=== PATIENT | female | born 1945 | race African-American/Black ===

== ENCOUNTER 2016-08-02 10:41 | Day surgery (SDC) | payer MEDICARE ==
--- NOTE | 2016-07-31 15:06 | PDOC1 ---
History and Physical Date of Admission Date of Admission DATE: 08/02/16 Identification/Chief Complaint Chief Complaint right leg wound status post right total knee arthroplasty Source Source: Chart review History of Present Illness History of Present Illness Kimi is a 71 year old female who had right total knee arthroplasty on . She developed a fracture blister laterally that has been managed with Silvadene, Santyl, and daily dressing changes. She has seen the wound care clinic who recommended surgical debridement of the wound. Past Medical History Cardiovascular: HTN, Hyperlipidemia Psych: Depression Musculoskeletal: Osteoarthritis Endocrine: Diabetes Past Surgical History Past Surgical History: Total knee replacement (right - 04/30/16) Social History Smoke: No ALCOHOL: none Drugs: None Current Medications Current Medications Active Scripts Active Aspirin Ec (Aspirin) 325 Mg Tablet.dr 325 Mg PO BID 30 Days Reported Clindamycin Hcl 150 Mg Capsule 150 Mg PO TID Percocet 5-325 Mg Tablet (Oxycodone/Acetaminophen) 1 Each Tablet 1-2 Tab PO Q4- 6HRS Calcium 600 + Vit D 200 Tablet (Calcium Carbonate/Vitamin D3) 1 Each Tablet 1 Each PO BID Hair, Skin & Nails (Multivitamin With Minerals) 1 Each Tablet 1 Each PO DAILY Carvedilol 12.5 Mg Tablet 12.5 Mg PO BIDWMEALS Lovastatin 40 Mg Tablet 40 Mg PO HS Metformin Hcl 1,000 Mg Tablet 1 Tab PO BID Hydrochlorothiazide Tablet (Hydrochlorothiazide) 12.5 Mg Tablet 25 Mg PO DAILY Novolin N (Nph, Human Insulin Isophane) 100 Unit/1 Ml Vial 25 Unit SQ DAILYBFRSUP Novolin N (Nph, Human Insulin Isophane) 100 Unit/1 Ml Vial 40 Unit SQ DAILYWBKFT Glipizide 5 Mg Tablet 5 Mg PO DAILY Lisinopril 40 Mg Tablet 40 Mg PO DAILY Citalopram Hbr (Citalopram Hydrobromide) 40 Mg Tablet 40 Mg PO DAILY Allergies Allergies: Uncoded Allergies: METAL (Adverse Reaction, Intermediate, Rash, 12/29/15) Physical Exam General: Alert, Oriented X3, Cooperative, No acute distress HEENT: Atraumatic Lungs: Normal air movement Heart: RRR Abdomen: Soft Extremities: Other (Continued areas of necrotic skin laterally 10 x 10 x 10 cm triangular. Full-thickness skin necrosis, with surrounding granulation tissue. No drainage. The knee itself seems benign with good range of motion and no effusion) VTE Prophylaxis Ordered VTE Prophylaxis Devices: Yes VTE Pharmacological Prophylaxi: Yes Assessment/Plan Assessment/Plan Eschar of lateral lower leg status post right total knee replacement on 04/30/16. The lateral eschar has been treated with Santyl, Silvadene, and daily dressing changes, without much improvement. She has been seen at the wound care clinic who recommended surgical debridement. Dr. Lance agrees with this plan. This will be scheduled at [facility] on 08/02/16 at 1pm. CHELSEA SHEPHERD Jul 31, 2016 15:06
[~2016-08-02] VITALS: Ht 172.7 cm; Wt 104.3 kg
[~2016-08-02 10:41] MED LIST: AMOX1TAB61 PO; ASPI325T11 PO; ASPI81TA2 PO; BUPIVACAINE-EPI 0.25%-1:200000 50 ML VIAL. ONE; CALC1TAB75 PO; CARV12.52 PO; CEFAZOLIN 2GM PREMIX 50 ML IV ONE; CELE200C PO; CITA40TA5 PO; CLIN-44 PO; DIPHENHYDRAMINE 50 MG/ML VIAL IV PRN; FENTANYL PF 100 MCG/2 ML VIAL. IV PRN; FERR-26 PO; GLIP5TAB10 PO; HYDR12.58 PO; HYDROMORPHONE 2 MG/ML VIAL. IV PRN; IBUP-1060 PO; IV RINGERS,LACTATED 1000ML 1,000 ML IV SCH; LIDOCAINE 1% 1 ML SYRINGE. ID PRN; LISI40TA PO; LOVA40TA2 PO; MELO-156 PO; MEPERIDINE PF 25 MG/ML VIAL. IV PRN; METF10002 PO; MIDAZOLAM HCL 2 MG/2 ML VIAL. IV PRN; MORPHINE SULFATE 4 MG/ML DISP.SYRIN. IV PRN; MULT-55 PO; NPH,100V4 SQ; OXYC-323 PO; PROCHLORPERAZINE 10 MG/2 ML VIAL. IV PRN
[2016-08-02] MEDS ORDERED: FENTANYL PF 100 MCG/2 ML VIAL. ONE (11:43)
[2016-08-02] MEDS ORDERED: DEXAMETHASONE SOD PHOS 20 MG/5 ML VIAL. ONE (11:43)
[2016-08-02] MEDS ORDERED: LIDOCAINE 2% 100 MG/5 ML DISP.SYRIN. ONE (11:43)
[2016-08-02] MEDS ORDERED: SEVOFLURANE 61 TO 120 MINUTES. IH ONE (11:43)
[2016-08-02] MEDS ORDERED: ONDANSETRON PF 4 MG/2 ML VIAL. ONE (11:43)
[2016-08-02] MEDS ORDERED: PROPOFOL 20 ML IV ONE (11:43)
[2016-08-02] MEDS ORDERED: MIDAZOLAM HCL 2 MG/2 ML VIAL. ONE (12:24)
[2016-08-02] MEDS ORDERED: SUCCINYLCHOLINE 200 MG/10 ML VIAL. ONE (12:40)
[2016-08-02] MEDS ORDERED: OXYC-323 PO (13:53)
[2016-08-02] MEDS ORDERED: OXYCODONE/APAP 5/325 TABLET. PO ONE (14:00)
--- NOTE | 2016-08-02 14:10 | OP ---
DATE OF SURGERY: 08/02/2016 PREOPERATIVE DIAGNOSIS: Right leg ulcer, open wound. POSTOPERATIVE DIAGNOSIS: Right leg ulcer, open wound. PROCEDURE: Debridement of skin and subcutaneous tissue, full thickness skin and subcutaneous tissue ulcer, right leg. SURGEON: Wiliam Lance MD TRAFFIC PERSONNEL SUPERVISOR: Dianelys Carlson PA-C ANESTHESIA: General. ESTIMATED BLOOD LOSS: 25 mL. COMPLICATIONS: None. SPECIMENS: Deep cultures. DRAINS: None. INDICATIONS: The patient is a 71-year-old woman who had a right total knee arthroplasty on 04/30/2016. She developed blisters and eschar laterally, which was felt initially to perhaps be related to a tight dressing such as an Aquacel dressing that did not stretch as the legs swelled. She developed a high grade area of ulceration lateral to the incision. Her knee has never looked infected, and this seems to be a superficial problem that has caused the superficial skin to in a localized area. This has been treated topically with topical medications such as Silvadene, treated with some oral antibiotics, and also with topical Santyl. Recently in the last 10 days or so, the area became malodorous, and there seems to be some purulent drainage beneath the area of eschar. Again, it does not seem to involve the knee joint proper and has really just in the lateral soft tissues. She has been to the Wound Care Clinic for care, and upon discussion with the them, we decided debridement would be the best course of action followed by further dressing changes and perhaps a wound VAC application. She and I discussed the risks and benefits of surgery. I recommended the surgery and discussed potential risks such as further wound healing problems and need for additional surgeries, or possible deep infection. All of her questions about surgery were answered and she desired to proceed. A written consent was obtained. PROCEDURE IN DETAIL: The patient was identified in the preoperative holding area. The correct right knee was marked by me. She was taken to the operating room where a general anesthetic was used. Preoperative antibiotics were given intravenously. A tourniquet was used on the thigh, and applied, but never inflated. The limb was prepped sterilely with Betadine circumferentially and sterile drapes were applied with an impervious stockinette over the lower leg. The darkened, blacked eschar and superficial necrotic skin was debrided sharply with Metzenbaum scissors. Beneath that there was a little bit of green purulent drainage, setting beneath the blackened eschar and on top of the underlying granulation tissue, fascia and adipose tissue. I took cultures of his underlying area, which seemed to be the area that was foul smelling. I then did and aggressive debridement using curettes, rongeurs, irrigation, and some sharp dissection and excised additional skin, subcutaneous tissue and adipose tissue. I cut down to the level of the fascia, around the knee, near the patellar tendon, but I did not see any exposed hardware and I did not penetrate through the fascia as this area seems viable. There was no entry to the knee joint that I am seeing. I did this several times with several rounds of irrigation, curettage, and debridement of nonviable tissue until I got back to a nice healthy stable pink bleeding base of tissue. This leaves primarily a triangular shaped defect, which is 2 cm deep at its deepest point proximally, and gets thinner as it goes laterally and distally. It is maximal measurements 11 cm x 10 cm x 2 cm using the standard length, width and height measurements. It is really a triangular defect, and the length of the triangle are 11 cm, 10 cm, and 9 cm. It is again 2 cm deep. After copious irrigation a final time and change of outer gloves, I used Bovie electrocautery for careful hemostasis. All of the remaining tissue appears viable and there is no entry to the knee joint. Xeroform and a light sterile dressing were applied with some gauze packing in the 2-cm defect, and then sterile outer dressing was applied with 4 x 4s, ABD, and an Ankur wrap. The plan will be for her to attend the Wound Clinic on Friday for VAC application. Needle and sponge counts were correct. There were no apparent complications. Wiliam Lance MD DR: RUBI/shira JOB#: [id number] / [id number]
[2016-08-19 10:39] VITALS: BP 127/69
--- NOTE | 2016-08-25 14:17 | PDOC ---
BRIEF OPERATIVE NOTE Date: Aug 02, 2016 Pre-Op Diagnosis right leg ulcer, open wound Post-Op Diagnosis right leg ulcer, open wound Procedure Performed debridement of skin and subcutaneous tissue, full thickness right leg Surgeon iqra yeager Anesthesia Type: General Blood Loss 25 mL Specimens Obtained deep cultures Findings right leg ulcer, open wound Complications none TADEO NAM MD Aug 25, 2016 14:17
== END 2016-08-02 15:15 | disposition home or self-care (01) ==
LOC: SURG 10:41 → UNDOADMIN 10:41 → OPSVCIP 10:41 → EDSTATUS 13:00 → UNDODISIN 15:15 → SURG 15:15 → EDSTATUS 08-23 13:00
PROVIDERS: ATTEND Orthopaedic Surgery
DX: T81.89XA Other complications of procedures, not elsewhere classified, initial encounter (principal); E11.622 Type 2 diabetes mellitus with other skin ulcer; L97.819 Non-pressure chronic ulcer of other part of right lower leg with unspecified severity; E78.5 Hyperlipidemia, unspecified; I10 Essential (primary) hypertension; M19.90 Unspecified osteoarthritis, unspecified site; F32.9 Major depressive disorder, single episode, unspecified; Z96.651 Presence of right artificial knee joint; Z79.899 Other long term (current) drug therapy; Z79.82 Long term (current) use of aspirin; Z98.890 Other specified postprocedural states; Y83.9 Surgical procedure, unspecified as the cause of abnormal reaction of the patient, or of later complication, without mention of misadventure at the time of the procedure
CPT/HCPCS: 11042; 11045; 82947; 87071; 87075; 87186; 87205; J0330; J0690; J1100; J2250; J2405; J2704; J3010; J7120

== ENCOUNTER 2016-09-02 12:08 | Inpatient (IN) | payer MEDICARE ==
[~2016-09-02] VITALS: Ht 172.7 cm; Wt 102.1 kg
[~2016-09-02 12:08] MED LIST changes: -BUPIVACAINE-EPI 0.25%-1:200000 50 ML VIAL. ONE; -CEFAZOLIN 2GM PREMIX 50 ML IV ONE; -DIPHENHYDRAMINE 50 MG/ML VIAL IV PRN; -FENTANYL PF 100 MCG/2 ML VIAL. IV PRN; -HYDROMORPHONE 2 MG/ML VIAL. IV PRN; -IV RINGERS,LACTATED 1000ML 1,000 ML IV SCH; -LIDOCAINE 1% 1 ML SYRINGE. ID PRN; -MEPERIDINE PF 25 MG/ML VIAL. IV PRN; -MIDAZOLAM HCL 2 MG/2 ML VIAL. IV PRN; -MORPHINE SULFATE 4 MG/ML DISP.SYRIN. IV PRN; -PROCHLORPERAZINE 10 MG/2 ML VIAL. IV PRN
[2016-09-02 14:02] LABS: BASO # 0.1 x10^3/uL (0.0-0.2); BASO % 1 % (0-3); EOS % 1 % (0-3); HEMOGLOBIN 11.5 g/dL (12.0-15.5); LYMPH # 1.9 x10^3/uL (1.0-4.8); LYMPH % 20 % (24-48); MEAN CORPUSCULAR HEMOGLOBIN 23 pg (25-35); MEAN CORPUSCULAR HGB CONC 32 g/dL (31-37); MEAN CORPUSCULAR VOLUME 72 fL (79-100); MONO % 9 % (0-9); NEUT % 70 % (31-73); PLATELET COUNT 341 x10^3/uL (140-400); RED CELL DISTRIBUTION WIDTH 18.4 % (11.5-14.5); WHITE BLOOD COUNT 9.5 x10^3/uL (4.0-11.0)
[2016-09-02 14:18] LABS: CALCIUM 9.8 mg/dL (8.5-10.1); CREATININE 0.9 mg/dL (0.6-1.0); GFR 75.1
[2016-09-02 14:23] LABS: ALBUMIN 2.6 g/dL (3.4-5.0); DIRECT BILIRUBIN 0.1 mg/dL (0.0-0.2); TOTAL BILIRUBIN 0.3 mg/dL (0.2-1.0); TOTAL PROTEIN 8.9 g/dL (6.4-8.2)
[2016-09-02] MEDS ORDERED: ONDANSETRON PF 4 MG/2 ML VIAL. IV PRN (15:15)
--- NOTE | 2016-09-02 15:20 | PHYS DOC ---
Past Medical History Past Medical History: Diabetes-Type II, High Cholesterol, Hypertension Additional Past Medical Histor: ostroporosis Past Surgical History: Other Additional Past Surgical Histo: right knee replacement, left rotor cuff repair , bilateral cataratct Alcohol Use: None Drug Use: None Adult General Chief Complaint Chief Complaint: OTHER COMPLAINTS HPI HPI 71-year-old female presenting to the emergency department from wound clinic for a nonhealed surgical wound of the right knee. She reports having a fever at home with pain and swelling of the right knee. Her pain is sharp nonradiating moderate and without alleviating factors. She denies weakness or numbness distally. She denies any cough or abdominal pain. Review of systems is negative for chest pain shortness of breath headache nausea or vomiting. All other review of systems is negative unless otherwise noted in history of present illness. Review of Systems Review of Systems SEE ABOVE. Allergies Allergies Allergies Uncoded Allergies Type Severity Reaction Last Updated Verified METAL Adverse Reaction Intermediate Rash 12/29/15 Physical Exam Physical Exam Constitutional: Well developed, well nourished, no acute distress, non-toxic appearance. HENT: Normocephalic, atraumatic, bilateral external ears normal, oropharynx moist, no oral exudates, nose normal. [] Eyes: PERRLA, EOMI, conjunctiva normal, no discharge. Neck: Normal range of motion, no tenderness, supple, no stridor. [] Cardiovascular:Heart rate regular rhythm, no murmur [] Lungs & Thorax: Bilateral breath sounds clear to auscultation Abdomen: Bowel sounds normal, soft, no tenderness, no masses, no pulsatile masses. [] Skin: Warm, dry, no erythema, no rash. [] Back: No tenderness, no CVA tenderness. Extremities: The patient's right lower extremity shows a swollen knee with wound cause currently and an open wound with dry dressing on top. It is warm to touch and without associated erythema. The patient is able to wiggle toes and has normal sensation of the foot distally. Palpable pulse distally with 2 second cap refill. Pain with passive range of motion of the knee. Other extremities are nontender with normal range of motion. Neurologic: Alert and oriented X 3, normal motor function, normal sensory function, no focal deficits noted. Psychologic: Affect normal, judgement normal, mood normal. [] Current Patient Data Vital Signs Vital Signs Date Time Temp Pulse Resp B/P Pulse Ox O2 Delivery O2 Flow Rate FiO2 09/02/16 14:06 99.8 96 20 180/81 95 Room Air 99.8 Lab Values Laboratory Tests Test 09/02/16 13:52 White Blood Count 9.5x10^3/uL (4.0-11.0) Red Blood Count 5.00x10^6/uL (3.50-5.40) Hemoglobin 11.5g/dL (12.0-15.5) L Hematocrit 36.0% (36.0-47.0) Mean Corpuscular Volume 72fL (79-100) L Mean Corpuscular Hemoglobin 23pg (25-35) L Mean Corpuscular Hemoglobin Concent 32g/dL (31-37) Red Cell Distribution Width 18.4% (11.5-14.5) H Platelet Count 341x10^3/uL (140-400) # Neutrophils (%) (Auto) 70% (31-73) Lymphocytes (%) (Auto) 20% (24-48) L Monocytes (%) (Auto) 9% (0-9) Eosinophils (%) (Auto) 1% (0-3) Basophils (%) (Auto) 1% (0-3) Neutrophils # (Auto) 6.6x10^3uL (1.8-7.7) Lymphocytes # (Auto) 1.9x10^3/uL (1.0-4.8) Monocytes # (Auto) 0.9x10^3/uL (0.0-1.1) Eosinophils # (Auto) 0.0x10^3/uL (0.0-0.7) Basophils # (Auto) 0.1x10^3/uL (0.0-0.2) Sodium Level 138mmol/L (136-145) Potassium Level 4.0mmol/L (3.5-5.1) Chloride Level 102mmol/L (98-107) Carbon Dioxide Level 29mmol/L (21-32) Anion Gap 7 (6-14) Blood Urea Nitrogen 11mg/dL (7-20) Creatinine 0.9mg/dL (0.6-1.0) Estimated GFR (Cockcroft-Gault) 75.1 Glucose Level 204mg/dL (70-99) H Lactic Acid Level 1.5mmol/L (0.4-2.0) Calcium Level 9.8mg/dL (8.5-10.1) Total Bilirubin 0.3mg/dL (0.2-1.0) Direct Bilirubin 0.1mg/dL (0.0-0.2) Aspartate Amino Transferase (AST) 10U/L (15-37) L Alanine Aminotransferase (ALT) 8U/L (14-59) L Alkaline Phosphatase 73U/L (46-116) Troponin I Quantitative 0.040ng/mL (0.000-0.055) HO-Vtl-U-Type Natriuretic Peptide 625pg/mL (0-124) H Total Protein 8.9g/dL (6.4-8.2) H Albumin 2.6g/dL (3.4-5.0) L Lipase 117U/L (73-393) Laboratory Tests 09/02/16 13:52 Laboratory Tests 09/02/16 13:52 EKG EKG [] Radiology/Procedures Radiology/Procedures [] Course & Med Decision Making Course & Med Decision Making Pertinent Labs and Imaging studies reviewed. (See chart for details) [] 71-year-old female presenting to the emergency department with possible acute on chronic worsening pain and swelling of the right knee. Sent here from wound clinic concern for possible infection. On evaluation the patient was afebrile here. Hypertensive. Physical exam of the knee showed swelling with warmth. Open wound currently had previously placed wound cause. Blood cultures along with wound cultures sent. Patient was admitted for further evaluation workup and care. Consultation with orthopedic surgery and infectious disease was placed for guidance of therapy. Dragon Disclaimer Dragon Disclaimer This electronic medical record was generated, in whole or in part, using a voice recognition dictation system. Departure Departure Impression: Primary Impression: Right knee pain Additional Impression: Swelling of knee joint, right Disposition: ADMITTED INPATIENT Admitting Physician: Kishan Pratt Condition: STABLE Referrals: UNKNOWN PCP NAME (PCP) Problem Qualifiers RADHA MALDONADO MD Sep 02, 2016 15:20
--- NOTE | 2016-09-02 16:02 | RAD ---
Indication pain and swelling. Knee replacement several months previously. AP oblique and lateral views of the right knee were obtained. Note is made of a postoperative examination 04/30/2016. A total knee replacement is noted. An acute bony finding is not seen. There is a moderately large knee joint effusion. IMPRESSION: No acute bony finding. Knee joint effusion.
[2016-09-02] MEDS ORDERED: PIP/TAZO PER PHARMACY MC PRN (17:30)
[2016-09-02] MEDS: VANCOMYCIN PER PHARMACY MC PRN (17:33)
[2016-09-02] MEDS: MORPHINE SULFATE 2 MG/ML DISP.SYRIN. IV PRN ×3 (18:09→23:39)
[2016-09-02] MEDS: PIPERACILLIN/TAZOBACTAM 3.375 GM in IV NORMAL SALINE 50ML 50 ML IV SCH ×2 (18:17→23:36)
[2016-09-02 19:00] VITALS: BP 158/84
[2016-09-02] MEDS ORDERED: VANCOMYCIN 2 GM in IV NORMAL SALINE 500ML BAG 500 ML IV ONE (20:00)
[2016-09-02 22:58] VITALS: BP 141/66
--- NOTE | 2016-09-03 00:41 | HP ---
ADMIT DATE: 09/02/2016 CHIEF COMPLAINT: Right knee pain, discharge and a nonhealing surgical wound. HISTORY OF PRESENT ILLNESS: The patient is a pleasant 71-year-old female who has had a complex right knee issue. Apparently it has been replaced. She also states it has been debrided once before. Basically, she presents again today with an infected right knee. I have discussed the case with the ER physician. We are going to start her on IV antibiotics and consult orthopedics. PAST MEDICAL HISTORY: Diabetes, hypertension, hyperlipidemia, osteoporosis, right knee replacement, left rotator cuff repair, bilateral cataracts. ALLERGIES: Metals. FAMILY HISTORY: Coronary artery disease. SOCIAL HISTORY: She does not drink, smoke or take drugs. MEDICATIONS: Reviewed, please refer to the MRAD. REVIEW OF SYSTEMS: GENERAL: No history of weight change, weakness or fevers. SKIN: No bruising, hair changes or rashes. EYES: No blurred, double or loss of vision. NOSE AND THROAT: No history of nosebleeds, hoarseness or sore throat. HEART: No history of palpitations, chest pain or shortness of breath on exertion. LUNGS: Denies cough, hemoptysis, wheezing or shortness of breath. GASTROINTESTINAL: Denies changes in appetite, nausea, vomiting, diarrhea or constipation. GENITOURINARY: No history of frequency, urgency, hesitancy or nocturia. NEUROLOGIC: Denies history of numbness, tingling, tremor or weakness. PSYCHIATRIC: No history of panic, anxiety or depression. ENDOCRINE: No history of heat or cold intolerance, polyuria or polydipsia. EXTREMITIES: She complains of right knee pain and drainage. PHYSICAL EXAMINATION: VITAL SIGNS: Temperature afebrile at 99.8, pulse 98, respirations 20, blood pressure 158/84. GENERAL: She is alert, cooperative, anxious. HEART: Normal S1, S2. LUNGS: Clear. ABDOMEN: Soft, positive bowel sounds. EXTREMITIES: The right knee has clean bandaging. There is some oozing under the bandage and we can see maybe 5 mL of blood. ENDOCRINE: No thyromegaly. LYMPHATICS: No cervical nodes. HEMATOPOIETIC: No bruising. LABORATORY DATA: White count 9, hemoglobin 11, platelets 341. Other labs are pending. ASSESSMENT AND PLAN: Probable infected right knee. Patient is being admitted. We will start IV antibiotics. Consult Orthopedics, Dr. Wiliam Lance. Continue home medicines. Frequent labs, PT, OT, wound care. RIK SIMPSON DO DR: ENRIQUE/shira JOB#: [id number] / [id number]
[2016-09-03] MEDS: MORPHINE SULFATE 2 MG/ML DISP.SYRIN. IV PRN ×4 (01:33→11:10)
[2016-09-03 03:00] VITALS: BP 144/66
[2016-09-03] MEDS: PIPERACILLIN/TAZOBACTAM 3.375 GM in IV NORMAL SALINE 50ML 50 ML IV SCH ×3 (06:00→18:14)
[2016-09-03 07:00] VITALS: BP 107/86
[2016-09-03 07:18] LABS: BASO % 0 % (0-3); EOS % 2 % (0-3); HEMATOCRIT 30.6 % (36.0-47.0); HEMOGLOBIN 9.7 g/dL (12.0-15.5); LYMPH # 1.5 x10^3/uL (1.0-4.8); LYMPH % 19 % (24-48); MEAN CORPUSCULAR HEMOGLOBIN 23 pg (25-35); MEAN CORPUSCULAR HGB CONC 32 g/dL (31-37); MEAN CORPUSCULAR VOLUME 73 fL (79-100); MONO % 12 % (0-9); NEUT % 67 % (31-73); PLATELET COUNT 266 x10^3/uL (140-400); RED BLOOD COUNT 4.21 x10^6/uL (3.50-5.40); RED CELL DISTRIBUTION WIDTH 18.2 % (11.5-14.5); WHITE BLOOD COUNT 7.9 x10^3/uL (4.0-11.0)
[2016-09-03 07:34] LABS: CALCIUM 8.9 mg/dL (8.5-10.1); CREATININE 0.8 mg/dL (0.6-1.0); GFR 86.1; POTASSIUM 3.8 mmol/L (3.5-5.1)
[2016-09-03 11:05] VITALS: BP 137/69
[2016-09-03] MEDS: VANCOMYCIN 1.5 GM in IV NORMAL SALINE 500ML BAG 500 ML IV SCH ×2 (11:07→20:20)
[2016-09-03] MEDS ORDERED: DEXTROSE 50% 25 GM / 50ML DISP.SYRIN. IV PRN (12:15)
--- NOTE | 2016-09-03 12:31 | PDOC ---
Infectious Disease Note ROS ROS GEN: Denies fevers, chills, sweats HEENT: Denies blurred vision, sore throat CV: Denies chest pain RESP: Denies shortness of air, cough GI: Denies n/v/d NEURO: Denies confusion, dizziness MSK: Denies weakness, joint pain/swelling Vital Sign Vital Signs Vital Signs Date Time Temp Pulse Resp B/P Pulse Ox O2 Delivery O2 Flow Rate FiO2 09/03/16 11:05 98.4 87 19 137/69 97 Room Air 98.4 Physical Exam PHYSICAL EXAM GENERAL: NAD, Alert HEENT: PERRL, OC/OP NECK: Supple, no JVD, no LN LUNGS: Clear HEART: S1S2, no gallop, no murmur ABD: Soft, NT, no organomegaly, no rebound EXT: No edema, no cyanosis RAW HIDE TRIMMER: Alert, oriented x 3, no focal neurologic deficit SKIN: No rash IV: ok Labs Lab Laboratory Tests Test 09/02/16 13:52 09/02/16 17:38 09/02/16 20:42 09/03/16 06:38 White Blood Count 9.5x10^3/uL (4.0-11.0) 7.9x10^3/uL (4.0-11.0) Red Blood Count 5.00x10^6/uL (3.50-5.40) 4.21x10^6/uL (3.50-5.40) Hemoglobin 11.5g/dL (12.0-15.5) 9.7g/dL (12.0-15.5) Hematocrit 36.0% (36.0-47.0) 30.6% (36.0-47.0) Mean Corpuscular Volume 72fL (79-100) 73fL (79-100) Mean Corpuscular Hemoglobin 23pg (25-35) 23pg (25-35) Mean Corpuscular Hemoglobin Concent 32g/dL (31-37) 32g/dL (31-37) Red Cell Distribution Width 18.4% (11.5-14.5) 18.2% (11.5-14.5) Platelet Count 341x10^3/uL (140-400) 266x10^3/uL (140-400) Neutrophils (%) (Auto) 70% (31-73) 67% (31-73) Lymphocytes (%) (Auto) 20% (24-48) 19% (24-48) Monocytes (%) (Auto) 9% (0-9) 12% (0-9) Eosinophils (%) (Auto) 1% (0-3) 2% (0-3) Basophils (%) (Auto) 1% (0-3) 0% (0-3) Neutrophils # (Auto) 6.6x10^3uL (1.8-7.7) 5.2x10^3uL (1.8-7.7) Lymphocytes # (Auto) 1.9x10^3/uL (1.0-4.8) 1.5x10^3/uL (1.0-4.8) Monocytes # (Auto) 0.9x10^3/uL (0.0-1.1) 1.0x10^3/uL (0.0-1.1) Eosinophils # (Auto) 0.0x10^3/uL (0.0-0.7) 0.1x10^3/uL (0.0-0.7) Basophils # (Auto) 0.1x10^3/uL (0.0-0.2) 0.0x10^3/uL (0.0-0.2) Sodium Level 138mmol/L (136-145) 137mmol/L (136-145) Potassium Level 4.0mmol/L (3.5-5.1) 3.8mmol/L (3.5-5.1) Chloride Level 102mmol/L (98-107) 103mmol/L (98-107) Carbon Dioxide Level 29mmol/L (21-32) 26mmol/L (21-32) Anion Gap 7 (6-14) 8 (6-14) Blood Urea Nitrogen 11mg/dL (7-20) 9mg/dL (7-20) Creatinine 0.9mg/dL (0.6-1.0) 0.8mg/dL (0.6-1.0) Estimated GFR (Cockcroft-Gault) 75.1 86.1 Glucose Level 204mg/dL (70-99) 289mg/dL (70-99) Lactic Acid Level 1.5mmol/L (0.4-2.0) Calcium Level 9.8mg/dL (8.5-10.1) 8.9mg/dL (8.5-10.1) Total Bilirubin 0.3mg/dL (0.2-1.0) Direct Bilirubin 0.1mg/dL (0.0-0.2) Aspartate Amino Transf (AST/SGOT) 10U/L (15-37) Alanine Aminotransferase (ALT/SGPT) 8U/L (14-59) Alkaline Phosphatase 73U/L (46-116) Troponin I Quantitative 0.040ng/mL (0.000-0.055) EJ-Izh-G-Type Natriuretic Peptide 625pg/mL (0-124) Total Protein 8.9g/dL (6.4-8.2) Albumin 2.6g/dL (3.4-5.0) Lipase 117U/L (73-393) Glucose (Fingerstick) 155mg/dL (70-99) 251mg/dL (70-99) Vancomycin Level Trough 12.6mcg/mL (10.0-20.0) Vancomycin Last Dose Date 09/02/16 Vancomycin Last Dose Time 2052 Test 09/03/16 08:04 09/03/16 11:43 Glucose (Fingerstick) 255mg/dL (70-99) 337mg/dL (70-99) Objective Assessment Right infected Knee with hardware in place H/o Group B strep and Bacteroides DM Anemia Plan Plan of Care Started abx last pm F/u cults/labs/sed rate Await Dr. Casi jovel May need more imaging Thank you # [id number] ALBINO ALEXANDER MD Sep 03, 2016 12:31
[2016-09-03] MEDS: VANCOMYCIN PER PHARMACY MC PRN ×2 (12:45→12:48)
[2016-09-03] MEDS ORDERED: POLYETHYLENE GLYCOL 3350 17 GM PACKET. PO ONE (13:00)
[2016-09-03] MEDS ORDERED: POLYETHYLENE GLYCOL 3350 17 GM PACKET. PO PRN (13:00)
[2016-09-03] MEDS ORDERED: DOCUSATE SODIUM 100 MG CAPSULE PO PRN (13:00)
[2016-09-03] MEDS: MULTIVITAMIN with MINERAL TABLET. PO SCH (13:09)
[2016-09-03] MEDS: HYDROCHLOROTHIAZIDE 25 MG TABLET PO SCH (13:09)
[2016-09-03] MEDS: LISINOPRIL 40 MG TABLET. PO SCH (13:10)
[2016-09-03] MEDS: GLIPIZIDE 5 MG TABLET PO SCH (13:10)
[2016-09-03] MEDS: INSULIN ASPART 300 UNITS/3 ML INSULN.PEN SQ SCH ×3 (13:33→17:14)
[2016-09-03 15:00] VITALS: BP 136/81
[2016-09-03] MEDS ORDERED: LIDOCAINE 1% / SOD BICARB 8.4% 20 ML VIAL. IJ ONE (15:15)
--- NOTE | 2016-09-03 16:08 | PDOC ---
PROGRESS NOTES Chief Complaint Chief Complaint Right knee pain and swelling and discharge ID consulted for infected Knee with hardware in place H/o Group B strep and Bacteroides DM2 Anemia obesity, BMI 34 History of Present Illness History of Present Illness Started abx F/u cults/labs/sed rate Dr. Casi jovel, aspirated, bloody appearance consider MRI in AM, cx pending Vitals Vitals Vital Signs Date Time Temp Pulse Resp B/P Pulse Ox O2 Delivery O2 Flow Rate FiO2 09/03/16 15:00 98.6 91 18 136/81 93 Room Air 98.6 Physical Exam General: Alert, Oriented X3, Cooperative, mild distress Heart: Regular rate, No murmurs Lungs: Clear, Wheezing Abdomen: Normal bowel sounds Extremities: No clubbing, No cyanosis Skin: No rashes Labs LABS Laboratory Tests Test 09/02/16 17:38 09/02/16 20:42 09/03/16 06:38 09/03/16 08:04 Glucose (Fingerstick) 155mg/dL (70-99) 251mg/dL (70-99) 255mg/dL (70-99) White Blood Count 7.9x10^3/uL (4.0-11.0) Red Blood Count 4.21x10^6/uL (3.50-5.40) Hemoglobin 9.7g/dL (12.0-15.5) Hematocrit 30.6% (36.0-47.0) Mean Corpuscular Volume 73fL (79-100) Mean Corpuscular Hemoglobin 23pg (25-35) Mean Corpuscular Hemoglobin Concent 32g/dL (31-37) Red Cell Distribution Width 18.2% (11.5-14.5) Platelet Count 266x10^3/uL (140-400) Neutrophils (%) (Auto) 67% (31-73) Lymphocytes (%) (Auto) 19% (24-48) Monocytes (%) (Auto) 12% (0-9) Eosinophils (%) (Auto) 2% (0-3) Basophils (%) (Auto) 0% (0-3) Neutrophils # (Auto) 5.2x10^3uL (1.8-7.7) Lymphocytes # (Auto) 1.5x10^3/uL (1.0-4.8) Monocytes # (Auto) 1.0x10^3/uL (0.0-1.1) Eosinophils # (Auto) 0.1x10^3/uL (0.0-0.7) Basophils # (Auto) 0.0x10^3/uL (0.0-0.2) Sodium Level 137mmol/L (136-145) Potassium Level 3.8mmol/L (3.5-5.1) Chloride Level 103mmol/L (98-107) Carbon Dioxide Level 26mmol/L (21-32) Anion Gap 8 (6-14) Blood Urea Nitrogen 9mg/dL (7-20) Creatinine 0.8mg/dL (0.6-1.0) Estimated GFR (Cockcroft-Gault) 86.1 Glucose Level 289mg/dL (70-99) Calcium Level 8.9mg/dL (8.5-10.1) Vancomycin Level Trough 12.6mcg/mL (10.0-20.0) Vancomycin Last Dose Date 09/02/16 Vancomycin Last Dose Time 2052 Test 09/03/16 11:43 Glucose (Fingerstick) 337mg/dL (70-99) Review of Systems Review of Systems knee pain, lethargy Assessment and Plan Assessmemt and Plan Problems Medical Problems: (1) Infection of knee Status: Acute (2) Right knee pain Status: Acute (3) Swelling of knee joint, right Status: Acute Problems: Comment Review of Relevant I have reviewed the following items deng (where applicable) has been applied. Labs Laboratory Tests Test 09/02/16 13:52 09/02/16 17:38 09/02/16 20:42 09/03/16 06:38 White Blood Count 9.5x10^3/uL (4.0-11.0) 7.9x10^3/uL (4.0-11.0) Red Blood Count 5.00x10^6/uL (3.50-5.40) 4.21x10^6/uL (3.50-5.40) Hemoglobin 11.5g/dL (12.0-15.5) 9.7g/dL (12.0-15.5) Hematocrit 36.0% (36.0-47.0) 30.6% (36.0-47.0) Mean Corpuscular Volume 72fL (79-100) 73fL (79-100) Mean Corpuscular Hemoglobin 23pg (25-35) 23pg (25-35) Mean Corpuscular Hemoglobin Concent 32g/dL (31-37) 32g/dL (31-37) Red Cell Distribution Width 18.4% (11.5-14.5) 18.2% (11.5-14.5) Platelet Count 341x10^3/uL (140-400) 266x10^3/uL (140-400) Neutrophils (%) (Auto) 70% (31-73) 67% (31-73) Lymphocytes (%) (Auto) 20% (24-48) 19% (24-48) Monocytes (%) (Auto) 9% (0-9) 12% (0-9) Eosinophils (%) (Auto) 1% (0-3) 2% (0-3) Basophils (%) (Auto) 1% (0-3) 0% (0-3) Neutrophils # (Auto) 6.6x10^3uL (1.8-7.7) 5.2x10^3uL (1.8-7.7) Lymphocytes # (Auto) 1.9x10^3/uL (1.0-4.8) 1.5x10^3/uL (1.0-4.8) Monocytes # (Auto) 0.9x10^3/uL (0.0-1.1) 1.0x10^3/uL (0.0-1.1) Eosinophils # (Auto) 0.0x10^3/uL (0.0-0.7) 0.1x10^3/uL (0.0-0.7) Basophils # (Auto) 0.1x10^3/uL (0.0-0.2) 0.0x10^3/uL (0.0-0.2) Sodium Level 138mmol/L (136-145) 137mmol/L (136-145) Potassium Level 4.0mmol/L (3.5-5.1) 3.8mmol/L (3.5-5.1) Chloride Level 102mmol/L (98-107) 103mmol/L (98-107) Carbon Dioxide Level 29mmol/L (21-32) 26mmol/L (21-32) Anion Gap 7 (6-14) 8 (6-14) Blood Urea Nitrogen 11mg/dL (7-20) 9mg/dL (7-20) Creatinine 0.9mg/dL (0.6-1.0) 0.8mg/dL (0.6-1.0) Estimated GFR (Cockcroft-Gault) 75.1 86.1 Glucose Level 204mg/dL (70-99) 289mg/dL (70-99) Lactic Acid Level 1.5mmol/L (0.4-2.0) Calcium Level 9.8mg/dL (8.5-10.1) 8.9mg/dL (8.5-10.1) Total Bilirubin 0.3mg/dL (0.2-1.0) Direct Bilirubin 0.1mg/dL (0.0-0.2) Aspartate Amino Transf (AST/SGOT) 10U/L (15-37) Alanine Aminotransferase (ALT/SGPT) 8U/L (14-59) Alkaline Phosphatase 73U/L (46-116) Troponin I Quantitative 0.040ng/mL (0.000-0.055) TQ-Ktc-T-Type Natriuretic Peptide 625pg/mL (0-124) Total Protein 8.9g/dL (6.4-8.2) Albumin 2.6g/dL (3.4-5.0) Lipase 117U/L (73-393) Glucose (Fingerstick) 155mg/dL (70-99) 251mg/dL (70-99) Vancomycin Level Trough 12.6mcg/mL (10.0-20.0) Vancomycin Last Dose Date 09/02/16 Vancomycin Last Dose Time 2052 Test 09/03/16 08:04 09/03/16 11:43 Glucose (Fingerstick) 255mg/dL (70-99) 337mg/dL (70-99) Laboratory Tests Test 09/02/16 17:38 09/02/16 20:42 09/03/16 06:38 09/03/16 08:04 Glucose (Fingerstick) 155mg/dL (70-99) 251mg/dL (70-99) 255mg/dL (70-99) White Blood Count 7.9x10^3/uL (4.0-11.0) Red Blood Count 4.21x10^6/uL (3.50-5.40) Hemoglobin 9.7g/dL (12.0-15.5) Hematocrit 30.6% (36.0-47.0) Mean Corpuscular Volume 73fL (79-100) Mean Corpuscular Hemoglobin 23pg (25-35) Mean Corpuscular Hemoglobin Concent 32g/dL (31-37) Red Cell Distribution Width 18.2% (11.5-14.5) Platelet Count 266x10^3/uL (140-400) Neutrophils (%) (Auto) 67% (31-73) Lymphocytes (%) (Auto) 19% (24-48) Monocytes (%) (Auto) 12% (0-9) Eosinophils (%) (Auto) 2% (0-3) Basophils (%) (Auto) 0% (0-3) Neutrophils # (Auto) 5.2x10^3uL (1.8-7.7) Lymphocytes # (Auto) 1.5x10^3/uL (1.0-4.8) Monocytes # (Auto) 1.0x10^3/uL (0.0-1.1) Eosinophils # (Auto) 0.1x10^3/uL (0.0-0.7) Basophils # (Auto) 0.0x10^3/uL (0.0-0.2) Sodium Level 137mmol/L (136-145) Potassium Level 3.8mmol/L (3.5-5.1) Chloride Level 103mmol/L (98-107) Carbon Dioxide Level 26mmol/L (21-32) Anion Gap 8 (6-14) Blood Urea Nitrogen 9mg/dL (7-20) Creatinine 0.8mg/dL (0.6-1.0) Estimated GFR (Cockcroft-Gault) 86.1 Glucose Level 289mg/dL (70-99) Calcium Level 8.9mg/dL (8.5-10.1) Vancomycin Level Trough 12.6mcg/mL (10.0-20.0) Vancomycin Last Dose Date 09/02/16 Vancomycin Last Dose Time 2052 Test 09/03/16 11:43 Glucose (Fingerstick) 337mg/dL (70-99) Microbiology 09/02/16 Blood Culture - Preliminary, Resulted NO GROWTH AFTER 1 DAY 09/02/16 Gram Stain - Final, Complete Medications Current Medications Ondansetron HCl (Zofran) 4 mg PRN Q8HRS PRN IV NAUSEA/VOMITING; Start 09/02/16 at 15:15; Stop 09/03/16 at 15:14; Status DC Morphine Sulfate 2 mg PRN Q2HR PRN IV PAIN Last administered on 09/03/16 11:10 ; Start 09/02/16 at 15:15; Stop 09/03/16 at 15:14; Status DC Vancomycin HCl (Vanco Per Pharmacy) 1 each PRN DAILY PRN MC SEE COMMENTS Last administered on 09/03/16 12:48; Start 09/02/16 at 17:30 Piperacillin Sod/ Tazobactam Sod 1 each 1 each PRN DAILY PRN MC SEE COMMENTS; Start 09/02/16 at 17:30 Piperacillin Sod/ Tazobactam Sod 3.375 gm/Sodium Chloride 50 ml @ 100 mls/hr Q6HRS IV Last administered on 09/03/16 13:18; Start 09/02/16 at 18:00 Vancomycin HCl 2 gm/Sodium Chloride 500 ml @ 250 mls/hr 1X ONCE IV Last administered on 09/02/16 20:53; Start 09/02/16 at 20:00; Stop 09/02/16 at 21:59; Status DC Vancomycin HCl/ Sodium Chloride (Iv Sodium Chloride 0.9% 500ml Bag) 500 ml @ 250 mls/hr Q12H IV Last administered on 09/03/16 11:07; Start 09/03/16 at 08:00 Vancomycin HCl 1 each 1X ONCE MC ; Start 09/03/16 at 07:30; Stop 09/03/16 at 07: 31; Status DC Aspirin (Ecotrin) 325 mg BID PO ; Start 09/03/16 at 21:00 Carvedilol (Coreg) 12.5 mg BIDWMEALS PO ; Start 09/03/16 at 17:00 Glipizide (Glucotrol) 5 mg DAILY PO Last administered on 09/03/16 13:10; Start 09/03/16 at 12:30 Lisinopril (Prinivil) 40 mg DAILY PO Last administered on 09/03/16 13:10; Start 09/03/16 at 12:30 Metformin HCl (Glucophage) 1,000 mg BIDWMEALS PO ; Start 09/03/16 at 17:00 Insulin Detemir (Levemir) 20 units DAILYWSUP SQ ; Start 09/03/16 at 17:00 Insulin Detemir (Levemir) 40 units DAILYWBKFT SQ ; Start 09/04/16 at 08:00 Oxycodone/ Acetaminophen (Percocet 5/325) 1 tab PRN Q6HRS PRN PO pain; Start at 12:00 Calcium/Vitamin D (Oscal D 500mg/ 200uts) 1 tab BIDWMEALS PO ; Start 09/03/16 at 17:00 Citalopram Hydrobromide (Celexa) 40 mg DAILY PO ; Start 09/04/16 at 09:00 Hydrochlorothiazide (Hydrodiuril) 25 mg DAILY PO Last administered on 09/03/16 13:09; Start 09/03/16 at 12:30 Atorvastatin Calcium (Lipitor) 10 mg QHS PO ; Start 09/03/16 at 21:00 Multivitamins/ Calcium (Thera M Plus) 1 tab DAILY PO Last administered on 13:09; Start 09/03/16 at 12:30 Insulin Aspart (Novolog) 0-7 UNITS TIDWMEALS SQ Last administered on 09/03/16 13:33; Start 09/03/16 at 13:00 Dextrose 12.5 gm PRN Q15MIN PRN IV SEE COMMENTS; Start 09/03/16 at 12:15 Insulin Aspart (Novolog) 10 units TIDAC SQ ; Start 09/03/16 at 16:30 Polyethylene Glycol (miraLAX PACKET) 17 gm PRN DAILY PRN PO CONSTIPATION; Start 09/03/16 at 13:00 Polyethylene Glycol (miraLAX PACKET) 17 gm 1X ONCE PO Last administered on 09/03 13:18; Start 09/03/16 at 13:00; Stop 09/03/16 at 13:12; Status DC Docusate Sodium (Colace) 100 mg PRN DAILY PRN PO CONSTIPATION; Start 09/03/16 at 13:00 Lidocaine/Sodium Bicarbonate (Buffered Lidocaine 1%) 20 ml 1X ONCE IJ ; Start 09/03/16 at 15:15; Stop 09/03/16 at 15:16; Status DC Active Scripts Active Aspirin Ec (Aspirin) 325 Mg Tablet.dr 325 Mg PO BID 30 Days Reported Percocet 5-325 Mg Tablet (Oxycodone/Acetaminophen) 1 Each Tablet 1-2 Tab PO Q4- 6HRS LAST DOSE GIVEN: DATE: 08/02/16 TIME: 2:00 NEXT DOSE DUE: DATE: 08/02/16 TIME: 6:00pm as needed for pain Percocet 5-325 Mg Tablet (Oxycodone/Acetaminophen) 1 Each Tablet 1-2 Tab PO Q4- 6HRS Calcium 600 + Vit D 200 Tablet (Calcium Carbonate/Vitamin D3) 1 Each Tablet 1 Each PO BID Hair, Skin & Nails (Multivitamin With Minerals) 1 Each Tablet 1 Each PO DAILY Carvedilol 12.5 Mg Tablet 12.5 Mg PO BIDWMEALS Lovastatin 40 Mg Tablet 40 Mg PO HS Metformin Hcl 1,000 Mg Tablet 1 Tab PO BID Hydrochlorothiazide Tablet (Hydrochlorothiazide) 12.5 Mg Tablet 25 Mg PO DAILY Novolin N (Nph, Human Insulin Isophane) 100 Unit/1 Ml Vial 20 Unit SQ DAILYBFRSUP Novolin N (Nph, Human Insulin Isophane) 100 Unit/1 Ml Vial 40 Unit SQ DAILYWBKFT Glipizide 5 Mg Tablet 5 Mg PO DAILY Lisinopril 40 Mg Tablet 40 Mg PO DAILY Citalopram Hbr (Citalopram Hydrobromide) 40 Mg Tablet 40 Mg PO DAILY Vitals/I & O Vital Sign - Last 24 Hours 09/02/16 09/02/16 09/02/16 09/02/16 16:30 17:00 18:09 19:00 Temp 99.0 99.0 Pulse 100 98 92 Resp 18 20 18 B/P 172/80 180/78 158/84 Pulse Ox 95 93 96 O2 Delivery Room Air Room Air Room Air Room Air 09/02/16 09/02/16 09/02/16 09/03/16 20:55 21:25 23:39 01:33 Pulse Ox 96 O2 Delivery Room Air Room Air Room Air Room Air 09/03/16 09/03/16 09/03/16 09/03/16 03:00 04:05 07:00 08:52 Temp 98.1 98.2 98.1 98.2 Pulse 53 87 Resp 18 18 B/P 144/66 107/86 Pulse Ox 91 96 O2 Delivery Room Air Room Air Room Air Room Air 09/03/16 09/03/16 09/03/16 09/03/16 09:22 11:05 13:10 15:00 Temp 98.4 98.6 98.4 98.6 Pulse 87 87 91 Resp 19 18 B/P 137/69 137/69 136/81 Pulse Ox 97 97 93 O2 Delivery Room Air Room Air Intake and Output 09/02/16 09/02/16 09/03/16 15:00 23:00 07:00 Output Total 750 ml Balance -750 ml ESCOBAR ROQUE MD Sep 03, 2016 16:08
[2016-09-03] MEDS: OXYCODONE/APAP 5/325 TABLET. PO PRN ×2 (17:03→23:01)
[2016-09-03] MEDS: CALCIUM CARB/VIT D3 500/200 TABLET PO SCH (17:03)
[2016-09-03] MEDS: METFORMIN 1,000 MG TABLET PO SCH (17:03)
[2016-09-03] MEDS: CARVEDILOL 12.5 MG TABLET PO SCH (17:04)
[2016-09-03] MEDS: INSULIN DETEMIR 300 UNITS/3 ML INSULN.PEN. SQ SCH (17:13)
[2016-09-03 19:00] VITALS: BP 118/60
[2016-09-03] MEDS: ASPIRIN ENTERIC COATED 325 MG TABLET.DR. PO SCH (20:19)
[2016-09-03] MEDS: ATORVASTATIN CALCIUM 10 MG TABLET. PO SCH (20:19)
[2016-09-03 23:00] VITALS: BP 166/85
[2016-09-04] VITALS (12 sets, daily range): BP systolic 101–165; BP diastolic 50–79
[2016-09-04] MEDS: OXYCODONE/APAP 5/325 TABLET. PO PRN ×2 (05:26→11:56)
[2016-09-04] MEDS ORDERED: CEFAZOLIN 2GM PREMIX 50 ML IV ONE ×2 (06:00→13:12)
[2016-09-04] MEDS: PIPERACILLIN/TAZOBACTAM 3.375 GM in IV NORMAL SALINE 50ML 50 ML IV SCH ×5 (06:00→18:56)
[2016-09-04 08:10] LABS: CALCIUM 8.9 mg/dL (8.5-10.1); CREATININE 0.9 mg/dL (0.6-1.0); GFR 75.1; POTASSIUM 3.8 mmol/L (3.5-5.1)
[2016-09-04] MEDS: ASPIRIN ENTERIC COATED 325 MG TABLET.DR. PO SCH ×2 (08:12→20:29)
[2016-09-04] MEDS: INSULIN ASPART 300 UNITS/3 ML INSULN.PEN SQ SCH ×6 (08:13→17:00)
[2016-09-04] MEDS: GLIPIZIDE 5 MG TABLET PO SCH (08:14)
[2016-09-04] MEDS: LISINOPRIL 40 MG TABLET. PO SCH (08:14)
[2016-09-04] MEDS: INSULIN DETEMIR 300 UNITS/3 ML INSULN.PEN. SQ SCH ×2 (08:15→19:06)
[2016-09-04] MEDS: CARVEDILOL 12.5 MG TABLET PO SCH ×2 (08:16→18:55)
[2016-09-04] MEDS: CALCIUM CARB/VIT D3 500/200 TABLET PO SCH ×2 (08:17→18:54)
[2016-09-04] MEDS: METFORMIN 1,000 MG TABLET PO SCH ×2 (08:17→18:54)
[2016-09-04] MEDS: HYDROCHLOROTHIAZIDE 25 MG TABLET PO SCH (08:17)
[2016-09-04] MEDS: MULTIVITAMIN with MINERAL TABLET. PO SCH (08:18)
[2016-09-04 08:27] LABS: HEMATOCRIT 30.3 % (36.0-47.0); HEMOGLOBIN 9.9 g/dL (12.0-15.5); RED BLOOD COUNT 4.25 x10^6/uL (3.50-5.40); RED CELL DISTRIBUTION WIDTH 18.5 % (11.5-14.5); WHITE BLOOD COUNT 7.3 x10^3/uL (4.0-11.0)
[2016-09-04] MEDS: CITALOPRAM 20 MG TABLET. PO SCH (09:17)
[2016-09-04] MEDS ORDERED: IV RINGERS,LACTATED 1000ML 1,000 ML IV SCH (09:18)
[2016-09-04] MEDS: VANCOMYCIN 1.5 GM in IV NORMAL SALINE 500ML BAG 500 ML IV SCH (09:18)
[2016-09-04] MEDS ORDERED: LIDOCAINE 1% 1 ML SYRINGE. ID PRN (09:30)
[2016-09-04] MEDS ORDERED: MORPHINE SULFATE 2 MG/ML DISP.SYRIN. IV PRN (09:30)
[2016-09-04] MEDS ORDERED: PROCHLORPERAZINE 10 MG/2 ML VIAL. IV PRN ×2 (09:30→16:30)
[2016-09-04] MEDS ORDERED: FENTANYL PF 100 MCG/2 ML VIAL. IV PRN (09:30)
--- NOTE | 2016-09-04 10:43 | PDOC ---
Infectious Disease Note Subjective Subjective Doing ok. Hungry. Pain ok ROS ROS GEN: Denies fevers, chills, sweats HEENT: Denies blurred vision, sore throat CV: Denies chest pain RESP: Denies shortness of air, cough GI: Denies n/v/d NEURO: Denies confusion, dizziness MSK: Denies weakness, joint pain/swelling Vital Sign Vital Signs Vital Signs Date Time Temp Pulse Resp B/P Pulse Ox O2 Delivery O2 Flow Rate FiO2 09/04/16 08:16 78 110/68 09/04/16 08:00 Room Air 09/04/16 07:00 97.9 16 97 97.9 Physical Exam PHYSICAL EXAM GENERAL: NAD, Alert HEENT: PERRL, OC/OP - clear NECK: Supple, no JVD, no LN LUNGS: Clear HEART: S1S2, no gallop, no murmur ABD: Soft, NT, no organomegaly, no rebound EXT: No edema, no cyanosis. 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, oriented x 3, no focal neurologic deficit SKIN: No rash IV: ok Labs Lab Laboratory Tests Test 09/03/16 11:43 09/03/16 16:53 09/03/16 20:49 09/04/16 07:41 Glucose (Fingerstick) 337mg/dL (70-99) 251mg/dL (70-99) 56mg/dL (70-99) 97mg/dL (70-99) Test 09/04/16 07:42 White Blood Count 7.3x10^3/uL (4.0-11.0) Red Blood Count 4.25x10^6/uL (3.50-5.40) Hemoglobin 9.9g/dL (12.0-15.5) Hematocrit 30.3% (36.0-47.0) Mean Corpuscular Volume 71fL (79-100) Mean Corpuscular Hemoglobin 23pg (25-35) Mean Corpuscular Hemoglobin Concent 33g/dL (31-37) Red Cell Distribution Width 18.5% (11.5-14.5) Platelet Count 288x10^3/uL (140-400) Erythrocyte Sedimentation Rate 96 (0-25) Sodium Level 140mmol/L (136-145) Potassium Level 3.8mmol/L (3.5-5.1) Chloride Level 105mmol/L (98-107) Carbon Dioxide Level 29mmol/L (21-32) Anion Gap 6 (6-14) Blood Urea Nitrogen 8mg/dL (7-20) Creatinine 0.9mg/dL (0.6-1.0) Estimated GFR (Cockcroft-Gault) 75.1 Glucose Level 103mg/dL (70-99) Calcium Level 8.9mg/dL (8.5-10.1) C-Reactive Protein, Quantitative 122.2mg/L (0-3.3) Vancomycin Level Trough 19.5mcg/mL (10.0-20.0) Vancomycin Last Dose Date 09/03/2016 Vancomycin Last Dose Time 2000 Objective Assessment Right infected Knee with hardware in place H/o Group B strep and Bacteroides DM Anemia Plan Plan of Care Cont Vanc and Zosyn F/u cults/labs/sed rate Await Surgery ALBINO ALEXANDER MD Sep 04, 2016 10:43
[2016-09-04 13:15] LABS: BF COLOR RED
[2016-09-04 13:16] LABS: BF CLARITY TURBID
[2016-09-04] MEDS ORDERED: DESFLURANE 61 TO 120 MINUTES IH ONE (13:42)
[2016-09-04] MEDS ORDERED: LIDOCAINE 2% 100 MG/5 ML DISP.SYRIN. ONE (13:43)
[2016-09-04] MEDS ORDERED: PROPOFOL 20 ML IV ONE ×2 (13:43→14:38)
[2016-09-04] MEDS ORDERED: ONDANSETRON PF 4 MG/2 ML VIAL. ONE (13:43)
[2016-09-04] MEDS ORDERED: DEXAMETHASONE SOD PHOS 20 MG/5 ML VIAL. ONE (13:43)
[2016-09-04] MEDS ORDERED: FENTANYL PF 100 MCG/2 ML VIAL. ONE ×2 (13:43→15:27)
[2016-09-04] MEDS: FENTANYL PF 100 MCG/2 ML VIAL. IV PRN ×3 (13:49→16:54)
[2016-09-04] MEDS: VANCOMYCIN PER PHARMACY MC PRN (14:10)
--- NOTE | 2016-09-04 14:50 | PDOC ---
PROGRESS NOTES Chief Complaint Chief Complaint Right knee pain and swelling and discharge ID consulted for infected Knee with hardware in place H/o Group B strep and Bacteroides DM2 Anemia obesity, BMI 34 History of Present Illness History of Present Illness abx cont to surg DR. Casi aggarwal ASpirate very bloody F/u cults gm neg rods Vitals Vitals Vital Signs Date Time Temp Pulse Resp B/P Pulse Ox O2 Delivery O2 Flow Rate FiO2 09/04/16 13:49 15 97 Room Air 09/04/16 13:26 97.6 76 175/84 97.6 Physical Exam General: Alert, Oriented X3, Cooperative, mild distress Heart: Regular rate, No murmurs Lungs: Clear, Wheezing Abdomen: Normal bowel sounds Extremities: No clubbing, No cyanosis Skin: No rashes Labs LABS Laboratory Tests Test 09/03/16 15:11 09/03/16 16:53 09/03/16 20:49 09/04/16 07:41 Body Fluid Source Synovial Body Fluid Color Red Body Fluid Clarity Turbid Body Fluid Nucleated Cells 1000/cmm Body Fluid Mononuclear WBCs (%) 0% Body Fluid Polymorphonuclear Cells 100% Body Fluid Total RBCs Counted 454869/cmm Glucose (Fingerstick) 251mg/dL (70-99) 56mg/dL (70-99) 97mg/dL (70-99) Test 09/04/16 07:42 09/04/16 11:06 White Blood Count 7.3x10^3/uL (4.0-11.0) Red Blood Count 4.25x10^6/uL (3.50-5.40) Hemoglobin 9.9g/dL (12.0-15.5) Hematocrit 30.3% (36.0-47.0) Mean Corpuscular Volume 71fL (79-100) Mean Corpuscular Hemoglobin 23pg (25-35) Mean Corpuscular Hemoglobin Concent 33g/dL (31-37) Red Cell Distribution Width 18.5% (11.5-14.5) Platelet Count 288x10^3/uL (140-400) Erythrocyte Sedimentation Rate 96 (0-25) Sodium Level 140mmol/L (136-145) Potassium Level 3.8mmol/L (3.5-5.1) Chloride Level 105mmol/L (98-107) Carbon Dioxide Level 29mmol/L (21-32) Anion Gap 6 (6-14) Blood Urea Nitrogen 8mg/dL (7-20) Creatinine 0.9mg/dL (0.6-1.0) Estimated GFR (Cockcroft-Gault) 75.1 Glucose Level 103mg/dL (70-99) Calcium Level 8.9mg/dL (8.5-10.1) C-Reactive Protein, Quantitative 122.2mg/L (0-3.3) Vancomycin Level Trough 19.5mcg/mL (10.0-20.0) Vancomycin Last Dose Date 09/03/2016 Vancomycin Last Dose Time 2000 Glucose (Fingerstick) 120mg/dL (70-99) Assessment and Plan Assessmemt and Plan Problems Medical Problems: (1) Infection of knee Status: Acute (2) Right knee pain Status: Acute (3) Swelling of knee joint, right Status: Acute Problems: Comment Review of Relevant I have reviewed the following items deng (where applicable) has been applied. Labs Laboratory Tests Test 09/02/16 17:38 09/02/16 20:42 09/03/16 06:38 09/03/16 08:04 Glucose (Fingerstick) 155mg/dL (70-99) 251mg/dL (70-99) 255mg/dL (70-99) White Blood Count 7.9x10^3/uL (4.0-11.0) Red Blood Count 4.21x10^6/uL (3.50-5.40) Hemoglobin 9.7g/dL (12.0-15.5) Hematocrit 30.6% (36.0-47.0) Mean Corpuscular Volume 73fL (79-100) Mean Corpuscular Hemoglobin 23pg (25-35) Mean Corpuscular Hemoglobin Concent 32g/dL (31-37) Red Cell Distribution Width 18.2% (11.5-14.5) Platelet Count 266x10^3/uL (140-400) Neutrophils (%) (Auto) 67% (31-73) Lymphocytes (%) (Auto) 19% (24-48) Monocytes (%) (Auto) 12% (0-9) Eosinophils (%) (Auto) 2% (0-3) Basophils (%) (Auto) 0% (0-3) Neutrophils # (Auto) 5.2x10^3uL (1.8-7.7) Lymphocytes # (Auto) 1.5x10^3/uL (1.0-4.8) Monocytes # (Auto) 1.0x10^3/uL (0.0-1.1) Eosinophils # (Auto) 0.1x10^3/uL (0.0-0.7) Basophils # (Auto) 0.0x10^3/uL (0.0-0.2) Sodium Level 137mmol/L (136-145) Potassium Level 3.8mmol/L (3.5-5.1) Chloride Level 103mmol/L (98-107) Carbon Dioxide Level 26mmol/L (21-32) Anion Gap 8 (6-14) Blood Urea Nitrogen 9mg/dL (7-20) Creatinine 0.8mg/dL (0.6-1.0) Estimated GFR (Cockcroft-Gault) 86.1 Glucose Level 289mg/dL (70-99) Calcium Level 8.9mg/dL (8.5-10.1) Vancomycin Level Trough 12.6mcg/mL (10.0-20.0) Vancomycin Last Dose Date 09/02/16 Vancomycin Last Dose Time 2052 Test 09/03/16 11:43 09/03/16 15:11 09/03/16 16:53 09/03/16 20:49 Glucose (Fingerstick) 337mg/dL (70-99) 251mg/dL (70-99) 56mg/dL (70-99) Body Fluid Source Synovial Body Fluid Color Red Body Fluid Clarity Turbid Body Fluid Nucleated Cells 1000/cmm Body Fluid Mononuclear WBCs (%) 0% Body Fluid Polymorphonuclear Cells 100% Body Fluid Total RBCs Counted 707274/cmm Test 09/04/16 07:41 09/04/16 07:42 09/04/16 11:06 Glucose (Fingerstick) 97mg/dL (70-99) 120mg/dL (70-99) White Blood Count 7.3x10^3/uL (4.0-11.0) Red Blood Count 4.25x10^6/uL (3.50-5.40) Hemoglobin 9.9g/dL (12.0-15.5) Hematocrit 30.3% (36.0-47.0) Mean Corpuscular Volume 71fL (79-100) Mean Corpuscular Hemoglobin 23pg (25-35) Mean Corpuscular Hemoglobin Concent 33g/dL (31-37) Red Cell Distribution Width 18.5% (11.5-14.5) Platelet Count 288x10^3/uL (140-400) Erythrocyte Sedimentation Rate 96 (0-25) Sodium Level 140mmol/L (136-145) Potassium Level 3.8mmol/L (3.5-5.1) Chloride Level 105mmol/L (98-107) Carbon Dioxide Level 29mmol/L (21-32) Anion Gap 6 (6-14) Blood Urea Nitrogen 8mg/dL (7-20) Creatinine 0.9mg/dL (0.6-1.0) Estimated GFR (Cockcroft-Gault) 75.1 Glucose Level 103mg/dL (70-99) Calcium Level 8.9mg/dL (8.5-10.1) C-Reactive Protein, Quantitative 122.2mg/L (0-3.3) Vancomycin Level Trough 19.5mcg/mL (10.0-20.0) Vancomycin Last Dose Date 09/03/2016 Vancomycin Last Dose Time 1999 Laboratory Tests Test 09/03/16 15:11 09/03/16 16:53 09/03/16 20:49 09/04/16 07:41 Body Fluid Source Synovial Body Fluid Color Red Body Fluid Clarity Turbid Body Fluid Nucleated Cells 1000/cmm Body Fluid Mononuclear WBCs (%) 0% Body Fluid Polymorphonuclear Cells 100% Body Fluid Total RBCs Counted 157479/cmm Glucose (Fingerstick) 251mg/dL (70-99) 56mg/dL (70-99) 97mg/dL (70-99) Test 09/04/16 07:42 09/04/16 11:06 White Blood Count 7.3x10^3/uL (4.0-11.0) Red Blood Count 4.25x10^6/uL (3.50-5.40) Hemoglobin 9.9g/dL (12.0-15.5) Hematocrit 30.3% (36.0-47.0) Mean Corpuscular Volume 71fL (79-100) Mean Corpuscular Hemoglobin 23pg (25-35) Mean Corpuscular Hemoglobin Concent 33g/dL (31-37) Red Cell Distribution Width 18.5% (11.5-14.5) Platelet Count 288x10^3/uL (140-400) Erythrocyte Sedimentation Rate 96 (0-25) Sodium Level 140mmol/L (136-145) Potassium Level 3.8mmol/L (3.5-5.1) Chloride Level 105mmol/L (98-107) Carbon Dioxide Level 29mmol/L (21-32) Anion Gap 6 (6-14) Blood Urea Nitrogen 8mg/dL (7-20) Creatinine 0.9mg/dL (0.6-1.0) Estimated GFR (Cockcroft-Gault) 75.1 Glucose Level 103mg/dL (70-99) Calcium Level 8.9mg/dL (8.5-10.1) C-Reactive Protein, Quantitative 122.2mg/L (0-3.3) Vancomycin Level Trough 19.5mcg/mL (10.0-20.0) Vancomycin Last Dose Date 09/03/2016 Vancomycin Last Dose Time 2000 Glucose (Fingerstick) 120mg/dL (70-99) Microbiology 09/02/16 Blood Culture - Preliminary, Resulted NO GROWTH AFTER 2 DAYS 09/03/16 Gram Stain - Final, Complete 09/02/16 Gram Stain - Final, Complete Medications Current Medications Ondansetron HCl (Zofran) 4 mg PRN Q8HRS PRN IV NAUSEA/VOMITING; Start 09/02/16 at 15:15; Stop 09/03/16 at 15:14; Status DC Morphine Sulfate 2 mg PRN Q2HR PRN IV PAIN Last administered on 09/03/16 11:10 ; Start 09/02/16 at 15:15; Stop 09/03/16 at 15:14; Status DC Vancomycin HCl (Vanco Per Pharmacy) 1 each PRN DAILY PRN MC SEE COMMENTS Last administered on 09/04/16 14:10; Start 09/02/16 at 17:30 Piperacillin Sod/ Tazobactam Sod 1 each 1 each PRN DAILY PRN MC SEE COMMENTS; Start 09/02/16 at 17:30; Stop 09/04/16 at 13:59; Status DC Piperacillin Sod/ Tazobactam Sod 3.375 gm/Sodium Chloride 50 ml @ 100 mls/hr Q6HRS IV Last administered on 09/04/16 11:55; Start 09/02/16 at 18:00 Vancomycin HCl 2 gm/Sodium Chloride 500 ml @ 250 mls/hr 1X ONCE IV Last administered on 09/02/16 20:53; Start 09/02/16 at 20:00; Stop 09/02/16 at 21:59; Status DC Vancomycin HCl/ Sodium Chloride (Iv Sodium Chloride 0.9% 500ml Bag) 500 ml @ 250 mls/hr Q12H IV Last administered on 09/04/16 09:18; Start 09/03/16 at 08:00 ; Stop 09/04/16 at 14:06; Status DC Vancomycin HCl 1 each 1X ONCE MC Last administered on 09/03/16 07:30; Start at 07:30; Stop 09/03/16 at 07:31; Status DC Aspirin (Ecotrin) 325 mg BID PO Last administered on 09/04/16 08:12; Start 09/03 at 21:00 Carvedilol (Coreg) 12.5 mg BIDWMEALS PO Last administered on 09/04/16 08:16; Start 09/03/16 at 17:00 Glipizide (Glucotrol) 5 mg DAILY PO Last administered on 09/03/16 13:10; Start 09/03/16 at 12:30; Stop 09/04/16 at 14:00; Status DC Lisinopril (Prinivil) 40 mg DAILY PO Last administered on 09/04/16 08:14; Start 09/03/16 at 12:30 Metformin HCl (Glucophage) 1,000 mg BIDWMEALS PO Last administered on 09/03/16 17:03; Start 09/03/16 at 17:00 Insulin Detemir (Levemir) 20 units DAILYWSUP SQ Last administered on 09/03/16 17:13; Start 09/03/16 at 17:00 Insulin Detemir (Levemir) 40 units DAILYWBKFT SQ ; Start 09/04/16 at 08:00 Oxycodone/ Acetaminophen (Percocet 5/325) 1 tab PRN Q6HRS PRN PO pain Last administered on 09/04/16 11:56; Start 09/03/16 at 12:00 Calcium/Vitamin D (Oscal D 500mg/ 200uts) 1 tab BIDWMEALS PO Last administered on 09/03/16 17:03; Start 09/03/16 at 17:00 Citalopram Hydrobromide (Celexa) 40 mg DAILY PO Last administered on 09/04/16 09:17; Start 09/04/16 at 09:00 Hydrochlorothiazide (Hydrodiuril) 25 mg DAILY PO Last administered on 09/04/16 08:17; Start 09/03/16 at 12:30 Atorvastatin Calcium (Lipitor) 10 mg QHS PO Last administered on 09/03/16 20:19 ; Start 09/03/16 at 21:00 Multivitamins/ Calcium (Thera M Plus) 1 tab DAILY PO Last administered on 13:09; Start 09/03/16 at 12:30 Insulin Aspart (Novolog) 0-7 UNITS TIDWMEALS SQ Last administered on 09/03/16 17:14; Start 09/03/16 at 13:00 Dextrose 12.5 gm PRN Q15MIN PRN IV SEE COMMENTS; Start 09/03/16 at 12:15 Insulin Aspart (Novolog) 10 units TIDAC SQ Last administered on 09/03/16 17:14 ; Start 09/03/16 at 16:30 Polyethylene Glycol (miraLAX PACKET) 17 gm PRN DAILY PRN PO CONSTIPATION; Start 09/03/16 at 13:00 Polyethylene Glycol (miraLAX PACKET) 17 gm 1X ONCE PO Last administered on 09/03 13:18; Start 09/03/16 at 13:00; Stop 09/03/16 at 13:12; Status DC Docusate Sodium (Colace) 100 mg PRN DAILY PRN PO CONSTIPATION; Start 09/03/16 at 13:00 Lidocaine/Sodium Bicarbonate 20 ml 20 ml 1X ONCE IJ ; Start 09/03/16 at 15:15; Stop 09/03/16 at 15:16; Status DC Cefazolin Sodium/ Dextrose 50 ml @ 100 mls/hr 1X PREOP IV ; Start 09/06/16 at 06:00; Stop 09/06/16 at 06:00; Status DC Cefazolin Sodium/ Dextrose (Ancef 2gm Premix) 50 ml @ 100 mls/hr 1X PREOP ONCE IV ; Start 09/04/16 at 06:00; Stop 09/04/16 at 06:29; Status DC Fentanyl Citrate (Fentanyl 2ml Vial) 25 mcg PRN Q5MIN PRN IV MILD PAIN; Start 09/04/16 at 09:30; Stop 09/05/16 at 09:29 Fentanyl Citrate (Fentanyl 2ml Vial) 50 mcg PRN Q5MIN PRN IV MODERATE PAIN Last administered on 09/04/16 13:49; Start 09/04/16 at 09:30; Stop 09/05/16 at 09: 29 Morphine Sulfate 1 mg 1 mg PRN Q10MIN PRN IV SEVERE PAIN; Start 09/04/16 at 09: 30; Stop 09/05/16 at 09:29 Lactated Ringer's (Iv Lactated Ringers) 1,000 ml @ 0 mls/hr Q0M IV Last administered on 09/04/16 13:49; Start 09/04/16 at 09:18; Stop 09/04/16 at 21:17 Lidocaine HCl 2 ml 1X PRN PRN ID IV START; Start 09/04/16 at 09:30; Stop at 09:29 Hydromorphone HCl (Dilaudid) 0.5 mg PRN Q10MIN PRN IV SEV PAIN,Second choice; Start 09/04/16 at 09:30; Stop 09/05/16 at 09:29 Prochlorperazine Edisylate 5 mg 5 mg PACU PRN PRN IV NAUSEA; Start 09/04/16 at 09:30; Stop 09/05/16 at 09:29 Cefazolin Sodium/ Dextrose (Ancef 2gm Premix) 50 ml @ As Directed STK-MED ONCE IV ; Start 09/04/16 at 13:12; Stop 09/04/16 at 13:13; Status DC Desflurane (Suprane) 60 ml STK-MED ONCE IH ; Start 09/04/16 at 13:42; Stop at 13:43; Status DC Fentanyl Citrate 100 mcg 100 mcg STK-MED ONCE .ROUTE ; Start 09/04/16 at 13:43; Stop 09/04/16 at 13:44; Status DC Propofol (Diprivan) 20 ml @ As Directed STK-MED ONCE IV ; Start 09/04/16 at 13:43 ; Stop 09/04/16 at 13:44; Status DC Lidocaine HCl 100 mg STK-MED ONCE .ROUTE ; Start 09/04/16 at 13:43; Stop 09/04/16 at 13:44; Status DC Dexamethasone Sodium Phosphate (Decadron) 20 mg STK-MED ONCE .ROUTE ; Start 09/04 at 13:43; Stop 09/04/16 at 13:44; Status DC Ondansetron HCl (Zofran) 4 mg STK-MED ONCE .ROUTE ; Start 09/04/16 at 13:43; Stop 09/04/16 at 13:44; Status DC Glipizide 5 mg 5 mg DAILYWBKFT PO ; Start 09/05/16 at 08:00 Vancomycin HCl/ Sodium Chloride (Iv Sodium Chloride 0.9% 250ml) 250 ml @ 167 mls/hr Q12H IV ; Start 09/04/16 at 20:00 Active Scripts Active Aspirin Ec (Aspirin) 325 Mg Tablet.dr 325 Mg PO BID 30 Days Reported Percocet 5-325 Mg Tablet (Oxycodone/Acetaminophen) 1 Each Tablet 1-2 Tab PO Q4- 6HRS LAST DOSE GIVEN: DATE: 08/02/16 TIME: 2:00 NEXT DOSE DUE: DATE: 08/02/16 TIME: 6:00pm as needed for pain Percocet 5-325 Mg Tablet (Oxycodone/Acetaminophen) 1 Each Tablet 1-2 Tab PO Q4- 6HRS Calcium 600 + Vit D 200 Tablet (Calcium Carbonate/Vitamin D3) 1 Each Tablet 1 Each PO BID Hair, Skin & Nails (Multivitamin With Minerals) 1 Each Tablet 1 Each PO DAILY Carvedilol 12.5 Mg Tablet 12.5 Mg PO BIDWMEALS Lovastatin 40 Mg Tablet 40 Mg PO HS Metformin Hcl 1,000 Mg Tablet 1 Tab PO BID Hydrochlorothiazide Tablet (Hydrochlorothiazide) 12.5 Mg Tablet 25 Mg PO DAILY Novolin N (Nph, Human Insulin Isophane) 100 Unit/1 Ml Vial 20 Unit SQ DAILYBFRSUP Novolin N (Nph, Human Insulin Isophane) 100 Unit/1 Ml Vial 40 Unit SQ DAILYWBKFT Glipizide 5 Mg Tablet 5 Mg PO DAILY Lisinopril 40 Mg Tablet 40 Mg PO DAILY Citalopram Hbr (Citalopram Hydrobromide) 40 Mg Tablet 40 Mg PO DAILY Vitals/I & O Vital Sign - Last 24 Hours 09/03/16 09/03/16 09/03/16 09/03/16 15:00 17:03 17:04 19:00 Temp 98.6 97.6 98.6 97.6 Pulse 91 91 84 Resp 18 20 B/P 136/81 136/81 118/60 Pulse Ox 93 97 O2 Delivery Room Air Room Air Room Air 09/03/16 09/03/16 09/03/16 09/04/16 20:00 23:00 23:01 03:00 Temp 98.1 98.1 Pulse 83 Resp 20 B/P 166/85 Pulse Ox 93 97 O2 Delivery Room Air Room Air Room Air Room Air 09/04/16 09/04/16 09/04/16 09/04/16 05:26 06:26 07:00 08:00 Temp 97.9 97.9 Pulse 78 Resp 16 B/P 110/68 Pulse Ox 97 97 97 O2 Delivery Room Air Room Air Room Air 09/04/16 09/04/16 09/04/16 09/04/16 08:14 08:16 11:35 13:26 Temp 97.7 97.6 97.7 97.6 Pulse 78 78 74 76 Resp 14 15 B/P 110/78 110/68 158/67 175/84 Pulse Ox 97 97 O2 Delivery Room Air Room Air 09/04/16 13:49 Resp 15 Pulse Ox 97 O2 Delivery Room Air Intake and Output 09/03/16 09/03/16 09/04/16 15:00 23:00 07:00 Intake Total 250 ml 300 ml Output Total 1351 ml 400 ml Balance -1101 ml -100 ml ESCOBAR ROQUE MD Sep 04, 2016 14:50
[2016-09-04 14:57] LABS: % SAT IRON 15 % (15-34); IRON,SERUM 20 ug/dL (50-170)
[2016-09-04] MEDS ORDERED: ALBUTEROL SULFATE 2.5 MG/3 ML NEBU. ONE (14:59)
[2016-09-04] MEDS ORDERED: TRANEXAMIC ACID 1,000 MG in IV NORMAL SALINE 50ML 50 ML INJ ONE (15:12)
--- NOTE | 2016-09-04 16:28 | PDOC4 ---
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 Postoperatively, she developed thick blackened eschar on the lateral aspect of her leg, lateral to the incision and slightly below the joint line. It is unclear exactly the etiology of this, but it was initially a noninfected area of black necrotic skin. I have treated her over the last several months for this area of dry eschar and dry gangrene with topical medication such as Silvadene and other medical care. The incision was never involved until a few days ago. She never had any effusion prior to the last few days. About 2 weeks ago, the lateral dry black skin softened and moistened and appeared contaminated and secondarily infected, and a debridement was performed surgically of the necrotic tissue. This left a healthy pink wound bed laterally. She has been undergoing wound care treatments. This week she presented to the hospital with increased pain, anterior knee drainage, knee effusion and warmth. The anterior drainage appears purulent. It appears to connect from the lateral open wound to the anterior knee bursa. Knee joint aspiration was performed yesterday which showed no organisms on the Gram stain, and only 1000 white blood cells. The knee joint is likely contaminated, although it appears the infection did not start in the knee joint, and may have only recently involved the joint. I recommended surgical debridement, exploration, polyethylene exchange, and possibly further surgeries. I explained to her that if there is deep contamination of the knee, she may later need a two-stage revision (with removal of all the implants and placement of an antibiotic spacer as the first stage, and a second surgery for reimplantation several months later.) Other possibilities include ongoing infection and need for amputation. With the presumed acute onset prosthetic joint infection, the literature supports early irrigation and debridement with polyethylene exchange. I recommend that we proceed with exploration and irrigation and debridement, and polyethylene exchange, which is potentially the only surgery, but may be the first of several surgeries. Her knee joint has only appeared infected for less than one week. I spoke to her about the risks and benefits of proceeding with irrigation and debridement and polyethylene exchange, including the potential risks of ongoing infection, need for further surgeries, need for future amputation, bleeding, blood clots, or other potential surgical or anesthetic complications. She stated understanding of the risks benefits and alternatives and desires to proceed. Written consent was obtained. Procedure in Detail: The patient was identified in the preoperative holding area. The correct right lower extremity was marked by me. The patient was taken to the operating room where general anesthesia was used. The patient was positioned supine on the operating table. Preoperative antibiotics were given intravenously. A timeout procedure was performed. A tourniquet was used on the upper thigh. The limb was prepped in sterile fashion with Betadine and sterile drapes were applied. Sterile drapes were applied. The operating team with a personal exhaust ventilated hoods. The limb was elevated to exsanguinate it and the tourniquet was inflated to 350 mmHg. The previous midline scar was used and a scalpel was used for the incision. Bovie electrocautery was used for hemostasis. There was purulent drainage at the anterior open wound over the incision, and cultures were taken which involves the prepatellar bursa and patellar tendon. Patellar tendon fibers were debrided, but the extensor mechanism remains in continuity. Extensive tissue debridement was performed with rongeurs and with a scalpel with excision of skin , subcutaneous tissue, fascia, and patellar tendon fibers. There was no obvious entry to the knee joint, and the knee joint had not yet been entered surgically. [place] [employer] project production engineer was used in copious irrigation was performed of the lateral open wound, as well as the anterior prepatellar bursa abscess region and the patellar tendon. Next a medial parapatellar arthrotomy was created with a 10 blade scalpel. Fluid in the knee joint was bloody to slightly cloudy with no obvious purulent fluid in the knee joint. Intra-articular cultures were now taken including aerobic anaerobic, fungal, and AFB. The patella was subluxed laterally. Extensive synovectomy and debridement was performed with rongeurs, and with 10 blade scalpel. The polyethylene component was removed. The [place] [employer] project production engineer was again used, and copious irrigation was used throughout the knee joint, and in the intercondylar notch. The components were not loose nor obviously infected. After thorough irrigation, outer gloves were changed, and the new polyethylene component was opened and inserted. She had a slight knee flexion contracture preoperatively and so I reduced the implant thickness by 2 mm so that she could achieve full knee extension. Trial polyethylene component was used prior to the final implant being opened. Once the final polyethylene was secured to the cemented tibial component, the tourniquet was released. Bovie electrocautery was used for hemostasis but the bleeding was diffuse, and did not respond well to a electrocautery and the tourniquet was reinflated. Tranexamic acid was given intravenously, 1 g. The tourniquet was released a second time. Bovie electrocautery was used for hemostasis. A Hemovac drain was placed. The incision was closed in layers. #1 PDS [id number] sutures was used in the medial parapatellar arthrotomy. A running suture was then used in the medial parapatellar arthrotomy with #1 PDS. A Vicryl and 2-0 Vicryl used used in the subcutaneous tissues. The subcutaneous closure was performed by Dianelys. The skin was closed by Dianelys with 2-0 nylon. She then placed Xeroform and sterile dressings. Needle and sponge counts were correct. There were no apparent complications. A knee immobilizer with the knee extended was placed. She may weight-bear with the knee fully extended, but hold for now on range of motion exercises. She returned to the recovery room in stable condition. TADEO LANCE MD Sep 04, 2016 16:27
[2016-09-04] MEDS ORDERED: TRAMADOL 50 MG TABLET. PO PRN ×2 (16:30)
[2016-09-04] MEDS ORDERED: OXYCODONE/APAP 5/325 TABLET. PO PRN (16:30)
[2016-09-04] MEDS ORDERED: DIPHENHYDRAMINE 50 MG/ML VIAL IV PRN (16:30)
[2016-09-04] MEDS ORDERED: 0.9 % SODIUM CHLORIDE 10 ML DISP.SYRIN. IV PRN (16:30)
[2016-09-04] MEDS ORDERED: PROCHLORPERAZINE 5 MG TABLET. PO PRN (16:30)
[2016-09-04] MEDS ORDERED: METOCLOPRAMIDE HCL 10 MG/2 ML VIAL. IV PRN (16:30)
[2016-09-04] MEDS ORDERED: CALCIUM CARBONATE 500 MG TAB.CHEW PO PRN (16:30)
[2016-09-04] MEDS ORDERED: ACETAMINOPHEN 325 MG TABLET. PO PRN (16:30)
[2016-09-04] MEDS: HYDROMORPHONE 2 MG/ML VIAL. IV PRN ×4 (17:00→18:07)
--- NOTE | 2016-09-04 17:31 | CONS ---
DATE OF CONSULTATION: 09/03/2016 ROOM: 530. REQUESTING PHYSICIAN: Dr. Pratt. REASON FOR CONSULTATION: Knee wound. HISTORY OF PRESENT ILLNESS: A 71-year-old female who, on 04/30/2016 of this year, underwent a right total knee arthroplasty. She states postoperatively she had an anterior blister that improved, but she has had lateral wound. She states a couple of months ago, she believes, in the outpatient setting under Dr. Lance, ____ and did an I and D of that area. On the 08/02/2016, there was a note she underwent debridement of skin and subcutaneous tissue with full thickness skin and subcutaneous tissue ulcer on her right leg again on 08/02/2016. She had been following up in the wound care center and has been evaluated by Dr. James on the . At that time, she had been using a wound VAC. She has not been on any antibiotics. She presented to the wound care center yesterday and had increased swelling in the peripatellar location. She states she had increased drainage and the leg has felt warm and hot. She was subsequently admitted to [facility], cultures were obtained from the wound. I discussed the case with the nursing last evening, and instituted vancomycin and Zosyn as the cultures have been obtained. Currently, the patient lying in bed. She is fairly comfortable. Denies any active fever, chills or sweats. No headaches, sinus issues, sore throat, cough or chest pain. No nausea, vomiting, diarrhea, dysuria, frequency or urgency. No rashes, no trauma and again states she has not been on antimicrobials recently. PAST MEDICAL HISTORY: Positive for osteoarthritis, history of vaginal bleeding, hypertension, hyperlipidemia and diabetes. PAST SURGICAL HISTORY: Positive for the right knee infection. REVIEW OF SYSTEMS: Otherwise negative except for what is mentioned above. ALLERGIES: Listed to gold, nickel and silver. SOCIAL HISTORY: She is . No tobacco or alcohol. FAMILY HISTORY: Noncontributory. CURRENT MEDICATIONS: Include vancomycin, Zosyn that instituted last evening. She is also on Coreg, Celexa, NovoLog, insulin. Other meds are available and reviewed in the chart. PHYSICAL EXAMINATION: VITAL SIGNS: She has been afebrile since her admission. However, she had a temperature of 99.8, currently 98.4, pulse 87, respirations 19, blood pressure 137/69, satting 97% on room air. CONSTITUTIONAL: She is very pleasant, cooperative. She is in no acute distress. HEENT: Pupils are equal and reactive. Normal conjunctivae. Oral cavity, pharynx was clear. NECK: Supple. Good range of motion, no JVD. LUNGS: Clear to auscultation bilaterally. HEART: S1, S2. ABDOMEN: Obese, soft, nontender, nondistended, positive bowel sounds. EXTREMITIES: Without clubbing or cyanosis. Trace lower extremity edema. Her right knee incision. She has an area opened approximately a centimeter or centimeter and half, it is packed with new Gauze. There is a lateral wound that is very clean, appears to be granulating. There is no knee effusion. There is no warmth, there is no rash. NEUROLOGIC: She is nonfocal, appropriate. PSYCHIATRIC: Affect is appropriate. LABORATORY DATA: White count today of 7.9, was 9.5 on presentation. Hemoglobin 9.7, platelets of 266, neutrophils 67, lymphs of 17, glucose of 337. Creatinine was 0.8. X-ray of her knee shows joint effusion. IMPRESSION: 1. Right infected knee with hardware in place. 2. History of group B strep in bacteroides on previous cultures obtained on 08/02/2016. Current Gram stain shows moderate gram-positive cocci and occasional tiny gram-negative rods suggests anaerobes. 3. Diabetes. 4. Anemia. RECOMMENDATIONS: Continue vancomycin, Zosyn that started last evening. We will follow up laboratory values and cultures including sedimentation rate. We will await Dr. Lance evaluation may need additional imaging. Thank you for allowing us to participate in the patient's care. If you have any questions, please do not hesitate to contact me. ALBINO ALEXANDER MD DR: DELISA/shira JOB#: [id number] / [id number]
[2016-09-04] MEDS: OXYCODONE/APAP 7.5/325 TABLET. PO PRN (18:54)
[2016-09-04] MEDS: ZOLPIDEM 5 MG TABLET. PO PRN (20:29)
[2016-09-04] MEDS: ATORVASTATIN CALCIUM 10 MG TABLET. PO SCH (20:29)
[2016-09-04] MEDS: MORPHINE SULFATE 4 MG/ML DISP.SYRIN. IV PRN (20:30)
[2016-09-04] MEDS ORDERED: INSULIN ASPART 300 UNITS/3 ML INSULN.PEN SQ ONE (21:30)
[2016-09-04] MEDS: VANCOMYCIN 1.25 GM in IV NORMAL SALINE 250ML 250 ML IV SCH (21:38)
[2016-09-05] MEDS: PIPERACILLIN/TAZOBACTAM 3.375 GM in IV NORMAL SALINE 50ML 50 ML IV SCH ×4 (00:23→17:15)
[2016-09-05] MEDS: HYDROCODONE/APAP 10/325 TABLET. PO PRN ×4 (00:23→17:13)
[2016-09-05] MEDS: MORPHINE SULFATE 4 MG/ML DISP.SYRIN. IV PRN ×3 (01:43→13:03)
[2016-09-05 03:05] VITALS: BP 133/60
[2016-09-05 04:48] LABS: BASO % 0 % (0-3); EOS % 0 % (0-3); HEMATOCRIT 29.7 % (36.0-47.0); HEMOGLOBIN 9.3 g/dL (12.0-15.5); LYMPH # 1.3 x10^3/uL (1.0-4.8); LYMPH % 13 % (24-48); MEAN CORPUSCULAR HEMOGLOBIN 23 pg (25-35); MEAN CORPUSCULAR HGB CONC 31 g/dL (31-37); MEAN CORPUSCULAR VOLUME 73 fL (79-100); MONO % 7 % (0-9); NEUT % 79 % (31-73); PLATELET COUNT 309 x10^3/uL (140-400); RED BLOOD COUNT 4.04 x10^6/uL (3.50-5.40); RED CELL DISTRIBUTION WIDTH 18.3 % (11.5-14.5)
[2016-09-05 05:02] LABS: CALCIUM 8.3 mg/dL (8.5-10.1); CREATININE 1.1 mg/dL (0.6-1.0); GFR 59.6
[2016-09-05] MEDS ORDERED: MAGNESIUM HYDROXIDE 2,400 MG/30 ML ORAL.SUSP. PO PRN (06:00)
[2016-09-05 07:00] VITALS: BP 144/68
[2016-09-05] MEDS: MULTIVITAMIN with MINERAL TABLET. PO SCH (08:27)
[2016-09-05] MEDS: GLIPIZIDE 5 MG TABLET PO SCH (08:27)
[2016-09-05] MEDS: METFORMIN 1,000 MG TABLET PO SCH ×2 (08:27→17:13)
[2016-09-05] MEDS: ASPIRIN ENTERIC COATED 325 MG TABLET.DR. PO SCH ×2 (08:27→20:16)
[2016-09-05] MEDS: IRON POLYSACCHARIDE COMPLEX 150 MG CAPSULE PO SCH (08:27)
[2016-09-05] MEDS: SENNOSIDES/DOCUSATE 8.6/50MG TABLET. PO SCH (08:27)
[2016-09-05] MEDS: CITALOPRAM 20 MG TABLET. PO SCH (08:28)
[2016-09-05] MEDS: LISINOPRIL 40 MG TABLET. PO SCH (08:28)
[2016-09-05] MEDS: HYDROCHLOROTHIAZIDE 25 MG TABLET PO SCH (08:28)
[2016-09-05] MEDS: CARVEDILOL 12.5 MG TABLET PO SCH ×2 (08:29→17:14)
[2016-09-05] MEDS: VANCOMYCIN 1.25 GM in IV NORMAL SALINE 250ML 250 ML IV SCH ×2 (08:30→20:16)
[2016-09-05] MEDS: INSULIN ASPART 300 UNITS/3 ML INSULN.PEN SQ SCH ×7 (08:43→20:40)
[2016-09-05] MEDS: INSULIN DETEMIR 300 UNITS/3 ML INSULN.PEN. SQ SCH ×2 (08:45→17:25)
[2016-09-05] MEDS: CALCIUM CARB/VIT D3 500/200 TABLET PO SCH ×2 (08:49→17:13)
--- NOTE | 2016-09-05 10:36 | PDOC ---
Infectious Disease Note Subjective Subjective Pain in leg and having sweats o/w ok ROS ROS GEN: Denies fevers, chills, sweats HEENT: Denies blurred vision, sore throat CV: Denies chest pain RESP: Denies shortness of air, cough GI: Denies n/v/d NEURO: Denies confusion, dizziness MSK: Denies weakness, joint pain/swelling Vital Sign Vital Signs Vital Signs Date Time Temp Pulse Resp B/P Pulse Ox O2 Delivery O2 Flow Rate FiO2 09/05/16 09:42 Room Air 09/05/16 08:29 82 144/68 09/05/16 07:00 97.9 19 99 97.9 09/05/16 03:05 2.0 Physical Exam PHYSICAL EXAM GENERAL: NAD, Alert- in chair HEENT: PERRL, OC/OP- clear NECK: Supple, no JVD, no LN LUNGS: Clear HEART: S1S2, no gallop, no murmur ABD: Soft, NT, no organomegaly, no rebound, obese EXT: No edema, no cyanosis. RLE dressed and in brace. Drain FUNDS DEVELOPMENT DIRECTOR: Alert, oriented x 3, no focal neurologic deficit SKIN: No rash IV: ok Labs Lab Laboratory Tests Test 09/04/16 11:06 09/04/16 16:47 09/04/16 20:59 09/05/16 04:00 Glucose (Fingerstick) 120mg/dL (70-99) 170mg/dL (70-99) 360mg/dL (70-99) White Blood Count 10.0x10^3/uL (4.0-11.0) Red Blood Count 4.04x10^6/uL (3.50-5.40) Hemoglobin 9.3g/dL (12.0-15.5) Hematocrit 29.7% (36.0-47.0) Mean Corpuscular Volume 73fL (79-100) Mean Corpuscular Hemoglobin 23pg (25-35) Mean Corpuscular Hemoglobin Concent 31g/dL (31-37) Red Cell Distribution Width 18.3% (11.5-14.5) Platelet Count 309x10^3/uL (140-400) Neutrophils (%) (Auto) 79% (31-73) Lymphocytes (%) (Auto) 13% (24-48) Monocytes (%) (Auto) 7% (0-9) Eosinophils (%) (Auto) 0% (0-3) Basophils (%) (Auto) 0% (0-3) Neutrophils # (Auto) 7.8x10^3uL (1.8-7.7) Lymphocytes # (Auto) 1.3x10^3/uL (1.0-4.8) Monocytes # (Auto) 0.7x10^3/uL (0.0-1.1) Eosinophils # (Auto) 0.0x10^3/uL (0.0-0.7) Basophils # (Auto) 0.0x10^3/uL (0.0-0.2) Sodium Level 137mmol/L (136-145) Potassium Level 4.0mmol/L (3.5-5.1) Chloride Level 102mmol/L (98-107) Carbon Dioxide Level 28mmol/L (21-32) Anion Gap 7 (6-14) Blood Urea Nitrogen 16mg/dL (7-20) Creatinine 1.1mg/dL (0.6-1.0) Estimated GFR (Cockcroft-Gault) 59.6 Glucose Level 337mg/dL (70-99) Calcium Level 8.3mg/dL (8.5-10.1) Test 09/05/16 07:31 Glucose (Fingerstick) 268mg/dL (70-99) Objective Assessment Right infected Knee with hardware in place S/p poly exchange 09/04 Group B strep and GNR so far H/o Group B strep and Bacteroides DM Anemia Plan Plan of Care Cont Vanc and Zosyn F/u cults/labs/sed rate PICC line Social service consult ALBINO ALEXANDER MD Sep 05, 2016 10:36
[2016-09-05 11:00] VITALS: BP 122/74
[2016-09-05] MEDS: VANCOMYCIN PER PHARMACY MC PRN (11:39)
--- NOTE | 2016-09-05 13:18 | PDOC ---
PROGRESS NOTES Subjective Subjective Doing well. Objective Vital Signs Vital Signs Date Time Temp Pulse Resp B/P Pulse Ox O2 Delivery O2 Flow Rate FiO2 09/05/16 13:03 Room Air 09/05/16 11:00 97.7 74 19 122/74 98 97.7 09/05/16 03:05 2.0 Physical Exam Sitting up in bed eating lunch. Right hinged knee brace, locked in extension, is intact. Calf soft and nontender. Neurovascularly intact Labs Laboratory Tests Test 09/03/16 15:11 09/03/16 16:53 09/03/16 20:49 09/04/16 07:41 Body Fluid Source Synovial Body Fluid Color Red Body Fluid Clarity Turbid Body Fluid Nucleated Cells 1000/cmm Body Fluid Mononuclear WBCs (%) 0% Body Fluid Polymorphonuclear Cells 100% Body Fluid Total RBCs Counted 625262/cmm Glucose (Fingerstick) 251mg/dL (70-99) 56mg/dL (70-99) 97mg/dL (70-99) Test 09/04/16 07:42 09/04/16 11:06 09/04/16 16:47 09/04/16 20:59 White Blood Count 7.3x10^3/uL (4.0-11.0) Red Blood Count 4.25x10^6/uL (3.50-5.40) Hemoglobin 9.9g/dL (12.0-15.5) Hematocrit 30.3% (36.0-47.0) Mean Corpuscular Volume 71fL (79-100) Mean Corpuscular Hemoglobin 23pg (25-35) Mean Corpuscular Hemoglobin Concent 33g/dL (31-37) Red Cell Distribution Width 18.5% (11.5-14.5) Platelet Count 288x10^3/uL (140-400) Erythrocyte Sedimentation Rate 96 (0-25) Sodium Level 140mmol/L (136-145) Potassium Level 3.8mmol/L (3.5-5.1) Chloride Level 105mmol/L (98-107) Carbon Dioxide Level 29mmol/L (21-32) Anion Gap 6 (6-14) Blood Urea Nitrogen 8mg/dL (7-20) Creatinine 0.9mg/dL (0.6-1.0) Estimated GFR (Cockcroft-Gault) 75.1 Glucose Level 103mg/dL (70-99) Calcium Level 8.9mg/dL (8.5-10.1) Iron Level 20ug/dL (50-170) Total Iron Binding Capacity 133ug/dL (250-450) Iron Saturation 15% (15-34) C-Reactive Protein, Quantitative 122.2mg/L (0-3.3) Vancomycin Level Trough 19.5mcg/mL (10.0-20.0) Vancomycin Last Dose Date 09/03/2016 Vancomycin Last Dose Time 2000 Glucose (Fingerstick) 120mg/dL (70-99) 170mg/dL (70-99) 360mg/dL (70-99) Test 09/05/16 04:00 09/05/16 07:31 09/05/16 11:24 White Blood Count 10.0x10^3/uL (4.0-11.0) Red Blood Count 4.04x10^6/uL (3.50-5.40) Hemoglobin 9.3g/dL (12.0-15.5) Hematocrit 29.7% (36.0-47.0) Mean Corpuscular Volume 73fL (79-100) Mean Corpuscular Hemoglobin 23pg (25-35) Mean Corpuscular Hemoglobin Concent 31g/dL (31-37) Red Cell Distribution Width 18.3% (11.5-14.5) Platelet Count 309x10^3/uL (140-400) Neutrophils (%) (Auto) 79% (31-73) Lymphocytes (%) (Auto) 13% (24-48) Monocytes (%) (Auto) 7% (0-9) Eosinophils (%) (Auto) 0% (0-3) Basophils (%) (Auto) 0% (0-3) Neutrophils # (Auto) 7.8x10^3uL (1.8-7.7) Lymphocytes # (Auto) 1.3x10^3/uL (1.0-4.8) Monocytes # (Auto) 0.7x10^3/uL (0.0-1.1) Eosinophils # (Auto) 0.0x10^3/uL (0.0-0.7) Basophils # (Auto) 0.0x10^3/uL (0.0-0.2) Sodium Level 137mmol/L (136-145) Potassium Level 4.0mmol/L (3.5-5.1) Chloride Level 102mmol/L (98-107) Carbon Dioxide Level 28mmol/L (21-32) Anion Gap 7 (6-14) Blood Urea Nitrogen 16mg/dL (7-20) Creatinine 1.1mg/dL (0.6-1.0) Estimated GFR (Cockcroft-Gault) 59.6 Glucose Level 337mg/dL (70-99) Calcium Level 8.3mg/dL (8.5-10.1) Glucose (Fingerstick) 268mg/dL (70-99) 175mg/dL (70-99) Laboratory Tests Test 09/04/16 16:47 09/04/16 20:59 09/05/16 04:00 09/05/16 07:31 Glucose (Fingerstick) 170mg/dL (70-99) 360mg/dL (70-99) 268mg/dL (70-99) White Blood Count 10.0x10^3/uL (4.0-11.0) Red Blood Count 4.04x10^6/uL (3.50-5.40) Hemoglobin 9.3g/dL (12.0-15.5) Hematocrit 29.7% (36.0-47.0) Mean Corpuscular Volume 73fL (79-100) Mean Corpuscular Hemoglobin 23pg (25-35) Mean Corpuscular Hemoglobin Concent 31g/dL (31-37) Red Cell Distribution Width 18.3% (11.5-14.5) Platelet Count 309x10^3/uL (140-400) Neutrophils (%) (Auto) 79% (31-73) Lymphocytes (%) (Auto) 13% (24-48) Monocytes (%) (Auto) 7% (0-9) Eosinophils (%) (Auto) 0% (0-3) Basophils (%) (Auto) 0% (0-3) Neutrophils # (Auto) 7.8x10^3uL (1.8-7.7) Lymphocytes # (Auto) 1.3x10^3/uL (1.0-4.8) Monocytes # (Auto) 0.7x10^3/uL (0.0-1.1) Eosinophils # (Auto) 0.0x10^3/uL (0.0-0.7) Basophils # (Auto) 0.0x10^3/uL (0.0-0.2) Sodium Level 137mmol/L (136-145) Potassium Level 4.0mmol/L (3.5-5.1) Chloride Level 102mmol/L (98-107) Carbon Dioxide Level 28mmol/L (21-32) Anion Gap 7 (6-14) Blood Urea Nitrogen 16mg/dL (7-20) Creatinine 1.1mg/dL (0.6-1.0) Estimated GFR (Cockcroft-Gault) 59.6 Glucose Level 337mg/dL (70-99) Calcium Level 8.3mg/dL (8.5-10.1) Test 09/05/16 11:24 Glucose (Fingerstick) 175mg/dL (70-99) Assessment Assessment POD #1 right knee irrigation and debridement and polyethylene exchange. Problems: Plan Plan of Care PICC line will be placed after lunch. WBAT with a walker with leg in full extension and brace intact. Awaiting intraoperative cultures. We will change surgical dressing tomorrow. CHELSEA SHEPHERD Sep 05, 2016 13:18
--- NOTE | 2016-09-05 13:29 | PDOC ---
PROGRESS NOTES Chief Complaint Chief Complaint Right knee pain and swelling and discharge infected Knee with hardware in place H/o Group B strep and Bacteroides DM2 Anemia obesity, BMI 34 History of Present Illness History of Present Illness abx cont s/p surgical debridement, drin in place F/u cults gm neg rods PICC line to be placed, may need outpatient Abx course Vitals Vitals Vital Signs Date Time Temp Pulse Resp B/P Pulse Ox O2 Delivery O2 Flow Rate FiO2 09/05/16 13:03 Room Air 09/05/16 11:00 97.7 74 19 122/74 98 97.7 09/05/16 03:05 2.0 Physical Exam General: Alert, Oriented X3, Cooperative, mild distress Heart: Regular rate, No murmurs Lungs: Clear, Wheezing Abdomen: Normal bowel sounds Extremities: No clubbing, No cyanosis Skin: No rashes Labs LABS Laboratory Tests Test 09/04/16 16:47 09/04/16 20:59 09/05/16 04:00 09/05/16 07:31 Glucose (Fingerstick) 170mg/dL (70-99) 360mg/dL (70-99) 268mg/dL (70-99) White Blood Count 10.0x10^3/uL (4.0-11.0) Red Blood Count 4.04x10^6/uL (3.50-5.40) Hemoglobin 9.3g/dL (12.0-15.5) Hematocrit 29.7% (36.0-47.0) Mean Corpuscular Volume 73fL (79-100) Mean Corpuscular Hemoglobin 23pg (25-35) Mean Corpuscular Hemoglobin Concent 31g/dL (31-37) Red Cell Distribution Width 18.3% (11.5-14.5) Platelet Count 309x10^3/uL (140-400) Neutrophils (%) (Auto) 79% (31-73) Lymphocytes (%) (Auto) 13% (24-48) Monocytes (%) (Auto) 7% (0-9) Eosinophils (%) (Auto) 0% (0-3) Basophils (%) (Auto) 0% (0-3) Neutrophils # (Auto) 7.8x10^3uL (1.8-7.7) Lymphocytes # (Auto) 1.3x10^3/uL (1.0-4.8) Monocytes # (Auto) 0.7x10^3/uL (0.0-1.1) Eosinophils # (Auto) 0.0x10^3/uL (0.0-0.7) Basophils # (Auto) 0.0x10^3/uL (0.0-0.2) Sodium Level 137mmol/L (136-145) Potassium Level 4.0mmol/L (3.5-5.1) Chloride Level 102mmol/L (98-107) Carbon Dioxide Level 28mmol/L (21-32) Anion Gap 7 (6-14) Blood Urea Nitrogen 16mg/dL (7-20) Creatinine 1.1mg/dL (0.6-1.0) Estimated GFR (Cockcroft-Gault) 59.6 Glucose Level 337mg/dL (70-99) Calcium Level 8.3mg/dL (8.5-10.1) Test 09/05/16 11:24 Glucose (Fingerstick) 175mg/dL (70-99) Review of Systems Review of Systems pain 02/03, insomnia due to pain unable to transfer ongoing weakness and pain complaint Assessment and Plan Assessmemt and Plan add MS contin try PO pain meds, given IV pain med this afternoon, p Problems Medical Problems: (1) Infection of right knee Status: Acute (2) Right knee pain Status: Acute (3) Swelling of knee joint, right Status: Acute Problems: Comment Review of Relevant I have reviewed the following items deng (where applicable) has been applied. Labs Laboratory Tests Test 09/03/16 15:11 09/03/16 16:53 09/03/16 20:49 09/04/16 07:41 Body Fluid Source Synovial Body Fluid Color Red Body Fluid Clarity Turbid Body Fluid Nucleated Cells 1000/cmm Body Fluid Mononuclear WBCs (%) 0% Body Fluid Polymorphonuclear Cells 100% Body Fluid Total RBCs Counted 847218/cmm Glucose (Fingerstick) 251mg/dL (70-99) 56mg/dL (70-99) 97mg/dL (70-99) Test 09/04/16 07:42 09/04/16 11:06 09/04/16 16:47 09/04/16 20:59 White Blood Count 7.3x10^3/uL (4.0-11.0) Red Blood Count 4.25x10^6/uL (3.50-5.40) Hemoglobin 9.9g/dL (12.0-15.5) Hematocrit 30.3% (36.0-47.0) Mean Corpuscular Volume 71fL (79-100) Mean Corpuscular Hemoglobin 23pg (25-35) Mean Corpuscular Hemoglobin Concent 33g/dL (31-37) Red Cell Distribution Width 18.5% (11.5-14.5) Platelet Count 288x10^3/uL (140-400) Erythrocyte Sedimentation Rate 96 (0-25) Sodium Level 140mmol/L (136-145) Potassium Level 3.8mmol/L (3.5-5.1) Chloride Level 105mmol/L (98-107) Carbon Dioxide Level 29mmol/L (21-32) Anion Gap 6 (6-14) Blood Urea Nitrogen 8mg/dL (7-20) Creatinine 0.9mg/dL (0.6-1.0) Estimated GFR (Cockcroft-Gault) 75.1 Glucose Level 103mg/dL (70-99) Calcium Level 8.9mg/dL (8.5-10.1) Iron Level 20ug/dL (50-170) Total Iron Binding Capacity 133ug/dL (250-450) Iron Saturation 15% (15-34) C-Reactive Protein, Quantitative 122.2mg/L (0-3.3) Vancomycin Level Trough 19.5mcg/mL (10.0-20.0) Vancomycin Last Dose Date 09/03/2016 Vancomycin Last Dose Time 2000 Glucose (Fingerstick) 120mg/dL (70-99) 170mg/dL (70-99) 360mg/dL (70-99) Test 09/05/16 04:00 09/05/16 07:31 09/05/16 11:24 White Blood Count 10.0x10^3/uL (4.0-11.0) Red Blood Count 4.04x10^6/uL (3.50-5.40) Hemoglobin 9.3g/dL (12.0-15.5) Hematocrit 29.7% (36.0-47.0) Mean Corpuscular Volume 73fL (79-100) Mean Corpuscular Hemoglobin 23pg (25-35) Mean Corpuscular Hemoglobin Concent 31g/dL (31-37) Red Cell Distribution Width 18.3% (11.5-14.5) Platelet Count 309x10^3/uL (140-400) Neutrophils (%) (Auto) 79% (31-73) Lymphocytes (%) (Auto) 13% (24-48) Monocytes (%) (Auto) 7% (0-9) Eosinophils (%) (Auto) 0% (0-3) Basophils (%) (Auto) 0% (0-3) Neutrophils # (Auto) 7.8x10^3uL (1.8-7.7) Lymphocytes # (Auto) 1.3x10^3/uL (1.0-4.8) Monocytes # (Auto) 0.7x10^3/uL (0.0-1.1) Eosinophils # (Auto) 0.0x10^3/uL (0.0-0.7) Basophils # (Auto) 0.0x10^3/uL (0.0-0.2) Sodium Level 137mmol/L (136-145) Potassium Level 4.0mmol/L (3.5-5.1) Chloride Level 102mmol/L (98-107) Carbon Dioxide Level 28mmol/L (21-32) Anion Gap 7 (6-14) Blood Urea Nitrogen 16mg/dL (7-20) Creatinine 1.1mg/dL (0.6-1.0) Estimated GFR (Cockcroft-Gault) 59.6 Glucose Level 337mg/dL (70-99) Calcium Level 8.3mg/dL (8.5-10.1) Glucose (Fingerstick) 268mg/dL (70-99) 175mg/dL (70-99) Laboratory Tests Test 09/04/16 16:47 09/04/16 20:59 09/05/16 04:00 09/05/16 07:31 Glucose (Fingerstick) 170mg/dL (70-99) 360mg/dL (70-99) 268mg/dL (70-99) White Blood Count 10.0x10^3/uL (4.0-11.0) Red Blood Count 4.04x10^6/uL (3.50-5.40) Hemoglobin 9.3g/dL (12.0-15.5) Hematocrit 29.7% (36.0-47.0) Mean Corpuscular Volume 73fL (79-100) Mean Corpuscular Hemoglobin 23pg (25-35) Mean Corpuscular Hemoglobin Concent 31g/dL (31-37) Red Cell Distribution Width 18.3% (11.5-14.5) Platelet Count 309x10^3/uL (140-400) Neutrophils (%) (Auto) 79% (31-73) Lymphocytes (%) (Auto) 13% (24-48) Monocytes (%) (Auto) 7% (0-9) Eosinophils (%) (Auto) 0% (0-3) Basophils (%) (Auto) 0% (0-3) Neutrophils # (Auto) 7.8x10^3uL (1.8-7.7) Lymphocytes # (Auto) 1.3x10^3/uL (1.0-4.8) Monocytes # (Auto) 0.7x10^3/uL (0.0-1.1) Eosinophils # (Auto) 0.0x10^3/uL (0.0-0.7) Basophils # (Auto) 0.0x10^3/uL (0.0-0.2) Sodium Level 137mmol/L (136-145) Potassium Level 4.0mmol/L (3.5-5.1) Chloride Level 102mmol/L (98-107) Carbon Dioxide Level 28mmol/L (21-32) Anion Gap 7 (6-14) Blood Urea Nitrogen 16mg/dL (7-20) Creatinine 1.1mg/dL (0.6-1.0) Estimated GFR (Cockcroft-Gault) 59.6 Glucose Level 337mg/dL (70-99) Calcium Level 8.3mg/dL (8.5-10.1) Test 09/05/16 11:24 Glucose (Fingerstick) 175mg/dL (70-99) Microbiology 09/02/16 Blood Culture - Preliminary, Resulted NO GROWTH AFTER 2 DAYS 09/03/16 Gram Stain - Final, Complete 09/04/16 Gram Stain - Final, Complete Medications Current Medications Ondansetron HCl (Zofran) 4 mg PRN Q8HRS PRN IV NAUSEA/VOMITING; Start 09/02/16 at 15:15; Stop 09/03/16 at 15:14; Status DC Morphine Sulfate 2 mg PRN Q2HR PRN IV PAIN Last administered on 09/03/16 11:10 ; Start 09/02/16 at 15:15; Stop 09/03/16 at 15:14; Status DC Vancomycin HCl (Vanco Per Pharmacy) 1 each PRN DAILY PRN MC SEE COMMENTS Last administered on 09/05/16 11:39; Start 09/02/16 at 17:30 Piperacillin Sod/ Tazobactam Sod 1 each 1 each PRN DAILY PRN MC SEE COMMENTS; Start 09/02/16 at 17:30; Stop 09/04/16 at 13:59; Status DC Piperacillin Sod/ Tazobactam Sod 3.375 gm/Sodium Chloride 50 ml @ 100 mls/hr Q6HRS IV Last administered on 09/05/16 06:11; Start 09/02/16 at 18:00 Vancomycin HCl 2 gm/Sodium Chloride 500 ml @ 250 mls/hr 1X ONCE IV Last administered on 09/02/16 20:53; Start 09/02/16 at 20:00; Stop 09/02/16 at 21:59; Status DC Vancomycin HCl/ Sodium Chloride (Iv Sodium Chloride 0.9% 500ml Bag) 500 ml @ 250 mls/hr Q12H IV Last administered on 09/04/16 09:18; Start 09/03/16 at 08:00 ; Stop 09/04/16 at 14:06; Status DC Vancomycin HCl 1 each 1X ONCE MC Last administered on 09/03/16 07:30; Start at 07:30; Stop 09/03/16 at 07:31; Status DC Aspirin (Ecotrin) 325 mg BID PO Last administered on 09/05/16 08:27; Start 09/03 at 21:00 Carvedilol (Coreg) 12.5 mg BIDWMEALS PO Last administered on 09/05/16 08:29; Start 09/03/16 at 17:00 Glipizide (Glucotrol) 5 mg DAILY PO Last administered on 09/03/16 13:10; Start 09/03/16 at 12:30; Stop 09/04/16 at 14:00; Status DC Lisinopril (Prinivil) 40 mg DAILY PO Last administered on 09/05/16 08:28; Start 09/03/16 at 12:30 Metformin HCl (Glucophage) 1,000 mg BIDWMEALS PO Last administered on 09/05/16 08:27; Start 09/03/16 at 17:00 Insulin Detemir (Levemir) 20 units DAILYWSUP SQ Last administered on 09/04/16 19:06; Start 09/03/16 at 17:00 Insulin Detemir (Levemir) 40 units DAILYWBKFT SQ Last administered on 09/05/16 08:45; Start 09/04/16 at 08:00 Oxycodone/ Acetaminophen (Percocet 5/325) 1 tab PRN Q6HRS PRN PO pain Last administered on 09/04/16 11:56; Start 09/03/16 at 12:00; Stop 09/05/16 at 11:41; Status DC Calcium/Vitamin D (Oscal D 500mg/ 200uts) 1 tab BIDWMEALS PO Last administered on 09/05/16 08:49; Start 09/03/16 at 17:00 Citalopram Hydrobromide (Celexa) 40 mg DAILY PO Last administered on 09/05/16 08:28; Start 09/04/16 at 09:00 Hydrochlorothiazide (Hydrodiuril) 25 mg DAILY PO Last administered on 09/05/16 08:28; Start 09/03/16 at 12:30 Atorvastatin Calcium (Lipitor) 10 mg QHS PO Last administered on 09/04/16 20:29 ; Start 09/03/16 at 21:00 Multivitamins/ Calcium (Thera M Plus) 1 tab DAILY PO Last administered on 08:27; Start 09/03/16 at 12:30 Insulin Aspart (Novolog) 0-7 UNITS TIDWMEALS SQ Last administered on 09/03/16 17:14; Start 09/03/16 at 13:00; Stop 09/04/16 at 21:21; Status DC Dextrose 12.5 gm PRN Q15MIN PRN IV SEE COMMENTS; Start 09/03/16 at 12:15 Insulin Aspart (Novolog) 10 units TIDAC SQ Last administered on 09/05/16 13:09 ; Start 09/03/16 at 16:30 Polyethylene Glycol (miraLAX PACKET) 17 gm PRN DAILY PRN PO CONSTIPATION; Start 09/03/16 at 13:00 Polyethylene Glycol (miraLAX PACKET) 17 gm 1X ONCE PO Last administered on 09/03 13:18; Start 09/03/16 at 13:00; Stop 09/03/16 at 13:12; Status DC Docusate Sodium (Colace) 100 mg PRN DAILY PRN PO CONSTIPATION; Start 09/03/16 at 13:00 Lidocaine/Sodium Bicarbonate 20 ml 20 ml 1X ONCE IJ ; Start 09/03/16 at 15:15; Stop 09/03/16 at 15:16; Status DC Cefazolin Sodium/ Dextrose 50 ml @ 100 mls/hr 1X PREOP IV ; Start 09/06/16 at 06:00; Stop 09/06/16 at 06:00; Status DC Cefazolin Sodium/ Dextrose (Ancef 2gm Premix) 50 ml @ 100 mls/hr 1X PREOP ONCE IV Last administered on 09/04/16 14:24; Start 09/04/16 at 06:00; Stop at 06:29; Status DC Fentanyl Citrate (Fentanyl 2ml Vial) 25 mcg PRN Q5MIN PRN IV MILD PAIN; Start 09/04/16 at 09:30; Stop 09/05/16 at 09:29; Status DC Fentanyl Citrate (Fentanyl 2ml Vial) 50 mcg PRN Q5MIN PRN IV MODERATE PAIN Last administered on 09/04/16 16:54; Start 09/04/16 at 09:30; Stop 09/05/16 at 09: 29; Status DC Morphine Sulfate 1 mg 1 mg PRN Q10MIN PRN IV SEVERE PAIN; Start 09/04/16 at 09: 30; Stop 09/05/16 at 09:29; Status DC Lactated Ringer's (Iv Lactated Ringers) 1,000 ml @ 0 mls/hr Q0M IV Last administered on 09/04/16 13:49; Start 09/04/16 at 09:18; Stop 09/04/16 at 21:17; Status DC Lidocaine HCl 2 ml 1X PRN PRN ID IV START; Start 09/04/16 at 09:30; Stop at 09:29; Status DC Hydromorphone HCl (Dilaudid) 0.5 mg PRN Q10MIN PRN IV SEV PAIN,Second choice Last administered on 09/04/16t 18:07; Start 09/04/16 at 09:30; Stop 09/05/16 at 09: 29; Status DC Prochlorperazine Edisylate 5 mg 5 mg PACU PRN PRN IV NAUSEA; Start 09/04/16 at 09:30; Stop 09/05/16 at 09:29; Status DC Cefazolin Sodium/ Dextrose (Ancef 2gm Premix) 50 ml @ As Directed STK-MED ONCE IV ; Start 09/04/16 at 13:12; Stop 09/04/16 at 13:13; Status DC Desflurane (Suprane) 60 ml STK-MED ONCE IH ; Start 09/04/16 at 13:42; Stop at 13:43; Status DC Fentanyl Citrate 100 mcg 100 mcg STK-MED ONCE .ROUTE ; Start 09/04/16 at 13:43; Stop 09/04/16 at 13:44; Status DC Propofol (Diprivan) 20 ml @ As Directed STK-MED ONCE IV ; Start 09/04/16 at 13:43 ; Stop 09/04/16 at 13:44; Status DC Lidocaine HCl 100 mg STK-MED ONCE .ROUTE ; Start 09/04/16 at 13:43; Stop 09/04/16 at 13:44; Status DC Dexamethasone Sodium Phosphate (Decadron) 20 mg STK-MED ONCE .ROUTE ; Start 09/04 at 13:43; Stop 09/04/16 at 13:44; Status DC Ondansetron HCl (Zofran) 4 mg STK-MED ONCE .ROUTE ; Start 09/04/16 at 13:43; Stop 09/04/16 at 13:44; Status DC Glipizide 5 mg 5 mg DAILYWBKFT PO Last administered on 09/05/16t 08:27; Start at 08:00 Vancomycin HCl 1.25 gm/Sodium Chloride 250 ml @ 167 mls/hr Q12H IV Last administered on 09/05/16 08:30; Start 09/04/16 at 20:00 Propofol (Diprivan) 20 ml @ As Directed STK-MED ONCE IV ; Start 09/04/16 at 14:38 ; Stop 09/04/16 at 14:39; Status DC Albuterol Sulfate 2.5 mg 2.5 mg STK-MED ONCE .ROUTE ; Start 09/04/16 at 14:59; Stop 09/04/16 at 15:00; Status DC Tranexamic Acid/ Sodium Chloride (Cyklokapron/Iv Sodium Chloride 0.9% 50ml) 60 ml @ 60 mls/hr 1X PERIOP ONCE INJ Last administered on 09/04/16 15:12; Start 09/04/16 at 15:12; Stop 09/04/16 at 16:11; Status DC Fentanyl Citrate (Fentanyl 2ml Vial) 100 mcg STK-MED ONCE .ROUTE ; Start at 15:27; Stop 09/04/16 at 15:28; Status DC Acetaminophen/ Hydrocodone Bitart (Lortab 7.5/325) 1 tab PRN Q3HRS PRN PO PAIN ; Start 09/04/16 at 16:30 Acetaminophen/ Hydrocodone Bitart (Lortab 10/325) 1 tab PRN Q3HRS PRN PO PAIN Last administered on 09/05/16 08:29; Start 09/04/16 at 16:30 Tramadol HCl (Ultram) 50 mg PRN QID PRN PO PAIN; Start 09/04/16 at 16:30 Oxycodone/ Acetaminophen (Percocet 5/325) 1 tab PRN Q3HRS PRN PO PAIN; Start at 16:30 Oxycodone/ Acetaminophen (Percocet 7.5/ 325) 1 tab PRN Q3HRS PRN PO PAIN Last administered on 09/04/16 18:54; Start 09/04/16 at 16:30 Tramadol HCl (Ultram) 100 mg PRN Q3HRS PRN PO PAIN; Start 09/04/16 at 16:30 Diphenhydramine HCl (Benadryl) 25 mg PRN Q6HRS PRN IV ITCHING; Start 09/04/16 at 16:30 Senna/Docusate Sodium (Senna Plus) 1 tab DAILY PO Last administered on 08:27; Start 09/05/16 at 09:00 Prochlorperazine Maleate (Compazine) 10 mg PRN Q4HRS PRN PO NAUSEA/VOMITING; Start 09/04/16 at 16:30 Metoclopramide HCl (Reglan) 10 mg PRN Q4HRS PRN IV NAUSEA/VOMITING; Start at 16:30 Magnesium Hydroxide (Milk Of Magnesia) 2,400 mg 1X PRN PRN PO CONSTIPATION; Start 09/05/16 at 06:00; Stop 09/06/16 at 05:59 Bisacodyl (Dulcolax Supp) 10 mg 1X PRN PRN [place] CONSTIPATION; Start 09/05/16 at 16 :00; Stop 09/06/16 at 15:59 Acetaminophen (Tylenol) 650 mg PRN Q4HRS PRN PO MILD PAIN / TEMP; Start at 16:30 Zolpidem Tartrate (Ambien) 5 mg PRN QHS PRN PO INSOMNIA, MAY REPEAT IN 1HR Last administered on 09/04/16 20:29; Start 09/04/16 at 16:30 Calcium Carbonate/ Glycine (Tums) 500 mg PRN QID PRN PO INDIGESTION; Start 09/04 at 16:30 Morphine Sulfate 4 mg PRN Q1HR PRN IV PAIN Last administered on 09/05/16 13:03 ; Start 09/04/16 at 16:30 Sodium Chloride (Normal Saline Flush) 10 ml QSHIFT PRN IV AFTER MEDS AND BLOOD DRAWS; Start 09/04/16 at 16:30 Prochlorperazine Edisylate (Compazine) 10 mg PRN Q4HRS PRN IV NAUSEA/VOMITING; Start 09/04/16 at 16:30 Dextrose 12.5 gm PRN Q15MIN PRN IV SEE COMMENTS; Start 09/04/16 at 16:30 Insulin Aspart (Novolog) 0-7 UNITS QIDACHS SQ Last administered on 09/05/16 13: 08; Start 09/05/16 at 07:30 Insulin Aspart (Novolog) 12 units 1X ONCE SQ Last administered on 09/04/16 21: 43; Start 09/04/16 at 21:30; Stop 09/04/16 at 21:31; Status DC Polysaccharide Iron Complex (Niferex 150) 150 mg DAILY PO Last administered on 09/05/16t 08:27; Start 09/05/16 at 09:00 Active Scripts Active Aspirin Ec (Aspirin) 325 Mg Tablet.dr 325 Mg PO BID 30 Days Reported Percocet 5-325 Mg Tablet (Oxycodone/Acetaminophen) 1 Each Tablet 1-2 Tab PO Q4- 6HRS LAST DOSE GIVEN: DATE: 08/02/16 TIME: 2:00 NEXT DOSE DUE: DATE: 08/02/16 TIME: 6:00pm as needed for pain Percocet 5-325 Mg Tablet (Oxycodone/Acetaminophen) 1 Each Tablet 1-2 Tab PO Q4- 6HRS Calcium 600 + Vit D 200 Tablet (Calcium Carbonate/Vitamin D3) 1 Each Tablet 1 Each PO BID Hair, Skin & Nails (Multivitamin With Minerals) 1 Each Tablet 1 Each PO DAILY Carvedilol 12.5 Mg Tablet 12.5 Mg PO BIDWMEALS Lovastatin 40 Mg Tablet 40 Mg PO HS Metformin Hcl 1,000 Mg Tablet 1 Tab PO BID Hydrochlorothiazide Tablet (Hydrochlorothiazide) 12.5 Mg Tablet 25 Mg PO DAILY Novolin N (Nph, Human Insulin Isophane) 100 Unit/1 Ml Vial 20 Unit SQ DAILYBFRSUP Novolin N (Nph, Human Insulin Isophane) 100 Unit/1 Ml Vial 40 Unit SQ DAILYWBKFT Glipizide 5 Mg Tablet 5 Mg PO DAILY Lisinopril 40 Mg Tablet 40 Mg PO DAILY Citalopram Hbr (Citalopram Hydrobromide) 40 Mg Tablet 40 Mg PO DAILY Vitals/I & O Vital Sign - Last 24 Hours 09/04/16 09/04/16 09/04/16 09/04/16 13:49 16:15 16:15 16:30 Temp 97.0 97.0 Pulse 86 84 Resp 15 20 20 B/P 176/96 170/89 Pulse Ox 97 98 98 O2 Delivery Room Air Simple Mask Mask Simple Mask O2 Flow Rate 10 10 10 09/04/16 09/04/16 09/04/16 09/04/16 16:36 16:45 16:54 17:00 Pulse 87 Resp 20 20 20 20 B/P 181/88 Pulse Ox 99 100 100 100 O2 Delivery Simple Mask Simple Mask Room Air Room Air O2 Flow Rate 10.0 10 09/04/16 09/04/16 09/04/16 09/04/16 17:00 17:11 17:15 17:15 Pulse 90 78 Resp 20 20 20 B/P 178/78 158/78 Pulse Ox 98 100 98 O2 Delivery Nasal Cannula Nasal Cannula Nasal Cannula Nasal Cannula O2 Flow Rate 2 2 2.0 2 09/04/16 09/04/16 09/04/16 09/04/16 17:30 17:45 17:45 18:00 Temp 100.0 100.0 Pulse 88 94 88 Resp 20 20 20 20 B/P 152/74 168/68 160/80 Pulse Ox 99 99 99 100 O2 Delivery Nasal Cannula Nasal Cannula Nasal Cannula Nasal Cannula O2 Flow Rate 2 2.0 2 2 09/04/16 09/04/16 09/04/16 09/04/16 18:07 18:25 18:40 18:55 Temp 98.0 98.0 Pulse 89 89 89 Resp 20 16 18 B/P 158/75 134/51 135/51 Pulse Ox 99 100 100 O2 Delivery Nasal Cannula Nasal Cannula O2 Flow Rate 2.0 2.0 2.0 09/04/16 09/04/16 09/04/16 09/04/16 18:55 19:10 19:25 19:50 Temp 98.2 98.2 Pulse 84 90 Resp 16 16 16 B/P 142/67 155/79 155/77 Pulse Ox 99 99 O2 Delivery Nasal Cannula Nasal Cannula Room Air O2 Flow Rate 2.0 2.0 09/04/16 09/04/16 09/04/16 09/04/16 20:00 20:00 20:30 20:55 Pulse 93 91 B/P 165/78 135/63 O2 Delivery Nasal Cannula Room Air 09/04/16 09/04/16 09/05/16 09/05/16 21:55 23:00 00:23 01:43 Temp 97.7 97.7 Pulse 92 82 Resp 18 B/P 137/67 101/58 Pulse Ox 93 93 O2 Delivery Room Air Room Air Room Air O2 Flow Rate 2.0 09/05/16 09/05/16 09/05/16 09/05/16 03:05 03:53 06:15 07:00 Temp 98.2 97.9 98.2 97.9 Pulse 85 82 Resp 18 19 B/P 133/60 144/68 Pulse Ox 100 99 O2 Delivery Nasal Cannula Room Air Room Air Room Air O2 Flow Rate 2.0 09/05/16 09/05/16 09/05/16 09/05/16 08:00 08:25 08:28 08:29 Pulse 82 82 B/P 144/68 144/68 O2 Delivery Room Air Room Air 09/05/16 09/05/16 09/05/16 09/05/16 08:29 09:42 11:00 13:03 Temp 97.7 97.7 Pulse 74 Resp 19 B/P 122/74 Pulse Ox 98 O2 Delivery Room Air Room Air Room Air Room Air Intake and Output 09/04/16 09/04/16 09/05/16 15:00 23:00 07:00 Intake Total 1850 ml Output Total 1300 ml Balance 550 ml ESCOBAR ROQUE MD Sep 05, 2016 13:29
[2016-09-05] MEDS ORDERED: MAGNESIUM HYDROXIDE 2,400 MG/30 ML ORAL.SUSP. PO ONE (13:45)
[2016-09-05] MEDS ORDERED: POLYETHYLENE GLYCOL 3350 17 GM PACKET. PO ONE (14:00)
--- NOTE | 2016-09-05 14:41 | RAD ---
Indication assess PICC line placement. A single view of the chest was obtained and is compared to a study 3 days earlier. The lungs remain clear. Heart size and pulmonary vessels are unchanged. A left PICC line is noted. The tip is at the brachiocephalic SVC junction. IMPRESSION: No acute finding in the chest. Left PICC line with its tip at the brachiocephalic SVC junction
[2016-09-05 15:00] VITALS: BP 146/68
[2016-09-05] MEDS: MORPHINE ER 15 MG TABLET.ER PO SCH ×2 (15:40→20:17)
[2016-09-05] MEDS: DOCUSATE SODIUM 100 MG CAPSULE PO SCH (15:42)
[2016-09-05] MEDS ORDERED: BISACODYL 10 MG SUPP.RECT PR PRN (16:00)
[2016-09-05 19:00] VITALS: BP 134/56
[2016-09-05] MEDS: ATORVASTATIN CALCIUM 10 MG TABLET. PO SCH (20:16)
[2016-09-05] MEDS: ZOLPIDEM 5 MG TABLET. PO PRN (20:17)
[2016-09-05 23:00] VITALS: BP 129/58
[2016-09-05] MEDS: HYDROCODONE/APAP 7.5/325MG TABLET. PO PRN (23:00)
[2016-09-06] MEDS: PIPERACILLIN/TAZOBACTAM 3.375 GM in IV NORMAL SALINE 50ML 50 ML IV SCH ×5 (00:24→23:41)
[2016-09-06 03:00] VITALS: BP 122/62
[2016-09-06] MEDS: HYDROCODONE/APAP 7.5/325MG TABLET. PO PRN ×2 (05:49→23:47)
[2016-09-06] MEDS ORDERED: CEFAZOLIN 2GM PREMIX 50 ML IV SCH (06:00)
[2016-09-06 07:00] VITALS: BP 101/53
[2016-09-06] MEDS: INSULIN ASPART 300 UNITS/3 ML INSULN.PEN SQ SCH ×7 (07:30→20:39)
--- NOTE | 2016-09-06 08:35 | PDOC ---
Infectious Disease Note Subjective Subjective Discomfort in leg and PICC ROS ROS GEN: Denies fevers, chills, sweats HEENT: Denies blurred vision, sore throat CV: Denies chest pain RESP: Denies shortness of air, cough GI: Denies n/v/d NEURO: Denies confusion, dizziness MSK: Denies weakness, joint pain/swelling Vital Sign Vital Signs Vital Signs Date Time Temp Pulse Resp B/P Pulse Ox O2 Delivery O2 Flow Rate FiO2 09/06/16 07:00 97.9 88 18 101/53 92 Room Air 97.9 Physical Exam PHYSICAL EXAM GENERAL: NAD, Alert - eating HEENT: PERRL, OC/OP -clear NECK: Supple, no JVD, no LN LUNGS: Clear HEART: S1S2, no gallop, no murmur ABD: Soft, NT, no organomegaly, no rebound, obese EXT: No edema, no cyanosis. RLE dry an clean ALEXANDRO wrap. 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 Awaiting final cults ALBINO ALEXANDER MD Sep 06, 2016 08:35
[2016-09-06] MEDS: CALCIUM CARB/VIT D3 500/200 TABLET PO SCH ×2 (08:40→17:46)
[2016-09-06] MEDS: ASPIRIN ENTERIC COATED 325 MG TABLET.DR. PO SCH ×2 (08:40→21:06)
[2016-09-06] MEDS: METFORMIN 1,000 MG TABLET PO SCH ×2 (08:40→17:00)
[2016-09-06] MEDS: SENNOSIDES/DOCUSATE 8.6/50MG TABLET. PO SCH (08:40)
[2016-09-06] MEDS: DOCUSATE SODIUM 100 MG CAPSULE PO SCH (08:40)
[2016-09-06] MEDS: GLIPIZIDE 5 MG TABLET PO SCH (08:40)
[2016-09-06] MEDS: MULTIVITAMIN with MINERAL TABLET. PO SCH (08:40)
[2016-09-06] MEDS: IRON POLYSACCHARIDE COMPLEX 150 MG CAPSULE PO SCH (08:40)
[2016-09-06] MEDS: HYDROCHLOROTHIAZIDE 25 MG TABLET PO SCH (08:40)
[2016-09-06] MEDS: CITALOPRAM 20 MG TABLET. PO SCH (08:40)
[2016-09-06] MEDS: CARVEDILOL 12.5 MG TABLET PO SCH ×2 (08:41→17:47)
[2016-09-06] MEDS: MORPHINE ER 15 MG TABLET.ER PO SCH ×2 (08:41→21:07)
[2016-09-06] MEDS: LISINOPRIL 40 MG TABLET. PO SCH (08:41)
[2016-09-06] MEDS: VANCOMYCIN 1.25 GM in IV NORMAL SALINE 250ML 250 ML IV SCH ×2 (08:42→19:54)
[2016-09-06] MEDS: INSULIN DETEMIR 300 UNITS/3 ML INSULN.PEN. SQ SCH ×2 (08:54→17:00)
[2016-09-06] MEDS ORDERED: POLYETHYLENE GLYCOL 3350 17 GM PACKET. PO SCH (09:00)
[2016-09-06 11:00] VITALS: BP 143/59
[2016-09-06 11:26] LABS: HEMATOCRIT 26.6 % (36.0-47.0); HEMOGLOBIN 8.7 g/dL (12.0-15.5)
[2016-09-06] MEDS: HYDROCODONE/APAP 10/325 TABLET. PO PRN ×2 (11:49→17:51)
[2016-09-06 15:00] VITALS: BP 125/61
--- NOTE | 2016-09-06 15:51 | PDOC ---
PROGRESS NOTES Chief Complaint Chief Complaint Right knee pain and swelling and discharge infected Knee with hardware in place H/o Group B strep and Bacteroides DM2 Anemia obesity, BMI 34 History of Present Illness History of Present Illness abx cont s/p surgical debridement, drin in place F/u cults gm neg rods PICC line to be placed, may need outpatient Abx course Vitals Vitals Vital Signs Date Time Temp Pulse Resp B/P Pulse Ox O2 Delivery O2 Flow Rate FiO2 09/06/16 12:43 Room Air 09/06/16 11:00 97.7 91 18 143/59 94 97.7 Physical Exam General: Alert, Oriented X3, Cooperative, No acute distress, mild distress Heart: Regular rate, No murmurs Lungs: Clear, Wheezing Abdomen: Normal bowel sounds Extremities: No clubbing, No cyanosis Skin: No rashes Labs LABS Laboratory Tests Test 09/05/16 16:17 09/05/16 20:35 09/06/16 07:45 09/06/16 10:18 Glucose (Fingerstick) 81mg/dL (70-99) 178mg/dL (70-99) 85mg/dL (70-99) 148mg/dL (70-99) Test 09/06/16 10:49 Hemoglobin 8.7g/dL (12.0-15.5) Hematocrit 26.6% (36.0-47.0) Mean Corpuscular Hemoglobin Concent 33g/dL (31-37) Review of Systems Review of Systems pain, weakness, lethargy she has not stooled, requests enema using the bedpan Assessment and Plan Assessmemt and Plan cannot even use bedside commode at this point, pain severe and mobility limited con tcurrent, will need placement, SNU or consider ACUTE rehab, if able Problems Medical Problems: (1) Infection of right knee Status: Acute (2) Right knee pain Status: Acute (3) Swelling of knee joint, right Status: Acute Problems: Comment Review of Relevant I have reviewed the following items deng (where applicable) has been applied. Labs Laboratory Tests Test 09/04/16 16:47 09/04/16 20:59 09/05/16 04:00 09/05/16 07:31 Glucose (Fingerstick) 170mg/dL (70-99) 360mg/dL (70-99) 268mg/dL (70-99) White Blood Count 10.0x10^3/uL (4.0-11.0) Red Blood Count 4.04x10^6/uL (3.50-5.40) Hemoglobin 9.3g/dL (12.0-15.5) Hematocrit 29.7% (36.0-47.0) Mean Corpuscular Volume 73fL (79-100) Mean Corpuscular Hemoglobin 23pg (25-35) Mean Corpuscular Hemoglobin Concent 31g/dL (31-37) Red Cell Distribution Width 18.3% (11.5-14.5) Platelet Count 309x10^3/uL (140-400) Neutrophils (%) (Auto) 79% (31-73) Lymphocytes (%) (Auto) 13% (24-48) Monocytes (%) (Auto) 7% (0-9) Eosinophils (%) (Auto) 0% (0-3) Basophils (%) (Auto) 0% (0-3) Neutrophils # (Auto) 7.8x10^3uL (1.8-7.7) Lymphocytes # (Auto) 1.3x10^3/uL (1.0-4.8) Monocytes # (Auto) 0.7x10^3/uL (0.0-1.1) Eosinophils # (Auto) 0.0x10^3/uL (0.0-0.7) Basophils # (Auto) 0.0x10^3/uL (0.0-0.2) Sodium Level 137mmol/L (136-145) Potassium Level 4.0mmol/L (3.5-5.1) Chloride Level 102mmol/L (98-107) Carbon Dioxide Level 28mmol/L (21-32) Anion Gap 7 (6-14) Blood Urea Nitrogen 16mg/dL (7-20) Creatinine 1.1mg/dL (0.6-1.0) Estimated GFR (Cockcroft-Gault) 59.6 Glucose Level 337mg/dL (70-99) Hemoglobin A1c 7.3% (4.8-5.6) Calcium Level 8.3mg/dL (8.5-10.1) Test 09/05/16 11:24 09/05/16 16:17 09/05/16 20:35 09/06/16 07:45 Glucose (Fingerstick) 175mg/dL (70-99) 81mg/dL (70-99) 178mg/dL (70-99) 85mg/dL (70-99) Test 09/06/16 10:18 09/06/16 10:49 Glucose (Fingerstick) 148mg/dL (70-99) Hemoglobin 8.7g/dL (12.0-15.5) Hematocrit 26.6% (36.0-47.0) Mean Corpuscular Hemoglobin Concent 33g/dL (31-37) Laboratory Tests Test 09/05/16 16:17 09/05/16 20:35 09/06/16 07:45 09/06/16 10:18 Glucose (Fingerstick) 81mg/dL (70-99) 178mg/dL (70-99) 85mg/dL (70-99) 148mg/dL (70-99) Test 09/06/16 10:49 Hemoglobin 8.7g/dL (12.0-15.5) Hematocrit 26.6% (36.0-47.0) Mean Corpuscular Hemoglobin Concent 33g/dL (31-37) Microbiology 09/02/16 Blood Culture - Preliminary, Resulted NO GROWTH AFTER 4 DAYS 09/03/16 Gram Stain - Final, Complete 09/04/16 Anaerobic/Aerobic Culture, Resulted Pending 09/04/16 Anaerobic Culture Result 1 (JULIUS), Resulted Pending 09/04/16 Aerobic Culture - Preliminary, Resulted 09/04/16 Aerobic Culture Result 1 (JULIUS) - Preliminary, Resulted 09/04/16 Aerobic Culture Result 2 (JULIUS) - Preliminary, Resulted Medications Current Medications Ondansetron HCl (Zofran) 4 mg PRN Q8HRS PRN IV NAUSEA/VOMITING; Start 09/02/16 at 15:15; Stop 09/03/16 at 15:14; Status DC Morphine Sulfate 2 mg PRN Q2HR PRN IV PAIN Last administered on 09/03/16 11:10 ; Start 09/02/16 at 15:15; Stop 09/03/16 at 15:14; Status DC Vancomycin HCl (Vanco Per Pharmacy) 1 each PRN DAILY PRN MC SEE COMMENTS Last administered on 09/05/16 11:39; Start 09/02/16 at 17:30 Piperacillin Sod/ Tazobactam Sod 1 each 1 each PRN DAILY PRN MC SEE COMMENTS; Start 09/02/16 at 17:30; Stop 09/04/16 at 13:59; Status DC Piperacillin Sod/ Tazobactam Sod 3.375 gm/Sodium Chloride 50 ml @ 100 mls/hr Q6HRS IV Last administered on 09/06/16 11:49; Start 09/02/16 at 18:00 Vancomycin HCl 2 gm/Sodium Chloride 500 ml @ 250 mls/hr 1X ONCE IV Last administered on 09/02/16 20:53; Start 09/02/16 at 20:00; Stop 09/02/16 at 21:59; Status DC Vancomycin HCl/ Sodium Chloride (Iv Sodium Chloride 0.9% 500ml Bag) 500 ml @ 250 mls/hr Q12H IV Last administered on 09/04/16 09:18; Start 09/03/16 at 08:00 ; Stop 09/04/16 at 14:06; Status DC Vancomycin HCl 1 each 1X ONCE MC Last administered on 09/03/16 07:30; Start at 07:30; Stop 09/03/16 at 07:31; Status DC Aspirin (Ecotrin) 325 mg BID PO Last administered on 09/06/16 08:40; Start 09/03/16 at 21:00 Carvedilol (Coreg) 12.5 mg BIDWMEALS PO Last administered on 09/06/16 08:41; Start 09/03/16 at 17:00 Glipizide (Glucotrol) 5 mg DAILY PO Last administered on 09/03/16 13:10; Start 09/03/16 at 12:30; Stop 09/04/16 at 14:00; Status DC Lisinopril (Prinivil) 40 mg DAILY PO Last administered on 09/06/16 08:41; Start 09/03/16 at 12:30 Metformin HCl (Glucophage) 1,000 mg BIDWMEALS PO Last administered on 08:40; Start 09/03/16 at 17:00 Insulin Detemir (Levemir) 20 units DAILYWSUP SQ Last administered on 09/05/16 17:25; Start 09/03/16 at 17:00 Insulin Detemir (Levemir) 40 units DAILYWBKFT SQ Last administered on 08:54; Start 09/04/16 at 08:00 Oxycodone/ Acetaminophen (Percocet 5/325) 1 tab PRN Q6HRS PRN PO pain Last administered on 09/04/16 11:56; Start 09/03/16 at 12:00; Stop 09/05/16 at 11:41; Status DC Calcium/Vitamin D (Oscal D 500mg/ 200uts) 1 tab BIDWMEALS PO Last administered on 09/06/16 08:40; Start 09/03/16 at 17:00 Citalopram Hydrobromide (Celexa) 40 mg DAILY PO Last administered on 09/05/16 08:28; Start 09/04/16 at 09:00; Stop 09/05/16 at 13:44; Status DC Hydrochlorothiazide (Hydrodiuril) 25 mg DAILY PO Last administered on 08:40; Start 09/03/16 at 12:30 Atorvastatin Calcium (Lipitor) 10 mg QHS PO Last administered on 09/05/16 20:16 ; Start 09/03/16 at 21:00 Multivitamins/ Calcium (Thera M Plus) 1 tab DAILY PO Last administered on 08:40; Start 09/03/16 at 12:30 Insulin Aspart (Novolog) 0-7 UNITS TIDWMEALS SQ Last administered on 09/03/16 17:14; Start 09/03/16 at 13:00; Stop 09/04/16 at 21:21; Status DC Dextrose 12.5 gm PRN Q15MIN PRN IV SEE COMMENTS; Start 09/03/16 at 12:15; Stop 09/05/16 at 13:32; Status DC Insulin Aspart (Novolog) 10 units TIDAC SQ Last administered on 09/06/16 11:56 ; Start 09/03/16 at 16:30 Polyethylene Glycol (miraLAX PACKET) 17 gm PRN DAILY PRN PO CONSTIPATION; Start 09/03/16 at 13:00 Polyethylene Glycol (miraLAX PACKET) 17 gm 1X ONCE PO Last administered on 09/03 13:18; Start 09/03/16 at 13:00; Stop 09/03/16 at 13:12; Status DC Docusate Sodium (Colace) 100 mg PRN DAILY PRN PO CONSTIPATION; Start 09/03/16 at 13:00; Stop 09/05/16 at 13:31; Status DC Lidocaine/Sodium Bicarbonate 20 ml 20 ml 1X ONCE IJ ; Start 09/03/16 at 15:15; Stop 09/03/16 at 15:16; Status DC Cefazolin Sodium/ Dextrose 50 ml @ 100 mls/hr 1X PREOP IV ; Start 09/06/16 at 06:00; Stop 09/06/16 at 06:00; Status DC Cefazolin Sodium/ Dextrose (Ancef 2gm Premix) 50 ml @ 100 mls/hr 1X PREOP ONCE IV Last administered on 09/04/16 14:24; Start 09/04/16 at 06:00; Stop at 06:29; Status DC Fentanyl Citrate (Fentanyl 2ml Vial) 25 mcg PRN Q5MIN PRN IV MILD PAIN; Start 09/04/16 at 09:30; Stop 09/05/16 at 09:29; Status DC Fentanyl Citrate (Fentanyl 2ml Vial) 50 mcg PRN Q5MIN PRN IV MODERATE PAIN Last administered on 09/04/16 16:54; Start 09/04/16 at 09:30; Stop 09/05/16 at 09: 29; Status DC Morphine Sulfate 1 mg 1 mg PRN Q10MIN PRN IV SEVERE PAIN; Start 09/04/16 at 09: 30; Stop 09/05/16 at 09:29; Status DC Lactated Ringer's (Iv Lactated Ringers) 1,000 ml @ 0 mls/hr Q0M IV Last administered on 09/04/16 13:49; Start 09/04/16 at 09:18; Stop 09/04/16 at 21:17; Status DC Lidocaine HCl 2 ml 1X PRN PRN ID IV START; Start 09/04/16 at 09:30; Stop at 09:29; Status DC Hydromorphone HCl (Dilaudid) 0.5 mg PRN Q10MIN PRN IV SEV PAIN,Second choice Last administered on 09/04/16 18:07; Start 09/04/16 at 09:30; Stop 09/05/16 at 09: 29; Status DC Prochlorperazine Edisylate 5 mg 5 mg PACU PRN PRN IV NAUSEA; Start 09/04/16 at 09:30; Stop 09/05/16 at 09:29; Status DC Cefazolin Sodium/ Dextrose (Ancef 2gm Premix) 50 ml @ As Directed STK-MED ONCE IV ; Start 09/04/16 at 13:12; Stop 09/04/16 at 13:13; Status DC Desflurane (Suprane) 60 ml STK-MED ONCE IH ; Start 09/04/16 at 13:42; Stop at 13:43; Status DC Fentanyl Citrate 100 mcg 100 mcg STK-MED ONCE .ROUTE ; Start 09/04/16 at 13:43; Stop 09/04/16 at 13:44; Status DC Propofol (Diprivan) 20 ml @ As Directed STK-MED ONCE IV ; Start 09/04/16 at 13:43 ; Stop 09/04/16 at 13:44; Status DC Lidocaine HCl 100 mg STK-MED ONCE .ROUTE ; Start 09/04/16 at 13:43; Stop 09/04/16 at 13:44; Status DC Dexamethasone Sodium Phosphate (Decadron) 20 mg STK-MED ONCE .ROUTE ; Start 09/04 at 13:43; Stop 09/04/16 at 13:44; Status DC Ondansetron HCl (Zofran) 4 mg STK-MED ONCE .ROUTE ; Start 09/04/16 at 13:43; Stop 09/04/16 at 13:44; Status DC Glipizide 5 mg 5 mg DAILYWBKFT PO Last administered on 09/06/16 08:40; Start 09/05/16 at 08:00 Vancomycin HCl 1.25 gm/Sodium Chloride 250 ml @ 167 mls/hr Q12H IV Last administered on 09/06/16 08:42; Start 09/04/16 at 20:00 Propofol (Diprivan) 20 ml @ As Directed STK-MED ONCE IV ; Start 09/04/16 at 14:38 ; Stop 09/04/16 at 14:39; Status DC Albuterol Sulfate 2.5 mg 2.5 mg STK-MED ONCE .ROUTE ; Start 09/04/16 at 14:59; Stop 09/04/16 at 15:00; Status DC Tranexamic Acid/ Sodium Chloride (Cyklokapron/Iv Sodium Chloride 0.9% 50ml) 60 ml @ 60 mls/hr 1X PERIOP ONCE INJ Last administered on 09/04/16 15:12; Start 09/04/16 at 15:12; Stop 09/04/16 at 16:11; Status DC Fentanyl Citrate (Fentanyl 2ml Vial) 100 mcg STK-MED ONCE .ROUTE ; Start at 15:27; Stop 09/04/16 at 15:28; Status DC Acetaminophen/ Hydrocodone Bitart (Lortab 7.5/325) 1 tab PRN Q3HRS PRN PO PAIN Last administered on 09/06/16 05:49; Start 09/04/16 at 16:30 Acetaminophen/ Hydrocodone Bitart (Lortab 10/325) 1 tab PRN Q3HRS PRN PO PAIN Last administered on 09/06/16 11:49; Start 09/04/16 at 16:30 Tramadol HCl (Ultram) 50 mg PRN QID PRN PO PAIN; Start 09/04/16 at 16:30; Stop 09/05/16 at 13:32; Status DC Oxycodone/ Acetaminophen (Percocet 5/325) 1 tab PRN Q3HRS PRN PO PAIN; Start at 16:30 Oxycodone/ Acetaminophen (Percocet 7.5/ 325) 1 tab PRN Q3HRS PRN PO PAIN Last administered on 09/04/16 18:54; Start 09/04/16 at 16:30 Tramadol HCl (Ultram) 100 mg PRN Q3HRS PRN PO PAIN; Start 09/04/16 at 16:30; Stop 09/05/16 at 13:32; Status DC Diphenhydramine HCl (Benadryl) 25 mg PRN Q6HRS PRN IV ITCHING; Start 09/04/16 at 16:30 Senna/Docusate Sodium (Senna Plus) 1 tab DAILY PO Last administered on 08:40; Start 09/05/16 at 09:00 Prochlorperazine Maleate (Compazine) 10 mg PRN Q4HRS PRN PO NAUSEA/VOMITING; Start 09/04/16 at 16:30 Metoclopramide HCl (Reglan) 10 mg PRN Q4HRS PRN IV NAUSEA/VOMITING; Start at 16:30 Magnesium Hydroxide (Milk Of Magnesia) 2,400 mg 1X PRN PRN PO CONSTIPATION; Start 09/05/16 at 06:00; Stop 09/06/16 at 05:59; Status DC Bisacodyl (Dulcolax Supp) 10 mg 1X PRN PRN AL CONSTIPATION; Start 09/05/16 at 16 :00; Stop 09/06/16 at 15:59 Acetaminophen (Tylenol) 650 mg PRN Q4HRS PRN PO MILD PAIN / TEMP; Start at 16:30 Zolpidem Tartrate (Ambien) 5 mg PRN QHS PRN PO INSOMNIA, MAY REPEAT IN 1HR Last administered on 09/05/16 20:17; Start 09/04/16 at 16:30 Calcium Carbonate/ Glycine (Tums) 500 mg PRN QID PRN PO INDIGESTION; Start 09/04 at 16:30 Morphine Sulfate 4 mg PRN Q1HR PRN IV PAIN Last administered on 09/05/16 13:03 ; Start 09/04/16 at 16:30 Sodium Chloride (Normal Saline Flush) 10 ml QSHIFT PRN IV AFTER MEDS AND BLOOD DRAWS; Start 09/04/16 at 16:30 Prochlorperazine Edisylate (Compazine) 10 mg PRN Q4HRS PRN IV NAUSEA/VOMITING; Start 09/04/16 at 16:30 Dextrose 12.5 gm PRN Q15MIN PRN IV SEE COMMENTS; Start 09/04/16 at 16:30 Insulin Aspart (Novolog) 0-7 UNITS QIDACHS SQ Last administered on 09/05/16 13: 08; Start 09/05/16 at 07:30 Insulin Aspart (Novolog) 12 units 1X ONCE SQ Last administered on 09/04/16 21: 43; Start 09/04/16 at 21:30; Stop 09/04/16 at 21:31; Status DC Polysaccharide Iron Complex (Niferex 150) 150 mg DAILY PO Last administered on 09/06/16 08:40; Start 09/05/16 at 09:00 Polyethylene Glycol (miraLAX PACKET) 17 gm 1X ONCE PO Last administered on 09/05 15:42; Start 09/05/16 at 14:00; Stop 09/05/16 at 14:01; Status DC Polyethylene Glycol (miraLAX PACKET) 17 gm DAILY PO Last administered on 08:39; Start 09/06/16 at 09:00 Docusate Sodium (Colace) 100 mg DAILY PO Last administered on 09/06/16 08:40; Start 09/05/16 at 14:00 Magnesium Hydroxide (Milk Of Magnesia) 2,400 mg 1X ONCE PO Last administered on 09/05/16 15:41; Start 09/05/16 at 13:45; Stop 09/05/16 at 13:46; Status DC Morphine Sulfate (Ms Contin) 15 mg BID PO Last administered on 09/06/16 08:41 ; Start 09/05/16 at 13:45 Citalopram Hydrobromide (Celexa) 20 mg DAILY PO Last administered on 09/06/16 08:40; Start 09/06/16 at 09:00 Active Scripts Active Aspirin Ec (Aspirin) 325 Mg Tablet.dr 325 Mg PO BID 30 Days Reported Percocet 5-325 Mg Tablet (Oxycodone/Acetaminophen) 1 Each Tablet 1-2 Tab PO Q4- 6HRS LAST DOSE GIVEN: DATE: 08/02/16 TIME: 2:00 NEXT DOSE DUE: DATE: 08/02/16 TIME: 6:00pm as needed for pain Percocet 5-325 Mg Tablet (Oxycodone/Acetaminophen) 1 Each Tablet 1-2 Tab PO Q4- 6HRS Calcium 600 + Vit D 200 Tablet (Calcium Carbonate/Vitamin D3) 1 Each Tablet 1 Each PO BID Hair, Skin & Nails (Multivitamin With Minerals) 1 Each Tablet 1 Each PO DAILY Carvedilol 12.5 Mg Tablet 12.5 Mg PO BIDWMEALS Lovastatin 40 Mg Tablet 40 Mg PO HS Metformin Hcl 1,000 Mg Tablet 1 Tab PO BID Hydrochlorothiazide Tablet (Hydrochlorothiazide) 12.5 Mg Tablet 25 Mg PO DAILY Novolin N (Nph, Human Insulin Isophane) 100 Unit/1 Ml Vial 20 Unit SQ DAILYBFRSUP Novolin N (Nph, Human Insulin Isophane) 100 Unit/1 Ml Vial 40 Unit SQ DAILYWBKFT Glipizide 5 Mg Tablet 5 Mg PO DAILY Lisinopril 40 Mg Tablet 40 Mg PO DAILY Citalopram Hbr (Citalopram Hydrobromide) 40 Mg Tablet 40 Mg PO DAILY Vitals/I & O Vital Sign - Last 24 Hours 09/05/16 09/05/16 09/05/16 09/05/16 17:13 17:14 19:00 19:05 Temp 99.0 99.0 Pulse 86 90 Resp 18 B/P 146/68 134/56 Pulse Ox 96 O2 Delivery Room Air Room Air Room Air 09/05/16 09/05/16 09/05/16 09/06/16 20:17 23:00 23:00 00:23 Temp 98.5 98.5 Pulse 87 Resp 20 18 20 B/P 129/58 Pulse Ox 96 96 95 96 O2 Delivery Room Air Room Air Room Air 09/06/16 09/06/16 09/06/16 09/06/16 03:00 05:49 06:50 07:00 Temp 98.6 97.9 98.6 97.9 Pulse 82 88 Resp 18 18 B/P 122/62 101/53 Pulse Ox 96 96 96 92 O2 Delivery Room Air Room Air Room Air Room Air 09/06/16 09/06/16 09/06/16 09/06/16 08:00 08:41 08:41 08:41 Pulse 88 88 B/P 101/53 101/53 O2 Delivery Room Air Room Air 09/06/16 09/06/16 09/06/16 09/06/16 11:00 11:49 12:43 12:43 Temp 97.7 97.7 Pulse 91 Resp 18 B/P 143/59 Pulse Ox 94 O2 Delivery Room Air Room Air Room Air Room Air Intake and Output 09/05/16 09/05/16 09/06/16 15:00 23:00 07:00 Intake Total 370 ml 1200 ml Output Total 200 ml 575 ml Balance 370 ml -200 ml 625 ml ESCOBAR ROQUE MD Sep 06, 2016 15:51
[2016-09-06] MEDS ORDERED: SODIUM PHOSPHATES 19/7GM 133 ML ENEMA. PR ONE (16:00)
[2016-09-06] MEDS ORDERED: POLYETHYLENE GLYCOL 3350 17 GM PACKET. PO ONE (16:00)
--- NOTE | 2016-09-06 16:32 | PDOC ---
PROGRESS NOTES Subjective Subjective Complaining of right knee pain, but pain is controlled. Objective Vital Signs Vital Signs Date Time Temp Pulse Resp B/P Pulse Ox O2 Delivery O2 Flow Rate FiO2 09/06/16 15:00 96.6 83 18 125/61 96 Room Air 96.6 09/05/16 03:05 2.0 Physical Exam Right knee brace intact. Dressing was bloody so it was removed and the incision and wound were examined. Incision looks benign, actually looks improved from yesterday. Lateral wound has bloody drainage. Calf soft and nontender with a negative Martín's sign. Good dorsiflexion and plantarflexion with no sign of neurovascular injury Labs Laboratory Tests Test 09/04/16 16:47 09/04/16 20:59 09/05/16 04:00 09/05/16 07:31 Glucose (Fingerstick) 170mg/dL (70-99) 360mg/dL (70-99) 268mg/dL (70-99) White Blood Count 10.0x10^3/uL (4.0-11.0) Red Blood Count 4.04x10^6/uL (3.50-5.40) Hemoglobin 9.3g/dL (12.0-15.5) Hematocrit 29.7% (36.0-47.0) Mean Corpuscular Volume 73fL (79-100) Mean Corpuscular Hemoglobin 23pg (25-35) Mean Corpuscular Hemoglobin Concent 31g/dL (31-37) Red Cell Distribution Width 18.3% (11.5-14.5) Platelet Count 309x10^3/uL (140-400) Neutrophils (%) (Auto) 79% (31-73) Lymphocytes (%) (Auto) 13% (24-48) Monocytes (%) (Auto) 7% (0-9) Eosinophils (%) (Auto) 0% (0-3) Basophils (%) (Auto) 0% (0-3) Neutrophils # (Auto) 7.8x10^3uL (1.8-7.7) Lymphocytes # (Auto) 1.3x10^3/uL (1.0-4.8) Monocytes # (Auto) 0.7x10^3/uL (0.0-1.1) Eosinophils # (Auto) 0.0x10^3/uL (0.0-0.7) Basophils # (Auto) 0.0x10^3/uL (0.0-0.2) Sodium Level 137mmol/L (136-145) Potassium Level 4.0mmol/L (3.5-5.1) Chloride Level 102mmol/L (98-107) Carbon Dioxide Level 28mmol/L (21-32) Anion Gap 7 (6-14) Blood Urea Nitrogen 16mg/dL (7-20) Creatinine 1.1mg/dL (0.6-1.0) Estimated GFR (Cockcroft-Gault) 59.6 Glucose Level 337mg/dL (70-99) Hemoglobin A1c 7.3% (4.8-5.6) Calcium Level 8.3mg/dL (8.5-10.1) Test 09/05/16 11:24 09/05/16 16:17 09/05/16 20:35 09/06/16 07:45 Glucose (Fingerstick) 175mg/dL (70-99) 81mg/dL (70-99) 178mg/dL (70-99) 85mg/dL (70-99) Test 09/06/16 10:18 09/06/16 10:49 Glucose (Fingerstick) 148mg/dL (70-99) Hemoglobin 8.7g/dL (12.0-15.5) Hematocrit 26.6% (36.0-47.0) Mean Corpuscular Hemoglobin Concent 33g/dL (31-37) Laboratory Tests Test 09/05/16 20:35 09/06/16 07:45 09/06/16 10:18 09/06/16 10:49 Glucose (Fingerstick) 178mg/dL (70-99) 85mg/dL (70-99) 148mg/dL (70-99) Hemoglobin 8.7g/dL (12.0-15.5) Hematocrit 26.6% (36.0-47.0) Mean Corpuscular Hemoglobin Concent 33g/dL (31-37) Assessment Assessment POD #2 right knee irrigation and debridement and polyethylene exchange Problems: Plan Plan of Care Continue daily dressing changes. May WBAT with a walker with leg in full extension. Awaiting intraoperative culture results. Will likely need SNU or acute rehab placement. CHELSEA SHEPHERD Sep 06, 2016 16:32
[2016-09-06] MEDS: VANCOMYCIN PER PHARMACY MC PRN (17:01)
[2016-09-06 19:59] VITALS: BP 123/56
[2016-09-06] MEDS: POLYETHYLENE GLYCOL 3350 17 GM PACKET. PO SCH (20:05)
[2016-09-06] MEDS: ATORVASTATIN CALCIUM 10 MG TABLET. PO SCH (21:06)
[2016-09-06] MEDS: ZOLPIDEM 5 MG TABLET. PO PRN (21:06)
[2016-09-06 22:59] VITALS: BP 132/56
[2016-09-06] MEDS ORDERED: SODIUM PHOSPHATES 19/7GM 133 ML ENEMA. PR PRN (23:30)
[2016-09-07 03:59] VITALS: BP 123/59
[2016-09-07 05:35] LABS: CREATININE 1.5 mg/dL (0.6-1.0); GFR 41.7
[2016-09-07] MEDS: PIPERACILLIN/TAZOBACTAM 3.375 GM in IV NORMAL SALINE 50ML 50 ML IV SCH ×4 (06:07→23:58)
[2016-09-07 07:00] VITALS: BP 140/61
[2016-09-07] MEDS: INSULIN ASPART 300 UNITS/3 ML INSULN.PEN SQ SCH ×7 (07:30→21:00)
[2016-09-07] MEDS: CALCIUM CARB/VIT D3 500/200 TABLET PO SCH ×2 (08:00→17:34)
[2016-09-07] MEDS ORDERED: SODIUM PHOSPHATES 19/7GM 133 ML ENEMA. PR PRN (09:00)
[2016-09-07] MEDS: HYDROCHLOROTHIAZIDE 25 MG TABLET PO SCH (09:04)
[2016-09-07] MEDS: SENNOSIDES/DOCUSATE 8.6/50MG TABLET. PO SCH (09:04)
[2016-09-07] MEDS: OXYCODONE/APAP 7.5/325 TABLET. PO PRN (09:05)
[2016-09-07] MEDS: CARVEDILOL 12.5 MG TABLET PO SCH ×2 (09:06→17:34)
[2016-09-07] MEDS: GLIPIZIDE 5 MG TABLET PO SCH (09:06)
[2016-09-07] MEDS: DOCUSATE SODIUM 100 MG CAPSULE PO SCH (09:06)
[2016-09-07] MEDS: MULTIVITAMIN with MINERAL TABLET. PO SCH (09:06)
[2016-09-07] MEDS: CITALOPRAM 20 MG TABLET. PO SCH (09:07)
[2016-09-07] MEDS: METFORMIN 1,000 MG TABLET PO SCH ×2 (09:07→17:00)
[2016-09-07] MEDS: LISINOPRIL 40 MG TABLET. PO SCH (09:08)
[2016-09-07] MEDS: MORPHINE ER 15 MG TABLET.ER PO SCH ×2 (09:08→21:31)
[2016-09-07] MEDS: IRON POLYSACCHARIDE COMPLEX 150 MG CAPSULE PO SCH (09:08)
[2016-09-07] MEDS: ASPIRIN ENTERIC COATED 325 MG TABLET.DR. PO SCH ×2 (09:08→21:30)
[2016-09-07] MEDS: POLYETHYLENE GLYCOL 3350 17 GM PACKET. PO SCH ×2 (09:09→21:00)
[2016-09-07] MEDS: VANCOMYCIN 1.25 GM in IV NORMAL SALINE 250ML 250 ML IV SCH ×3 (09:09→22:12)
[2016-09-07] MEDS: INSULIN DETEMIR 300 UNITS/3 ML INSULN.PEN. SQ SCH ×2 (09:27→17:00)
[2016-09-07 11:00] VITALS: BP 139/70
[2016-09-07] MEDS: VANCOMYCIN PER PHARMACY MC PRN (11:48)
--- NOTE | 2016-09-07 12:37 | PDOC ---
Infectious Disease Note Subjective Subjective Pain controlled Constipated, + flatus. No N/V or cramps ROS ROS GEN: Denies fevers, chills, sweats CV: Denies chest pain RESP: Denies shortness of air, cough Vital Sign Vital Signs Vital Signs Date Time Temp Pulse Resp B/P Pulse Ox O2 Delivery O2 Flow Rate FiO2 09/07/16 11:00 98.6 83 20 139/70 96 Room Air 98.6 Physical Exam PHYSICAL EXAM GENERAL: Propped up in bed, relaxed appearance HEENT: OC/OP clear LUNGS: Clear HEART: S1S2 ABD: Soft, NT, BS present EXT: Right knee bandaged with immobilizer in place. [employer]SEM[employer]IES [employer] INSTALLATIONS INSPECTOR: Alert, oriented x 3, no focal neurologic deficit SKIN: No rash IV: ok Labs Lab Laboratory Tests Test 09/06/16 16:12 09/06/16 16:59 09/06/16 20:24 09/07/16 05:10 Glucose (Fingerstick) 46mg/dL (70-99) 63mg/dL (70-99) 102mg/dL (70-99) Creatinine 1.5mg/dL (0.6-1.0) Estimated GFR (Cockcroft-Gault) 41.7 Test 09/07/16 07:58 09/07/16 11:44 Glucose (Fingerstick) 81mg/dL (70-99) 129mg/dL (70-99) Micro Right knee Morganella GBS Staph aureus Antibiotic RSLT#1 RSLT#2 RSLT#3 Amoxicillin/Clavulanic Acid R Ampicillin R Cefazolin R Cefepime S Ceftriaxone S Cefuroxime R Ciprofloxacin S R Clindamycin S Ertapenem S Erythromycin S Gentamicin S S Levofloxacin S R Linezolid S Oxacillin R Penicillin R Piperacillin S Rifampin S Tetracycline R S Tobramycin S Trimethoprim/Sulfa S S Vancomycin S Objective Assessment 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 check BMP sed rate 96 Social service consult Bowel regimen Do Not transfer today. Awaiting final cults Attending Co-Sign The patient was seen and interviewed as well as examined at the bedside. The chart was reviewed. The case was discussed. Agree with the plan of care. HEDY BARRIGA APRN Sep 07, 2016 12:37 CAROLYN VALDES MD Sep 07, 2016 14:37
[2016-09-07 13:39] LABS: HEMATOCRIT 25.4 % (36.0-47.0)
[2016-09-07 13:52] LABS: CALCIUM 8.5 mg/dL (8.5-10.1); CREATININE 1.5 mg/dL (0.6-1.0); GFR 41.7; POTASSIUM 3.9 mmol/L (3.5-5.1)
--- NOTE | 2016-09-07 13:53 | PDOC ---
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 Vitals Vitals Vital Signs Date Time Temp Pulse Resp B/P Pulse Ox O2 Delivery O2 Flow Rate FiO2 09/07/16 11:00 98.6 83 20 139/70 96 Room Air 98.6 Physical Exam General: Alert, Oriented X3, Cooperative, No acute distress, mild distress Heart: Regular rate, No murmurs Lungs: Clear, Wheezing Abdomen: Normal bowel sounds Extremities: No clubbing, No cyanosis Skin: No rashes Labs LABS Laboratory Tests Test 09/06/16 16:12 09/06/16 16:59 09/06/16 20:24 09/07/16 05:10 Glucose (Fingerstick) 46mg/dL (70-99) 63mg/dL (70-99) 102mg/dL (70-99) Creatinine 1.5mg/dL (0.6-1.0) Estimated GFR (Cockcroft-Gault) 41.7 Test 09/07/16 07:58 09/07/16 11:44 Glucose (Fingerstick) 81mg/dL (70-99) 129mg/dL (70-99) Assessment and Plan Assessmemt and Plan Problems Medical Problems: (1) Infection of right knee Status: Acute (2) Right knee pain Status: Acute (3) Swelling of knee joint, right Status: Acute Problems: Comment Review of Relevant I have reviewed the following items deng (where applicable) has been applied. Labs Laboratory Tests Test 09/05/16 16:17 09/05/16 20:35 09/06/16 07:45 09/06/16 10:18 Glucose (Fingerstick) 81mg/dL (70-99) 178mg/dL (70-99) 85mg/dL (70-99) 148mg/dL (70-99) Test 09/06/16 10:49 09/06/16 16:12 09/06/16 16:59 09/06/16 20:24 Hemoglobin 8.7g/dL (12.0-15.5) Hematocrit 26.6% (36.0-47.0) Mean Corpuscular Hemoglobin Concent 33g/dL (31-37) Glucose (Fingerstick) 46mg/dL (70-99) 63mg/dL (70-99) 102mg/dL (70-99) Test 09/07/16 05:10 09/07/16 07:58 09/07/16 11:44 Creatinine 1.5mg/dL (0.6-1.0) Estimated GFR (Cockcroft-Gault) 41.7 Glucose (Fingerstick) 81mg/dL (70-99) 129mg/dL (70-99) Laboratory Tests Test 09/06/16 16:12 09/06/16 16:59 09/06/16 20:24 09/07/16 05:10 Glucose (Fingerstick) 46mg/dL (70-99) 63mg/dL (70-99) 102mg/dL (70-99) Creatinine 1.5mg/dL (0.6-1.0) Estimated GFR (Cockcroft-Gault) 41.7 Test 09/07/16 07:58 09/07/16 11:44 Glucose (Fingerstick) 81mg/dL (70-99) 129mg/dL (70-99) Microbiology 09/02/16 Blood Culture - Preliminary, Resulted NO GROWTH AFTER 4 DAYS 09/03/16 Gram Stain - Final, Complete 09/04/16 Anaerobic/Aerobic Culture, Resulted Pending 09/04/16 Anaerobic Culture Result 1 (JULIUS), Resulted Pending 09/04/16 Aerobic Culture - Preliminary, Resulted 09/04/16 Aerobic Culture Result 1 (JULIUS) - Preliminary, Resulted 09/04/16 Aerobic Culture Result 2 (JULIUS) - Preliminary, Resulted Medications Current Medications Ondansetron HCl (Zofran) 4 mg PRN Q8HRS PRN IV NAUSEA/VOMITING; Start 09/02/16 at 15:15; Stop 09/03/16 at 15:14; Status DC Morphine Sulfate 2 mg PRN Q2HR PRN IV PAIN Last administered on 09/03/16t 11:10 ; Start 09/02/16 at 15:15; Stop 09/03/16 at 15:14; Status DC Vancomycin HCl (Vanco Per Pharmacy) 1 each PRN DAILY PRN MC SEE COMMENTS Last administered on 09/07/16 11:48; Start 09/02/16 at 17:30 Piperacillin Sod/ Tazobactam Sod 1 each 1 each PRN DAILY PRN MC SEE COMMENTS; Start 09/02/16 at 17:30; Stop 09/04/16 at 13:59; Status DC Piperacillin Sod/ Tazobactam Sod 3.375 gm/Sodium Chloride 50 ml @ 100 mls/hr Q6HRS IV Last administered on 09/07/16 12:30; Start 09/02/16 at 18:00 Vancomycin HCl 2 gm/Sodium Chloride 500 ml @ 250 mls/hr 1X ONCE IV Last administered on 09/02/16 20:53; Start 09/02/16 at 20:00; Stop 09/02/16 at 21:59; Status DC Vancomycin HCl/ Sodium Chloride (Iv Sodium Chloride 0.9% 500ml Bag) 500 ml @ 250 mls/hr Q12H IV Last administered on 09/04/16 09:18; Start 09/03/16 at 08:00 ; Stop 09/04/16 at 14:06; Status DC Vancomycin HCl 1 each 1X ONCE MC Last administered on 09/03/16 07:30; Start at 07:30; Stop 09/03/16 at 07:31; Status DC Aspirin (Ecotrin) 325 mg BID PO Last administered on 09/07/16 09:08; Start 09/03/16 at 21:00 Carvedilol (Coreg) 12.5 mg BIDWMEALS PO Last administered on 09/07/16 09:06; Start 09/03/16 at 17:00 Glipizide (Glucotrol) 5 mg DAILY PO Last administered on 09/03/16 13:10; Start 09/03/16 at 12:30; Stop 09/04/16 at 14:00; Status DC Lisinopril (Prinivil) 40 mg DAILY PO Last administered on 09/07/16 09:08; Start 09/03/16 at 12:30 Metformin HCl (Glucophage) 1,000 mg BIDWMEALS PO Last administered on 09:07; Start 09/03/16 at 17:00 Insulin Detemir (Levemir) 20 units DAILYWSUP SQ Last administered on 09/05/16 17:25; Start 09/03/16 at 17:00 Insulin Detemir (Levemir) 40 units DAILYWBKFT SQ Last administered on 09:27; Start 09/04/16 at 08:00 Oxycodone/ Acetaminophen (Percocet 5/325) 1 tab PRN Q6HRS PRN PO pain Last administered on 09/04/16 11:56; Start 09/03/16 at 12:00; Stop 09/05/16 at 11:41; Status DC Calcium/Vitamin D (Oscal D 500mg/ 200uts) 1 tab BIDWMEALS PO Last administered on 09/07/16 08:00; Start 09/03/16 at 17:00 Citalopram Hydrobromide (Celexa) 40 mg DAILY PO Last administered on 09/05/16 08:28; Start 09/04/16 at 09:00; Stop 09/05/16 at 13:44; Status DC Hydrochlorothiazide (Hydrodiuril) 25 mg DAILY PO Last administered on 09:04; Start 09/03/16 at 12:30 Atorvastatin Calcium (Lipitor) 10 mg QHS PO Last administered on 09/06/16 21: 06; Start 09/03/16 at 21:00 Multivitamins/ Calcium (Thera M Plus) 1 tab DAILY PO Last administered on 09:06; Start 09/03/16 at 12:30 Insulin Aspart (Novolog) 0-7 UNITS TIDWMEALS SQ Last administered on 09/03/16 17:14; Start 09/03/16 at 13:00; Stop 09/04/16 at 21:21; Status DC Dextrose 12.5 gm PRN Q15MIN PRN IV SEE COMMENTS; Start 09/03/16 at 12:15; Stop 09/05/16 at 13:32; Status DC Insulin Aspart (Novolog) 10 units TIDAC SQ Last administered on 09/07/16 12:39 ; Start 09/03/16 at 16:30 Polyethylene Glycol (miraLAX PACKET) 17 gm PRN DAILY PRN PO CONSTIPATION; Start 09/03/16 at 13:00 Polyethylene Glycol (miraLAX PACKET) 17 gm 1X ONCE PO Last administered on 09/03 13:18; Start 09/03/16 at 13:00; Stop 09/03/16 at 13:12; Status DC Docusate Sodium (Colace) 100 mg PRN DAILY PRN PO CONSTIPATION; Start 09/03/16 at 13:00; Stop 09/05/16 at 13:31; Status DC Lidocaine/Sodium Bicarbonate 20 ml 20 ml 1X ONCE IJ ; Start 09/03/16 at 15:15; Stop 09/03/16 at 15:16; Status DC Cefazolin Sodium/ Dextrose 50 ml @ 100 mls/hr 1X PREOP IV ; Start 09/06/16 at 06:00; Stop 09/06/16 at 06:00; Status DC Cefazolin Sodium/ Dextrose (Ancef 2gm Premix) 50 ml @ 100 mls/hr 1X PREOP ONCE IV Last administered on 09/04/16 14:24; Start 09/04/16 at 06:00; Stop at 06:29; Status DC Fentanyl Citrate (Fentanyl 2ml Vial) 25 mcg PRN Q5MIN PRN IV MILD PAIN; Start 09/04/16 at 09:30; Stop 09/05/16 at 09:29; Status DC Fentanyl Citrate (Fentanyl 2ml Vial) 50 mcg PRN Q5MIN PRN IV MODERATE PAIN Last administered on 09/04/16 16:54; Start 09/04/16 at 09:30; Stop 09/05/16 at 09: 29; Status DC Morphine Sulfate 1 mg 1 mg PRN Q10MIN PRN IV SEVERE PAIN; Start 09/04/16 at 09: 30; Stop 09/05/16 at 09:29; Status DC Lactated Ringer's (Iv Lactated Ringers) 1,000 ml @ 0 mls/hr Q0M IV Last administered on 09/04/16 13:49; Start 09/04/16 at 09:18; Stop 09/04/16 at 21:17; Status DC Lidocaine HCl 2 ml 1X PRN PRN ID IV START; Start 09/04/16 at 09:30; Stop at 09:29; Status DC Hydromorphone HCl (Dilaudid) 0.5 mg PRN Q10MIN PRN IV SEV PAIN,Second choice Last administered on 09/04/16 18:07; Start 09/04/16 at 09:30; Stop 09/05/16 at 09: 29; Status DC Prochlorperazine Edisylate 5 mg 5 mg PACU PRN PRN IV NAUSEA; Start 09/04/16 at 09:30; Stop 09/05/16 at 09:29; Status DC Cefazolin Sodium/ Dextrose (Ancef 2gm Premix) 50 ml @ As Directed STK-MED ONCE IV ; Start 09/04/16 at 13:12; Stop 09/04/16 at 13:13; Status DC Desflurane (Suprane) 60 ml STK-MED ONCE IH ; Start 09/04/16 at 13:42; Stop at 13:43; Status DC Fentanyl Citrate 100 mcg 100 mcg STK-MED ONCE .ROUTE ; Start 09/04/16 at 13:43; Stop 09/04/16 at 13:44; Status DC Propofol (Diprivan) 20 ml @ As Directed STK-MED ONCE IV ; Start 09/04/16 at 13:43 ; Stop 09/04/16 at 13:44; Status DC Lidocaine HCl 100 mg STK-MED ONCE .ROUTE ; Start 09/04/16 at 13:43; Stop 09/04/16 at 13:44; Status DC Dexamethasone Sodium Phosphate (Decadron) 20 mg STK-MED ONCE .ROUTE ; Start 09/04 at 13:43; Stop 09/04/16 at 13:44; Status DC Ondansetron HCl (Zofran) 4 mg STK-MED ONCE .ROUTE ; Start 09/04/16 at 13:43; Stop 09/04/16 at 13:44; Status DC Glipizide 5 mg 5 mg DAILYWBKFT PO Last administered on 09/07/16 09:06; Start 09/05/16 at 08:00 Vancomycin HCl 1.25 gm/Sodium Chloride 250 ml @ 167 mls/hr Q12H IV Last administered on 09/07/16 09:09; Start 09/04/16 at 20:00 Propofol (Diprivan) 20 ml @ As Directed STK-MED ONCE IV ; Start 09/04/16 at 14:38 ; Stop 09/04/16 at 14:39; Status DC Albuterol Sulfate 2.5 mg 2.5 mg STK-MED ONCE .ROUTE ; Start 09/04/16 at 14:59; Stop 09/04/16 at 15:00; Status DC Tranexamic Acid/ Sodium Chloride (Cyklokapron/Iv Sodium Chloride 0.9% 50ml) 60 ml @ 60 mls/hr 1X PERIOP ONCE INJ Last administered on 09/04/16 15:12; Start 09/04/16 at 15:12; Stop 09/04/16 at 16:11; Status DC Fentanyl Citrate (Fentanyl 2ml Vial) 100 mcg STK-MED ONCE .ROUTE ; Start at 15:27; Stop 09/04/16 at 15:28; Status DC Acetaminophen/ Hydrocodone Bitart (Lortab 7.5/325) 1 tab PRN Q3HRS PRN PO PAIN Last administered on 09/06/16 23:47; Start 09/04/16 at 16:30 Acetaminophen/ Hydrocodone Bitart (Lortab 10/325) 1 tab PRN Q3HRS PRN PO PAIN Last administered on 09/06/16 17:51; Start 09/04/16 at 16:30 Tramadol HCl (Ultram) 50 mg PRN QID PRN PO PAIN; Start 09/04/16 at 16:30; Stop 09/05/16 at 13:32; Status DC Oxycodone/ Acetaminophen (Percocet 5/325) 1 tab PRN Q3HRS PRN PO PAIN; Start at 16:30 Oxycodone/ Acetaminophen (Percocet 7.5/ 325) 1 tab PRN Q3HRS PRN PO PAIN Last administered on 09/07/16 09:05; Start 09/04/16 at 16:30 Tramadol HCl (Ultram) 100 mg PRN Q3HRS PRN PO PAIN; Start 09/04/16 at 16:30; Stop 09/05/16 at 13:32; Status DC Diphenhydramine HCl (Benadryl) 25 mg PRN Q6HRS PRN IV ITCHING; Start 09/04/16 at 16:30 Senna/Docusate Sodium (Senna Plus) 1 tab DAILY PO Last administered on 09:04; Start 09/05/16 at 09:00 Prochlorperazine Maleate (Compazine) 10 mg PRN Q4HRS PRN PO NAUSEA/VOMITING; Start 09/04/16 at 16:30 Metoclopramide HCl (Reglan) 10 mg PRN Q4HRS PRN IV NAUSEA/VOMITING; Start at 16:30 Magnesium Hydroxide (Milk Of Magnesia) 2,400 mg 1X PRN PRN PO CONSTIPATION; Start 09/05/16 at 06:00; Stop 09/06/16 at 05:59; Status DC Bisacodyl (Dulcolax Supp) 10 mg 1X PRN PRN [place] CONSTIPATION; Start 09/05/16 at 16 :00; Stop 09/06/16 at 15:59; Status DC Acetaminophen (Tylenol) 650 mg PRN Q4HRS PRN PO MILD PAIN / TEMP; Start at 16:30 Zolpidem Tartrate (Ambien) 5 mg PRN QHS PRN PO INSOMNIA, MAY REPEAT IN 1HR Last administered on 09/06/16 21:06; Start 09/04/16 at 16:30 Calcium Carbonate/ Glycine (Tums) 500 mg PRN QID PRN PO INDIGESTION Last administered on 09/07/16 09:10; Start 09/04/16 at 16:30 Morphine Sulfate 4 mg PRN Q1HR PRN IV PAIN Last administered on 09/05/16 13:03 ; Start 09/04/16 at 16:30 Sodium Chloride (Normal Saline Flush) 10 ml QSHIFT PRN IV AFTER MEDS AND BLOOD DRAWS; Start 09/04/16 at 16:30 Prochlorperazine Edisylate (Compazine) 10 mg PRN Q4HRS PRN IV NAUSEA/VOMITING; Start 09/04/16 at 16:30 Dextrose 12.5 gm PRN Q15MIN PRN IV SEE COMMENTS; Start 09/04/16 at 16:30 Insulin Aspart (Novolog) 0-7 UNITS QIDACHS SQ Last administered on 09/05/16 13: 08; Start 09/05/16 at 07:30 Insulin Aspart (Novolog) 12 units 1X ONCE SQ Last administered on 09/04/16 21: 43; Start 09/04/16 at 21:30; Stop 09/04/16 at 21:31; Status DC Polysaccharide Iron Complex (Niferex 150) 150 mg DAILY PO Last administered on 09/07/16 09:08; Start 09/05/16 at 09:00 Polyethylene Glycol (miraLAX PACKET) 17 gm 1X ONCE PO Last administered on 09/05 15:42; Start 09/05/16 at 14:00; Stop 09/05/16 at 14:01; Status DC Polyethylene Glycol (miraLAX PACKET) 17 gm DAILY PO Last administered on 08:39; Start 09/06/16 at 09:00; Stop 09/06/16 at 15:51; Status DC Docusate Sodium (Colace) 100 mg DAILY PO Last administered on 09/07/16 09:06; Start 09/05/16 at 14:00 Magnesium Hydroxide (Milk Of Magnesia) 2,400 mg 1X ONCE PO Last administered on 09/05/16 15:41; Start 09/05/16 at 13:45; Stop 09/05/16 at 13:46; Status DC Morphine Sulfate (Ms Contin) 15 mg BID PO Last administered on 09/07/16 09:08 ; Start 09/05/16 at 13:45 Citalopram Hydrobromide (Celexa) 20 mg DAILY PO Last administered on 09/07/16 09:07; Start 09/06/16 at 09:00 Polyethylene Glycol (miraLAX PACKET) 17 gm BID PO Last administered on 09:09; Start 09/06/16 at 21:00 Sodium Biphosphate/ Sodium Phosphate (Fleet Adult) 133 ml 1X ONCE OH ; Start at 16:00; Stop 09/06/16 at 16:04; Status DC Sodium Biphosphate/ Sodium Phosphate (Fleet Adult) 133 ml PRN DAILY PRN [place] CONSTIPATION; Start 09/07/16 at 09:00 Polyethylene Glycol (miraLAX PACKET) 17 gm 1X ONCE PO Last administered on 17:45; Start 09/06/16 at 16:00; Stop 09/06/16 at 16:04; Status DC Sodium Biphosphate/ Sodium Phosphate (Fleet Adult) 133 ml PRN 1X PRN [place] CONSTIPATION; Start 09/06/16 at 23:30 Vancomycin HCl 1 each 1X ONCE MC ; Start 09/07/16 at 19:30; Stop 09/07/16 at 19 :31 Active Scripts Active Aspirin Ec (Aspirin) 325 Mg Tablet.dr 325 Mg PO BID 30 Days Reported Percocet 5-325 Mg Tablet (Oxycodone/Acetaminophen) 1 Each Tablet 1-2 Tab PO Q4- 6HRS LAST DOSE GIVEN: DATE: 08/02/16 TIME: 2:00 NEXT DOSE DUE: DATE: 08/02/16 TIME: 6:00pm as needed for pain Percocet 5-325 Mg Tablet (Oxycodone/Acetaminophen) 1 Each Tablet 1-2 Tab PO Q4- 6HRS Calcium 600 + Vit D 200 Tablet (Calcium Carbonate/Vitamin D3) 1 Each Tablet 1 Each PO BID Hair, Skin & Nails (Multivitamin With Minerals) 1 Each Tablet 1 Each PO DAILY Carvedilol 12.5 Mg Tablet 12.5 Mg PO BIDWMEALS Lovastatin 40 Mg Tablet 40 Mg PO HS Metformin Hcl 1,000 Mg Tablet 1 Tab PO BID Hydrochlorothiazide Tablet (Hydrochlorothiazide) 12.5 Mg Tablet 25 Mg PO DAILY Novolin N (Nph, Human Insulin Isophane) 100 Unit/1 Ml Vial 20 Unit SQ DAILYBFRSUP Novolin N (Nph, Human Insulin Isophane) 100 Unit/1 Ml Vial 40 Unit SQ DAILYWBKFT Glipizide 5 Mg Tablet 5 Mg PO DAILY Lisinopril 40 Mg Tablet 40 Mg PO DAILY Citalopram Hbr (Citalopram Hydrobromide) 40 Mg Tablet 40 Mg PO DAILY Vitals/I & O Vital Sign - Last 24 Hours 09/06/16 09/06/16 09/06/16 09/06/16 15:00 17:47 17:51 19:45 Temp 96.6 96.6 Pulse 83 83 Resp 18 20 B/P 125/61 125/61 Pulse Ox 96 96 O2 Delivery Room Air Room Air Room Air 09/06/16 09/06/16 09/06/16 09/06/16 19:45 19:59 21:07 22:59 Temp 99.5 98.8 99.5 98.8 Pulse 92 85 Resp 18 20 18 B/P 123/56 132/56 Pulse Ox 93 93 92 O2 Delivery Room Air Room Air Room Air Room Air 09/06/16 09/07/16 09/07/16 09/07/16 23:47 00:50 00:50 03:59 Temp 98.8 98.8 Pulse 78 Resp 20 20 20 18 B/P 123/59 Pulse Ox 92 92 92 96 O2 Delivery Room Air Room Air Room Air Room Air 09/07/16 09/07/16 09/07/16 09/07/16 07:00 08:00 09:05 09:06 Temp 97.9 97.9 Pulse 88 81 Resp 20 16 B/P 140/61 140/61 Pulse Ox 95 O2 Delivery Room Air Room Air Room Air 09/07/16 09/07/16 09/07/16 09/07/16 09:08 09:08 10:05 11:00 Temp 98.6 98.6 Pulse 88 83 Resp 16 16 20 B/P 140/61 139/70 Pulse Ox 96 O2 Delivery Room Air Room Air Room Air Intake and Output 09/06/16 09/06/16 09/07/16 15:00 23:00 07:00 Intake Total 120 ml 300 ml Output Total 150 ml 100 ml Balance -150 ml 120 ml 200 ml JALEESA SALVADOR MD Sep 07, 2016 13:53
[2016-09-07] MEDS ORDERED: ALTEPLASE 2 MG VIAL INT CAT ONE (14:30)
[2016-09-07 15:00] VITALS: BP 137/58
[2016-09-07] MEDS: DEXTROSE 50% 25 GM / 50ML DISP.SYRIN. IV PRN (17:25)
[2016-09-07] MEDS: HYDROCODONE/APAP 10/325 TABLET. PO PRN (17:33)
[2016-09-07 19:00] VITALS: BP 152/68
[2016-09-07] MEDS: MORPHINE SULFATE 4 MG/ML DISP.SYRIN. IV PRN (20:04)
[2016-09-07] MEDS: ATORVASTATIN CALCIUM 10 MG TABLET. PO SCH (21:30)
[2016-09-07] MEDS: ZOLPIDEM 5 MG TABLET. PO PRN (21:31)
--- NOTE | 2016-09-07 21:42 | RAD ---
PROCEDURE Single-view chest. HISTORY PICC placement COMPARISON None available FINDINGS AP upright portable view of the chest is submitted. There is right upper extremity PICC with the tip near the cavoatrial junction. Pericardial cardiac silhouette is somewhat enlarged. There is no dependent pleural fluid, pneumothorax, lobar infiltrate. There is degenerative change of the acromioclavicular joints bilaterally. IMPRESSION 1. Right upper extremity PICC tip terminates near the cavoatrial junction. Electronically signed by: Eric Bales MD (Sep 07, 2016 21:41:51)
[2016-09-07 23:00] VITALS: BP 127/63
[2016-09-08 03:00] VITALS: BP 116/65
[2016-09-08] MEDS: PIPERACILLIN/TAZOBACTAM 3.375 GM in IV NORMAL SALINE 50ML 50 ML IV SCH ×4 (06:06→23:39)
[2016-09-08] MEDS: HYDROCODONE/APAP 7.5/325MG TABLET. PO PRN (06:13)
[2016-09-08 07:00] VITALS: BP 138/65
[2016-09-08] MEDS: INSULIN ASPART 300 UNITS/3 ML INSULN.PEN SQ SCH ×7 (07:30→21:00)
[2016-09-08] MEDS: INSULIN DETEMIR 300 UNITS/3 ML INSULN.PEN. SQ SCH ×2 (08:00→17:00)
[2016-09-08] MEDS: POLYETHYLENE GLYCOL 3350 17 GM PACKET. PO SCH ×3 (08:35→21:00)
[2016-09-08] MEDS: IRON POLYSACCHARIDE COMPLEX 150 MG CAPSULE PO SCH (08:36)
[2016-09-08] MEDS: CARVEDILOL 12.5 MG TABLET PO SCH ×2 (08:36→18:12)
[2016-09-08] MEDS: LISINOPRIL 40 MG TABLET. PO SCH (08:36)
[2016-09-08] MEDS: METFORMIN 1,000 MG TABLET PO SCH ×2 (08:36→18:11)
[2016-09-08] MEDS: HYDROCHLOROTHIAZIDE 25 MG TABLET PO SCH (08:36)
[2016-09-08] MEDS: CALCIUM CARB/VIT D3 500/200 TABLET PO SCH ×2 (08:36→18:11)
[2016-09-08] MEDS: GLIPIZIDE 5 MG TABLET PO SCH (08:37)
[2016-09-08] MEDS: SENNOSIDES/DOCUSATE 8.6/50MG TABLET. PO SCH (08:37)
[2016-09-08] MEDS: CITALOPRAM 20 MG TABLET. PO SCH (08:37)
[2016-09-08] MEDS: DOCUSATE SODIUM 100 MG CAPSULE PO SCH (08:37)
[2016-09-08] MEDS: MORPHINE ER 15 MG TABLET.ER PO SCH ×2 (08:37→20:38)
[2016-09-08] MEDS: MULTIVITAMIN with MINERAL TABLET. PO SCH (08:37)
[2016-09-08] MEDS: ASPIRIN ENTERIC COATED 325 MG TABLET.DR. PO SCH ×2 (08:37→20:38)
[2016-09-08 10:54] LABS: HEMATOCRIT 22.8 % (36.0-47.0); HEMOGLOBIN 7.3 g/dL (12.0-15.5)
[2016-09-08 11:00] VITALS: BP 120/53
--- NOTE | 2016-09-08 11:15 | PDOC ---
Infectious Disease Note Subjective Subjective Pain rating a 5 ROS ROS GEN: Denies fevers, chills, sweats CV: Denies chest pain RESP: Denies shortness of air, cough GI: Denies n/v/d Vital Sign Vital Signs Vital Signs Date Time Temp Pulse Resp B/P Pulse Ox O2 Delivery O2 Flow Rate FiO2 09/08/16 08:37 16 Room Air 09/08/16 08:36 77 138/65 09/08/16 07:00 98.2 93 98.2 Physical Exam PHYSICAL EXAM GENERAL: Propped up in bed, relaxed appearance HEENT: OC/OP clear LUNGS: Clear HEART: S1S2 ABD: Soft, NT, BS present EXT: Right knee bandaged with immobilizer in place. + wiggles toes [employer]: Alert, oriented x 3, no focal neurologic deficit SKIN: No rash RUE-PICC. clean Labs Lab Laboratory Tests Test 09/07/16 11:44 09/07/16 13:25 09/07/16 17:14 09/07/16 21:55 Glucose (Fingerstick) 129mg/dL (70-99) 47mg/dL (70-99) 43mg/dL (70-99) Hemoglobin 8.0g/dL (12.0-15.5) Hematocrit 25.4% (36.0-47.0) Mean Corpuscular Hemoglobin Concent 32g/dL (31-37) Sodium Level 142mmol/L (136-145) Potassium Level 3.9mmol/L (3.5-5.1) Chloride Level 106mmol/L (98-107) Carbon Dioxide Level 29mmol/L (21-32) Anion Gap 7 (6-14) Blood Urea Nitrogen 16mg/dL (7-20) Creatinine 1.5mg/dL (0.6-1.0) Estimated GFR (Cockcroft-Gault) 41.7 Glucose Level 114mg/dL (70-99) Calcium Level 8.5mg/dL (8.5-10.1) Test 09/07/16 22:00 09/08/16 03:36 09/08/16 07:13 09/08/16 10:00 Vancomycin Level Trough 34.8mcg/mL (10.0-20.0) Vancomycin Last Dose Date Vancomycin Last Dose Time Glucose (Fingerstick) 91mg/dL (70-99) 73mg/dL (70-99) Hemoglobin 7.3g/dL (12.0-15.5) Hematocrit 22.8% (36.0-47.0) Mean Corpuscular Hemoglobin Concent 32g/dL (31-37) Micro Right knee Morganella GBS Staph aureus Antibiotic RSLT#1 RSLT#2 RSLT#3 Amoxicillin/Clavulanic Acid R Ampicillin R Cefazolin R Cefepime S Ceftriaxone S Cefuroxime R Ciprofloxacin S R Clindamycin S Ertapenem S Erythromycin S Gentamicin S S Levofloxacin S R Linezolid S Oxacillin R Penicillin R Piperacillin S Rifampin S Tetracycline R S Tobramycin S Trimethoprim/Sulfa S S Vancomycin S Objective Assessment 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 continue Zosyn vanc trough 34.8 F/u cults f/u today's labs sed rate 96 Social service consult Bowel regimen Do Not transfer today. Attending Co-Sign The patient was seen and interviewed as well as examined at the bedside. The chart was reviewed. The case was discussed. Agree with the plan of care. HEDY BARRIGA APRN Sep 08, 2016 11:15 CAROLYN VALDES MD Sep 08, 2016 13:30
[2016-09-08 11:17] LABS: CALCIUM 8.5 mg/dL (8.5-10.1); CREATININE 1.5 mg/dL (0.6-1.0); GFR 41.7; POTASSIUM 3.6 mmol/L (3.5-5.1)
[2016-09-08] MEDS: HYDROCODONE/APAP 10/325 TABLET. PO PRN (11:29)
--- NOTE | 2016-09-08 12:08 | PDOC ---
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 monitor labs History of Present Illness History of Present Illness no fever no chills. Vitals Vitals Vital Signs Date Time Temp Pulse Resp B/P Pulse Ox O2 Delivery O2 Flow Rate FiO2 09/08/16 11:29 16 Room Air 09/08/16 11:00 98.2 78 120/53 96 98.2 Physical Exam General: Alert, Oriented X3, Cooperative, No acute distress, mild distress Heart: Regular rate, No murmurs Lungs: Clear, Wheezing Abdomen: Normal bowel sounds Extremities: No clubbing, No cyanosis Skin: No rashes Labs LABS Laboratory Tests Test 09/07/16 13:25 09/07/16 17:14 09/07/16 21:55 09/07/16 22:00 Hemoglobin 8.0g/dL (12.0-15.5) Hematocrit 25.4% (36.0-47.0) Mean Corpuscular Hemoglobin Concent 32g/dL (31-37) Sodium Level 142mmol/L (136-145) Potassium Level 3.9mmol/L (3.5-5.1) Chloride Level 106mmol/L (98-107) Carbon Dioxide Level 29mmol/L (21-32) Anion Gap 7 (6-14) Blood Urea Nitrogen 16mg/dL (7-20) Creatinine 1.5mg/dL (0.6-1.0) Estimated GFR (Cockcroft-Gault) 41.7 Glucose Level 114mg/dL (70-99) Calcium Level 8.5mg/dL (8.5-10.1) Glucose (Fingerstick) 47mg/dL (70-99) 43mg/dL (70-99) Vancomycin Level Trough 34.8mcg/mL (10.0-20.0) Vancomycin Last Dose Date Vancomycin Last Dose Time Test 09/08/16 03:30 09/08/16 03:36 09/08/16 07:13 09/08/16 10:00 Sodium Level 138mmol/L (136-145) Potassium Level 3.6mmol/L (3.5-5.1) Chloride Level 105mmol/L (98-107) Carbon Dioxide Level 29mmol/L (21-32) Anion Gap 4 (6-14) Blood Urea Nitrogen 16mg/dL (7-20) Creatinine 1.5mg/dL (0.6-1.0) Estimated GFR (Cockcroft-Gault) 41.7 Glucose Level 187mg/dL (70-99) Calcium Level 8.5mg/dL (8.5-10.1) Glucose (Fingerstick) 91mg/dL (70-99) 73mg/dL (70-99) Hemoglobin 7.3g/dL (12.0-15.5) Hematocrit 22.8% (36.0-47.0) Mean Corpuscular Hemoglobin Concent 32g/dL (31-37) Test 09/08/16 11:49 Glucose (Fingerstick) 166mg/dL (70-99) Assessment and Plan Assessmemt and Plan Problems Medical Problems: (1) Infection of right knee Status: Acute (2) Right knee pain Status: Acute (3) Swelling of knee joint, right Status: Acute Problems: Comment Review of Relevant I have reviewed the following items deng (where applicable) has been applied. Labs Laboratory Tests Test 09/06/16 16:12 09/06/16 16:59 09/06/16 20:24 09/07/16 05:10 Glucose (Fingerstick) 46mg/dL (70-99) 63mg/dL (70-99) 102mg/dL (70-99) Creatinine 1.5mg/dL (0.6-1.0) Estimated GFR (Cockcroft-Gault) 41.7 Test 09/07/16 07:58 09/07/16 11:44 09/07/16 13:25 09/07/16 17:14 Glucose (Fingerstick) 81mg/dL (70-99) 129mg/dL (70-99) 47mg/dL (70-99) Hemoglobin 8.0g/dL (12.0-15.5) Hematocrit 25.4% (36.0-47.0) Mean Corpuscular Hemoglobin Concent 32g/dL (31-37) Sodium Level 142mmol/L (136-145) Potassium Level 3.9mmol/L (3.5-5.1) Chloride Level 106mmol/L (98-107) Carbon Dioxide Level 29mmol/L (21-32) Anion Gap 7 (6-14) Blood Urea Nitrogen 16mg/dL (7-20) Creatinine 1.5mg/dL (0.6-1.0) Estimated GFR (Cockcroft-Gault) 41.7 Glucose Level 114mg/dL (70-99) Calcium Level 8.5mg/dL (8.5-10.1) Test 09/07/16 21:55 09/07/16 22:00 09/08/16 03:30 09/08/16 03:36 Glucose (Fingerstick) 43mg/dL (70-99) 91mg/dL (70-99) Vancomycin Level Trough 34.8mcg/mL (10.0-20.0) Vancomycin Last Dose Date Vancomycin Last Dose Time Sodium Level 138mmol/L (136-145) Potassium Level 3.6mmol/L (3.5-5.1) Chloride Level 105mmol/L (98-107) Carbon Dioxide Level 29mmol/L (21-32) Anion Gap 4 (6-14) Blood Urea Nitrogen 16mg/dL (7-20) Creatinine 1.5mg/dL (0.6-1.0) Estimated GFR (Cockcroft-Gault) 41.7 Glucose Level 187mg/dL (70-99) Calcium Level 8.5mg/dL (8.5-10.1) Test 09/08/16 07:13 09/08/16 10:00 09/08/16 11:49 Glucose (Fingerstick) 73mg/dL (70-99) 166mg/dL (70-99) Hemoglobin 7.3g/dL (12.0-15.5) Hematocrit 22.8% (36.0-47.0) Mean Corpuscular Hemoglobin Concent 32g/dL (31-37) Laboratory Tests Test 09/07/16 13:25 09/07/16 17:14 09/07/16 21:55 09/07/16 22:00 Hemoglobin 8.0g/dL (12.0-15.5) Hematocrit 25.4% (36.0-47.0) Mean Corpuscular Hemoglobin Concent 32g/dL (31-37) Sodium Level 142mmol/L (136-145) Potassium Level 3.9mmol/L (3.5-5.1) Chloride Level 106mmol/L (98-107) Carbon Dioxide Level 29mmol/L (21-32) Anion Gap 7 (6-14) Blood Urea Nitrogen 16mg/dL (7-20) Creatinine 1.5mg/dL (0.6-1.0) Estimated GFR (Cockcroft-Gault) 41.7 Glucose Level 114mg/dL (70-99) Calcium Level 8.5mg/dL (8.5-10.1) Glucose (Fingerstick) 47mg/dL (70-99) 43mg/dL (70-99) Vancomycin Level Trough 34.8mcg/mL (10.0-20.0) Vancomycin Last Dose Date Vancomycin Last Dose Time Test 09/08/16 03:30 09/08/16 03:36 09/08/16 07:13 09/08/16 10:00 Sodium Level 138mmol/L (136-145) Potassium Level 3.6mmol/L (3.5-5.1) Chloride Level 105mmol/L (98-107) Carbon Dioxide Level 29mmol/L (21-32) Anion Gap 4 (6-14) Blood Urea Nitrogen 16mg/dL (7-20) Creatinine 1.5mg/dL (0.6-1.0) Estimated GFR (Cockcroft-Gault) 41.7 Glucose Level 187mg/dL (70-99) Calcium Level 8.5mg/dL (8.5-10.1) Glucose (Fingerstick) 91mg/dL (70-99) 73mg/dL (70-99) Hemoglobin 7.3g/dL (12.0-15.5) Hematocrit 22.8% (36.0-47.0) Mean Corpuscular Hemoglobin Concent 32g/dL (31-37) Test 09/08/16 11:49 Glucose (Fingerstick) 166mg/dL (70-99) Microbiology 09/02/16 Blood Culture - Final, Complete NO GROWTH AFTER 5 DAYS 09/03/16 Gram Stain - Final, Complete 09/04/16 Anaerobic/Aerobic Culture, Resulted Pending 09/04/16 Anaerobic Culture Result 1 (JULIUS), Resulted Pending 09/04/16 Aerobic Culture - Preliminary, Resulted 09/04/16 Aerobic Culture Result 1 (JULIUS) - Preliminary, Resulted 09/04/16 Aerobic Culture Result 2 (JULIUS) - Preliminary, Resulted 09/04/16 Aerobic Culture Result 3 (JULIUS) - Preliminary, Resulted 09/04/16 Antimicrobic Susceptibility - Preliminary, Resulted Medications Current Medications Ondansetron HCl (Zofran) 4 mg PRN Q8HRS PRN IV NAUSEA/VOMITING; Start 09/02/16 at 15:15; Stop 09/03/16 at 15:14; Status DC Morphine Sulfate 2 mg PRN Q2HR PRN IV PAIN Last administered on 09/03/16 11:10 ; Start 09/02/16 at 15:15; Stop 09/03/16 at 15:14; Status DC Vancomycin HCl (Vanco Per Pharmacy) 1 each PRN DAILY PRN MC SEE COMMENTS Last administered on 09/07/16 11:48; Start 09/02/16 at 17:30; Stop 09/07/16 at 23:39 ; Status DC Piperacillin Sod/ Tazobactam Sod 1 each 1 each PRN DAILY PRN MC SEE COMMENTS; Start 09/02/16 at 17:30; Stop 09/04/16 at 13:59; Status DC Piperacillin Sod/ Tazobactam Sod 3.375 gm/Sodium Chloride 50 ml @ 100 mls/hr Q6HRS IV Last administered on 09/08/16 06:06; Start 09/02/16 at 18:00 Vancomycin HCl 2 gm/Sodium Chloride 500 ml @ 250 mls/hr 1X ONCE IV Last administered on 09/02/16 20:53; Start 09/02/16 at 20:00; Stop 09/02/16 at 21:59; Status DC Vancomycin HCl/ Sodium Chloride (Iv Sodium Chloride 0.9% 500ml Bag) 500 ml @ 250 mls/hr Q12H IV Last administered on 09/04/16 09:18; Start 09/03/16 at 08:00 ; Stop 09/04/16 at 14:06; Status DC Vancomycin HCl 1 each 1X ONCE MC Last administered on 09/03/16 07:30; Start at 07:30; Stop 09/03/16 at 07:31; Status DC Aspirin (Ecotrin) 325 mg BID PO Last administered on 09/08/16 08:37; Start 09/03/16 at 21:00 Carvedilol (Coreg) 12.5 mg BIDWMEALS PO Last administered on 09/08/16 08:36; Start 09/03/16 at 17:00 Glipizide (Glucotrol) 5 mg DAILY PO Last administered on 09/03/16 13:10; Start 09/03/16 at 12:30; Stop 09/04/16 at 14:00; Status DC Lisinopril (Prinivil) 40 mg DAILY PO Last administered on 09/08/16 08:36; Start 09/03/16 at 12:30 Metformin HCl (Glucophage) 1,000 mg BIDWMEALS PO Last administered on 08:36; Start 09/03/16 at 17:00 Insulin Detemir (Levemir) 20 units DAILYWSUP SQ Last administered on 09/05/16 17:25; Start 09/03/16 at 17:00 Insulin Detemir (Levemir) 40 units DAILYWBKFT SQ Last administered on 09:27; Start 09/04/16 at 08:00 Oxycodone/ Acetaminophen (Percocet 5/325) 1 tab PRN Q6HRS PRN PO pain Last administered on 09/04/16 11:56; Start 09/03/16 at 12:00; Stop 09/05/16 at 11:41; Status DC Calcium/Vitamin D (Oscal D 500mg/ 200uts) 1 tab BIDWMEALS PO Last administered on 09/08/16 08:36; Start 09/03/16 at 17:00 Citalopram Hydrobromide (Celexa) 40 mg DAILY PO Last administered on 09/05/16 08:28; Start 09/04/16 at 09:00; Stop 09/05/16 at 13:44; Status DC Hydrochlorothiazide (Hydrodiuril) 25 mg DAILY PO Last administered on 08:36; Start 09/03/16 at 12:30 Atorvastatin Calcium (Lipitor) 10 mg QHS PO Last administered on 09/07/16 21: 30; Start 09/03/16 at 21:00 Multivitamins/ Calcium (Thera M Plus) 1 tab DAILY PO Last administered on 08:37; Start 09/03/16 at 12:30 Insulin Aspart (Novolog) 0-7 UNITS TIDWMEALS SQ Last administered on 09/03/16 17:14; Start 09/03/16 at 13:00; Stop 09/04/16 at 21:21; Status DC Dextrose 12.5 gm PRN Q15MIN PRN IV SEE COMMENTS; Start 09/03/16 at 12:15; Stop 09/05/16 at 13:32; Status DC Insulin Aspart (Novolog) 10 units TIDAC SQ Last administered on 09/07/16 12:39 ; Start 09/03/16 at 16:30 Polyethylene Glycol (miraLAX PACKET) 17 gm PRN DAILY PRN PO CONSTIPATION; Start 09/03/16 at 13:00 Polyethylene Glycol (miraLAX PACKET) 17 gm 1X ONCE PO Last administered on 09/03 13:18; Start 09/03/16 at 13:00; Stop 09/03/16 at 13:12; Status DC Docusate Sodium (Colace) 100 mg PRN DAILY PRN PO CONSTIPATION; Start 09/03/16 at 13:00; Stop 09/05/16 at 13:31; Status DC Lidocaine/Sodium Bicarbonate 20 ml 20 ml 1X ONCE IJ ; Start 09/03/16 at 15:15; Stop 09/03/16 at 15:16; Status DC Cefazolin Sodium/ Dextrose 50 ml @ 100 mls/hr 1X PREOP IV ; Start 09/06/16 at 06:00; Stop 09/06/16 at 06:00; Status DC Cefazolin Sodium/ Dextrose (Ancef 2gm Premix) 50 ml @ 100 mls/hr 1X PREOP ONCE IV Last administered on 09/04/16 14:24; Start 09/04/16 at 06:00; Stop at 06:29; Status DC Fentanyl Citrate (Fentanyl 2ml Vial) 25 mcg PRN Q5MIN PRN IV MILD PAIN; Start 09/04/16 at 09:30; Stop 09/05/16 at 09:29; Status DC Fentanyl Citrate (Fentanyl 2ml Vial) 50 mcg PRN Q5MIN PRN IV MODERATE PAIN Last administered on 09/04/16 16:54; Start 09/04/16 at 09:30; Stop 09/05/16 at 09: 29; Status DC Morphine Sulfate 1 mg 1 mg PRN Q10MIN PRN IV SEVERE PAIN; Start 09/04/16 at 09: 30; Stop 09/05/16 at 09:29; Status DC Lactated Ringer's (Iv Lactated Ringers) 1,000 ml @ 0 mls/hr Q0M IV Last administered on 09/04/16 13:49; Start 09/04/16 at 09:18; Stop 09/04/16 at 21:17; Status DC Lidocaine HCl 2 ml 1X PRN PRN ID IV START; Start 09/04/16 at 09:30; Stop at 09:29; Status DC Hydromorphone HCl (Dilaudid) 0.5 mg PRN Q10MIN PRN IV SEV PAIN,Second choice Last administered on 09/04/16 18:07; Start 09/04/16 at 09:30; Stop 09/05/16 at 09: 29; Status DC Prochlorperazine Edisylate 5 mg 5 mg PACU PRN PRN IV NAUSEA; Start 09/04/16 at 09:30; Stop 09/05/16 at 09:29; Status DC Cefazolin Sodium/ Dextrose (Ancef 2gm Premix) 50 ml @ As Directed STK-MED ONCE IV ; Start 09/04/16 at 13:12; Stop 09/04/16 at 13:13; Status DC Desflurane (Suprane) 60 ml STK-MED ONCE IH ; Start 09/04/16 at 13:42; Stop at 13:43; Status DC Fentanyl Citrate 100 mcg 100 mcg STK-MED ONCE .ROUTE ; Start 09/04/16 at 13:43; Stop 09/04/16 at 13:44; Status DC Propofol (Diprivan) 20 ml @ As Directed STK-MED ONCE IV ; Start 09/04/16 at 13:43 ; Stop 09/04/16 at 13:44; Status DC Lidocaine HCl 100 mg STK-MED ONCE .ROUTE ; Start 09/04/16 at 13:43; Stop 09/04/16 at 13:44; Status DC Dexamethasone Sodium Phosphate (Decadron) 20 mg STK-MED ONCE .ROUTE ; Start 09/04 at 13:43; Stop 09/04/16 at 13:44; Status DC Ondansetron HCl (Zofran) 4 mg STK-MED ONCE .ROUTE ; Start 09/04/16 at 13:43; Stop 09/04/16 at 13:44; Status DC Glipizide 5 mg 5 mg DAILYWBKFT PO Last administered on 09/08/16 08:37; Start 09/05/16 at 08:00 Vancomycin HCl 1.25 gm/Sodium Chloride 250 ml @ 167 mls/hr Q12H IV Last administered on 09/07/16 22:12; Start 09/04/16 at 20:00; Stop 09/07/16 at 23:36 ; Status DC Propofol (Diprivan) 20 ml @ As Directed STK-MED ONCE IV ; Start 09/04/16 at 14:38 ; Stop 09/04/16 at 14:39; Status DC Albuterol Sulfate 2.5 mg 2.5 mg STK-MED ONCE .ROUTE ; Start 09/04/16 at 14:59; Stop 09/04/16 at 15:00; Status DC Tranexamic Acid/ Sodium Chloride (Cyklokapron/Iv Sodium Chloride 0.9% 50ml) 60 ml @ 60 mls/hr 1X PERIOP ONCE INJ Last administered on 09/04/16 15:12; Start 09/04/16 at 15:12; Stop 09/04/16 at 16:11; Status DC Fentanyl Citrate (Fentanyl 2ml Vial) 100 mcg STK-MED ONCE .ROUTE ; Start at 15:27; Stop 09/04/16 at 15:28; Status DC Acetaminophen/ Hydrocodone Bitart (Lortab 7.5/325) 1 tab PRN Q3HRS PRN PO PAIN Last administered on 09/08/16 06:13; Start 09/04/16 at 16:30 Acetaminophen/ Hydrocodone Bitart (Lortab 10/325) 1 tab PRN Q3HRS PRN PO PAIN Last administered on 09/08/16 11:29; Start 09/04/16 at 16:30 Tramadol HCl (Ultram) 50 mg PRN QID PRN PO PAIN; Start 09/04/16 at 16:30; Stop 09/05/16 at 13:32; Status DC Oxycodone/ Acetaminophen (Percocet 5/325) 1 tab PRN Q3HRS PRN PO PAIN; Start at 16:30 Oxycodone/ Acetaminophen (Percocet 7.5/ 325) 1 tab PRN Q3HRS PRN PO PAIN Last administered on 09/07/16 09:05; Start 09/04/16 at 16:30 Tramadol HCl (Ultram) 100 mg PRN Q3HRS PRN PO PAIN; Start 09/04/16 at 16:30; Stop 09/05/16 at 13:32; Status DC Diphenhydramine HCl (Benadryl) 25 mg PRN Q6HRS PRN IV ITCHING; Start 09/04/16 at 16:30 Senna/Docusate Sodium (Senna Plus) 1 tab DAILY PO Last administered on 08:37; Start 09/05/16 at 09:00 Prochlorperazine Maleate (Compazine) 10 mg PRN Q4HRS PRN PO NAUSEA/VOMITING; Start 09/04/16 at 16:30 Metoclopramide HCl (Reglan) 10 mg PRN Q4HRS PRN IV NAUSEA/VOMITING; Start at 16:30 Magnesium Hydroxide (Milk Of Magnesia) 2,400 mg 1X PRN PRN PO CONSTIPATION; Start 09/05/16 at 06:00; Stop 09/06/16 at 05:59; Status DC Bisacodyl (Dulcolax Supp) 10 mg 1X PRN PRN ME CONSTIPATION; Start 09/05/16 at 16 :00; Stop 09/06/16 at 15:59; Status DC Acetaminophen (Tylenol) 650 mg PRN Q4HRS PRN PO MILD PAIN / TEMP; Start at 16:30 Zolpidem Tartrate (Ambien) 5 mg PRN QHS PRN PO INSOMNIA, MAY REPEAT IN 1HR Last administered on 09/07/16 21:31; Start 09/04/16 at 16:30 Calcium Carbonate/ Glycine (Tums) 500 mg PRN QID PRN PO INDIGESTION Last administered on 09/07/16 09:10; Start 09/04/16 at 16:30 Morphine Sulfate 4 mg PRN Q1HR PRN IV PAIN Last administered on 09/07/16 20:04 ; Start 09/04/16 at 16:30 Sodium Chloride (Normal Saline Flush) 10 ml QSHIFT PRN IV AFTER MEDS AND BLOOD DRAWS; Start 09/04/16 at 16:30 Prochlorperazine Edisylate (Compazine) 10 mg PRN Q4HRS PRN IV NAUSEA/VOMITING; Start 09/04/16 at 16:30 Dextrose 12.5 gm PRN Q15MIN PRN IV SEE COMMENTS Last administered on 09/07/16 17:25; Start 09/04/16 at 16:30 Insulin Aspart (Novolog) 0-7 UNITS QIDACHS SQ Last administered on 09/05/16 13: 08; Start 09/05/16 at 07:30 Insulin Aspart (Novolog) 12 units 1X ONCE SQ Last administered on 09/04/16 21: 43; Start 09/04/16 at 21:30; Stop 09/04/16 at 21:31; Status DC Polysaccharide Iron Complex (Niferex 150) 150 mg DAILY PO Last administered on 09/08/16 08:36; Start 09/05/16 at 09:00 Polyethylene Glycol (miraLAX PACKET) 17 gm 1X ONCE PO Last administered on 09/05 15:42; Start 09/05/16 at 14:00; Stop 09/05/16 at 14:01; Status DC Polyethylene Glycol (miraLAX PACKET) 17 gm DAILY PO Last administered on 08:39; Start 09/06/16 at 09:00; Stop 09/06/16 at 15:51; Status DC Docusate Sodium (Colace) 100 mg DAILY PO Last administered on 09/08/16 08:37; Start 09/05/16 at 14:00 Magnesium Hydroxide (Milk Of Magnesia) 2,400 mg 1X ONCE PO Last administered on 09/05/16 15:41; Start 09/05/16 at 13:45; Stop 09/05/16 at 13:46; Status DC Morphine Sulfate (Ms Contin) 15 mg BID PO Last administered on 09/08/16 08:37 ; Start 09/05/16 at 13:45 Citalopram Hydrobromide (Celexa) 20 mg DAILY PO Last administered on 09/08/16 08:37; Start 09/06/16 at 09:00 Polyethylene Glycol (miraLAX PACKET) 17 gm BID PO Last administered on 08:35; Start 09/06/16 at 21:00 Sodium Biphosphate/ Sodium Phosphate (Fleet Adult) 133 ml 1X ONCE ME ; Start at 16:00; Stop 09/06/16 at 16:04; Status DC Sodium Biphosphate/ Sodium Phosphate (Fleet Adult) 133 ml PRN DAILY PRN ME CONSTIPATION; Start 09/07/16 at 09:00 Polyethylene Glycol (miraLAX PACKET) 17 gm 1X ONCE PO Last administered on 17:45; Start 09/06/16 at 16:00; Stop 09/06/16 at 16:04; Status DC Sodium Biphosphate/ Sodium Phosphate (Fleet Adult) 133 ml PRN 1X PRN ME CONSTIPATION; Start 09/06/16 at 23:30 Vancomycin HCl 1 each 1X ONCE MC ; Start 09/07/16 at 19:30; Stop 09/07/16 at 19 :31; Status DC Alteplase, Recombinant (Cathflo) 2 mg 1X ONCE INT CAT Last administered on 15:09; Start 09/07/16 at 14:30; Stop 09/07/16 at 14:31; Status DC Active Scripts Active Aspirin Ec (Aspirin) 325 Mg Tablet.dr 325 Mg PO BID 30 Days Reported Percocet 5-325 Mg Tablet (Oxycodone/Acetaminophen) 1 Each Tablet 1-2 Tab PO Q4- 6HRS LAST DOSE GIVEN: DATE: 08/02/16 TIME: 2:00 NEXT DOSE DUE: DATE: 08/02/16 TIME: 6:00pm as needed for pain Percocet 5-325 Mg Tablet (Oxycodone/Acetaminophen) 1 Each Tablet 1-2 Tab PO Q4- 6HRS Calcium 600 + Vit D 200 Tablet (Calcium Carbonate/Vitamin D3) 1 Each Tablet 1 Each PO BID Hair, Skin & Nails (Multivitamin With Minerals) 1 Each Tablet 1 Each PO DAILY Carvedilol 12.5 Mg Tablet 12.5 Mg PO BIDWMEALS Lovastatin 40 Mg Tablet 40 Mg PO HS Metformin Hcl 1,000 Mg Tablet 1 Tab PO BID Hydrochlorothiazide Tablet (Hydrochlorothiazide) 12.5 Mg Tablet 25 Mg PO DAILY Novolin N (Nph, Human Insulin Isophane) 100 Unit/1 Ml Vial 20 Unit SQ [id number] Novolin N (Nph, Human Insulin Isophane) 100 Unit/1 Ml Vial 40 Unit SQ DAILYWBKFT Glipizide 5 Mg Tablet 5 Mg PO DAILY Lisinopril 40 Mg Tablet 40 Mg PO DAILY Citalopram Hbr (Citalopram Hydrobromide) 40 Mg Tablet 40 Mg PO DAILY Vitals/I & O Vital Sign - Last 24 Hours 09/07/16 09/07/16 09/07/16 09/07/16 13:08 15:00 17:33 17:34 Temp 98.1 98.1 Pulse 80 80 Resp 16 20 16 B/P 137/58 137/58 Pulse Ox 92 O2 Delivery Room Air Room Air Room Air 09/07/16 09/07/16 09/07/16 09/07/16 18:33 19:00 19:00 20:04 Temp 98.7 98.7 Pulse 84 Resp 16 18 B/P 152/68 Pulse Ox 94 O2 Delivery Room Air Room Air Room Air 09/07/16 09/07/16 09/08/16 09/08/16 23:00 23:00 03:00 03:00 Temp 98.3 98.2 98.3 98.2 Pulse 78 101 Resp 18 18 B/P 127/63 116/65 Pulse Ox 94 95 O2 Delivery Room Air Room Air 09/08/16 09/08/16 09/08/16 09/08/16 07:00 07:13 08:36 08:36 Temp 98.2 98.2 Pulse 77 77 77 Resp 20 16 B/P 138/65 138/65 138/65 Pulse Ox 93 O2 Delivery Room Air Room Air 09/08/16 09/08/16 09/08/16 08:37 11:00 11:29 Temp 98.2 98.2 Pulse 78 Resp 16 20 16 B/P 120/53 Pulse Ox 96 O2 Delivery Room Air Room Air Room Air Intake and Output 09/07/16 09/07/16 09/08/16 15:00 23:00 07:00 Intake Total 150 ml Balance 150 ml JALEESA SALVADOR MD Sep 08, 2016 12:08
[2016-09-08 15:00] VITALS: BP 125/58
[2016-09-08] MEDS: NORMAL SALINE IV SCH (16:33)
[2016-09-08] MEDS: DAPTOMYCIN IV SCH (16:33)
[2016-09-08 19:00] VITALS: BP 135/56
[2016-09-08] MEDS: ZOLPIDEM 5 MG TABLET. PO PRN (20:38)
[2016-09-08] MEDS: ATORVASTATIN CALCIUM 10 MG TABLET. PO SCH (20:38)
[2016-09-08] MEDS: MORPHINE SULFATE 4 MG/ML DISP.SYRIN. IV PRN (20:38)
[2016-09-08 23:14] VITALS: BP 135/57
[2016-09-09 03:31] VITALS: BP 143/73
[2016-09-09] MEDS: PIPERACILLIN/TAZOBACTAM 3.375 GM in IV NORMAL SALINE 50ML 50 ML IV SCH ×3 (06:16→16:47)
[2016-09-09 07:00] VITALS: BP 150/65
--- NOTE | 2016-09-09 08:51 | PDOC ---
PROGRESS NOTES Chief Complaint Chief Complaint nonhealing TKR ASSESSMENT AND PLAN: 1. Knee infection: s/p arthroplasty on 09/[address] Lance. Group B/MRSA/ Morganella isolated. ID following, on Zosyn/dapto. PICC placed in anticipation of prolonged Abx regimen. d/w Dr Delacruz: will need hardware removal , prob in AM 2. pain control: current regimen adequate 3. Anemia: iron/TIBC c/w inflammation. ferritin pending. replete low dose iron. may need transfusion for (post)surg bleed. monitor closely 4. DM: oral and insulin home regimen plus ISS with good results 5. CKD3: stable creat and lytes. monitor periodically 6. HTN: borderline control 7. Prophylaxis: lovenox on hold for anticipated surgery. start post op 8. Dispo: [facility] Vitals Vitals Vital Signs Date Time Temp Pulse Resp B/P Pulse Ox O2 Delivery O2 Flow Rate FiO2 09/09/16 03:31 97.7 85 18 143/73 98 Room Air 97.7 Physical Exam General: Alert, Oriented X3, Cooperative, No acute distress, mild distress Heart: Regular rate, No murmurs Lungs: Clear, Wheezing Abdomen: Normal bowel sounds Extremities: No clubbing, No cyanosis, Other Skin: No rashes Labs LABS Laboratory Tests Test 09/08/16 10:00 09/08/16 11:49 09/08/16 16:56 09/08/16 21:19 Hemoglobin 7.3g/dL (12.0-15.5) Hematocrit 22.8% (36.0-47.0) Mean Corpuscular Hemoglobin Concent 32g/dL (31-37) Glucose (Fingerstick) 166mg/dL (70-99) 111mg/dL (70-99) 175mg/dL (70-99) Test 09/09/16 05:15 09/09/16 07:29 Creatine Kinase 26U/L (26-192) Glucose (Fingerstick) 179mg/dL (70-99) Review of Systems Review of Systems pain fairly well controlled save fir dressing changes. no other c/o HANNAH PURCELL MD Sep 09, 2016 08:51
[2016-09-09] MEDS: POLYETHYLENE GLYCOL 3350 17 GM PACKET. PO SCH ×2 (09:00→22:06)
[2016-09-09] MEDS: SENNOSIDES/DOCUSATE 8.6/50MG TABLET. PO SCH (09:00)
[2016-09-09] MEDS: DOCUSATE SODIUM 100 MG CAPSULE PO SCH (09:00)
[2016-09-09] MEDS: IRON POLYSACCHARIDE COMPLEX 150 MG CAPSULE PO SCH (09:05)
[2016-09-09] MEDS: METFORMIN 1,000 MG TABLET PO SCH ×2 (09:05→16:43)
[2016-09-09] MEDS: MULTIVITAMIN with MINERAL TABLET. PO SCH (09:05)
[2016-09-09] MEDS: CALCIUM CARB/VIT D3 500/200 TABLET PO SCH ×2 (09:05→16:43)
[2016-09-09] MEDS: ASPIRIN ENTERIC COATED 325 MG TABLET.DR. PO SCH ×2 (09:05→22:04)
[2016-09-09] MEDS: HYDROCHLOROTHIAZIDE 25 MG TABLET PO SCH (09:05)
[2016-09-09] MEDS: MORPHINE ER 15 MG TABLET.ER PO SCH ×2 (09:06→22:04)
[2016-09-09] MEDS: LISINOPRIL 40 MG TABLET. PO SCH (09:06)
[2016-09-09] MEDS: GLIPIZIDE 5 MG TABLET PO SCH (09:07)
[2016-09-09] MEDS: CITALOPRAM 20 MG TABLET. PO SCH (09:07)
[2016-09-09] MEDS: CARVEDILOL 12.5 MG TABLET PO SCH ×2 (09:07→16:43)
[2016-09-09] MEDS: INSULIN DETEMIR 300 UNITS/3 ML INSULN.PEN. SQ SCH ×2 (09:13→16:56)
[2016-09-09] MEDS: INSULIN ASPART 300 UNITS/3 ML INSULN.PEN SQ SCH ×6 (09:14→22:06)
--- NOTE | 2016-09-09 09:49 | PDOC ---
Infectious Disease Note Subjective Subjective c/o pain in knee ROS ROS GEN: Denies fevers, chills, sweats HEENT: Denies blurred vision, sore throat CV: Denies chest pain RESP: Denies shortness of air, cough GI: Denies n/v/d NEURO: Denies confusion, dizziness Vital Sign Vital Signs Vital Signs Date Time Temp Pulse Resp B/P Pulse Ox O2 Delivery O2 Flow Rate FiO2 09/09/16 09:07 87 150/65 09/09/16 09:06 18 Room Air 09/09/16 07:00 97.5 95 97.5 Physical Exam PHYSICAL EXAM GENERAL: NAD, Alert HEENT: PERRL, OC/OP NECK: Supple, no JVD, no LN LUNGS: Clear HEART: S1S2, no gallop, no murmur ABD: Soft, NT, no organomegaly, no rebound EXT: No edema, no cyanosis,, rt knee with large lateral defect, incision intact [employer]: Alert, oriented x 3, no focal neurologic deficit SKIN: No rash IV: ok Labs Lab Laboratory Tests Test 09/08/16 10:00 09/08/16 11:49 09/08/16 16:56 09/08/16 21:19 Hemoglobin 7.3g/dL (12.0-15.5) Hematocrit 22.8% (36.0-47.0) Mean Corpuscular Hemoglobin Concent 32g/dL (31-37) Glucose (Fingerstick) 166mg/dL (70-99) 111mg/dL (70-99) 175mg/dL (70-99) Test 09/09/16 05:15 09/09/16 07:29 Creatine Kinase 26U/L (26-192) Glucose (Fingerstick) 179mg/dL (70-99) Objective Assessment 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 CAROLYN VALDES MD Sep 09, 2016 09:49
[2016-09-09] MEDS: HYDROCODONE/APAP 10/325 TABLET. PO PRN ×2 (10:34→16:46)
[2016-09-09 11:00] VITALS: BP 142/63
[2016-09-09 15:00] VITALS: BP 143/60
[2016-09-09] MEDS: DEXTROSE 50% 25 GM / 50ML DISP.SYRIN. IV PRN (16:00)
[2016-09-09] MEDS: DAPTOMYCIN IV SCH (16:44)
[2016-09-09] MEDS: NORMAL SALINE IV SCH (16:44)
[2016-09-09 19:00] VITALS: BP 137/60
[2016-09-09] MEDS: ATORVASTATIN CALCIUM 10 MG TABLET. PO SCH (22:04)
[2016-09-09] MEDS: ZOLPIDEM 5 MG TABLET. PO PRN (22:05)
[2016-09-09 23:00] VITALS: BP 162/66
[2016-09-10] VITALS (10 sets, daily range): BP systolic 160–184; BP diastolic 69–94
[2016-09-10] MEDS: PIPERACILLIN/TAZOBACTAM 3.375 GM in IV NORMAL SALINE 50ML 50 ML IV SCH ×5 (00:13→23:59)
[2016-09-10 06:30] LABS: BASO # 0.1 x10^3/uL (0.0-0.2); BASO % 1 % (0-3); EOS % 5 % (0-3); HEMATOCRIT 25.9 % (36.0-47.0); HEMOGLOBIN 8.2 g/dL (12.0-15.5); LYMPH # 1.4 x10^3/uL (1.0-4.8); LYMPH % 18 % (24-48); MEAN CORPUSCULAR HEMOGLOBIN 23 pg (25-35); MEAN CORPUSCULAR HGB CONC 32 g/dL (31-37); MEAN CORPUSCULAR VOLUME 73 fL (79-100); MONO % 8 % (0-9); NEUT % 68 % (31-73); PLATELET COUNT 312 x10^3/uL (140-400); RED BLOOD COUNT 3.55 x10^6/uL (3.50-5.40); RED CELL DISTRIBUTION WIDTH 18.2 % (11.5-14.5); WHITE BLOOD COUNT 8.1 x10^3/uL (4.0-11.0)
[2016-09-10 06:41] LABS: ALBUMIN 1.8 g/dL (3.4-5.0); ALBUMIN/GLOBULIN RATIO 0.4 (1.0-1.7); CREATININE 1.4 mg/dL (0.6-1.0); GFR 45.1; MAGNESIUM 1.6 mg/dL (1.8-2.4); POTASSIUM 3.2 mmol/L (3.5-5.1); TOTAL BILIRUBIN 0.2 mg/dL (0.2-1.0); TOTAL PROTEIN 6.7 g/dL (6.4-8.2)
[2016-09-10] MEDS ORDERED: LIDOCAINE 1% 1 ML SYRINGE. ID PRN (07:00)
[2016-09-10] MEDS ORDERED: MORPHINE SULFATE 2 MG/ML DISP.SYRIN. IV PRN (07:00)
[2016-09-10] MEDS ORDERED: FENTANYL PF 100 MCG/2 ML VIAL. IV PRN ×3 (07:00→11:15)
[2016-09-10] MEDS ORDERED: IV RINGERS,LACTATED 1000ML 1,000 ML IV SCH (07:00)
[2016-09-10] MEDS ORDERED: ONDANSETRON PF 4 MG/2 ML VIAL. IV PRN (07:00)
[2016-09-10] MEDS ORDERED: PROCHLORPERAZINE 10 MG/2 ML VIAL. IV PRN ×2 (07:00→11:15)
[2016-09-10] MEDS ORDERED: DEXAMETHASONE SOD PHOS 20 MG/5 ML VIAL. ONE (07:06)
[2016-09-10] MEDS ORDERED: LIDOCAINE 2% 100 MG/5 ML DISP.SYRIN. ONE ×2 (07:06)
[2016-09-10] MEDS ORDERED: FENTANYL PF 100 MCG/2 ML VIAL. ONE ×3 (07:06→08:55)
[2016-09-10] MEDS ORDERED: FAMOTIDINE 20 MG/2 ML VIAL ONE (07:06)
[2016-09-10] MEDS ORDERED: ROCURONIUM 50 MG/5 ML VIAL. ONE (07:06)
[2016-09-10] MEDS ORDERED: PROPOFOL 20 ML IV ONE (07:06)
[2016-09-10] MEDS ORDERED: CEFAZOLIN 2GM PREMIX 0 ML IV ONE (07:24)
[2016-09-10] MEDS: INSULIN ASPART 300 UNITS/3 ML INSULN.PEN SQ SCH ×4 (07:30→21:15)
[2016-09-10] MEDS ORDERED: TOBRAMYCIN POWDER 1.2 GM VIAL. TP ONE (07:45)
--- NOTE | 2016-09-10 07:58 | PDOC ---
Provider Note Provider Note Case discussed with Dr. Delacruz yesterday. I had a long discussion with patient today. Unfortunately with so many organisms, the chances of cure or even suppression with the prosthesis in place is very low. I recommend explantation and discussed the plan of that with her: Remove the plastic and metal parts today, and place a temporary antibiotic spacer. The knee won't be able to bend during this time. Plan 6 weeks with spacer in place and on IV antibiotics. Stop the antibiotics for 2 weeks. If all looks good, then reimplantation in approximately late October. Hopefully her lateral open wound will have healed by this time, and that wound should benefit from the knee not bending. She agrees to proceed. TADEO NAM MD Sep 10, 2016 07:58
[2016-09-10] MEDS: METFORMIN 1,000 MG TABLET PO SCH ×2 (08:00→14:59)
[2016-09-10] MEDS ORDERED: TRANEXAMIC ACID 1,000 MG in IV NORMAL SALINE 50ML 50 ML INJ ONE ×4 (08:00)
[2016-09-10] MEDS: CALCIUM CARB/VIT D3 500/200 TABLET PO SCH ×2 (08:00→15:01)
[2016-09-10] MEDS: INSULIN DETEMIR 300 UNITS/3 ML INSULN.PEN. SQ SCH ×2 (08:00→17:19)
[2016-09-10] MEDS: CARVEDILOL 12.5 MG TABLET PO SCH ×2 (08:00→14:58)
[2016-09-10] MEDS ORDERED: CEFAZOLIN 2GM PREMIX 50 ML IV ONE (08:00)
[2016-09-10] MEDS ORDERED: VANCOMYCIN 10GM VIAL for OR. CEMENT ONE (08:00)
[2016-09-10] MEDS ORDERED: TOBRAMYCIN POWDER 1.2 GM VIAL. ONE ×6 (08:01→08:02)
[2016-09-10] MEDS ORDERED: VANCOMYCIN 10GM VIAL for OR. ONE (08:01)
[2016-09-10] MEDS ORDERED: EPHEDRINE PF IN SALINE 50 MG/5 ML DISP.SYRIN. IV ONE (08:53)
[2016-09-10] MEDS: SENNOSIDES/DOCUSATE 8.6/50MG TABLET. PO SCH (09:00)
[2016-09-10] MEDS: POLYETHYLENE GLYCOL 3350 17 GM PACKET. PO SCH ×2 (09:00→21:17)
[2016-09-10] MEDS ORDERED: LABETALOL 20 MG/4 ML DISP.SYRIN. ONE (09:07)
[2016-09-10] MEDS ORDERED: GLYCOPYRROLATE 1 MG/5 ML VIAL. ONE (09:34)
[2016-09-10] MEDS ORDERED: NEOSTIGMINE METHYLSULFATE 5 MG/5 ML SYRINGE. ONE (09:34)
[2016-09-10] MEDS ORDERED: SEVOFLURANE > 120 MINUTES. IH ONE (10:05)
[2016-09-10] MEDS: FENTANYL PF 100 MCG/2 ML VIAL. IV PRN ×4 (11:14→11:53)
--- NOTE | 2016-09-10 11:14 | PDOC4 ---
Operative Note Operative Note Date of Procedure: September 10, 2016 Pre-Op Diagnosis: Infected right total knee arthroplasty Post-Op Diagnosis: Infected right total knee arthroplasty Procedure: Removal of total knee prosthesis, and insertion of an antibiotic methylmethacrylate spacer. Surgeon: Tadeo Lance MD Sparmaker: Dianelys Carlson PA-C Anesthesia: General EBL: 300 mL Specimens Obtained: Cultures including aerobic, anaerobic, fungal, and AFB Complications: none Drains: Hemovac Tourniquet time: 67 minutes Indications for Procedure: The patient is a 71-year-old with infected total knee arthroplasty. She had irrigation and polyethylene exchange recently, however multiple organisms were obtained, and she has an open wound laterally. It does not appear that the index prosthesis can be salvaged, and I have discussed her case with Dr. Delacruz from infectious disease, and we agree that she will need explantation of her total knee arthroplasty, placement of an antibiotic spacer, and delayed reinsertion or other reconstructive procedure if there is any chance of clearing the infection and saving the limb. I recommended explantation of the total knee, and placement of antibiotic spacer and discussed all of this with her. She will need at best 6 weeks of IV antibiotics, then 2 weeks off antibiotics, repeat aspiration, and hopeful reimplantation without further debridement. Further complications are certainly possible which could lead to above-knee amputation but the hope is to save the limb and reimplant a total knee. The patient and I discussed the risks, benefits and alternatives of surgery. Procedure in Detail: The patient was identified in the preoperative holding area. The correct extremity was marked by me. The patient was taken to the operating room where general anesthesia was used. The patient was positioned supine on the operating table. Preoperative antibiotics were given intravenously. Tranexamic acid was given intravenously. A timeout procedure was performed. A tourniquet was used on the thigh. Betadine was used to prep circumferentially. Sterile drapes were applied. The operating team or the personal exhaust ventilated hoods. An Garcia leg mayer was used. The leg was elevated to exsanguinate it and the tourniquet was inflated to 350 mmHg. Her previous incision was reopened, and prior nylon sutures were removed. Sharp dissection was used and Bovie electrocautery was used as needed for hemostasis. Her medial parapatellar arthrotomy was reopened. The patella was reflected laterally. Deep cultures were taken. The fluid was primarily bloody, perhaps slightly cloudy. Extensive synovectomy was performed. The patella was reflected, and the prior polyethylene patella was resected with a saw. The prior polyethylene patella pegs were removed with the drill. The cement was removed with a combination of saw, drill bits, rongeurs, and curettes. [employer] interpulse irrigation was used. Next the polyethylene bearing was removed without difficulty. The distal femur was exposed carefully at the [id number] junction. A reciprocating saw was used to perforate the junction, and to remove minimal bone but to separate the prosthesis from the bone. Osteotomes were also used. Circumferential release of the bone-cement junction was performed, and then the femoral component was able to removed with gentle mallet blows and a tamp. Minimal bone was removed. The intramedullary canal was thoroughly cleansed with reverse curettes, intramedullary canal brush, intramedullary crosstie inspector and thorough irrigation. The tibia was likewise exposed at the [id number] junction. The reciprocal saw was again used. Next osteotomes were used. A tamp and mallet were used to gently to prevent fracturing the upper tibia. The tibial prosthesis was able to be removed with again with minimal bone loss and no breakthrough of the tibial cortex. Excess cement was now removed with rongeurs. The canal was cleansed thoroughly with reverse curettes, the long crosstie inspector tip , an intramedullary brush. Final irrigation was performed using multiple liters of saline. Additional tranexamic acid was given intravenously. The tourniquet was released. Bovie electrocautery was used for hemostasis. The tourniquet was reinflated. 3 packages of [place] cement were hand mixed with 10 g of vancomycin, and 7.2 g of tobramycin. The deli cement was now packed into the femoral tibial space as a spacer, and the knee kept in full extension while the cement hardened. A Hemovac drain was placed. Careful repair of the arthrotomy was performed with # 1 PDS [id number] and running suture. The patellar tendon where it had previously been debrided was repaired with #1 PDS suture. The subcutaneous continues tissues were closed with 2-0 Vicryl and then 2-0 nylon and 3-0 nylon were used in the skin. Dianelys Carlson PA-C, assisted throughout with holding the limb in traction while the cement was manipulated by me, and the the trained refinery operator assistant needed for careful retraction of the neurovascular elements posteriorly, and manipulation of the knee at my direction. She also performed most of the incision closure with a 2-0 Vicryl and nylon suture. She then placed Xeroform and a sterile dressing. Needle and sponge counts were correct. There were no apparent complications. TADEO LANCE MD Sep 10, 2016 11:14
[2016-09-10] MEDS ORDERED: DIPHENHYDRAMINE 50 MG/ML VIAL IV PRN (11:15)
[2016-09-10] MEDS ORDERED: CALCIUM CARBONATE 500 MG TAB.CHEW PO PRN (11:15)
[2016-09-10] MEDS ORDERED: TRAMADOL 50 MG TABLET. PO PRN (11:15)
[2016-09-10] MEDS ORDERED: MORPHINE SULFATE 4 MG/ML DISP.SYRIN. IV PRN (11:15)
[2016-09-10] MEDS ORDERED: METOCLOPRAMIDE HCL 10 MG/2 ML VIAL. IV PRN (11:15)
[2016-09-10] MEDS ORDERED: OXYCODONE/APAP 5/325 TABLET. PO PRN (11:15)
[2016-09-10] MEDS ORDERED: DEXTROSE 50% 25 GM / 50ML DISP.SYRIN. IV PRN (11:15)
[2016-09-10] MEDS ORDERED: MORPHINE SULFATE 10 MG/ML VIAL. IV PRN (11:15)
[2016-09-10] MEDS ORDERED: HYDROCODONE/APAP 10/325 TABLET. PO PRN (11:15)
[2016-09-10] MEDS ORDERED: HYDROCODONE/APAP 7.5/325MG TABLET. PO PRN (11:15)
[2016-09-10] MEDS ORDERED: CEFAZOLIN 2GM PREMIX 50 ML IV SCH (11:15)
[2016-09-10] MEDS ORDERED: ACETAMINOPHEN 325 MG TABLET. PO PRN (11:15)
[2016-09-10] MEDS ORDERED: OXYCODONE/APAP 7.5/325 TABLET. PO PRN (11:15)
[2016-09-10] MEDS ORDERED: 0.9 % SODIUM CHLORIDE 10 ML DISP.SYRIN. IV PRN (11:15)
[2016-09-10] MEDS ORDERED: PROCHLORPERAZINE 5 MG TABLET. PO PRN (11:15)
[2016-09-10] MEDS ORDERED: ZOLPIDEM 5 MG TABLET. PO PRN (11:15)
[2016-09-10] MEDS: HYDROMORPHONE 2 MG/ML VIAL. IV PRN ×4 (11:33→12:20)
--- NOTE | 2016-09-10 11:35 | RAD ---
INDICATION: POST OP COMPARISON: 09/02/2016 IMPRESSION: Right knee: 2 views obtained. There is a drain seen within the soft tissues. Interval removal of previously identified right hip arthroplasty. There is now high density material seen at the proximal tibia and distal femur and extending throughout the joint space which could be secondary to cement.
[2016-09-10] MEDS: IV DEXTROSE 5 %-0.45 % NACL 1,000 ML IV SCH ×2 (12:00→22:46)
[2016-09-10] MEDS ORDERED: POTASSIUM CHLORIDE 20 MEQ TABLET.ER. PO ONE (12:15)
--- NOTE | 2016-09-10 14:20 | PDOC ---
PROGRESS NOTES Chief Complaint Chief Complaint nonhealing TKR ASSESSMENT AND PLAN: 1. Knee infection: s/p arthroplasty on 09/[address] Lance. Group B/MRSA/ Morganella isolated. ID following, on Zosyn/dapto. PICC placed in anticipation of prolonged Abx regimen. d/w Dr Delacruz: will need hardware removal , prob in AM 2. pain control: current regimen adequate 3. Anemia: iron/TIBC c/w inflammation. ferritin pending. replete low dose iron. may need transfusion for (post)surg bleed. monitor closely 4. DM: oral and insulin home regimen plus ISS with good results 5. CKD3: stable creat and lytes. monitor periodically 6. HTN: borderline control 7. Prophylaxis: lovenox on hold for anticipated surgery. start post op 8. Dispo: SNF pt got temp antibiotic knee spacer on 09/10. fu with ortho. replete K History of Present Illness History of Present Illness sx today Vitals Vitals Vital Signs Date Time Temp Pulse Resp B/P Pulse Ox O2 Delivery O2 Flow Rate FiO2 09/10/16 13:45 89 18 162/83 95 Nasal Cannula 2.0 09/10/16 13:30 98.0 98.0 Physical Exam General: Alert, Oriented X3, Cooperative, No acute distress, mild distress Heart: Regular rate, No murmurs Lungs: Clear, Wheezing Abdomen: Normal bowel sounds Extremities: No clubbing, No cyanosis, Other Skin: No rashes Labs LABS Laboratory Tests Test 09/09/16 15:56 09/09/16 16:17 09/09/16 16:46 09/09/16 20:57 Glucose (Fingerstick) 38mg/dL (70-99) 161mg/dL (70-99) 152mg/dL (70-99) 128mg/dL (70-99) Test 09/10/16 05:00 09/10/16 06:52 09/10/16 11:25 White Blood Count 8.1x10^3/uL (4.0-11.0) Red Blood Count 3.55x10^6/uL (3.50-5.40) Hemoglobin 8.2g/dL (12.0-15.5) Hematocrit 25.9% (36.0-47.0) Mean Corpuscular Volume 73fL (79-100) Mean Corpuscular Hemoglobin 23pg (25-35) Mean Corpuscular Hemoglobin Concent 32g/dL (31-37) Red Cell Distribution Width 18.2% (11.5-14.5) Platelet Count 312x10^3/uL (140-400) Neutrophils (%) (Auto) 68% (31-73) Lymphocytes (%) (Auto) 18% (24-48) Monocytes (%) (Auto) 8% (0-9) Eosinophils (%) (Auto) 5% (0-3) Basophils (%) (Auto) 1% (0-3) Neutrophils # (Auto) 5.6x10^3uL (1.8-7.7) Lymphocytes # (Auto) 1.4x10^3/uL (1.0-4.8) Monocytes # (Auto) 0.7x10^3/uL (0.0-1.1) Eosinophils # (Auto) 0.4x10^3/uL (0.0-0.7) Basophils # (Auto) 0.1x10^3/uL (0.0-0.2) Sodium Level 143mmol/L (136-145) Potassium Level 3.2mmol/L (3.5-5.1) Chloride Level 106mmol/L (98-107) Carbon Dioxide Level 28mmol/L (21-32) Anion Gap 9 (6-14) Blood Urea Nitrogen 15mg/dL (7-20) Creatinine 1.4mg/dL (0.6-1.0) Estimated GFR (Cockcroft-Gault) 45.1 BUN/Creatinine Ratio 11 (6-20) Glucose Level 80mg/dL (70-99) Calcium Level 9.0mg/dL (8.5-10.1) Magnesium Level 1.6mg/dL (1.8-2.4) Ferritin 60ng/mL (8-252) Total Bilirubin 0.2mg/dL (0.2-1.0) Aspartate Amino Transf (AST/SGOT) 12U/L (15-37) Alanine Aminotransferase (ALT/SGPT) 6U/L (14-59) Alkaline Phosphatase 45U/L (46-116) Creatine Kinase 30U/L (26-192) Total Protein 6.7g/dL (6.4-8.2) Albumin 1.8g/dL (3.4-5.0) Albumin/Globulin Ratio 0.4 (1.0-1.7) Glucose (Fingerstick) 81mg/dL (70-99) 186mg/dL (70-99) Review of Systems Review of Systems no fever, chills, sob or chest pain Assessment and Plan Assessmemt and Plan Problems Medical Problems: (1) Infection of right knee Status: Acute (2) Infection of total right knee replacement Status: Acute (3) Right knee pain Status: Acute (4) Swelling of knee joint, right Status: Acute Problems: Comment Review of Relevant I have reviewed the following items deng (where applicable) has been applied. Labs Laboratory Tests Test 09/08/16 16:56 09/08/16 21:19 09/09/16 05:15 09/09/16 07:29 Glucose (Fingerstick) 111mg/dL (70-99) 175mg/dL (70-99) 179mg/dL (70-99) Creatine Kinase 26U/L (26-192) Test 09/09/16 11:03 09/09/16 15:56 09/09/16 16:17 09/09/16 16:46 Glucose (Fingerstick) 216mg/dL (70-99) 38mg/dL (70-99) 161mg/dL (70-99) 152mg/dL (70-99) Test 09/09/16 20:57 09/10/16 05:00 09/10/16 06:52 09/10/16 11:25 Glucose (Fingerstick) 128mg/dL (70-99) 81mg/dL (70-99) 186mg/dL (70-99) White Blood Count 8.1x10^3/uL (4.0-11.0) Red Blood Count 3.55x10^6/uL (3.50-5.40) Hemoglobin 8.2g/dL (12.0-15.5) Hematocrit 25.9% (36.0-47.0) Mean Corpuscular Volume 73fL (79-100) Mean Corpuscular Hemoglobin 23pg (25-35) Mean Corpuscular Hemoglobin Concent 32g/dL (31-37) Red Cell Distribution Width 18.2% (11.5-14.5) Platelet Count 312x10^3/uL (140-400) Neutrophils (%) (Auto) 68% (31-73) Lymphocytes (%) (Auto) 18% (24-48) Monocytes (%) (Auto) 8% (0-9) Eosinophils (%) (Auto) 5% (0-3) Basophils (%) (Auto) 1% (0-3) Neutrophils # (Auto) 5.6x10^3uL (1.8-7.7) Lymphocytes # (Auto) 1.4x10^3/uL (1.0-4.8) Monocytes # (Auto) 0.7x10^3/uL (0.0-1.1) Eosinophils # (Auto) 0.4x10^3/uL (0.0-0.7) Basophils # (Auto) 0.1x10^3/uL (0.0-0.2) Sodium Level 143mmol/L (136-145) Potassium Level 3.2mmol/L (3.5-5.1) Chloride Level 106mmol/L (98-107) Carbon Dioxide Level 28mmol/L (21-32) Anion Gap 9 (6-14) Blood Urea Nitrogen 15mg/dL (7-20) Creatinine 1.4mg/dL (0.6-1.0) Estimated GFR (Cockcroft-Gault) 45.1 BUN/Creatinine Ratio 11 (6-20) Glucose Level 80mg/dL (70-99) Calcium Level 9.0mg/dL (8.5-10.1) Magnesium Level 1.6mg/dL (1.8-2.4) Ferritin 60ng/mL (8-252) Total Bilirubin 0.2mg/dL (0.2-1.0) Aspartate Amino Transf (AST/SGOT) 12U/L (15-37) Alanine Aminotransferase (ALT/SGPT) 6U/L (14-59) Alkaline Phosphatase 45U/L (46-116) Creatine Kinase 30U/L (26-192) Total Protein 6.7g/dL (6.4-8.2) Albumin 1.8g/dL (3.4-5.0) Albumin/Globulin Ratio 0.4 (1.0-1.7) Laboratory Tests Test 09/09/16 15:56 09/09/16 16:17 09/09/16 16:46 09/09/16 20:57 Glucose (Fingerstick) 38mg/dL (70-99) 161mg/dL (70-99) 152mg/dL (70-99) 128mg/dL (70-99) Test 09/10/16 05:00 09/10/16 06:52 09/10/16 11:25 White Blood Count 8.1x10^3/uL (4.0-11.0) Red Blood Count 3.55x10^6/uL (3.50-5.40) Hemoglobin 8.2g/dL (12.0-15.5) Hematocrit 25.9% (36.0-47.0) Mean Corpuscular Volume 73fL (79-100) Mean Corpuscular Hemoglobin 23pg (25-35) Mean Corpuscular Hemoglobin Concent 32g/dL (31-37) Red Cell Distribution Width 18.2% (11.5-14.5) Platelet Count 312x10^3/uL (140-400) Neutrophils (%) (Auto) 68% (31-73) Lymphocytes (%) (Auto) 18% (24-48) Monocytes (%) (Auto) 8% (0-9) Eosinophils (%) (Auto) 5% (0-3) Basophils (%) (Auto) 1% (0-3) Neutrophils # (Auto) 5.6x10^3uL (1.8-7.7) Lymphocytes # (Auto) 1.4x10^3/uL (1.0-4.8) Monocytes # (Auto) 0.7x10^3/uL (0.0-1.1) Eosinophils # (Auto) 0.4x10^3/uL (0.0-0.7) Basophils # (Auto) 0.1x10^3/uL (0.0-0.2) Sodium Level 143mmol/L (136-145) Potassium Level 3.2mmol/L (3.5-5.1) Chloride Level 106mmol/L (98-107) Carbon Dioxide Level 28mmol/L (21-32) Anion Gap 9 (6-14) Blood Urea Nitrogen 15mg/dL (7-20) Creatinine 1.4mg/dL (0.6-1.0) Estimated GFR (Cockcroft-Gault) 45.1 BUN/Creatinine Ratio 11 (6-20) Glucose Level 80mg/dL (70-99) Calcium Level 9.0mg/dL (8.5-10.1) Magnesium Level 1.6mg/dL (1.8-2.4) Ferritin 60ng/mL (8-252) Total Bilirubin 0.2mg/dL (0.2-1.0) Aspartate Amino Transf (AST/SGOT) 12U/L (15-37) Alanine Aminotransferase (ALT/SGPT) 6U/L (14-59) Alkaline Phosphatase 45U/L (46-116) Creatine Kinase 30U/L (26-192) Total Protein 6.7g/dL (6.4-8.2) Albumin 1.8g/dL (3.4-5.0) Albumin/Globulin Ratio 0.4 (1.0-1.7) Glucose (Fingerstick) 81mg/dL (70-99) 186mg/dL (70-99) Microbiology 09/02/16 Blood Culture - Final, Complete NO GROWTH AFTER 5 DAYS 09/03/16 Gram Stain - Final, Complete 09/10/16 Gram Stain - Final, Complete Medications Current Medications Ondansetron HCl (Zofran) 4 mg PRN Q8HRS PRN IV NAUSEA/VOMITING; Start 09/02/16 at 15:15; Stop 09/03/16 at 15:14; Status DC Morphine Sulfate 2 mg PRN Q2HR PRN IV PAIN Last administered on 09/03/16 11:10 ; Start 09/02/16 at 15:15; Stop 09/03/16 at 15:14; Status DC Vancomycin HCl (Vanco Per Pharmacy) 1 each PRN DAILY PRN MC SEE COMMENTS Last administered on 09/07/16 11:48; Start 09/02/16 at 17:30; Stop 09/07/16 at 23:39 ; Status DC Piperacillin Sod/ Tazobactam Sod 1 each 1 each PRN DAILY PRN MC SEE COMMENTS; Start 09/02/16 at 17:30; Stop 09/04/16 at 13:59; Status DC Piperacillin Sod/ Tazobactam Sod 3.375 gm/Sodium Chloride 50 ml @ 100 mls/hr Q6HRS IV Last administered on 09/10/16 06:07; Start 09/02/16 at 18:00 Vancomycin HCl 2 gm/Sodium Chloride 500 ml @ 250 mls/hr 1X ONCE IV Last administered on 09/02/16 20:53; Start 09/02/16 at 20:00; Stop 09/02/16 at 21:59; Status DC Vancomycin HCl/ Sodium Chloride (Iv Sodium Chloride 0.9% 500ml Bag) 500 ml @ 250 mls/hr Q12H IV Last administered on 09/04/16 09:18; Start 09/03/16 at 08:00 ; Stop 09/04/16 at 14:06; Status DC Vancomycin HCl 1 each 1X ONCE MC Last administered on 09/03/16 07:30; Start at 07:30; Stop 09/03/16 at 07:31; Status DC Aspirin (Ecotrin) 325 mg BID PO Last administered on 09/09/16 22:04; Start 09/03/16 at 21:00 Carvedilol (Coreg) 12.5 mg BIDWMEALS PO Last administered on 09/09/16 16:43; Start 09/03/16 at 17:00 Glipizide (Glucotrol) 5 mg DAILY PO Last administered on 09/03/16 13:10; Start 09/03/16 at 12:30; Stop 09/04/16 at 14:00; Status DC Lisinopril (Prinivil) 40 mg DAILY PO Last administered on 09/09/16 09:06; Start 09/03/16 at 12:30 Metformin HCl (Glucophage) 1,000 mg BIDWMEALS PO Last administered on 16:43; Start 09/03/16 at 17:00 Insulin Detemir (Levemir) 20 units DAILYWSUP SQ Last administered on 09/09/16 16:56; Start 09/03/16 at 17:00 Insulin Detemir (Levemir) 40 units DAILYWBKFT SQ Last administered on 09:13; Start 09/04/16 at 08:00 Oxycodone/ Acetaminophen (Percocet 5/325) 1 tab PRN Q6HRS PRN PO pain Last administered on 09/04/16 11:56; Start 09/03/16 at 12:00; Stop 09/05/16 at 11:41; Status DC Calcium/Vitamin D (Oscal D 500mg/ 200uts) 1 tab BIDWMEALS PO Last administered on 09/09/16 16:43; Start 09/03/16 at 17:00 Citalopram Hydrobromide (Celexa) 40 mg DAILY PO Last administered on 09/05/16 08:28; Start 09/04/16 at 09:00; Stop 09/05/16 at 13:44; Status DC Hydrochlorothiazide (Hydrodiuril) 25 mg DAILY PO Last administered on 09:05; Start 09/03/16 at 12:30 Atorvastatin Calcium (Lipitor) 10 mg QHS PO Last administered on 09/09/16 22: 04; Start 09/03/16 at 21:00 Multivitamins/ Calcium (Thera M Plus) 1 tab DAILY PO Last administered on 09:05; Start 09/03/16 at 12:30 Insulin Aspart (Novolog) 0-7 UNITS TIDWMEALS SQ Last administered on 09/03/16 17:14; Start 09/03/16 at 13:00; Stop 09/04/16 at 21:21; Status DC Dextrose 12.5 gm PRN Q15MIN PRN IV SEE COMMENTS; Start 09/03/16 at 12:15; Stop 09/05/16 at 13:32; Status DC Insulin Aspart (Novolog) 10 units TIDAC SQ Last administered on 09/09/16 12:15 ; Start 09/03/16 at 16:30; Stop 09/09/16 at 16:11; Status DC Polyethylene Glycol (miraLAX PACKET) 17 gm PRN DAILY PRN PO CONSTIPATION; Start 09/03/16 at 13:00 Polyethylene Glycol (miraLAX PACKET) 17 gm 1X ONCE PO Last administered on 09/03 13:18; Start 09/03/16 at 13:00; Stop 09/03/16 at 13:12; Status DC Docusate Sodium (Colace) 100 mg PRN DAILY PRN PO CONSTIPATION; Start 09/03/16 at 13:00; Stop 09/05/16 at 13:31; Status DC Lidocaine/Sodium Bicarbonate 20 ml 20 ml 1X ONCE IJ ; Start 09/03/16 at 15:15; Stop 09/03/16 at 15:16; Status DC Cefazolin Sodium/ Dextrose 50 ml @ 100 mls/hr 1X PREOP IV ; Start 09/06/16 at 06:00; Stop 09/06/16 at 06:00; Status DC Cefazolin Sodium/ Dextrose (Ancef 2gm Premix) 50 ml @ 100 mls/hr 1X PREOP ONCE IV Last administered on 09/04/16 14:24; Start 09/04/16 at 06:00; Stop at 06:29; Status DC Fentanyl Citrate (Fentanyl 2ml Vial) 25 mcg PRN Q5MIN PRN IV MILD PAIN; Start 09/04/16 at 09:30; Stop 09/05/16 at 09:29; Status DC Fentanyl Citrate (Fentanyl 2ml Vial) 50 mcg PRN Q5MIN PRN IV MODERATE PAIN Last administered on 09/04/16 16:54; Start 09/04/16 at 09:30; Stop 09/05/16 at 09: 29; Status DC Morphine Sulfate 1 mg 1 mg PRN Q10MIN PRN IV SEVERE PAIN; Start 09/04/16 at 09: 30; Stop 09/05/16 at 09:29; Status DC Lactated Ringer's (Iv Lactated Ringers) 1,000 ml @ 0 mls/hr Q0M IV Last administered on 09/04/16 13:49; Start 09/04/16 at 09:18; Stop 09/04/16 at 21:17; Status DC Lidocaine HCl 2 ml 1X PRN PRN ID IV START; Start 09/04/16 at 09:30; Stop at 09:29; Status DC Hydromorphone HCl (Dilaudid) 0.5 mg PRN Q10MIN PRN IV SEV PAIN,Second choice Last administered on 09/04/16 18:07; Start 09/04/16 at 09:30; Stop 09/05/16 at 09: 29; Status DC Prochlorperazine Edisylate 5 mg 5 mg PACU PRN PRN IV NAUSEA; Start 09/04/16 at 09:30; Stop 09/05/16 at 09:29; Status DC Cefazolin Sodium/ Dextrose (Ancef 2gm Premix) 50 ml @ As Directed STK-MED ONCE IV ; Start 09/04/16 at 13:12; Stop 09/04/16 at 13:13; Status DC Desflurane (Suprane) 60 ml STK-MED ONCE IH ; Start 09/04/16 at 13:42; Stop at 13:43; Status DC Fentanyl Citrate 100 mcg 100 mcg STK-MED ONCE .ROUTE ; Start 09/04/16 at 13:43; Stop 09/04/16 at 13:44; Status DC Propofol (Diprivan) 20 ml @ As Directed STK-MED ONCE IV ; Start 09/04/16 at 13:43 ; Stop 09/04/16 at 13:44; Status DC Lidocaine HCl 100 mg STK-MED ONCE .ROUTE ; Start 09/04/16 at 13:43; Stop 09/04/16 at 13:44; Status DC Dexamethasone Sodium Phosphate (Decadron) 20 mg STK-MED ONCE .ROUTE ; Start 09/04 at 13:43; Stop 09/04/16 at 13:44; Status DC Ondansetron HCl (Zofran) 4 mg STK-MED ONCE .ROUTE ; Start 09/04/16 at 13:43; Stop 09/04/16 at 13:44; Status DC Glipizide 5 mg 5 mg DAILYWBKFT PO Last administered on 09/09/16t 09:07; Start 09/05/16 at 08:00 Vancomycin HCl 1.25 gm/Sodium Chloride 250 ml @ 167 mls/hr Q12H IV Last administered on 09/07/16t 22:12; Start 09/04/16 at 20:00; Stop 09/07/16 at 23:36 ; Status DC Propofol (Diprivan) 20 ml @ As Directed STK-MED ONCE IV ; Start 09/04/16 at 14:38 ; Stop 09/04/16 at 14:39; Status DC Albuterol Sulfate 2.5 mg 2.5 mg STK-MED ONCE .ROUTE ; Start 09/04/16 at 14:59; Stop 09/04/16 at 15:00; Status DC Tranexamic Acid/ Sodium Chloride (Cyklokapron/Iv Sodium Chloride 0.9% 50ml) 60 ml @ 60 mls/hr 1X PERIOP ONCE INJ Last administered on 09/04/16 15:12; Start 09/04/16 at 15:12; Stop 09/04/16 at 16:11; Status DC Fentanyl Citrate (Fentanyl 2ml Vial) 100 mcg STK-MED ONCE .ROUTE ; Start at 15:27; Stop 09/04/16 at 15:28; Status DC Acetaminophen/ Hydrocodone Bitart (Lortab 7.5/325) 1 tab PRN Q3HRS PRN PO PAIN Last administered on 09/08/16 06:13; Start 09/04/16 at 16:30 Acetaminophen/ Hydrocodone Bitart (Lortab 10/325) 1 tab PRN Q3HRS PRN PO PAIN Last administered on 09/09/16 16:46; Start 09/04/16 at 16:30 Tramadol HCl (Ultram) 50 mg PRN QID PRN PO PAIN; Start 09/04/16 at 16:30; Stop 09/05/16 at 13:32; Status DC Oxycodone/ Acetaminophen (Percocet 5/325) 1 tab PRN Q3HRS PRN PO PAIN; Start at 16:30 Oxycodone/ Acetaminophen (Percocet 7.5/ 325) 1 tab PRN Q3HRS PRN PO PAIN Last administered on 09/07/16 09:05; Start 09/04/16 at 16:30 Tramadol HCl (Ultram) 100 mg PRN Q3HRS PRN PO PAIN; Start 09/04/16 at 16:30; Stop 09/05/16 at 13:32; Status DC Diphenhydramine HCl (Benadryl) 25 mg PRN Q6HRS PRN IV ITCHING; Start 09/04/16 at 16:30 Senna/Docusate Sodium (Senna Plus) 1 tab DAILY PO Last administered on 08:37; Start 09/05/16 at 09:00 Prochlorperazine Maleate (Compazine) 10 mg PRN Q4HRS PRN PO NAUSEA/VOMITING; Start 09/04/16 at 16:30 Metoclopramide HCl (Reglan) 10 mg PRN Q4HRS PRN IV NAUSEA/VOMITING; Start at 16:30 Magnesium Hydroxide (Milk Of Magnesia) 2,400 mg 1X PRN PRN PO CONSTIPATION; Start 09/05/16 at 06:00; Stop 09/06/16 at 05:59; Status DC Bisacodyl (Dulcolax Supp) 10 mg 1X PRN PRN [place] CONSTIPATION; Start 09/05/16 at 16 :00; Stop 09/06/16 at 15:59; Status DC Acetaminophen (Tylenol) 650 mg PRN Q4HRS PRN PO MILD PAIN / TEMP; Start at 16:30 Zolpidem Tartrate (Ambien) 5 mg PRN QHS PRN PO INSOMNIA, MAY REPEAT IN 1HR Last administered on 09/09/16 22:05; Start 09/04/16 at 16:30 Calcium Carbonate/ Glycine (Tums) 500 mg PRN QID PRN PO INDIGESTION Last administered on 09/07/16 09:10; Start 09/04/16 at 16:30 Morphine Sulfate 4 mg PRN Q1HR PRN IV PAIN Last administered on 09/08/16 20:38 ; Start 09/04/16 at 16:30; Stop 09/10/16 at 11:20; Status DC Sodium Chloride (Normal Saline Flush) 10 ml QSHIFT PRN IV AFTER MEDS AND BLOOD DRAWS; Start 09/04/16 at 16:30; Status Cancel Prochlorperazine Edisylate (Compazine) 10 mg PRN Q4HRS PRN IV NAUSEA/VOMITING; Start 09/04/16 at 16:30 Dextrose 12.5 gm PRN Q15MIN PRN IV SEE COMMENTS Last administered on 09/09/16 16:00; Start 09/04/16 at 16:30 Insulin Aspart (Novolog) 0-7 UNITS QIDACHS SQ Last administered on 09/09/16 12 :15; Start 09/05/16 at 07:30 Insulin Aspart (Novolog) 12 units 1X ONCE SQ Last administered on 09/04/16 21: 43; Start 09/04/16 at 21:30; Stop 09/04/16 at 21:31; Status DC Polysaccharide Iron Complex (Niferex 150) 150 mg DAILY PO Last administered on 09/09/16 09:05; Start 09/05/16 at 09:00 Polyethylene Glycol (miraLAX PACKET) 17 gm 1X ONCE PO Last administered on 09/05 15:42; Start 09/05/16 at 14:00; Stop 09/05/16 at 14:01; Status DC Polyethylene Glycol (miraLAX PACKET) 17 gm DAILY PO Last administered on 08:39; Start 09/06/16 at 09:00; Stop 09/06/16 at 15:51; Status DC Docusate Sodium (Colace) 100 mg DAILY PO Last administered on 09/08/16 08:37; Start 09/05/16 at 14:00 Magnesium Hydroxide (Milk Of Magnesia) 2,400 mg 1X ONCE PO Last administered on 09/05/16 15:41; Start 09/05/16 at 13:45; Stop 09/05/16 at 13:46; Status DC Morphine Sulfate (Ms Contin) 15 mg BID PO Last administered on 09/09/16 22:04 ; Start 09/05/16 at 13:45 Citalopram Hydrobromide (Celexa) 20 mg DAILY PO Last administered on 09/09/16 09:07; Start 09/06/16 at 09:00 Polyethylene Glycol (miraLAX PACKET) 17 gm BID PO Last administered on 08:35; Start 09/06/16 at 21:00 Sodium Biphosphate/ Sodium Phosphate (Fleet Adult) 133 ml 1X ONCE [place] ; Start at 16:00; Stop 09/06/16 at 16:04; Status DC Sodium Biphosphate/ Sodium Phosphate (Fleet Adult) 133 ml PRN DAILY PRN [place] CONSTIPATION; Start 09/07/16 at 09:00 Polyethylene Glycol (miraLAX PACKET) 17 gm 1X ONCE PO Last administered on 17:45; Start 09/06/16 at 16:00; Stop 09/06/16 at 16:04; Status DC Sodium Biphosphate/ Sodium Phosphate (Fleet Adult) 133 ml PRN 1X PRN [place] CONSTIPATION; Start 09/06/16 at 23:30 Vancomycin HCl 1 each 1X ONCE MC ; Start 09/07/16 at 19:30; Stop 09/07/16 at 19 :31; Status DC Alteplase, Recombinant 2 mg 2 mg 1X ONCE INT CAT Last administered on 15:09; Start 09/07/16 at 14:30; Stop 09/07/16 at 14:31; Status DC Daptomycin/Sodium Chloride (Cubicin/Iv Sodium Chloride 0.9% 50ml) 50 ml @ 100 mls/hr Q24H IV Last administered on 09/09/16 16:44; Start 09/08/16 at 16:00 Ondansetron HCl (Zofran) 4 mg PRN Q6HRS PRN IV Nausea; Start 09/10/16 at 07:00 ; Stop 09/10/16 at 23:00 Fentanyl Citrate (Fentanyl 2ml Vial) 25 mcg PRN Q5MIN PRN IV MILD PAIN; Start 09/10/16 at 07:00; Stop 09/10/16 at 23:00 Fentanyl Citrate (Fentanyl 2ml Vial) 50 mcg PRN Q5MIN PRN IV MODERATE PAIN Last administered on 09/10/16 11:53; Start 09/10/16 at 07:00; Stop 09/10/16 at 23:00 Morphine Sulfate 1 mg 1 mg PRN Q10MIN PRN IV SEVERE PAIN; Start 09/10/16 at 07: 00; Stop 09/10/16 at 23:00 Lactated Ringer's (Iv Lactated Ringers) 1,000 ml @ 30 mls/hr Q24H IV Last administered on 09/10/16 07:38; Start 09/10/16 at 07:00; Stop 09/10/16 at 18:59 Lidocaine HCl 2 ml 1X PRN PRN ID IV START; Start 09/10/16 at 07:00; Stop at 23:00 Hydromorphone HCl (Dilaudid) 0.5 mg PRN Q10MIN PRN IV SEVERE PAIN, Second choice Last administered on 09/10/16 12:20; Start 09/10/16 at 07:00; Stop 09/10 at 23:00 Prochlorperazine Edisylate (Compazine) 5 mg PACU PRN PRN IV NAUSEA; Start 09/10 at 07:00; Stop 09/10/16 at 23:00 Lidocaine HCl 100 mg STK-MED ONCE .ROUTE ; Start 09/10/16 at 07:06; Stop at 07:07; Status DC Dexamethasone Sodium Phosphate 20 mg 20 mg STK-MED ONCE .ROUTE ; Start 09/10/16 at 07:06; Stop 09/10/16 at 07:07; Status DC Propofol (Diprivan) 20 ml @ As Directed STK-MED ONCE IV ; Start 09/10/16 at 07: 06; Stop 09/10/16 at 07:07; Status DC Lidocaine HCl 100 mg STK-MED ONCE .ROUTE ; Start 09/10/16 at 07:06; Stop at 07:07; Status DC Famotidine (Pepcid) 20 mg STK-MED ONCE .ROUTE ; Start 09/10/16 at 07:06; Stop at 07:07; Status DC Fentanyl Citrate (Fentanyl 2ml Vial) 100 mcg STK-MED ONCE .ROUTE ; Start at 07:06; Stop 09/10/16 at 07:07; Status DC Rocuronium [place] 50 mg 50 mg STK-MED ONCE .ROUTE ; Start 09/10/16 at 07:06; Stop 09/10/16 at 07:07; Status DC Cefazolin Sodium/ Dextrose 50 ml @ As Directed STK-MED ONCE IV ; Start 09/10/16 at 07:24; Stop 09/10/16 at 07:25; Status DC Tranexamic Acid 1000 mg/Sodium Chloride 60 ml @ 60 mls/hr 1X PERIOP ONCE INJ Last administered on 09/10/16 08:17; Start 09/10/16 at 08:00; Stop 09/10/16 at 08:59; Status DC Tranexamic Acid/ Sodium Chloride (Cyklokapron/Iv Sodium Chloride 0.9% 50ml) 60 ml @ 60 mls/hr 1X PERIOP ONCE INJ Last administered on 09/10/16 09:31; Start 09/10/16 at 08:00; Stop 09/10/16 at 08:59; Status DC Vancomycin HCl (Vanco) 10 gm 1X ONCE CEMENT Last administered on 09/10/16 08: 33; Start 09/10/16 at 08:00; Stop 09/10/16 at 08:01; Status Cancel Tobramycin Sulfate 7.2 gm 7.2 gm 1X ONCE TP ; Start 09/10/16 at 07:45; Stop at 07:46; Status Cancel Cefazolin Sodium/ Dextrose (Ancef 2gm Premix) 50 ml @ 100 mls/hr 1X ONCE IV Last administered on 09/10/16 08:09; Start 09/10/16 at 08:00; Stop 09/10/16 at 08:29; Status DC Tobramycin Sulfate 1.2 gm STK-MED ONCE .ROUTE Last administered on 09/10/16 08 :33; Start 09/10/16 at 08:01; Stop 09/10/16 at 08:02; Status DC Vancomycin HCl (Vanco) 10 gm STK-MED ONCE .ROUTE ; Start 09/10/16 at 08:01; Stop 09/10/16 at 08:02; Status DC Tobramycin Sulfate 1.2 gm STK-MED ONCE .ROUTE Last administered on 09/10/16 08 :33; Start 09/10/16 at 08:01; Stop 09/10/16 at 08:02; Status DC Tobramycin Sulfate 1.2 gm STK-MED ONCE .ROUTE Last administered on 09/10/16 08 :33; Start 09/10/16 at 08:02; Stop 09/10/16 at 08:03; Status DC Tobramycin Sulfate 1.2 gm STK-MED ONCE .ROUTE Last administered on 09/10/16 08 :33; Start 09/10/16 at 08:02; Stop 09/10/16 at 08:03; Status DC Tobramycin Sulfate 1.2 gm STK-MED ONCE .ROUTE Last administered on 09/10/16 08 :33; Start 09/10/16 at 08:02; Stop 09/10/16 at 08:03; Status DC Tobramycin Sulfate 1.2 gm STK-MED ONCE .ROUTE Last administered on 09/10/16 08 :33; Start 09/10/16 at 08:02; Stop 09/10/16 at 08:03; Status DC Fentanyl Citrate (Fentanyl 2ml Vial) 100 mcg STK-MED ONCE .ROUTE ; Start at 08:35; Stop 09/10/16 at 08:36; Status DC Ephedrine Sulfate 50 mg STK-MED ONCE IV ; Start 09/10/16 at 08:53; Stop at 08:54; Status DC Fentanyl Citrate (Fentanyl 2ml Vial) 100 mcg STK-MED ONCE .ROUTE ; Start at 08:55; Stop 09/10/16 at 08:56; Status DC Labetalol HCl (Normodyne) 20 mg STK-MED ONCE .ROUTE ; Start 09/10/16 at 09:07; Stop 09/10/16 at 09:08; Status DC Glycopyrrolate (Robinul) 1 mg STK-MED ONCE .ROUTE ; Start 09/10/16 at 09:34; Stop 09/10/16 at 09:35; Status DC Neostigmine Methylsulfate 5 mg STK-MED ONCE .ROUTE ; Start 09/10/16 at 09:34; Stop 09/10/16 at 09:35; Status DC Sevoflurane (Ultane) 90 ml STK-MED ONCE IH ; Start 09/10/16 at 10:05; Stop 09/10 at 10:06; Status DC Acetaminophen/ Hydrocodone Bitart (Lortab 7.5/325) 1 tab PRN Q3HRS PRN PO PAIN ; Start 09/10/16 at 11:15 Acetaminophen/ Hydrocodone Bitart (Lortab 10/325) 1 tab PRN Q3HRS PRN PO PAIN; Start 09/10/16 at 11:15 Tramadol HCl (Ultram) 50 mg PRN QID PRN PO PAIN; Start 09/10/16 at 11:15 Oxycodone/ Acetaminophen (Percocet 5/325) 1 tab PRN Q3HRS PRN PO PAIN; Start at 11:15 Oxycodone/ Acetaminophen (Percocet 7.5/ 325) 1 tab PRN Q3HRS PRN PO PAIN; Start 09/10/16 at 11:15 Tramadol HCl (Ultram) 100 mg PRN Q3HRS PRN PO PAIN; Start 09/10/16 at 11:15 Morphine Sulfate 2 mg PRN Q1HR PRN IV PAIN; Start 09/10/16 at 11:15 Fentanyl Citrate (Fentanyl 2ml Vial) 25 mcg PRN Q1HR PRN IV PAIN; Start at 11:15 Diphenhydramine HCl (Benadryl) 25 mg PRN Q6HRS PRN IV ITCHING; Start 09/10/16 at 11:15; Status Cancel Multivitamins/ Calcium (Thera M Plus) 1 tab DAILY PO ; Start 09/11/16 at 09:00; Stop 09/11/16 at 09:00; Status DC Senna/Docusate Sodium 1 tab 1 tab DAILY PO ; Start 09/11/16 at 09:00; Stop 09/11 at 09:00; Status DC Dextrose/Sodium Chloride (Iv D5% - 1/2 NS) 1,000 ml @ 100 mls/hr Q10H IV ; Start 09/10/16 at 12:00 Prochlorperazine Maleate (Compazine) 10 mg PRN Q4HRS PRN PO NAUSEA/VOMITING; Start 09/10/16 at 11:15; Stop 09/10/16 at 11:20; Status DC Metoclopramide HCl (Reglan) 10 mg PRN Q4HRS PRN IV NAUSEA/VOMITING; Start 09/10 at 11:15; Stop 09/10/16 at 11:21; Status DC Magnesium Hydroxide (Milk Of Magnesia) 2,400 mg 1X PRN PRN PO CONSTIPATION; Start 09/11/16 at 06:00; Stop 09/12/16 at 05:59 Bisacodyl (Dulcolax Supp) 10 mg 1X PRN PRN [place] CONSTIPATION; Start 09/11/16 at 16:00; Stop 09/12/16 at 15:59 Acetaminophen (Tylenol) 650 mg PRN Q4HRS PRN PO MILD PAIN / TEMP; Start at 11:15; Stop 09/10/16 at 11:21; Status DC Zolpidem Tartrate (Ambien) 5 mg PRN QHS PRN PO INSOMNIA, MAY REPEAT IN 1HR; Start 09/10/16 at 11:15; Stop 09/10/16 at 11:21; Status DC Calcium Carbonate/ Glycine (Tums) 500 mg PRN QID PRN PO INDIGESTION; Start at 11:15; Stop 09/10/16 at 11:21; Status DC Morphine Sulfate 4 mg PRN Q1HR PRN IV PAIN; Start 09/10/16 at 11:15 Morphine Sulfate 6 mg PRN Q1HR PRN IV PAIN; Start 09/10/16 at 11:15 Morphine Sulfate 8 mg PRN Q1HR PRN IV PAIN; Start 09/10/16 at 11:15 Sodium Chloride (Normal Saline Flush) 10 ml QSHIFT PRN IV AFTER MEDS AND BLOOD DRAWS; Start 09/10/16 at 11:15 Fentanyl Citrate (Fentanyl 2ml Vial) 50 mcg PRN Q1HR PRN IV PAIN; Start at 11:15 Prochlorperazine Edisylate (Compazine) 10 mg PRN Q4HRS PRN IV NAUSEA/VOMITING; Start 09/10/16 at 11:15; Stop 09/10/16 at 11:21; Status DC Dextrose 12.5 gm 12.5 gm PRN Q15MIN PRN IV SEE COMMENTS; Start 09/10/16 at 11: 15; Stop 09/10/16 at 11:21; Status DC Cefazolin Sodium/ Dextrose (Ancef 2gm Premix) 50 ml @ 100 mls/hr Q6H IV ; Start 09/10/16 at 11:15; Stop 09/10/16 at 11:15; Status DC Potassium Chloride (Klor-Con) 40 meq 1X ONCE PO ; Start 09/10/16 at 12:15; Stop 09/10/16 at 12:16; Status DC Active Scripts Active Aspirin Ec (Aspirin) 325 Mg Tablet.dr 325 Mg PO BID 30 Days Reported Percocet 5-325 Mg Tablet (Oxycodone/Acetaminophen) 1 Each Tablet 1-2 Tab PO Q4- 6HRS LAST DOSE GIVEN: DATE: 08/02/16 TIME: 2:00 NEXT DOSE DUE: DATE: 08/02/16 TIME: 6:00pm as needed for pain Percocet 5-325 Mg Tablet (Oxycodone/Acetaminophen) 1 Each Tablet 1-2 Tab PO Q4- 6HRS Calcium 600 + Vit D 200 Tablet (Calcium Carbonate/Vitamin D3) 1 Each Tablet 1 Each PO BID Hair, Skin & Nails (Multivitamin With Minerals) 1 Each Tablet 1 Each PO DAILY Carvedilol 12.5 Mg Tablet 12.5 Mg PO BIDWMEALS Lovastatin 40 Mg Tablet 40 Mg PO HS Metformin Hcl 1,000 Mg Tablet 1 Tab PO BID Hydrochlorothiazide Tablet (Hydrochlorothiazide) 12.5 Mg Tablet 25 Mg PO DAILY Novolin N (Nph, Human Insulin Isophane) 100 Unit/1 Ml Vial 20 Unit SQ [id number] Novolin N (Nph, Human Insulin Isophane) 100 Unit/1 Ml Vial 40 Unit SQ [id number] Glipizide 5 Mg Tablet 5 Mg PO DAILY Lisinopril 40 Mg Tablet 40 Mg PO DAILY Citalopram Hbr (Citalopram Hydrobromide) 40 Mg Tablet 40 Mg PO DAILY Vitals/I & O Vital Sign - Last 24 Hours 09/09/16 09/09/16 09/09/16 09/09/16 15:00 16:43 16:46 17:55 Temp 98.8 98.8 Pulse 78 78 Resp 18 18 B/P 143/60 143/60 Pulse Ox 95 O2 Delivery Room Air Room Air Room Air 09/09/16 09/09/16 09/09/16 09/09/16 19:00 19:52 22:04 23:00 Temp 97.9 98.6 97.9 98.6 Pulse 81 90 Resp 18 B/P 137/60 162/66 Pulse Ox 96 96 96 O2 Delivery Room Air Room Air Room Air Room Air 09/10/16 09/10/16 09/10/16 09/10/16 02:07 03:45 07:04 11:01 Temp 99.0 98.6 97.6 99.0 98.6 97.6 Pulse 88 90 85 Resp 15 B/P 160/79 181/83 188/86 Pulse Ox 96 97 96 100 O2 Delivery Room Air Room Air Room Air Simple Mask O2 Flow Rate 10 09/10/16 09/10/16 09/10/16 09/10/16 11:01 11:16 11:31 11:46 Pulse 85 86 85 Resp 12 B/P 187/77 184/80 167/86 Pulse Ox 99 95 95 O2 Delivery Mask Simple Mask Nasal Cannula Nasal Cannula O2 Flow Rate 10 10 2 2 09/10/16 09/10/16 09/10/16 09/10/16 12:01 12:16 12:45 13:00 Temp 99.0 97.8 99.0 97.8 Pulse 85 89 91 92 Resp 18 B/P 160/85 155/75 165/77 164/69 Pulse Ox 95 94 92 92 O2 Delivery Nasal Cannula Nasal Cannula Nasal Cannula Nasal Cannula O2 Flow Rate 2 2 2.0 2.0 09/10/16 09/10/16 09/10/16 13:15 13:30 13:45 Temp 98.0 98.0 Pulse 88 90 89 Resp 18 18 18 B/P 160/72 164/69 162/83 Pulse Ox 91 93 95 O2 Delivery Nasal Cannula Nasal Cannula Nasal Cannula O2 Flow Rate 2.0 2.0 2.0 Intake and Output 09/09/16 09/09/16 09/10/16 15:00 23:00 07:00 Intake Total 1200 ml 220 ml 390 ml Balance 1200 ml 220 ml 390 ml MADIHA HAQUE MD Sep 10, 2016 14:20
[2016-09-10] MEDS: DOCUSATE SODIUM 100 MG CAPSULE PO SCH (14:57)
[2016-09-10] MEDS: MORPHINE SULFATE 4 MG/ML DISP.SYRIN. IV PRN (14:57)
[2016-09-10] MEDS: MORPHINE ER 15 MG TABLET.ER PO SCH ×2 (14:57→21:09)
[2016-09-10] MEDS: IRON POLYSACCHARIDE COMPLEX 150 MG CAPSULE PO SCH (14:58)
[2016-09-10] MEDS: GLIPIZIDE 5 MG TABLET PO SCH (14:58)
[2016-09-10] MEDS: MULTIVITAMIN with MINERAL TABLET. PO SCH (15:00)
[2016-09-10] MEDS: CITALOPRAM 20 MG TABLET. PO SCH (15:00)
[2016-09-10] MEDS: HYDROCHLOROTHIAZIDE 25 MG TABLET PO SCH (15:01)
[2016-09-10] MEDS: LISINOPRIL 40 MG TABLET. PO SCH (15:01)
[2016-09-10] MEDS: ASPIRIN ENTERIC COATED 325 MG TABLET.DR. PO SCH ×2 (15:01→21:09)
[2016-09-10] MEDS: DAPTOMYCIN IV SCH (16:48)
[2016-09-10] MEDS: NORMAL SALINE IV SCH (16:48)
[2016-09-10] MEDS: ZOLPIDEM 5 MG TABLET. PO PRN (21:09)
[2016-09-10] MEDS: ATORVASTATIN CALCIUM 10 MG TABLET. PO SCH (21:09)
[2016-09-10] MEDS: MORPHINE SULFATE 2 MG/ML DISP.SYRIN. IV PRN (22:46)
[2016-09-11] VITALS (11 sets, daily range): BP systolic 146–180; BP diastolic 64–90
[2016-09-11] MEDS ORDERED: MAGNESIUM HYDROXIDE 2,400 MG/30 ML ORAL.SUSP. PO PRN (06:00)
[2016-09-11] MEDS: PIPERACILLIN/TAZOBACTAM 3.375 GM in IV NORMAL SALINE 50ML 50 ML IV SCH (06:03)
[2016-09-11] MEDS: MORPHINE SULFATE 2 MG/ML DISP.SYRIN. IV PRN ×4 (06:03→21:17)
[2016-09-11 06:09] LABS: BASO % 1 % (0-3); EOS % 1 % (0-3); LYMPH # 0.7 x10^3/uL (1.0-4.8); LYMPH % 8 % (24-48); MEAN CORPUSCULAR HEMOGLOBIN 24 pg (25-35); MEAN CORPUSCULAR HGB CONC 32 g/dL (31-37); MEAN CORPUSCULAR VOLUME 73 fL (79-100); MONO % 6 % (0-9); NEUT % 85 % (31-73); PLATELET COUNT 271 x10^3/uL (140-400); RED BLOOD COUNT 2.75 x10^6/uL (3.50-5.40); RED CELL DISTRIBUTION WIDTH 18.2 % (11.5-14.5); WHITE BLOOD COUNT 8.7 x10^3/uL (4.0-11.0)
[2016-09-11 06:13] LABS: HEMOGLOBIN 6.4 g/dL (12.0-15.5)
[2016-09-11] MEDS: SENNOSIDES/DOCUSATE 8.6/50MG TABLET. PO SCH (09:00)
[2016-09-11] MEDS ORDERED: MULTIVITAMIN with MINERAL TABLET. PO SCH (09:00)
[2016-09-11] MEDS: DOCUSATE SODIUM 100 MG CAPSULE PO SCH (09:00)
[2016-09-11] MEDS: POLYETHYLENE GLYCOL 3350 17 GM PACKET. PO SCH ×2 (09:00→21:00)
[2016-09-11] MEDS ORDERED: SENNOSIDES/DOCUSATE 8.6/50MG TABLET. PO SCH (09:00)
--- NOTE | 2016-09-11 09:07 | PDOC ---
Infectious Disease Note Subjective Subjective c/o pain in knee ROS ROS GEN: Denies fevers, chills, sweats HEENT: Denies blurred vision, sore throat CV: Denies chest pain RESP: Denies shortness of air, cough GI: Denies n/v/d NEURO: Denies confusion, dizziness Vital Sign Vital Signs Vital Signs Date Time Temp Pulse Resp B/P Pulse Ox O2 Delivery O2 Flow Rate FiO2 09/11/16 07:00 98.8 98 20 156/66 94 Room Air 98.8 09/11/16 06:33 2.0 Physical Exam PHYSICAL EXAM GENERAL: NAD, Alert HEENT: PERRL, OC/OP NECK: Supple, no JVD, no LN LUNGS: Clear HEART: S1S2, no gallop, no murmur ABD: Soft, NT, no organomegaly, no rebound EXT: No edema, no cyanosis,, rt knee dressing not opened TRAFFIC INVESTIGATOR: Alert, oriented x 3, no focal neurologic deficit SKIN: No rash IV: ok Labs Lab Laboratory Tests Test 09/10/16 11:25 09/10/16 16:56 09/10/16 20:39 09/11/16 05:50 Glucose (Fingerstick) 186mg/dL (70-99) 236mg/dL (70-99) 216mg/dL (70-99) White Blood Count 8.7x10^3/uL (4.0-11.0) Red Blood Count 2.75x10^6/uL (3.50-5.40) Hemoglobin 6.4g/dL (12.0-15.5) Hematocrit 20.0% (36.0-47.0) Mean Corpuscular Volume 73fL (79-100) Mean Corpuscular Hemoglobin 24pg (25-35) Mean Corpuscular Hemoglobin Concent 32g/dL (31-37) Red Cell Distribution Width 18.2% (11.5-14.5) Platelet Count 271x10^3/uL (140-400) Neutrophils (%) (Auto) 85% (31-73) Lymphocytes (%) (Auto) 8% (24-48) Monocytes (%) (Auto) 6% (0-9) Eosinophils (%) (Auto) 1% (0-3) Basophils (%) (Auto) 1% (0-3) Neutrophils # (Auto) 7.4x10^3uL (1.8-7.7) Lymphocytes # (Auto) 0.7x10^3/uL (1.0-4.8) Monocytes # (Auto) 0.5x10^3/uL (0.0-1.1) Eosinophils # (Auto) 0.1x10^3/uL (0.0-0.7) Basophils # (Auto) 0.0x10^3/uL (0.0-0.2) Creatine Kinase 53U/L (26-192) Test 09/11/16 07:28 Glucose (Fingerstick) 232mg/dL (70-99) Objective Assessment 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 CAROLYN VALDES MD Sep 11, 2016 09:06
[2016-09-11] MEDS: GLIPIZIDE 5 MG TABLET PO SCH (09:20)
[2016-09-11] MEDS: HYDROCHLOROTHIAZIDE 25 MG TABLET PO SCH (09:22)
[2016-09-11] MEDS: CALCIUM CARB/VIT D3 500/200 TABLET PO SCH ×2 (09:22→17:27)
[2016-09-11] MEDS: IRON POLYSACCHARIDE COMPLEX 150 MG CAPSULE PO SCH (09:23)
[2016-09-11] MEDS: CARVEDILOL 12.5 MG TABLET PO SCH ×2 (09:23→17:27)
[2016-09-11] MEDS: METFORMIN 1,000 MG TABLET PO SCH ×2 (09:23→17:27)
[2016-09-11] MEDS: MORPHINE ER 15 MG TABLET.ER PO SCH ×2 (09:23→21:00)
[2016-09-11] MEDS: ASPIRIN ENTERIC COATED 325 MG TABLET.DR. PO SCH ×2 (09:23→21:18)
[2016-09-11] MEDS: CITALOPRAM 20 MG TABLET. PO SCH (09:24)
[2016-09-11] MEDS: MULTIVITAMIN with MINERAL TABLET. PO SCH (09:24)
[2016-09-11] MEDS: LISINOPRIL 40 MG TABLET. PO SCH (09:24)
[2016-09-11] MEDS: INSULIN DETEMIR 300 UNITS/3 ML INSULN.PEN. SQ SCH ×2 (09:54→17:31)
[2016-09-11] MEDS: INSULIN ASPART 300 UNITS/3 ML INSULN.PEN SQ SCH ×4 (09:55→21:00)
--- NOTE | 2016-09-11 10:07 | PDOC ---
PROGRESS NOTES Chief Complaint Chief Complaint Infected knee prosthesis ASSESSMENT AND PLAN: 1. 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 Group B/MRSA/Morganella isolated. on Ertapenem/daptomycin. D/w Dr Delacruz: intermediate manager IV Abx 2. Pain control: on IV/PO meds. try to transition to PO completely, but still needs IV for dressing changes/PT 3. Anemia: iron/TIBC c/w inflammation. ferritin pending. replete low dose iron. may need transfusion for (post)surg bleed. monitor closely 4. DM: oral and insulin home regimen plus ISS with good results 5. CKD3: stable creat and lytes. monitor periodically 6. HTN: borderline control 7. Prophylaxis: lovenox on hold for anticipated surgery. start post op 8. Dispo: LTAC? Vitals Vitals Vital Signs Date Time Temp Pulse Resp B/P Pulse Ox O2 Delivery O2 Flow Rate FiO2 09/11/16 09:58 18 Room Air 09/11/16 09:24 98 156/66 09/11/16 07:00 98.8 94 98.8 09/11/16 06:33 2.0 Physical Exam General: Alert, Oriented X3, Cooperative, No acute distress Heart: Regular rate, No murmurs Lungs: Clear, Wheezing Abdomen: Normal bowel sounds, No tenderness Extremities: No clubbing, No cyanosis, Other (R knee in ALEXANDRO wrap and splint) Skin: No rashes Labs LABS Laboratory Tests Test 09/10/16 11:25 09/10/16 16:56 09/10/16 20:39 09/11/16 05:50 Glucose (Fingerstick) 186mg/dL (70-99) 236mg/dL (70-99) 216mg/dL (70-99) White Blood Count 8.7x10^3/uL (4.0-11.0) Red Blood Count 2.75x10^6/uL (3.50-5.40) Hemoglobin 6.4g/dL (12.0-15.5) Hematocrit 20.0% (36.0-47.0) Mean Corpuscular Volume 73fL (79-100) Mean Corpuscular Hemoglobin 24pg (25-35) Mean Corpuscular Hemoglobin Concent 32g/dL (31-37) Red Cell Distribution Width 18.2% (11.5-14.5) Platelet Count 271x10^3/uL (140-400) Neutrophils (%) (Auto) 85% (31-73) Lymphocytes (%) (Auto) 8% (24-48) Monocytes (%) (Auto) 6% (0-9) Eosinophils (%) (Auto) 1% (0-3) Basophils (%) (Auto) 1% (0-3) Neutrophils # (Auto) 7.4x10^3uL (1.8-7.7) Lymphocytes # (Auto) 0.7x10^3/uL (1.0-4.8) Monocytes # (Auto) 0.5x10^3/uL (0.0-1.1) Eosinophils # (Auto) 0.1x10^3/uL (0.0-0.7) Basophils # (Auto) 0.0x10^3/uL (0.0-0.2) Creatine Kinase 53U/L (26-192) Test 09/11/16 07:28 Glucose (Fingerstick) 232mg/dL (70-99) Review of Systems Review of Systems pain severe with leg manipulations HANNAH PURCELL MD Sep 11, 2016 10:07
[2016-09-11] MEDS: IV DEXTROSE 5 %-0.45 % NACL 1,000 ML IV SCH ×2 (10:55→21:19)
[2016-09-11] MEDS: ERTAPENEM 1 GM in IV NORMAL SALINE 50ML 50 ML IV SCH (10:56)
[2016-09-11] MEDS: HEPARIN PF for SUB-Q USE 5,000 UNIT/0.5 ML VIAL. SQ SCH ×2 (14:23→21:25)
[2016-09-11] MEDS: OXYCODONE/APAP 7.5/325 TABLET. PO PRN (15:50)
[2016-09-11] MEDS ORDERED: BISACODYL 10 MG SUPP.RECT PR PRN (16:00)
[2016-09-11] MEDS: NORMAL SALINE IV SCH (17:24)
[2016-09-11] MEDS: DAPTOMYCIN IV SCH (17:24)
[2016-09-11 20:54] LABS: BASO % 1 % (0-3); EOS % 5 % (0-3); HEMATOCRIT 23.5 % (36.0-47.0); HEMOGLOBIN 7.6 g/dL (12.0-15.5); LYMPH % 11 % (24-48); MEAN CORPUSCULAR HEMOGLOBIN 24 pg (25-35); MEAN CORPUSCULAR HGB CONC 32 g/dL (31-37); MEAN CORPUSCULAR VOLUME 74 fL (79-100); MONO % 9 % (0-9); NEUT % 74 % (31-73); PLATELET COUNT 288 x10^3/uL (140-400); RED CELL DISTRIBUTION WIDTH 18.1 % (11.5-14.5); WHITE BLOOD COUNT 8.7 x10^3/uL (4.0-11.0)
[2016-09-11] MEDS: ATORVASTATIN CALCIUM 10 MG TABLET. PO SCH (21:17)
[2016-09-11] MEDS: ZOLPIDEM 5 MG TABLET. PO PRN (21:17)
[2016-09-12 03:15] VITALS: BP 154/72
[2016-09-12] MEDS: IV DEXTROSE 5 %-0.45 % NACL 1,000 ML IV SCH (04:00)
[2016-09-12] MEDS: HEPARIN PF for SUB-Q USE 5,000 UNIT/0.5 ML VIAL. SQ SCH ×3 (06:42→22:14)
[2016-09-12 07:03] LABS: CALCIUM 8.8 mg/dL (8.5-10.1); CREATININE 1.2 mg/dL (0.6-1.0); GFR 53.9; POTASSIUM 3.2 mmol/L (3.5-5.1)
[2016-09-12 07:13] LABS: BASO % 0 % (0-3); EOS % 6 % (0-3); HEMATOCRIT 22.1 % (36.0-47.0); HEMOGLOBIN 7.2 g/dL (12.0-15.5); LYMPH % 11 % (24-48); MEAN CORPUSCULAR HEMOGLOBIN 24 pg (25-35); MEAN CORPUSCULAR HGB CONC 33 g/dL (31-37); MEAN CORPUSCULAR VOLUME 74 fL (79-100); MONO % 9 % (0-9); NEUT % 74 % (31-73); PLATELET COUNT 260 x10^3/uL (140-400); RED CELL DISTRIBUTION WIDTH 18.6 % (11.5-14.5); WHITE BLOOD COUNT 8.5 x10^3/uL (4.0-11.0)
[2016-09-12] MEDS: INSULIN ASPART 300 UNITS/3 ML INSULN.PEN SQ SCH ×4 (07:30→21:00)
[2016-09-12 07:45] VITALS: BP 164/72
--- NOTE | 2016-09-12 08:10 | PDOC ---
Infectious Disease Note Subjective Subjective c/o pain in knee ROS ROS GEN: Denies fevers, chills, sweats HEENT: Denies blurred vision, sore throat CV: Denies chest pain RESP: Denies shortness of air, cough GI: Denies n/v/d NEURO: Denies confusion, dizziness Vital Sign Vital Signs Vital Signs Date Time Temp Pulse Resp B/P Pulse Ox O2 Delivery O2 Flow Rate FiO2 09/12/16 03:15 98.1 88 18 154/72 94 Room Air 98.1 09/12/16 01:00 2.0 Physical Exam PHYSICAL EXAM GENERAL: NAD, Alert HEENT: PERRL, OC/OP NECK: Supple, no JVD, no LN LUNGS: Clear HEART: S1S2, no gallop, no murmur ABD: Soft, NT, no organomegaly, no rebound EXT: No edema, no cyanosis,, rt knee dressing not opened BRANCH OPERATIONS COORDINATOR: Alert, oriented x 3, no focal neurologic deficit SKIN: No rash IV: ok Labs Lab Laboratory Tests Test 09/11/16 11:14 09/11/16 16:12 09/11/16 20:35 09/11/16 20:58 Glucose (Fingerstick) 259mg/dL (70-99) 150mg/dL (70-99) 107mg/dL (70-99) White Blood Count 8.7x10^3/uL (4.0-11.0) Red Blood Count 3.20x10^6/uL (3.50-5.40) Hemoglobin 7.6g/dL (12.0-15.5) Hematocrit 23.5% (36.0-47.0) Mean Corpuscular Volume 74fL (79-100) Mean Corpuscular Hemoglobin 24pg (25-35) Mean Corpuscular Hemoglobin Concent 32g/dL (31-37) Red Cell Distribution Width 18.1% (11.5-14.5) Platelet Count 288x10^3/uL (140-400) Neutrophils (%) (Auto) 74% (31-73) Lymphocytes (%) (Auto) 11% (24-48) Monocytes (%) (Auto) 9% (0-9) Eosinophils (%) (Auto) 5% (0-3) Basophils (%) (Auto) 1% (0-3) Neutrophils # (Auto) 6.5x10^3uL (1.8-7.7) Lymphocytes # (Auto) 1.0x10^3/uL (1.0-4.8) Monocytes # (Auto) 0.8x10^3/uL (0.0-1.1) Eosinophils # (Auto) 0.4x10^3/uL (0.0-0.7) Basophils # (Auto) 0.0x10^3/uL (0.0-0.2) Test 09/12/16 06:40 White Blood Count 8.5x10^3/uL (4.0-11.0) Red Blood Count 3.00x10^6/uL (3.50-5.40) Hemoglobin 7.2g/dL (12.0-15.5) Hematocrit 22.1% (36.0-47.0) Mean Corpuscular Volume 74fL (79-100) Mean Corpuscular Hemoglobin 24pg (25-35) Mean Corpuscular Hemoglobin Concent 33g/dL (31-37) Red Cell Distribution Width 18.6% (11.5-14.5) Platelet Count 260x10^3/uL (140-400) Neutrophils (%) (Auto) 74% (31-73) Lymphocytes (%) (Auto) 11% (24-48) Monocytes (%) (Auto) 9% (0-9) Eosinophils (%) (Auto) 6% (0-3) Basophils (%) (Auto) 0% (0-3) Neutrophils # (Auto) 6.3x10^3uL (1.8-7.7) Lymphocytes # (Auto) 1.0x10^3/uL (1.0-4.8) Monocytes # (Auto) 0.7x10^3/uL (0.0-1.1) Eosinophils # (Auto) 0.5x10^3/uL (0.0-0.7) Basophils # (Auto) 0.0x10^3/uL (0.0-0.2) Sodium Level 140mmol/L (136-145) Potassium Level 3.2mmol/L (3.5-5.1) Chloride Level 105mmol/L (98-107) Carbon Dioxide Level 29mmol/L (21-32) Anion Gap 6 (6-14) Blood Urea Nitrogen 10mg/dL (7-20) Creatinine 1.2mg/dL (0.6-1.0) Estimated GFR (Cockcroft-Gault) 53.9 Glucose Level 119mg/dL (70-99) Calcium Level 8.8mg/dL (8.5-10.1) Objective Assessment 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 CAROLYN VALDES MD Sep 12, 2016 08:10
[2016-09-12] MEDS: OXYCODONE/APAP 7.5/325 TABLET. PO PRN ×4 (08:29→21:35)
[2016-09-12] MEDS: MULTIVITAMIN with MINERAL TABLET. PO SCH (08:29)
[2016-09-12] MEDS: IRON POLYSACCHARIDE COMPLEX 150 MG CAPSULE PO SCH (08:30)
[2016-09-12] MEDS: MORPHINE ER 15 MG TABLET.ER PO SCH ×2 (08:30→21:34)
[2016-09-12] MEDS: LISINOPRIL 40 MG TABLET. PO SCH (08:30)
[2016-09-12] MEDS: CARVEDILOL 12.5 MG TABLET PO SCH ×2 (08:30→16:54)
[2016-09-12] MEDS: METFORMIN 1,000 MG TABLET PO SCH ×2 (08:30→16:54)
[2016-09-12] MEDS: CALCIUM CARB/VIT D3 500/200 TABLET PO SCH ×2 (08:31→16:54)
[2016-09-12] MEDS: HYDROCHLOROTHIAZIDE 25 MG TABLET PO SCH (08:31)
[2016-09-12] MEDS: SENNOSIDES/DOCUSATE 8.6/50MG TABLET. PO SCH (08:31)
[2016-09-12] MEDS: ASPIRIN ENTERIC COATED 325 MG TABLET.DR. PO SCH ×2 (08:31→21:35)
[2016-09-12] MEDS: POLYETHYLENE GLYCOL 3350 17 GM PACKET. PO SCH ×2 (08:31→21:00)
[2016-09-12] MEDS: CITALOPRAM 20 MG TABLET. PO SCH (08:31)
[2016-09-12] MEDS: GLIPIZIDE 5 MG TABLET PO SCH (08:31)
[2016-09-12] MEDS: DOCUSATE SODIUM 100 MG CAPSULE PO SCH (08:32)
[2016-09-12] MEDS: INSULIN DETEMIR 300 UNITS/3 ML INSULN.PEN. SQ SCH ×2 (08:37→17:00)
[2016-09-12 11:00] VITALS: BP 141/71
[2016-09-12] MEDS ORDERED: ZOLP5TAB PO (11:08)
[2016-09-12] MEDS ORDERED: TRAM50TA PO (11:08)
[2016-09-12] MEDS ORDERED: POLY17PO5 PO (11:08)
[2016-09-12] MEDS ORDERED: ACET325T16 PO (11:08)
[2016-09-12] MEDS ORDERED: HYDR-2672 PO (11:08)
--- NOTE | 2016-09-12 11:09 | DISCH ---
DISCHARGE INSTRUCTIONS Condition on Discharge Condition on Discharge: Stable Activity After Discharge Activity Instructions for Disc: Other, see below Weight Bearing Status after Di: Non weight bearing (R) Diet after Discharge Diet after Discharge: Diabetic No Calorie Level Contacting the after DC Call your doctor for: Concerns you may have Follow-Up Follow up with: Dr Lance in 2 weeks Follow Up With: Dr Eliazar Delacruz in 2 weeks HANNAH PURCELL MD Sep 12, 2016 11:09
[2016-09-12] MEDS: ERTAPENEM 1 GM in IV NORMAL SALINE 50ML 50 ML IV SCH (11:10)
--- NOTE | 2016-09-12 11:16 | PDOC ---
PROGRESS NOTES Chief Complaint Chief Complaint Infected knee prosthesis ASSESSMENT AND PLAN: 1. 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 Group B/MRSA/Morganella isolated. on Ertapenem/daptomycin. D/w Dr Delacruz: ferry terminal agent IV Abx 2. Pain control: on IV/PO meds. try to transition to PO completely, but still needs IV for dressing changes/PT 3. Anemia: iron/TIBC c/w inflammation. ferritin pending. replete low dose iron. may need transfusion for (post)surg bleed. monitor closely 4. DM: oral and insulin home regimen plus ISS with good results 5. CKD3: stable creat and lytes. monitor periodically 6. HTN: borderline control. add norvasc 7. Prophylaxis: lovenox on hold for anticipated surgery. start post op 8. Dispo: SNF today. F/U with Dr.s Lance and Carmenza Vitals Vitals Vital Signs Date Time Temp Pulse Resp B/P Pulse Ox O2 Delivery O2 Flow Rate FiO2 09/12/16 09:30 20 Room Air 09/12/16 08:30 89 164/72 09/12/16 07:45 98.8 95 98.8 09/12/16 01:00 2.0 Physical Exam General: Alert, Oriented X3, Cooperative, No acute distress Heart: Regular rate, No murmurs Lungs: Clear, Wheezing Abdomen: Normal bowel sounds, No tenderness Extremities: No clubbing, No cyanosis, Other (R knee in ALEXANDRO wrap and splint) Skin: No rashes Labs LABS Laboratory Tests Test 09/11/16 11:14 09/11/16 16:12 09/11/16 20:35 09/11/16 20:58 Glucose (Fingerstick) 259mg/dL (70-99) 150mg/dL (70-99) 107mg/dL (70-99) White Blood Count 8.7x10^3/uL (4.0-11.0) Red Blood Count 3.20x10^6/uL (3.50-5.40) Hemoglobin 7.6g/dL (12.0-15.5) Hematocrit 23.5% (36.0-47.0) Mean Corpuscular Volume 74fL (79-100) Mean Corpuscular Hemoglobin 24pg (25-35) Mean Corpuscular Hemoglobin Concent 32g/dL (31-37) Red Cell Distribution Width 18.1% (11.5-14.5) Platelet Count 288x10^3/uL (140-400) Neutrophils (%) (Auto) 74% (31-73) Lymphocytes (%) (Auto) 11% (24-48) Monocytes (%) (Auto) 9% (0-9) Eosinophils (%) (Auto) 5% (0-3) Basophils (%) (Auto) 1% (0-3) Neutrophils # (Auto) 6.5x10^3uL (1.8-7.7) Lymphocytes # (Auto) 1.0x10^3/uL (1.0-4.8) Monocytes # (Auto) 0.8x10^3/uL (0.0-1.1) Eosinophils # (Auto) 0.4x10^3/uL (0.0-0.7) Basophils # (Auto) 0.0x10^3/uL (0.0-0.2) Test 09/12/16 06:40 09/12/16 08:00 White Blood Count 8.5x10^3/uL (4.0-11.0) Red Blood Count 3.00x10^6/uL (3.50-5.40) Hemoglobin 7.2g/dL (12.0-15.5) Hematocrit 22.1% (36.0-47.0) Mean Corpuscular Volume 74fL (79-100) Mean Corpuscular Hemoglobin 24pg (25-35) Mean Corpuscular Hemoglobin Concent 33g/dL (31-37) Red Cell Distribution Width 18.6% (11.5-14.5) Platelet Count 260x10^3/uL (140-400) Neutrophils (%) (Auto) 74% (31-73) Lymphocytes (%) (Auto) 11% (24-48) Monocytes (%) (Auto) 9% (0-9) Eosinophils (%) (Auto) 6% (0-3) Basophils (%) (Auto) 0% (0-3) Neutrophils # (Auto) 6.3x10^3uL (1.8-7.7) Lymphocytes # (Auto) 1.0x10^3/uL (1.0-4.8) Monocytes # (Auto) 0.7x10^3/uL (0.0-1.1) Eosinophils # (Auto) 0.5x10^3/uL (0.0-0.7) Basophils # (Auto) 0.0x10^3/uL (0.0-0.2) Sodium Level 140mmol/L (136-145) Potassium Level 3.2mmol/L (3.5-5.1) Chloride Level 105mmol/L (98-107) Carbon Dioxide Level 29mmol/L (21-32) Anion Gap 6 (6-14) Blood Urea Nitrogen 10mg/dL (7-20) Creatinine 1.2mg/dL (0.6-1.0) Estimated GFR (Cockcroft-Gault) 53.9 Glucose Level 119mg/dL (70-99) Calcium Level 8.8mg/dL (8.5-10.1) Glucose (Fingerstick) 129mg/dL (70-99) Review of Systems Review of Systems knee pain R Comment Review of Relevant I have reviewed the following items deng (where applicable) has been applied. Labs Laboratory Tests Test 09/10/16 11:25 09/10/16 16:56 09/10/16 20:39 09/11/16 05:50 Glucose (Fingerstick) 186mg/dL (70-99) 236mg/dL (70-99) 216mg/dL (70-99) White Blood Count 8.7x10^3/uL (4.0-11.0) Red Blood Count 2.75x10^6/uL (3.50-5.40) Hemoglobin 6.4g/dL (12.0-15.5) Hematocrit 20.0% (36.0-47.0) Mean Corpuscular Volume 73fL (79-100) Mean Corpuscular Hemoglobin 24pg (25-35) Mean Corpuscular Hemoglobin Concent 32g/dL (31-37) Red Cell Distribution Width 18.2% (11.5-14.5) Platelet Count 271x10^3/uL (140-400) Neutrophils (%) (Auto) 85% (31-73) Lymphocytes (%) (Auto) 8% (24-48) Monocytes (%) (Auto) 6% (0-9) Eosinophils (%) (Auto) 1% (0-3) Basophils (%) (Auto) 1% (0-3) Neutrophils # (Auto) 7.4x10^3uL (1.8-7.7) Lymphocytes # (Auto) 0.7x10^3/uL (1.0-4.8) Monocytes # (Auto) 0.5x10^3/uL (0.0-1.1) Eosinophils # (Auto) 0.1x10^3/uL (0.0-0.7) Basophils # (Auto) 0.0x10^3/uL (0.0-0.2) Creatine Kinase 53U/L (26-192) Test 09/11/16 07:28 09/11/16 11:14 09/11/16 16:12 09/11/16 20:35 Glucose (Fingerstick) 232mg/dL (70-99) 259mg/dL (70-99) 150mg/dL (70-99) White Blood Count 8.7x10^3/uL (4.0-11.0) Red Blood Count 3.20x10^6/uL (3.50-5.40) Hemoglobin 7.6g/dL (12.0-15.5) Hematocrit 23.5% (36.0-47.0) Mean Corpuscular Volume 74fL (79-100) Mean Corpuscular Hemoglobin 24pg (25-35) Mean Corpuscular Hemoglobin Concent 32g/dL (31-37) Red Cell Distribution Width 18.1% (11.5-14.5) Platelet Count 288x10^3/uL (140-400) Neutrophils (%) (Auto) 74% (31-73) Lymphocytes (%) (Auto) 11% (24-48) Monocytes (%) (Auto) 9% (0-9) Eosinophils (%) (Auto) 5% (0-3) Basophils (%) (Auto) 1% (0-3) Neutrophils # (Auto) 6.5x10^3uL (1.8-7.7) Lymphocytes # (Auto) 1.0x10^3/uL (1.0-4.8) Monocytes # (Auto) 0.8x10^3/uL (0.0-1.1) Eosinophils # (Auto) 0.4x10^3/uL (0.0-0.7) Basophils # (Auto) 0.0x10^3/uL (0.0-0.2) Test 09/11/16 20:58 09/12/16 06:40 09/12/16 08:00 Glucose (Fingerstick) 107mg/dL (70-99) 129mg/dL (70-99) White Blood Count 8.5x10^3/uL (4.0-11.0) Red Blood Count 3.00x10^6/uL (3.50-5.40) Hemoglobin 7.2g/dL (12.0-15.5) Hematocrit 22.1% (36.0-47.0) Mean Corpuscular Volume 74fL (79-100) Mean Corpuscular Hemoglobin 24pg (25-35) Mean Corpuscular Hemoglobin Concent 33g/dL (31-37) Red Cell Distribution Width 18.6% (11.5-14.5) Platelet Count 260x10^3/uL (140-400) Neutrophils (%) (Auto) 74% (31-73) Lymphocytes (%) (Auto) 11% (24-48) Monocytes (%) (Auto) 9% (0-9) Eosinophils (%) (Auto) 6% (0-3) Basophils (%) (Auto) 0% (0-3) Neutrophils # (Auto) 6.3x10^3uL (1.8-7.7) Lymphocytes # (Auto) 1.0x10^3/uL (1.0-4.8) Monocytes # (Auto) 0.7x10^3/uL (0.0-1.1) Eosinophils # (Auto) 0.5x10^3/uL (0.0-0.7) Basophils # (Auto) 0.0x10^3/uL (0.0-0.2) Sodium Level 140mmol/L (136-145) Potassium Level 3.2mmol/L (3.5-5.1) Chloride Level 105mmol/L (98-107) Carbon Dioxide Level 29mmol/L (21-32) Anion Gap 6 (6-14) Blood Urea Nitrogen 10mg/dL (7-20) Creatinine 1.2mg/dL (0.6-1.0) Estimated GFR (Cockcroft-Gault) 53.9 Glucose Level 119mg/dL (70-99) Calcium Level 8.8mg/dL (8.5-10.1) Laboratory Tests Test 09/11/16 11:14 09/11/16 16:12 09/11/16 20:35 09/11/16 20:58 Glucose (Fingerstick) 259mg/dL (70-99) 150mg/dL (70-99) 107mg/dL (70-99) White Blood Count 8.7x10^3/uL (4.0-11.0) Red Blood Count 3.20x10^6/uL (3.50-5.40) Hemoglobin 7.6g/dL (12.0-15.5) Hematocrit 23.5% (36.0-47.0) Mean Corpuscular Volume 74fL (79-100) Mean Corpuscular Hemoglobin 24pg (25-35) Mean Corpuscular Hemoglobin Concent 32g/dL (31-37) Red Cell Distribution Width 18.1% (11.5-14.5) Platelet Count 288x10^3/uL (140-400) Neutrophils (%) (Auto) 74% (31-73) Lymphocytes (%) (Auto) 11% (24-48) Monocytes (%) (Auto) 9% (0-9) Eosinophils (%) (Auto) 5% (0-3) Basophils (%) (Auto) 1% (0-3) Neutrophils # (Auto) 6.5x10^3uL (1.8-7.7) Lymphocytes # (Auto) 1.0x10^3/uL (1.0-4.8) Monocytes # (Auto) 0.8x10^3/uL (0.0-1.1) Eosinophils # (Auto) 0.4x10^3/uL (0.0-0.7) Basophils # (Auto) 0.0x10^3/uL (0.0-0.2) Test 09/12/16 06:40 09/12/16 08:00 White Blood Count 8.5x10^3/uL (4.0-11.0) Red Blood Count 3.00x10^6/uL (3.50-5.40) Hemoglobin 7.2g/dL (12.0-15.5) Hematocrit 22.1% (36.0-47.0) Mean Corpuscular Volume 74fL (79-100) Mean Corpuscular Hemoglobin 24pg (25-35) Mean Corpuscular Hemoglobin Concent 33g/dL (31-37) Red Cell Distribution Width 18.6% (11.5-14.5) Platelet Count 260x10^3/uL (140-400) Neutrophils (%) (Auto) 74% (31-73) Lymphocytes (%) (Auto) 11% (24-48) Monocytes (%) (Auto) 9% (0-9) Eosinophils (%) (Auto) 6% (0-3) Basophils (%) (Auto) 0% (0-3) Neutrophils # (Auto) 6.3x10^3uL (1.8-7.7) Lymphocytes # (Auto) 1.0x10^3/uL (1.0-4.8) Monocytes # (Auto) 0.7x10^3/uL (0.0-1.1) Eosinophils # (Auto) 0.5x10^3/uL (0.0-0.7) Basophils # (Auto) 0.0x10^3/uL (0.0-0.2) Sodium Level 140mmol/L (136-145) Potassium Level 3.2mmol/L (3.5-5.1) Chloride Level 105mmol/L (98-107) Carbon Dioxide Level 29mmol/L (21-32) Anion Gap 6 (6-14) Blood Urea Nitrogen 10mg/dL (7-20) Creatinine 1.2mg/dL (0.6-1.0) Estimated GFR (Cockcroft-Gault) 53.9 Glucose Level 119mg/dL (70-99) Calcium Level 8.8mg/dL (8.5-10.1) Glucose (Fingerstick) 129mg/dL (70-99) Microbiology 09/02/16 Blood Culture - Final, Complete NO GROWTH AFTER 5 DAYS 09/03/16 Gram Stain - Final, Complete 09/10/16 Gram Stain - Final, Complete Medications Current Medications Ondansetron HCl (Zofran) 4 mg PRN Q8HRS PRN IV NAUSEA/VOMITING; Start 09/02/16 at 15:15; Stop 09/03/16 at 15:14; Status DC Morphine Sulfate 2 mg PRN Q2HR PRN IV PAIN Last administered on 09/03/16 11:10 ; Start 09/02/16 at 15:15; Stop 09/03/16 at 15:14; Status DC Vancomycin HCl (Vanco Per Pharmacy) 1 each PRN DAILY PRN MC SEE COMMENTS Last administered on 09/07/16 11:48; Start 09/02/16 at 17:30; Stop 09/07/16 at 23:39 ; Status DC Piperacillin Sod/ Tazobactam Sod 1 each 1 each PRN DAILY PRN MC SEE COMMENTS; Start 09/02/16 at 17:30; Stop 09/04/16 at 13:59; Status DC Piperacillin Sod/ Tazobactam Sod 3.375 gm/Sodium Chloride 50 ml @ 100 mls/hr Q6HRS IV Last administered on 09/11/16 06:03; Start 09/02/16 at 18:00; Stop at 09:08; Status DC Vancomycin HCl 2 gm/Sodium Chloride 500 ml @ 250 mls/hr 1X ONCE IV Last administered on 09/02/16 20:53; Start 09/02/16 at 20:00; Stop 09/02/16 at 21:59; Status DC Vancomycin HCl/ Sodium Chloride (Iv Sodium Chloride 0.9% 500ml Bag) 500 ml @ 250 mls/hr Q12H IV Last administered on 09/04/16 09:18; Start 09/03/16 at 08:00 ; Stop 09/04/16 at 14:06; Status DC Vancomycin HCl 1 each 1X ONCE MC Last administered on 09/03/16 07:30; Start at 07:30; Stop 09/03/16 at 07:31; Status DC Aspirin (Ecotrin) 325 mg BID PO Last administered on 09/12/16 08:31; Start 09/03/16 at 21:00 Carvedilol (Coreg) 12.5 mg BIDWMEALS PO Last administered on 09/12/16 08:30; Start 09/03/16 at 17:00 Glipizide (Glucotrol) 5 mg DAILY PO Last administered on 09/03/16 13:10; Start 09/03/16 at 12:30; Stop 09/04/16 at 14:00; Status DC Lisinopril (Prinivil) 40 mg DAILY PO Last administered on 09/12/16 08:30; Start 09/03/16 at 12:30 Metformin HCl (Glucophage) 1,000 mg BIDWMEALS PO Last administered on 08:30; Start 09/03/16 at 17:00 Insulin Detemir (Levemir) 20 units DAILYWSUP SQ Last administered on 09/11/16 17:31; Start 09/03/16 at 17:00 Insulin Detemir (Levemir) 40 units DAILYWBKFT SQ Last administered on 08:37; Start 09/04/16 at 08:00 Oxycodone/ Acetaminophen (Percocet 5/325) 1 tab PRN Q6HRS PRN PO pain Last administered on 09/04/16 11:56; Start 09/03/16 at 12:00; Stop 09/05/16 at 11:41; Status DC Calcium/Vitamin D (Oscal D 500mg/ 200uts) 1 tab BIDWMEALS PO Last administered on 09/12/16 08:31; Start 09/03/16 at 17:00 Citalopram Hydrobromide (Celexa) 40 mg DAILY PO Last administered on 09/05/16 08:28; Start 09/04/16 at 09:00; Stop 09/05/16 at 13:44; Status DC Hydrochlorothiazide (Hydrodiuril) 25 mg DAILY PO Last administered on 08:31; Start 09/03/16 at 12:30 Atorvastatin Calcium (Lipitor) 10 mg QHS PO Last administered on 09/11/16 21: 17; Start 09/03/16 at 21:00 Multivitamins/ Calcium (Thera M Plus) 1 tab DAILY PO Last administered on 08:29; Start 09/03/16 at 12:30 Insulin Aspart (Novolog) 0-7 UNITS TIDWMEALS SQ Last administered on 09/03/16 17:14; Start 09/03/16 at 13:00; Stop 09/04/16 at 21:21; Status DC Dextrose 12.5 gm PRN Q15MIN PRN IV SEE COMMENTS; Start 09/03/16 at 12:15; Stop 09/05/16 at 13:32; Status DC Insulin Aspart (Novolog) 10 units TIDAC SQ Last administered on 09/09/16 12:15 ; Start 09/03/16 at 16:30; Stop 09/09/16 at 16:11; Status DC Polyethylene Glycol (miraLAX PACKET) 17 gm PRN DAILY PRN PO CONSTIPATION; Start 09/03/16 at 13:00 Polyethylene Glycol (miraLAX PACKET) 17 gm 1X ONCE PO Last administered on 09/03 13:18; Start 09/03/16 at 13:00; Stop 09/03/16 at 13:12; Status DC Docusate Sodium (Colace) 100 mg PRN DAILY PRN PO CONSTIPATION; Start 09/03/16 at 13:00; Stop 09/05/16 at 13:31; Status DC Lidocaine/Sodium Bicarbonate 20 ml 20 ml 1X ONCE IJ ; Start 09/03/16 at 15:15; Stop 09/03/16 at 15:16; Status DC Cefazolin Sodium/ Dextrose 50 ml @ 100 mls/hr 1X PREOP IV ; Start 09/06/16 at 06:00; Stop 09/06/16 at 06:00; Status DC Cefazolin Sodium/ Dextrose (Ancef 2gm Premix) 50 ml @ 100 mls/hr 1X PREOP ONCE IV Last administered on 09/04/16 14:24; Start 09/04/16 at 06:00; Stop at 06:29; Status DC Fentanyl Citrate (Fentanyl 2ml Vial) 25 mcg PRN Q5MIN PRN IV MILD PAIN; Start 09/04/16 at 09:30; Stop 09/05/16 at 09:29; Status DC Fentanyl Citrate (Fentanyl 2ml Vial) 50 mcg PRN Q5MIN PRN IV MODERATE PAIN Last administered on 09/04/16 16:54; Start 09/04/16 at 09:30; Stop 09/05/16 at 09: 29; Status DC Morphine Sulfate 1 mg 1 mg PRN Q10MIN PRN IV SEVERE PAIN; Start 09/04/16 at 09: 30; Stop 09/05/16 at 09:29; Status DC Lactated Ringer's (Iv Lactated Ringers) 1,000 ml @ 0 mls/hr Q0M IV Last administered on 09/04/16 13:49; Start 09/04/16 at 09:18; Stop 09/04/16 at 21:17; Status DC Lidocaine HCl 2 ml 1X PRN PRN ID IV START; Start 09/04/16 at 09:30; Stop at 09:29; Status DC Hydromorphone HCl (Dilaudid) 0.5 mg PRN Q10MIN PRN IV SEV PAIN,Second choice Last administered on 09/04/16 18:07; Start 09/04/16 at 09:30; Stop 09/05/16 at 09: 29; Status DC Prochlorperazine Edisylate 5 mg 5 mg PACU PRN PRN IV NAUSEA; Start 09/04/16 at 09:30; Stop 09/05/16 at 09:29; Status DC Cefazolin Sodium/ Dextrose (Ancef 2gm Premix) 50 ml @ As Directed STK-MED ONCE IV ; Start 09/04/16 at 13:12; Stop 09/04/16 at 13:13; Status DC Desflurane (Suprane) 60 ml STK-MED ONCE IH ; Start 09/04/16 at 13:42; Stop at 13:43; Status DC Fentanyl Citrate 100 mcg 100 mcg STK-MED ONCE .ROUTE ; Start 09/04/16 at 13:43; Stop 09/04/16 at 13:44; Status DC Propofol (Diprivan) 20 ml @ As Directed STK-MED ONCE IV ; Start 09/04/16 at 13:43 ; Stop 09/04/16 at 13:44; Status DC Lidocaine HCl 100 mg STK-MED ONCE .ROUTE ; Start 09/04/16 at 13:43; Stop 09/04/16 at 13:44; Status DC Dexamethasone Sodium Phosphate (Decadron) 20 mg STK-MED ONCE .ROUTE ; Start 09/04 at 13:43; Stop 09/04/16 at 13:44; Status DC Ondansetron HCl (Zofran) 4 mg STK-MED ONCE .ROUTE ; Start 09/04/16 at 13:43; Stop 09/04/16 at 13:44; Status DC Glipizide 5 mg 5 mg DAILYWBKFT PO Last administered on 09/12/16 08:31; Start 09/05/16 at 08:00 Vancomycin HCl 1.25 gm/Sodium Chloride 250 ml @ 167 mls/hr Q12H IV Last administered on 09/07/16 22:12; Start 09/04/16 at 20:00; Stop 09/07/16 at 23:36 ; Status DC Propofol (Diprivan) 20 ml @ As Directed STK-MED ONCE IV ; Start 09/04/16 at 14:38 ; Stop 09/04/16 at 14:39; Status DC Albuterol Sulfate 2.5 mg 2.5 mg STK-MED ONCE .ROUTE ; Start 09/04/16 at 14:59; Stop 09/04/16 at 15:00; Status DC Tranexamic Acid/ Sodium Chloride (Cyklokapron/Iv Sodium Chloride 0.9% 50ml) 60 ml @ 60 mls/hr 1X PERIOP ONCE INJ Last administered on 09/04/16 15:12; Start 09/04/16 at 15:12; Stop 09/04/16 at 16:11; Status DC Fentanyl Citrate (Fentanyl 2ml Vial) 100 mcg STK-MED ONCE .ROUTE ; Start at 15:27; Stop 09/04/16 at 15:28; Status DC Acetaminophen/ Hydrocodone Bitart (Lortab 7.5/325) 1 tab PRN Q3HRS PRN PO PAIN Last administered on 09/08/16 06:13; Start 09/04/16 at 16:30 Acetaminophen/ Hydrocodone Bitart (Lortab 10/325) 1 tab PRN Q3HRS PRN PO PAIN Last administered on 09/09/16 16:46; Start 09/04/16 at 16:30 Tramadol HCl (Ultram) 50 mg PRN QID PRN PO PAIN; Start 09/04/16 at 16:30; Stop 09/05/16 at 13:32; Status DC Oxycodone/ Acetaminophen (Percocet 5/325) 1 tab PRN Q3HRS PRN PO PAIN; Start at 16:30 Oxycodone/ Acetaminophen (Percocet 7.5/ 325) 1 tab PRN Q3HRS PRN PO PAIN Last administered on 09/12/16 08:29; Start 09/04/16 at 16:30 Tramadol HCl (Ultram) 100 mg PRN Q3HRS PRN PO PAIN; Start 09/04/16 at 16:30; Stop 09/05/16 at 13:32; Status DC Diphenhydramine HCl (Benadryl) 25 mg PRN Q6HRS PRN IV ITCHING; Start 09/04/16 at 16:30 Senna/Docusate Sodium (Senna Plus) 1 tab DAILY PO Last administered on 08:37; Start 09/05/16 at 09:00 Prochlorperazine Maleate (Compazine) 10 mg PRN Q4HRS PRN PO NAUSEA/VOMITING; Start 09/04/16 at 16:30 Metoclopramide HCl (Reglan) 10 mg PRN Q4HRS PRN IV NAUSEA/VOMITING; Start at 16:30 Magnesium Hydroxide (Milk Of Magnesia) 2,400 mg 1X PRN PRN PO CONSTIPATION; Start 09/05/16 at 06:00; Stop 09/06/16 at 05:59; Status DC Bisacodyl (Dulcolax Supp) 10 mg 1X PRN PRN HI CONSTIPATION; Start 09/05/16 at 16 :00; Stop 09/06/16 at 15:59; Status DC Acetaminophen (Tylenol) 650 mg PRN Q4HRS PRN PO MILD PAIN / TEMP; Start at 16:30 Zolpidem Tartrate (Ambien) 5 mg PRN QHS PRN PO INSOMNIA, MAY REPEAT IN 1HR Last administered on 09/11/16 21:17; Start 09/04/16 at 16:30 Calcium Carbonate/ Glycine (Tums) 500 mg PRN QID PRN PO INDIGESTION Last administered on 09/07/16 09:10; Start 09/04/16 at 16:30 Morphine Sulfate 4 mg PRN Q1HR PRN IV PAIN Last administered on 09/08/16 20:38 ; Start 09/04/16 at 16:30; Stop 09/10/16 at 11:20; Status DC Sodium Chloride (Normal Saline Flush) 10 ml QSHIFT PRN IV AFTER MEDS AND BLOOD DRAWS; Start 09/04/16 at 16:30; Status Cancel Prochlorperazine Edisylate (Compazine) 10 mg PRN Q4HRS PRN IV NAUSEA/VOMITING; Start 09/04/16 at 16:30 Dextrose 12.5 gm PRN Q15MIN PRN IV SEE COMMENTS Last administered on 09/09/16 16:00; Start 09/04/16 at 16:30 Insulin Aspart (Novolog) 0-7 UNITS QIDACHS SQ Last administered on 09/11/16 12 :16; Start 09/05/16 at 07:30 Insulin Aspart (Novolog) 12 units 1X ONCE SQ Last administered on 09/04/16 21: 43; Start 09/04/16 at 21:30; Stop 09/04/16 at 21:31; Status DC Polysaccharide Iron Complex (Niferex 150) 150 mg DAILY PO Last administered on 09/12/16 08:30; Start 09/05/16 at 09:00 Polyethylene Glycol (miraLAX PACKET) 17 gm 1X ONCE PO Last administered on 09/05 15:42; Start 09/05/16 at 14:00; Stop 09/05/16 at 14:01; Status DC Polyethylene Glycol (miraLAX PACKET) 17 gm DAILY PO Last administered on 08:39; Start 09/06/16 at 09:00; Stop 09/06/16 at 15:51; Status DC Docusate Sodium (Colace) 100 mg DAILY PO Last administered on 09/10/16 14:57; Start 09/05/16 at 14:00 Magnesium Hydroxide (Milk Of Magnesia) 2,400 mg 1X ONCE PO Last administered on 09/05/16 15:41; Start 09/05/16 at 13:45; Stop 09/05/16 at 13:46; Status DC Morphine Sulfate (Ms Contin) 15 mg BID PO Last administered on 09/12/16 08:30 ; Start 09/05/16 at 13:45 Citalopram Hydrobromide (Celexa) 20 mg DAILY PO Last administered on 09/12/16 08:31; Start 09/06/16 at 09:00 Polyethylene Glycol (miraLAX PACKET) 17 gm BID PO Last administered on 08:35; Start 09/06/16 at 21:00 Sodium Biphosphate/ Sodium Phosphate (Fleet Adult) 133 ml 1X ONCE HI ; Start at 16:00; Stop 09/06/16 at 16:04; Status DC Sodium Biphosphate/ Sodium Phosphate (Fleet Adult) 133 ml PRN DAILY PRN HI CONSTIPATION; Start 09/07/16 at 09:00 Polyethylene Glycol (miraLAX PACKET) 17 gm 1X ONCE PO Last administered on 17:45; Start 09/06/16 at 16:00; Stop 09/06/16 at 16:04; Status DC Sodium Biphosphate/ Sodium Phosphate (Fleet Adult) 133 ml PRN 1X PRN HI CONSTIPATION; Start 09/06/16 at 23:30; Stop 09/11/16 at 12:39; Status DC Vancomycin HCl 1 each 1X ONCE MC ; Start 09/07/16 at 19:30; Stop 09/07/16 at 19 :31; Status DC Alteplase, Recombinant 2 mg 2 mg 1X ONCE INT CAT Last administered on 15:09; Start 09/07/16 at 14:30; Stop 09/07/16 at 14:31; Status DC Daptomycin/Sodium Chloride (Cubicin/Iv Sodium Chloride 0.9% 50ml) 50 ml @ 100 mls/hr Q24H IV Last administered on 09/11/16 17:24; Start 09/08/16 at 16:00 Ondansetron HCl (Zofran) 4 mg PRN Q6HRS PRN IV Nausea; Start 09/10/16 at 07:00 ; Stop 09/10/16 at 23:00; Status DC Fentanyl Citrate (Fentanyl 2ml Vial) 25 mcg PRN Q5MIN PRN IV MILD PAIN; Start 09/10/16 at 07:00; Stop 09/10/16 at 23:00; Status DC Fentanyl Citrate (Fentanyl 2ml Vial) 50 mcg PRN Q5MIN PRN IV MODERATE PAIN Last administered on 09/10/16 11:53; Start 09/10/16 at 07:00; Stop 09/10/16 at 23:00; Status DC Morphine Sulfate 1 mg 1 mg PRN Q10MIN PRN IV SEVERE PAIN; Start 09/10/16 at 07: 00; Stop 09/10/16 at 23:00; Status DC Lactated Ringer's (Iv Lactated Ringers) 1,000 ml @ 30 mls/hr Q24H IV Last administered on 09/10/16 07:38; Start 09/10/16 at 07:00; Stop 09/10/16 at 18:59 ; Status DC Lidocaine HCl 2 ml 1X PRN PRN ID IV START; Start 09/10/16 at 07:00; Stop at 23:00; Status DC Hydromorphone HCl (Dilaudid) 0.5 mg PRN Q10MIN PRN IV SEVERE PAIN, Second choice Last administered on 09/10/16 12:20; Start 09/10/16 at 07:00; Stop 09/10 at 23:00; Status DC Prochlorperazine Edisylate (Compazine) 5 mg PACU PRN PRN IV NAUSEA; Start 09/10 at 07:00; Stop 09/10/16 at 23:00; Status DC Lidocaine HCl 100 mg STK-MED ONCE .ROUTE ; Start 09/10/16 at 07:06; Stop at 07:07; Status DC Dexamethasone Sodium Phosphate 20 mg 20 mg STK-MED ONCE .ROUTE ; Start 09/10/16 at 07:06; Stop 09/10/16 at 07:07; Status DC Propofol (Diprivan) 20 ml @ As Directed STK-MED ONCE IV ; Start 09/10/16 at 07: 06; Stop 09/10/16 at 07:07; Status DC Lidocaine HCl 100 mg STK-MED ONCE .ROUTE ; Start 09/10/16 at 07:06; Stop at 07:07; Status DC Famotidine (Pepcid) 20 mg STK-MED ONCE .ROUTE ; Start 09/10/16 at 07:06; Stop at 07:07; Status DC Fentanyl Citrate (Fentanyl 2ml Vial) 100 mcg STK-MED ONCE .ROUTE ; Start at 07:06; Stop 09/10/16 at 07:07; Status DC Rocuronium [place] 50 mg 50 mg STK-MED ONCE .ROUTE ; Start 09/10/16 at 07:06; Stop 09/10/16 at 07:07; Status DC Cefazolin Sodium/ Dextrose 50 ml @ As Directed STK-MED ONCE IV ; Start 09/10/16 at 07:24; Stop 09/10/16 at 07:25; Status DC Tranexamic Acid 1000 mg/Sodium Chloride 60 ml @ 60 mls/hr 1X PERIOP ONCE INJ Last administered on 09/10/16 08:17; Start 09/10/16 at 08:00; Stop 09/10/16 at 08:59; Status DC Tranexamic Acid/ Sodium Chloride (Cyklokapron/Iv Sodium Chloride 0.9% 50ml) 60 ml @ 60 mls/hr 1X PERIOP ONCE INJ Last administered on 09/10/16 09:31; Start 09/10/16 at 08:00; Stop 09/10/16 at 08:59; Status DC Vancomycin HCl (Vanco) 10 gm 1X ONCE CEMENT Last administered on 09/10/16 08: 33; Start 09/10/16 at 08:00; Stop 09/10/16 at 08:01; Status Cancel Tobramycin Sulfate 7.2 gm 7.2 gm 1X ONCE TP ; Start 09/10/16 at 07:45; Stop at 07:46; Status Cancel Cefazolin Sodium/ Dextrose (Ancef 2gm Premix) 50 ml @ 100 mls/hr 1X ONCE IV Last administered on 09/10/16 08:09; Start 09/10/16 at 08:00; Stop 09/10/16 at 08:29; Status DC Tobramycin Sulfate 1.2 gm STK-MED ONCE .ROUTE Last administered on 09/10/16 08 :33; Start 09/10/16 at 08:01; Stop 09/10/16 at 08:02; Status DC Vancomycin HCl (Vanco) 10 gm STK-MED ONCE .ROUTE ; Start 09/10/16 at 08:01; Stop 09/10/16 at 08:02; Status DC Tobramycin Sulfate 1.2 gm STK-MED ONCE .ROUTE Last administered on 09/10/16 08 :33; Start 09/10/16 at 08:01; Stop 09/10/16 at 08:02; Status DC Tobramycin Sulfate 1.2 gm STK-MED ONCE .ROUTE Last administered on 09/10/16 08 :33; Start 09/10/16 at 08:02; Stop 09/10/16 at 08:03; Status DC Tobramycin Sulfate 1.2 gm STK-MED ONCE .ROUTE Last administered on 09/10/16 08 :33; Start 09/10/16 at 08:02; Stop 09/10/16 at 08:03; Status DC Tobramycin Sulfate 1.2 gm STK-MED ONCE .ROUTE Last administered on 09/10/16 08 :33; Start 09/10/16 at 08:02; Stop 09/10/16 at 08:03; Status DC Tobramycin Sulfate 1.2 gm STK-MED ONCE .ROUTE Last administered on 09/10/16 08 :33; Start 09/10/16 at 08:02; Stop 09/10/16 at 08:03; Status DC Fentanyl Citrate (Fentanyl 2ml Vial) 100 mcg STK-MED ONCE .ROUTE ; Start at 08:35; Stop 09/10/16 at 08:36; Status DC Ephedrine Sulfate 50 mg STK-MED ONCE IV ; Start 09/10/16 at 08:53; Stop at 08:54; Status DC Fentanyl Citrate (Fentanyl 2ml Vial) 100 mcg STK-MED ONCE .ROUTE ; Start at 08:55; Stop 09/10/16 at 08:56; Status DC Labetalol HCl (Normodyne) 20 mg STK-MED ONCE .ROUTE ; Start 09/10/16 at 09:07; Stop 09/10/16 at 09:08; Status DC Glycopyrrolate (Robinul) 1 mg STK-MED ONCE .ROUTE ; Start 09/10/16 at 09:34; Stop 09/10/16 at 09:35; Status DC Neostigmine Methylsulfate 5 mg STK-MED ONCE .ROUTE ; Start 09/10/16 at 09:34; Stop 09/10/16 at 09:35; Status DC Sevoflurane (Ultane) 90 ml STK-MED ONCE IH ; Start 09/10/16 at 10:05; Stop 09/10 at 10:06; Status DC Acetaminophen/ Hydrocodone Bitart (Lortab 7.5/325) 1 tab PRN Q3HRS PRN PO PAIN ; Start 09/10/16 at 11:15; Stop 09/10/16 at 14:20; Status DC Acetaminophen/ Hydrocodone Bitart (Lortab 10/325) 1 tab PRN Q3HRS PRN PO PAIN; Start 09/10/16 at 11:15; Stop 09/10/16 at 14:20; Status DC Tramadol HCl (Ultram) 50 mg PRN QID PRN PO PAIN; Start 09/10/16 at 11:15 Oxycodone/ Acetaminophen (Percocet 5/325) 1 tab PRN Q3HRS PRN PO PAIN; Start at 11:15; Stop 09/11/16 at 12:38; Status DC Oxycodone/ Acetaminophen (Percocet 7.5/ 325) 1 tab PRN Q3HRS PRN PO PAIN; Start 09/10/16 at 11:15; Stop 09/11/16 at 12:38; Status DC Tramadol HCl (Ultram) 100 mg PRN Q3HRS PRN PO PAIN; Start 09/10/16 at 11:15 Morphine Sulfate 2 mg PRN Q1HR PRN IV PAIN Last administered on 09/11/16 21:17 ; Start 09/10/16 at 11:15 Fentanyl Citrate (Fentanyl 2ml Vial) 25 mcg PRN Q1HR PRN IV PAIN; Start at 11:15 Diphenhydramine HCl (Benadryl) 25 mg PRN Q6HRS PRN IV ITCHING; Start 09/10/16 at 11:15; Status Cancel Multivitamins/ Calcium (Thera M Plus) 1 tab DAILY PO ; Start 09/11/16 at 09:00; Stop 09/11/16 at 09:00; Status DC Senna/Docusate Sodium 1 tab 1 tab DAILY PO ; Start 09/11/16 at 09:00; Stop 09/11 at 09:00; Status DC Dextrose/Sodium Chloride (Iv D5% - 1/2 NS) 1,000 ml @ 100 mls/hr Q10H IV Last administered on 09/11/16 21:19; Start 09/10/16 at 12:00 Prochlorperazine Maleate (Compazine) 10 mg PRN Q4HRS PRN PO NAUSEA/VOMITING; Start 09/10/16 at 11:15; Stop 09/10/16 at 11:20; Status DC Metoclopramide HCl (Reglan) 10 mg PRN Q4HRS PRN IV NAUSEA/VOMITING; Start 09/10 at 11:15; Stop 09/10/16 at 11:21; Status DC Magnesium Hydroxide (Milk Of Magnesia) 2,400 mg 1X PRN PRN PO CONSTIPATION; Start 09/11/16 at 06:00; Stop 09/12/16 at 05:59; Status DC Bisacodyl (Dulcolax Supp) 10 mg 1X PRN PRN HI CONSTIPATION; Start 09/11/16 at 16:00; Stop 09/12/16 at 15:59 Acetaminophen (Tylenol) 650 mg PRN Q4HRS PRN PO MILD PAIN / TEMP; Start at 11:15; Stop 09/10/16 at 11:21; Status DC Zolpidem Tartrate (Ambien) 5 mg PRN QHS PRN PO INSOMNIA, MAY REPEAT IN 1HR; Start 09/10/16 at 11:15; Stop 09/10/16 at 11:21; Status DC Calcium Carbonate/ Glycine (Tums) 500 mg PRN QID PRN PO INDIGESTION; Start at 11:15; Stop 09/10/16 at 11:21; Status DC Morphine Sulfate 4 mg PRN Q1HR PRN IV PAIN Last administered on 09/10/16t 14:57 ; Start 09/10/16 at 11:15 Morphine Sulfate 6 mg PRN Q1HR PRN IV PAIN Last administered on 09/10/16t 18:38 ; Start 09/10/16 at 11:15 Morphine Sulfate 8 mg PRN Q1HR PRN IV PAIN; Start 09/10/16 at 11:15 Sodium Chloride (Normal Saline Flush) 10 ml QSHIFT PRN IV AFTER MEDS AND BLOOD DRAWS; Start 09/10/16 at 11:15 Fentanyl Citrate (Fentanyl 2ml Vial) 50 mcg PRN Q1HR PRN IV PAIN; Start at 11:15 Prochlorperazine Edisylate (Compazine) 10 mg PRN Q4HRS PRN IV NAUSEA/VOMITING; Start 09/10/16 at 11:15; Stop 09/10/16 at 11:21; Status DC Dextrose 12.5 gm 12.5 gm PRN Q15MIN PRN IV SEE COMMENTS; Start 09/10/16 at 11: 15; Stop 09/10/16 at 11:21; Status DC Cefazolin Sodium/ Dextrose (Ancef 2gm Premix) 50 ml @ 100 mls/hr Q6H IV ; Start 09/10/16 at 11:15; Stop 09/10/16 at 11:15; Status DC Potassium Chloride 40 meq 40 meq 1X ONCE PO Last administered on 09/10/16 14: 59; Start 09/10/16 at 12:15; Stop 09/10/16 at 12:16; Status DC Ertapenem/Sodium Chloride (Invanz/Iv Sodium Chloride 0.9% 50ml) 50 ml @ 100 mls /hr Q24H IV Last administered on 09/11/16 10:56; Start 09/11/16 at 10:00 Heparin Sodium (Porcine) 5,000 unit Q8HRS SQ Last administered on 09/12/16 06: 42; Start 09/11/16 at 14:00 Active Scripts Active Aspirin Ec (Aspirin) 325 Mg Tablet.dr 325 Mg PO BID 30 Days Reported Percocet 5-325 Mg Tablet (Oxycodone/Acetaminophen) 1 Each Tablet 1-2 Tab PO Q4- 6HRS LAST DOSE GIVEN: DATE: 08/02/16 TIME: 2:00 NEXT DOSE DUE: DATE: 08/02/16 TIME: 6:00pm as needed for pain Percocet 5-325 Mg Tablet (Oxycodone/Acetaminophen) 1 Each Tablet 1-2 Tab PO Q4- 6HRS Calcium 600 + Vit D 200 Tablet (Calcium Carbonate/Vitamin D3) 1 Each Tablet 1 Each PO BID Hair, Skin & Nails (Multivitamin With Minerals) 1 Each Tablet 1 Each PO DAILY Carvedilol 12.5 Mg Tablet 12.5 Mg PO BIDWMEALS Lovastatin 40 Mg Tablet 40 Mg PO HS Metformin Hcl 1,000 Mg Tablet 1 Tab PO BID Hydrochlorothiazide Tablet (Hydrochlorothiazide) 12.5 Mg Tablet 25 Mg PO DAILY Novolin N (Nph, Human Insulin Isophane) 100 Unit/1 Ml Vial 20 Unit SQ [id number] Novolin N (Nph, Human Insulin Isophane) 100 Unit/1 Ml Vial 40 Unit SQ [id number] Glipizide 5 Mg Tablet 5 Mg PO DAILY Lisinopril 40 Mg Tablet 40 Mg PO DAILY Citalopram Hbr (Citalopram Hydrobromide) 40 Mg Tablet 40 Mg PO DAILY Vitals/I & O Vital Sign - Last 24 Hours 09/11/16 09/11/16 09/11/16 09/11/16 14:30 14:45 15:00 15:45 Temp 98.4 99.0 98.4 99.0 98.4 99.0 98.4 99.0 Pulse 86 89 86 85 Resp 18 18 18 20 B/P 146/66 164/72 146/66 146/80 Pulse Ox 95 O2 Delivery Room Air 09/11/16 09/11/16 09/11/16 09/11/16 15:50 16:45 17:00 17:26 Temp 98.8 98.9 98.8 98.9 Pulse 78 85 Resp 20 20 20 B/P 162/76 154/76 O2 Delivery Room Air Room Air 09/11/16 09/11/16 09/11/16 09/11/16 17:27 19:07 20:00 21:00 Temp 98.8 98.8 Pulse 85 88 Resp 20 16 B/P 146/80 152/64 Pulse Ox 94 95 O2 Delivery Room Air Room Air Room Air 09/11/16 09/11/16 09/11/16 09/12/16 21:17 21:47 23:32 01:00 Temp 99.1 99.1 Pulse 98 Resp 18 16 B/P 150/71 Pulse Ox 95 94 94 94 O2 Delivery Room Air Room Air Nasal Cannula Room Air O2 Flow Rate 2.0 2.0 2.0 2.0 09/12/16 09/12/16 09/12/16 09/12/16 03:15 07:45 07:50 08:29 Temp 98.1 98.8 98.1 98.8 Pulse 88 89 Resp 18 18 20 B/P 154/72 164/72 Pulse Ox 94 95 O2 Delivery Room Air Room Air Room Air Room Air 09/12/16 09/12/16 09/12/16 09/12/16 08:30 08:30 08:30 09:30 Pulse 89 89 Resp 20 20 B/P 164/72 164/72 O2 Delivery Room Air Room Air Intake and Output 2/09/11/16 09/12/16 15:00 23:00 07:00 Intake Total 160 ml 170 ml Output Total 50 ml Balance 160 ml 120 ml HANNAH PURCELL MD Sep 12, 2016 11:16
[2016-09-12] MEDS: AMLODIPINE BESYLATE 5 MG TABLET PO SCH (13:34)
[2016-09-12 15:00] VITALS: BP 152/69
[2016-09-12] MEDS: DAPTOMYCIN IV SCH (16:53)
[2016-09-12] MEDS: NORMAL SALINE IV SCH (16:53)
[2016-09-12 19:00] VITALS: BP 150/67
[2016-09-12] MEDS: DEXTROSE 50% 25 GM / 50ML DISP.SYRIN. IV PRN (19:36)
[2016-09-12] MEDS: ATORVASTATIN CALCIUM 10 MG TABLET. PO SCH (21:35)
[2016-09-12] MEDS: ZOLPIDEM 5 MG TABLET. PO PRN (21:35)
[2016-09-12 23:00] VITALS: BP 128/58
[2016-09-13 03:00] VITALS: BP 144/64
[2016-09-13] MEDS: OXYCODONE/APAP 7.5/325 TABLET. PO PRN ×5 (04:20→21:12)
[2016-09-13 06:14] LABS: CALCIUM 9.1 mg/dL (8.5-10.1); CREATININE 1.3 mg/dL (0.6-1.0); GFR 49.1; POTASSIUM 3.4 mmol/L (3.5-5.1)
[2016-09-13 06:18] LABS: BASO % 1 % (0-3); EOS % 6 % (0-3); HEMATOCRIT 22.7 % (36.0-47.0); HEMOGLOBIN 7.4 g/dL (12.0-15.5); LYMPH # 1.1 x10^3/uL (1.0-4.8); LYMPH % 12 % (24-48); MEAN CORPUSCULAR HEMOGLOBIN 24 pg (25-35); MEAN CORPUSCULAR HGB CONC 33 g/dL (31-37); MEAN CORPUSCULAR VOLUME 74 fL (79-100); MONO % 8 % (0-9); NEUT % 73 % (31-73); PLATELET COUNT 307 x10^3/uL (140-400); RED BLOOD COUNT 3.08 x10^6/uL (3.50-5.40); RED CELL DISTRIBUTION WIDTH 19.2 % (11.5-14.5); WHITE BLOOD COUNT 8.9 x10^3/uL (4.0-11.0)
[2016-09-13] MEDS: HEPARIN PF for SUB-Q USE 5,000 UNIT/0.5 ML VIAL. SQ SCH ×3 (06:23→21:35)
[2016-09-13 07:00] VITALS: BP 156/79
[2016-09-13] MEDS: INSULIN ASPART 300 UNITS/3 ML INSULN.PEN SQ SCH ×4 (07:30→21:00)
[2016-09-13] MEDS: AMLODIPINE BESYLATE 5 MG TABLET PO SCH (08:31)
[2016-09-13] MEDS: CITALOPRAM 20 MG TABLET. PO SCH (08:32)
[2016-09-13] MEDS: HYDROCHLOROTHIAZIDE 25 MG TABLET PO SCH (08:32)
[2016-09-13] MEDS: CALCIUM CARB/VIT D3 500/200 TABLET PO SCH ×2 (08:32→16:31)
[2016-09-13] MEDS: ASPIRIN ENTERIC COATED 325 MG TABLET.DR. PO SCH ×2 (08:32→21:11)
[2016-09-13] MEDS: LISINOPRIL 40 MG TABLET. PO SCH (08:32)
[2016-09-13] MEDS: GLIPIZIDE 5 MG TABLET PO SCH (08:32)
[2016-09-13] MEDS: MORPHINE ER 15 MG TABLET.ER PO SCH ×2 (08:32→21:12)
[2016-09-13] MEDS: CARVEDILOL 12.5 MG TABLET PO SCH ×2 (08:33→16:32)
[2016-09-13] MEDS: DOCUSATE SODIUM 100 MG CAPSULE PO SCH (08:33)
[2016-09-13] MEDS: POLYETHYLENE GLYCOL 3350 17 GM PACKET. PO SCH ×2 (08:33→21:00)
[2016-09-13] MEDS: SENNOSIDES/DOCUSATE 8.6/50MG TABLET. PO SCH (08:33)
[2016-09-13] MEDS: IRON POLYSACCHARIDE COMPLEX 150 MG CAPSULE PO SCH (08:33)
[2016-09-13] MEDS: MULTIVITAMIN with MINERAL TABLET. PO SCH (08:33)
--- NOTE | 2016-09-13 09:03 | PDOC ---
PROGRESS NOTES Chief Complaint Chief Complaint Infected knee prosthesis ASSESSMENT AND PLAN: 1. 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 Group B/MRSA/Morganella isolated. on Ertapenem/daptomycin. D/w Dr Delacruz: terminal gauger IV Abx 2. Pain control: on IV/PO meds. try to transition to PO completely, but still needs IV for dressing changes/PT 3. Anemia: iron/TIBC c/w inflammation. ferritin lowish, c/w component of iron def as well. replete low dose iron. s/p PRBC x1 postsurgically. monitor closely 4. DM: oral and insulin home regimen plus ISS with good control 5. CKD3: stable creat and lytes. monitor periodically 6. HTN: sl improved post addition of norvasc. monitor, may need dose adjustment 7. Prophylaxis: heparin 8. Dispo: awaiting LTAC bed. F/U with Dr.s Lance and Jayme Vitals Vitals Vital Signs Date Time Temp Pulse Resp B/P Pulse Ox O2 Delivery O2 Flow Rate FiO2 09/13/16 08:33 88 156/79 09/13/16 08:32 18 Room Air 09/13/16 07:00 98.8 94 98.8 09/12/16 22:35 2.0 Physical Exam General: Alert, Oriented X3, Cooperative, No acute distress Heart: Regular rate, No murmurs Lungs: Clear, Wheezing Abdomen: Normal bowel sounds, No tenderness Extremities: No clubbing, No cyanosis, Other (R knee in ALEXANDRO wrap and splint) Skin: No rashes Labs LABS Laboratory Tests Test 09/12/16 11:41 09/12/16 16:51 09/12/16 19:27 09/12/16 19:51 Glucose (Fingerstick) 104mg/dL (70-99) 76mg/dL (70-99) 43mg/dL (70-99) 105mg/dL (70-99) Test 09/13/16 05:44 09/13/16 07:54 White Blood Count 8.9x10^3/uL (4.0-11.0) Red Blood Count 3.08x10^6/uL (3.50-5.40) Hemoglobin 7.4g/dL (12.0-15.5) Hematocrit 22.7% (36.0-47.0) Mean Corpuscular Volume 74fL (79-100) Mean Corpuscular Hemoglobin 24pg (25-35) Mean Corpuscular Hemoglobin Concent 33g/dL (31-37) Red Cell Distribution Width 19.2% (11.5-14.5) Platelet Count 307x10^3/uL (140-400) Neutrophils (%) (Auto) 73% (31-73) Lymphocytes (%) (Auto) 12% (24-48) Monocytes (%) (Auto) 8% (0-9) Eosinophils (%) (Auto) 6% (0-3) Basophils (%) (Auto) 1% (0-3) Neutrophils # (Auto) 6.5x10^3uL (1.8-7.7) Lymphocytes # (Auto) 1.1x10^3/uL (1.0-4.8) Monocytes # (Auto) 0.7x10^3/uL (0.0-1.1) Eosinophils # (Auto) 0.5x10^3/uL (0.0-0.7) Basophils # (Auto) 0.0x10^3/uL (0.0-0.2) Sodium Level 142mmol/L (136-145) Potassium Level 3.4mmol/L (3.5-5.1) Chloride Level 105mmol/L (98-107) Carbon Dioxide Level 30mmol/L (21-32) Anion Gap 7 (6-14) Blood Urea Nitrogen 10mg/dL (7-20) Creatinine 1.3mg/dL (0.6-1.0) Estimated GFR (Cockcroft-Gault) 49.1 Glucose Level 66mg/dL (70-99) Calcium Level 9.1mg/dL (8.5-10.1) Glucose (Fingerstick) 90mg/dL (70-99) Review of Systems Review of Systems doing ok, pain fairly well controlled. ready to move on... Comment Review of Relevant I have reviewed the following items deng (where applicable) has been applied. Labs Laboratory Tests Test 09/11/16 11:14 09/11/16 16:12 09/11/16 20:35 09/11/16 20:58 Glucose (Fingerstick) 259mg/dL (70-99) 150mg/dL (70-99) 107mg/dL (70-99) White Blood Count 8.7x10^3/uL (4.0-11.0) Red Blood Count 3.20x10^6/uL (3.50-5.40) Hemoglobin 7.6g/dL (12.0-15.5) Hematocrit 23.5% (36.0-47.0) Mean Corpuscular Volume 74fL (79-100) Mean Corpuscular Hemoglobin 24pg (25-35) Mean Corpuscular Hemoglobin Concent 32g/dL (31-37) Red Cell Distribution Width 18.1% (11.5-14.5) Platelet Count 288x10^3/uL (140-400) Neutrophils (%) (Auto) 74% (31-73) Lymphocytes (%) (Auto) 11% (24-48) Monocytes (%) (Auto) 9% (0-9) Eosinophils (%) (Auto) 5% (0-3) Basophils (%) (Auto) 1% (0-3) Neutrophils # (Auto) 6.5x10^3uL (1.8-7.7) Lymphocytes # (Auto) 1.0x10^3/uL (1.0-4.8) Monocytes # (Auto) 0.8x10^3/uL (0.0-1.1) Eosinophils # (Auto) 0.4x10^3/uL (0.0-0.7) Basophils # (Auto) 0.0x10^3/uL (0.0-0.2) Test 09/12/16 06:40 09/12/16 08:00 09/12/16 11:41 09/12/16 16:51 White Blood Count 8.5x10^3/uL (4.0-11.0) Red Blood Count 3.00x10^6/uL (3.50-5.40) Hemoglobin 7.2g/dL (12.0-15.5) Hematocrit 22.1% (36.0-47.0) Mean Corpuscular Volume 74fL (79-100) Mean Corpuscular Hemoglobin 24pg (25-35) Mean Corpuscular Hemoglobin Concent 33g/dL (31-37) Red Cell Distribution Width 18.6% (11.5-14.5) Platelet Count 260x10^3/uL (140-400) Neutrophils (%) (Auto) 74% (31-73) Lymphocytes (%) (Auto) 11% (24-48) Monocytes (%) (Auto) 9% (0-9) Eosinophils (%) (Auto) 6% (0-3) Basophils (%) (Auto) 0% (0-3) Neutrophils # (Auto) 6.3x10^3uL (1.8-7.7) Lymphocytes # (Auto) 1.0x10^3/uL (1.0-4.8) Monocytes # (Auto) 0.7x10^3/uL (0.0-1.1) Eosinophils # (Auto) 0.5x10^3/uL (0.0-0.7) Basophils # (Auto) 0.0x10^3/uL (0.0-0.2) Sodium Level 140mmol/L (136-145) Potassium Level 3.2mmol/L (3.5-5.1) Chloride Level 105mmol/L (98-107) Carbon Dioxide Level 29mmol/L (21-32) Anion Gap 6 (6-14) Blood Urea Nitrogen 10mg/dL (7-20) Creatinine 1.2mg/dL (0.6-1.0) Estimated GFR (Cockcroft-Gault) 53.9 Glucose Level 119mg/dL (70-99) Calcium Level 8.8mg/dL (8.5-10.1) Glucose (Fingerstick) 129mg/dL (70-99) 104mg/dL (70-99) 76mg/dL (70-99) Test 09/12/16 19:27 09/12/16 19:51 09/13/16 05:44 09/13/16 07:54 Glucose (Fingerstick) 43mg/dL (70-99) 105mg/dL (70-99) 90mg/dL (70-99) White Blood Count 8.9x10^3/uL (4.0-11.0) Red Blood Count 3.08x10^6/uL (3.50-5.40) Hemoglobin 7.4g/dL (12.0-15.5) Hematocrit 22.7% (36.0-47.0) Mean Corpuscular Volume 74fL (79-100) Mean Corpuscular Hemoglobin 24pg (25-35) Mean Corpuscular Hemoglobin Concent 33g/dL (31-37) Red Cell Distribution Width 19.2% (11.5-14.5) Platelet Count 307x10^3/uL (140-400) Neutrophils (%) (Auto) 73% (31-73) Lymphocytes (%) (Auto) 12% (24-48) Monocytes (%) (Auto) 8% (0-9) Eosinophils (%) (Auto) 6% (0-3) Basophils (%) (Auto) 1% (0-3) Neutrophils # (Auto) 6.5x10^3uL (1.8-7.7) Lymphocytes # (Auto) 1.1x10^3/uL (1.0-4.8) Monocytes # (Auto) 0.7x10^3/uL (0.0-1.1) Eosinophils # (Auto) 0.5x10^3/uL (0.0-0.7) Basophils # (Auto) 0.0x10^3/uL (0.0-0.2) Sodium Level 142mmol/L (136-145) Potassium Level 3.4mmol/L (3.5-5.1) Chloride Level 105mmol/L (98-107) Carbon Dioxide Level 30mmol/L (21-32) Anion Gap 7 (6-14) Blood Urea Nitrogen 10mg/dL (7-20) Creatinine 1.3mg/dL (0.6-1.0) Estimated GFR (Cockcroft-Gault) 49.1 Glucose Level 66mg/dL (70-99) Calcium Level 9.1mg/dL (8.5-10.1) Laboratory Tests Test 09/12/16 11:41 09/12/16 16:51 09/12/16 19:27 09/12/16 19:51 Glucose (Fingerstick) 104mg/dL (70-99) 76mg/dL (70-99) 43mg/dL (70-99) 105mg/dL (70-99) Test 09/13/16 05:44 2/17/17 07:54 White Blood Count 8.9x10^3/uL (4.0-11.0) Red Blood Count 3.08x10^6/uL (3.50-5.40) Hemoglobin 7.4g/dL (12.0-15.5) Hematocrit 22.7% (36.0-47.0) Mean Corpuscular Volume 74fL (79-100) Mean Corpuscular Hemoglobin 24pg (25-35) Mean Corpuscular Hemoglobin Concent 33g/dL (31-37) Red Cell Distribution Width 19.2% (11.5-14.5) Platelet Count 307x10^3/uL (140-400) Neutrophils (%) (Auto) 73% (31-73) Lymphocytes (%) (Auto) 12% (24-48) Monocytes (%) (Auto) 8% (0-9) Eosinophils (%) (Auto) 6% (0-3) Basophils (%) (Auto) 1% (0-3) Neutrophils # (Auto) 6.5x10^3uL (1.8-7.7) Lymphocytes # (Auto) 1.1x10^3/uL (1.0-4.8) Monocytes # (Auto) 0.7x10^3/uL (0.0-1.1) Eosinophils # (Auto) 0.5x10^3/uL (0.0-0.7) Basophils # (Auto) 0.0x10^3/uL (0.0-0.2) Sodium Level 142mmol/L (136-145) Potassium Level 3.4mmol/L (3.5-5.1) Chloride Level 105mmol/L (98-107) Carbon Dioxide Level 30mmol/L (21-32) Anion Gap 7 (6-14) Blood Urea Nitrogen 10mg/dL (7-20) Creatinine 1.3mg/dL (0.6-1.0) Estimated GFR (Cockcroft-Gault) 49.1 Glucose Level 66mg/dL (70-99) Calcium Level 9.1mg/dL (8.5-10.1) Glucose (Fingerstick) 90mg/dL (70-99) Microbiology 09/02/16 Blood Culture - Final, Complete NO GROWTH AFTER 5 DAYS 09/03/16 Gram Stain - Final, Complete 09/10/16 Gram Stain - Final, Complete Medications Current Medications Ondansetron HCl (Zofran) 4 mg PRN Q8HRS PRN IV NAUSEA/VOMITING; Start 09/02/16 at 15:15; Stop 09/03/16 at 15:14; Status DC Morphine Sulfate 2 mg PRN Q2HR PRN IV PAIN Last administered on 09/03/16 11:10 ; Start 09/02/16 at 15:15; Stop 09/03/16 at 15:14; Status DC Vancomycin HCl (Vanco Per Pharmacy) 1 each PRN DAILY PRN MC SEE COMMENTS Last administered on 09/07/16 11:48; Start 09/02/16 at 17:30; Stop 09/07/16 at 23:39 ; Status DC Piperacillin Sod/ Tazobactam Sod 1 each 1 each PRN DAILY PRN MC SEE COMMENTS; Start 09/02/16 at 17:30; Stop 09/04/16 at 13:59; Status DC Piperacillin Sod/ Tazobactam Sod 3.375 gm/Sodium Chloride 50 ml @ 100 mls/hr Q6HRS IV Last administered on 09/11/16 06:03; Start 09/02/16 at 18:00; Stop at 09:08; Status DC Vancomycin HCl 2 gm/Sodium Chloride 500 ml @ 250 mls/hr 1X ONCE IV Last administered on 09/02/16 20:53; Start 09/02/16 at 20:00; Stop 09/02/16 at 21:59; Status DC Vancomycin HCl/ Sodium Chloride (Iv Sodium Chloride 0.9% 500ml Bag) 500 ml @ 250 mls/hr Q12H IV Last administered on 09/04/16 09:18; Start 09/03/16 at 08:00 ; Stop 09/04/16 at 14:06; Status DC Vancomycin HCl 1 each 1X ONCE MC Last administered on 09/03/16 07:30; Start at 07:30; Stop 09/03/16 at 07:31; Status DC Aspirin (Ecotrin) 325 mg BID PO Last administered on 09/13/16 08:32; Start 09/03/16 at 21:00 Carvedilol (Coreg) 12.5 mg BIDWMEALS PO Last administered on 09/13/16 08:33; Start 09/03/16 at 17:00 Glipizide (Glucotrol) 5 mg DAILY PO Last administered on 09/03/16 13:10; Start 09/03/16 at 12:30; Stop 09/04/16 at 14:00; Status DC Lisinopril (Prinivil) 40 mg DAILY PO Last administered on 09/13/16 08:32; Start 09/03/16 at 12:30 Metformin HCl (Glucophage) 1,000 mg BIDWMEALS PO Last administered on 16:54; Start 09/03/16 at 17:00; Stop 09/12/16 at 19:50; Status DC Insulin Detemir (Levemir) 20 units DAILYWSUP SQ Last administered on 09/11/16 17:31; Start 09/03/16 at 17:00; Stop 09/12/16 at 19:50; Status DC Insulin Detemir (Levemir) 40 units DAILYWBKFT SQ Last administered on 08:37; Start 09/04/16 at 08:00; Stop 09/12/16 at 19:50; Status DC Oxycodone/ Acetaminophen (Percocet 5/325) 1 tab PRN Q6HRS PRN PO pain Last administered on 09/04/16 11:56; Start 09/03/16 at 12:00; Stop 09/05/16 at 11:41; Status DC Calcium/Vitamin D (Oscal D 500mg/ 200uts) 1 tab BIDWMEALS PO Last administered on 09/13/16 08:32; Start 09/03/16 at 17:00 Citalopram Hydrobromide (Celexa) 40 mg DAILY PO Last administered on 09/05/16 08:28; Start 09/04/16 at 09:00; Stop 09/05/16 at 13:44; Status DC Hydrochlorothiazide (Hydrodiuril) 25 mg DAILY PO Last administered on 08:32; Start 09/03/16 at 12:30 Atorvastatin Calcium (Lipitor) 10 mg QHS PO Last administered on 09/12/16 21: 35; Start 09/03/16 at 21:00 Multivitamins/ Calcium (Thera M Plus) 1 tab DAILY PO Last administered on 08:33; Start 09/03/16 at 12:30 Insulin Aspart (Novolog) 0-7 UNITS TIDWMEALS SQ Last administered on 09/03/16 17:14; Start 09/03/16 at 13:00; Stop 09/04/16 at 21:21; Status DC Dextrose 12.5 gm PRN Q15MIN PRN IV SEE COMMENTS; Start 09/03/16 at 12:15; Stop 09/05/16 at 13:32; Status DC Insulin Aspart (Novolog) 10 units TIDAC SQ Last administered on 09/09/16 12:15 ; Start 09/03/16 at 16:30; Stop 09/09/16 at 16:11; Status DC Polyethylene Glycol (miraLAX PACKET) 17 gm PRN DAILY PRN PO CONSTIPATION; Start 09/03/16 at 13:00 Polyethylene Glycol (miraLAX PACKET) 17 gm 1X ONCE PO Last administered on 09/03 13:18; Start 09/03/16 at 13:00; Stop 09/03/16 at 13:12; Status DC Docusate Sodium (Colace) 100 mg PRN DAILY PRN PO CONSTIPATION; Start 09/03/16 at 13:00; Stop 09/05/16 at 13:31; Status DC Lidocaine/Sodium Bicarbonate 20 ml 20 ml 1X ONCE IJ ; Start 09/03/16 at 15:15; Stop 09/03/16 at 15:16; Status DC Cefazolin Sodium/ Dextrose 50 ml @ 100 mls/hr 1X PREOP IV ; Start 09/06/16 at 06:00; Stop 09/06/16 at 06:00; Status DC Cefazolin Sodium/ Dextrose (Ancef 2gm Premix) 50 ml @ 100 mls/hr 1X PREOP ONCE IV Last administered on 09/04/16 14:24; Start 09/04/16 at 06:00; Stop at 06:29; Status DC Fentanyl Citrate (Fentanyl 2ml Vial) 25 mcg PRN Q5MIN PRN IV MILD PAIN; Start 09/04/16 at 09:30; Stop 09/05/16 at 09:29; Status DC Fentanyl Citrate (Fentanyl 2ml Vial) 50 mcg PRN Q5MIN PRN IV MODERATE PAIN Last administered on 09/04/16 16:54; Start 09/04/16 at 09:30; Stop 09/05/16 at 09: 29; Status DC Morphine Sulfate 1 mg 1 mg PRN Q10MIN PRN IV SEVERE PAIN; Start 09/04/16 at 09: 30; Stop 09/05/16 at 09:29; Status DC Lactated Ringer's (Iv Lactated Ringers) 1,000 ml @ 0 mls/hr Q0M IV Last administered on 09/04/16 13:49; Start 09/04/16 at 09:18; Stop 09/04/16 at 21:17; Status DC Lidocaine HCl 2 ml 1X PRN PRN ID IV START; Start 09/04/16 at 09:30; Stop at 09:29; Status DC Hydromorphone HCl (Dilaudid) 0.5 mg PRN Q10MIN PRN IV SEV PAIN,Second choice Last administered on 09/04/16 18:07; Start 09/04/16 at 09:30; Stop 09/05/16 at 09: 29; Status DC Prochlorperazine Edisylate 5 mg 5 mg PACU PRN PRN IV NAUSEA; Start 09/04/16 at 09:30; Stop 09/05/16 at 09:29; Status DC Cefazolin Sodium/ Dextrose (Ancef 2gm Premix) 50 ml @ As Directed STK-MED ONCE IV ; Start 09/04/16 at 13:12; Stop 09/04/16 at 13:13; Status DC Desflurane (Suprane) 60 ml STK-MED ONCE IH ; Start 09/04/16 at 13:42; Stop at 13:43; Status DC Fentanyl Citrate 100 mcg 100 mcg STK-MED ONCE .ROUTE ; Start 09/04/16 at 13:43; Stop 09/04/16 at 13:44; Status DC Propofol (Diprivan) 20 ml @ As Directed STK-MED ONCE IV ; Start 09/04/16 at 13:43 ; Stop 09/04/16 at 13:44; Status DC Lidocaine HCl 100 mg STK-MED ONCE .ROUTE ; Start 09/04/16 at 13:43; Stop 09/04/16 at 13:44; Status DC Dexamethasone Sodium Phosphate (Decadron) 20 mg STK-MED ONCE .ROUTE ; Start 09/04 at 13:43; Stop 09/04/16 at 13:44; Status DC Ondansetron HCl (Zofran) 4 mg STK-MED ONCE .ROUTE ; Start 09/04/16 at 13:43; Stop 09/04/16 at 13:44; Status DC Glipizide 5 mg 5 mg DAILYWBKFT PO Last administered on 09/13/16 08:32; Start 09/05/16 at 08:00 Vancomycin HCl 1.25 gm/Sodium Chloride 250 ml @ 167 mls/hr Q12H IV Last administered on 09/07/16 22:12; Start 09/04/16 at 20:00; Stop 09/07/16 at 23:36 ; Status DC Propofol (Diprivan) 20 ml @ As Directed STK-MED ONCE IV ; Start 09/04/16 at 14:38 ; Stop 09/04/16 at 14:39; Status DC Albuterol Sulfate 2.5 mg 2.5 mg STK-MED ONCE .ROUTE ; Start 09/04/16 at 14:59; Stop 09/04/16 at 15:00; Status DC Tranexamic Acid/ Sodium Chloride (Cyklokapron/Iv Sodium Chloride 0.9% 50ml) 60 ml @ 60 mls/hr 1X PERIOP ONCE INJ Last administered on 09/04/16 15:12; Start 09/04/16 at 15:12; Stop 09/04/16 at 16:11; Status DC Fentanyl Citrate (Fentanyl 2ml Vial) 100 mcg STK-MED ONCE .ROUTE ; Start at 15:27; Stop 09/04/16 at 15:28; Status DC Acetaminophen/ Hydrocodone Bitart (Lortab 7.5/325) 1 tab PRN Q3HRS PRN PO PAIN Last administered on 09/08/16 06:13; Start 09/04/16 at 16:30 Acetaminophen/ Hydrocodone Bitart (Lortab 10/325) 1 tab PRN Q3HRS PRN PO PAIN Last administered on 09/09/16 16:46; Start 09/04/16 at 16:30 Tramadol HCl (Ultram) 50 mg PRN QID PRN PO PAIN; Start 09/04/16 at 16:30; Stop 09/05/16 at 13:32; Status DC Oxycodone/ Acetaminophen (Percocet 5/325) 1 tab PRN Q3HRS PRN PO PAIN; Start at 16:30 Oxycodone/ Acetaminophen (Percocet 7.5/ 325) 1 tab PRN Q3HRS PRN PO PAIN Last administered on 09/13/16 08:31; Start 09/04/16 at 16:30 Tramadol HCl (Ultram) 100 mg PRN Q3HRS PRN PO PAIN; Start 09/04/16 at 16:30; Stop 09/05/16 at 13:32; Status DC Diphenhydramine HCl (Benadryl) 25 mg PRN Q6HRS PRN IV ITCHING; Start 09/04/16 at 16:30 Senna/Docusate Sodium (Senna Plus) 1 tab DAILY PO Last administered on 08:37; Start 09/05/16 at 09:00 Prochlorperazine Maleate (Compazine) 10 mg PRN Q4HRS PRN PO NAUSEA/VOMITING; Start 09/04/16 at 16:30 Metoclopramide HCl (Reglan) 10 mg PRN Q4HRS PRN IV NAUSEA/VOMITING; Start at 16:30 Magnesium Hydroxide (Milk Of Magnesia) 2,400 mg 1X PRN PRN PO CONSTIPATION; Start 09/05/16 at 06:00; Stop 09/06/16 at 05:59; Status DC Bisacodyl (Dulcolax Supp) 10 mg 1X PRN PRN NE CONSTIPATION; Start 09/05/16 at 16 :00; Stop 09/06/16 at 15:59; Status DC Acetaminophen (Tylenol) 650 mg PRN Q4HRS PRN PO MILD PAIN / TEMP; Start at 16:30 Zolpidem Tartrate (Ambien) 5 mg PRN QHS PRN PO INSOMNIA, MAY REPEAT IN 1HR Last administered on 09/12/16 21:35; Start 09/04/16 at 16:30 Calcium Carbonate/ Glycine (Tums) 500 mg PRN QID PRN PO INDIGESTION Last administered on 09/07/16 09:10; Start 09/04/16 at 16:30 Morphine Sulfate 4 mg PRN Q1HR PRN IV PAIN Last administered on 09/08/16 20:38 ; Start 09/04/16 at 16:30; Stop 09/10/16 at 11:20; Status DC Sodium Chloride (Normal Saline Flush) 10 ml QSHIFT PRN IV AFTER MEDS AND BLOOD DRAWS; Start 09/04/16 at 16:30; Status Cancel Prochlorperazine Edisylate (Compazine) 10 mg PRN Q4HRS PRN IV NAUSEA/VOMITING; Start 09/04/16 at 16:30 Dextrose 12.5 gm PRN Q15MIN PRN IV SEE COMMENTS Last administered on 09/12/16 19:36; Start 09/04/16 at 16:30 Insulin Aspart (Novolog) 0-7 UNITS QIDACHS SQ Last administered on 09/11/16 12 :16; Start 09/05/16 at 07:30 Insulin Aspart (Novolog) 12 units 1X ONCE SQ Last administered on 09/04/16 21: 43; Start 09/04/16 at 21:30; Stop 09/04/16 at 21:31; Status DC Polysaccharide Iron Complex (Niferex 150) 150 mg DAILY PO Last administered on 09/13/16 08:33; Start 09/05/16 at 09:00 Polyethylene Glycol (miraLAX PACKET) 17 gm 1X ONCE PO Last administered on 09/05 15:42; Start 09/05/16 at 14:00; Stop 09/05/16 at 14:01; Status DC Polyethylene Glycol (miraLAX PACKET) 17 gm DAILY PO Last administered on 08:39; Start 09/06/16 at 09:00; Stop 09/06/16 at 15:51; Status DC Docusate Sodium (Colace) 100 mg DAILY PO Last administered on 09/10/16 14:57; Start 09/05/16 at 14:00 Magnesium Hydroxide (Milk Of Magnesia) 2,400 mg 1X ONCE PO Last administered on 09/05/16 15:41; Start 09/05/16 at 13:45; Stop 09/05/16 at 13:46; Status DC Morphine Sulfate (Ms Contin) 15 mg BID PO Last administered on 09/13/16 08:32 ; Start 09/05/16 at 13:45 Citalopram Hydrobromide (Celexa) 20 mg DAILY PO Last administered on 09/13/16 08:32; Start 09/06/16 at 09:00 Polyethylene Glycol (miraLAX PACKET) 17 gm BID PO Last administered on 08:35; Start 09/06/16 at 21:00 Sodium Biphosphate/ Sodium Phosphate (Fleet Adult) 133 ml 1X ONCE NE ; Start at 16:00; Stop 09/06/16 at 16:04; Status DC Sodium Biphosphate/ Sodium Phosphate (Fleet Adult) 133 ml PRN DAILY PRN NE CONSTIPATION; Start 09/07/16 at 09:00 Polyethylene Glycol (miraLAX PACKET) 17 gm 1X ONCE PO Last administered on 17:45; Start 09/06/16 at 16:00; Stop 09/06/16 at 16:04; Status DC Sodium Biphosphate/ Sodium Phosphate (Fleet Adult) 133 ml PRN 1X PRN NE CONSTIPATION; Start 09/06/16 at 23:30; Stop 09/11/16 at 12:39; Status DC Vancomycin HCl 1 each 1X ONCE MC ; Start 09/07/16 at 19:30; Stop 09/07/16 at 19 :31; Status DC Alteplase, Recombinant 2 mg 2 mg 1X ONCE INT CAT Last administered on 15:09; Start 09/07/16 at 14:30; Stop 09/07/16 at 14:31; Status DC Daptomycin/Sodium Chloride (Cubicin/Iv Sodium Chloride 0.9% 50ml) 50 ml @ 100 mls/hr Q24H IV Last administered on 09/12/16 16:53; Start 09/08/16 at 16:00 Ondansetron HCl (Zofran) 4 mg PRN Q6HRS PRN IV Nausea; Start 09/10/16 at 07:00 ; Stop 09/10/16 at 23:00; Status DC Fentanyl Citrate (Fentanyl 2ml Vial) 25 mcg PRN Q5MIN PRN IV MILD PAIN; Start 09/10/16 at 07:00; Stop 09/10/16 at 23:00; Status DC Fentanyl Citrate (Fentanyl 2ml Vial) 50 mcg PRN Q5MIN PRN IV MODERATE PAIN Last administered on 09/10/16 11:53; Start 09/10/16 at 07:00; Stop 09/10/16 at 23:00; Status DC Morphine Sulfate 1 mg 1 mg PRN Q10MIN PRN IV SEVERE PAIN; Start 09/10/16 at 07: 00; Stop 09/10/16 at 23:00; Status DC Lactated Ringer's (Iv Lactated Ringers) 1,000 ml @ 30 mls/hr Q24H IV Last administered on 09/10/16 07:38; Start 09/10/16 at 07:00; Stop 09/10/16 at 18:59 ; Status DC Lidocaine HCl 2 ml 1X PRN PRN ID IV START; Start 09/10/16 at 07:00; Stop at 23:00; Status DC Hydromorphone HCl (Dilaudid) 0.5 mg PRN Q10MIN PRN IV SEVERE PAIN, Second choice Last administered on 09/10/16 12:20; Start 09/10/16 at 07:00; Stop 09/10 at 23:00; Status DC Prochlorperazine Edisylate (Compazine) 5 mg PACU PRN PRN IV NAUSEA; Start 09/10 at 07:00; Stop 09/10/16 at 23:00; Status DC Lidocaine HCl 100 mg STK-MED ONCE .ROUTE ; Start 09/10/16 at 07:06; Stop at 07:07; Status DC Dexamethasone Sodium Phosphate 20 mg 20 mg STK-MED ONCE .ROUTE ; Start 09/10/16 at 07:06; Stop 09/10/16 at 07:07; Status DC Propofol (Diprivan) 20 ml @ As Directed STK-MED ONCE IV ; Start 09/10/16 at 07: 06; Stop 09/10/16 at 07:07; Status DC Lidocaine HCl 100 mg STK-MED ONCE .ROUTE ; Start 09/10/16 at 07:06; Stop at 07:07; Status DC Famotidine (Pepcid) 20 mg STK-MED ONCE .ROUTE ; Start 09/10/16 at 07:06; Stop at 07:07; Status DC Fentanyl Citrate (Fentanyl 2ml Vial) 100 mcg STK-MED ONCE .ROUTE ; Start at 07:06; Stop 09/10/16 at 07:07; Status DC Rocuronium Creola 50 mg 50 mg STK-MED ONCE .ROUTE ; Start 09/10/16 at 07:06; Stop 09/10/16 at 07:07; Status DC Cefazolin Sodium/ Dextrose 50 ml @ As Directed STK-MED ONCE IV ; Start 09/10/16 at 07:24; Stop 09/10/16 at 07:25; Status DC Tranexamic Acid 1000 mg/Sodium Chloride 60 ml @ 60 mls/hr 1X PERIOP ONCE INJ Last administered on 09/10/16 08:17; Start 09/10/16 at 08:00; Stop 09/10/16 at 08:59; Status DC Tranexamic Acid/ Sodium Chloride (Cyklokapron/Iv Sodium Chloride 0.9% 50ml) 60 ml @ 60 mls/hr 1X PERIOP ONCE INJ Last administered on 09/10/16 09:31; Start 09/10/16 at 08:00; Stop 09/10/16 at 08:59; Status DC Vancomycin HCl (Vanco) 10 gm 1X ONCE CEMENT Last administered on 09/10/16 08: 33; Start 09/10/16 at 08:00; Stop 09/10/16 at 08:01; Status Cancel Tobramycin Sulfate 7.2 gm 7.2 gm 1X ONCE TP ; Start 09/10/16 at 07:45; Stop at 07:46; Status Cancel Cefazolin Sodium/ Dextrose (Ancef 2gm Premix) 50 ml @ 100 mls/hr 1X ONCE IV Last administered on 09/10/16 08:09; Start 09/10/16 at 08:00; Stop 09/10/16 at 08:29; Status DC Tobramycin Sulfate 1.2 gm STK-MED ONCE .ROUTE Last administered on 09/10/16 08 :33; Start 09/10/16 at 08:01; Stop 09/10/16 at 08:02; Status DC Vancomycin HCl (Vanco) 10 gm STK-MED ONCE .ROUTE ; Start 09/10/16 at 08:01; Stop 09/10/16 at 08:02; Status DC Tobramycin Sulfate 1.2 gm STK-MED ONCE .ROUTE Last administered on 09/10/16 08 :33; Start 09/10/16 at 08:01; Stop 09/10/16 at 08:02; Status DC Tobramycin Sulfate 1.2 gm STK-MED ONCE .ROUTE Last administered on 09/10/16 08 :33; Start 09/10/16 at 08:02; Stop 09/10/16 at 08:03; Status DC Tobramycin Sulfate 1.2 gm STK-MED ONCE .ROUTE Last administered on 09/10/16 08 :33; Start 09/10/16 at 08:02; Stop 09/10/16 at 08:03; Status DC Tobramycin Sulfate 1.2 gm STK-MED ONCE .ROUTE Last administered on 09/10/16 08 :33; Start 09/10/16 at 08:02; Stop 09/10/16 at 08:03; Status DC Tobramycin Sulfate 1.2 gm STK-MED ONCE .ROUTE Last administered on 09/10/16 08 :33; Start 09/10/16 at 08:02; Stop 09/10/16 at 08:03; Status DC Fentanyl Citrate (Fentanyl 2ml Vial) 100 mcg STK-MED ONCE .ROUTE ; Start at 08:35; Stop 09/10/16 at 08:36; Status DC Ephedrine Sulfate 50 mg STK-MED ONCE IV ; Start 09/10/16 at 08:53; Stop at 08:54; Status DC Fentanyl Citrate (Fentanyl 2ml Vial) 100 mcg STK-MED ONCE .ROUTE ; Start at 08:55; Stop 09/10/16 at 08:56; Status DC Labetalol HCl (Normodyne) 20 mg STK-MED ONCE .ROUTE ; Start 09/10/16 at 09:07; Stop 09/10/16 at 09:08; Status DC Glycopyrrolate (Robinul) 1 mg STK-MED ONCE .ROUTE ; Start 09/10/16 at 09:34; Stop 09/10/16 at 09:35; Status DC Neostigmine Methylsulfate 5 mg STK-MED ONCE .ROUTE ; Start 09/10/16 at 09:34; Stop 09/10/16 at 09:35; Status DC Sevoflurane (Ultane) 90 ml STK-MED ONCE IH ; Start 09/10/16 at 10:05; Stop 09/10 at 10:06; Status DC Acetaminophen/ Hydrocodone Bitart (Lortab 7.5/325) 1 tab PRN Q3HRS PRN PO PAIN ; Start 09/10/16 at 11:15; Stop 09/10/16 at 14:20; Status DC Acetaminophen/ Hydrocodone Bitart (Lortab 10/325) 1 tab PRN Q3HRS PRN PO PAIN; Start 09/10/16 at 11:15; Stop 09/10/16 at 14:20; Status DC Tramadol HCl (Ultram) 50 mg PRN QID PRN PO PAIN; Start 09/10/16 at 11:15 Oxycodone/ Acetaminophen (Percocet 5/325) 1 tab PRN Q3HRS PRN PO PAIN; Start at 11:15; Stop 09/11/16 at 12:38; Status DC Oxycodone/ Acetaminophen (Percocet 7.5/ 325) 1 tab PRN Q3HRS PRN PO PAIN; Start 09/10/16 at 11:15; Stop 09/11/16 at 12:38; Status DC Tramadol HCl (Ultram) 100 mg PRN Q3HRS PRN PO PAIN; Start 09/10/16 at 11:15 Morphine Sulfate 2 mg PRN Q1HR PRN IV PAIN Last administered on 09/11/16t 21:17 ; Start 09/10/16 at 11:15 Fentanyl Citrate (Fentanyl 2ml Vial) 25 mcg PRN Q1HR PRN IV PAIN; Start at 11:15 Diphenhydramine HCl (Benadryl) 25 mg PRN Q6HRS PRN IV ITCHING; Start 09/10/16 at 11:15; Status Cancel Multivitamins/ Calcium (Thera M Plus) 1 tab DAILY PO ; Start 09/11/16 at 09:00; Stop 09/11/16 at 09:00; Status DC Senna/Docusate Sodium 1 tab 1 tab DAILY PO ; Start 09/11/16 at 09:00; Stop 09/11 at 09:00; Status DC Dextrose/Sodium Chloride (Iv D5% - 1/2 NS) 1,000 ml @ 100 mls/hr Q10H IV Last administered on 09/11/16 21:19; Start 09/10/16 at 12:00; Stop 09/12/16 at 16:52 ; Status DC Prochlorperazine Maleate (Compazine) 10 mg PRN Q4HRS PRN PO NAUSEA/VOMITING; Start 09/10/16 at 11:15; Stop 09/10/16 at 11:20; Status DC Metoclopramide HCl (Reglan) 10 mg PRN Q4HRS PRN IV NAUSEA/VOMITING; Start 09/10 at 11:15; Stop 09/10/16 at 11:21; Status DC Magnesium Hydroxide (Milk Of Magnesia) 2,400 mg 1X PRN PRN PO CONSTIPATION; Start 09/11/16 at 06:00; Stop 09/12/16 at 05:59; Status DC Bisacodyl (Dulcolax Supp) 10 mg 1X PRN PRN NE CONSTIPATION; Start 09/11/16 at 16:00; Stop 09/12/16 at 15:59; Status DC Acetaminophen (Tylenol) 650 mg PRN Q4HRS PRN PO MILD PAIN / TEMP; Start at 11:15; Stop 09/10/16 at 11:21; Status DC Zolpidem Tartrate (Ambien) 5 mg PRN QHS PRN PO INSOMNIA, MAY REPEAT IN 1HR; Start 09/10/16 at 11:15; Stop 09/10/16 at 11:21; Status DC Calcium Carbonate/ Glycine (Tums) 500 mg PRN QID PRN PO INDIGESTION; Start at 11:15; Stop 09/10/16 at 11:21; Status DC Morphine Sulfate 4 mg PRN Q1HR PRN IV PAIN Last administered on 09/10/16 14:57 ; Start 09/10/16 at 11:15 Morphine Sulfate 6 mg PRN Q1HR PRN IV PAIN Last administered on 09/10/16 18:38 ; Start 09/10/16 at 11:15 Morphine Sulfate 8 mg PRN Q1HR PRN IV PAIN; Start 09/10/16 at 11:15 Sodium Chloride (Normal Saline Flush) 10 ml QSHIFT PRN IV AFTER MEDS AND BLOOD DRAWS; Start 09/10/16 at 11:15 Fentanyl Citrate (Fentanyl 2ml Vial) 50 mcg PRN Q1HR PRN IV PAIN; Start at 11:15 Prochlorperazine Edisylate (Compazine) 10 mg PRN Q4HRS PRN IV NAUSEA/VOMITING; Start 09/10/16 at 11:15; Stop 09/10/16 at 11:21; Status DC Dextrose 12.5 gm 12.5 gm PRN Q15MIN PRN IV SEE COMMENTS; Start 09/10/16 at 11: 15; Stop 09/10/16 at 11:21; Status DC Cefazolin Sodium/ Dextrose (Ancef 2gm Premix) 50 ml @ 100 mls/hr Q6H IV ; Start 09/10/16 at 11:15; Stop 09/10/16 at 11:15; Status DC Potassium Chloride 40 meq 40 meq 1X ONCE PO Last administered on 09/10/16 14: 59; Start 09/10/16 at 12:15; Stop 09/10/16 at 12:16; Status DC Ertapenem/Sodium Chloride (Invanz/Iv Sodium Chloride 0.9% 50ml) 50 ml @ 100 mls /hr Q24H IV Last administered on 09/12/16 11:10; Start 09/11/16 at 10:00 Heparin Sodium (Porcine) 5,000 unit Q8HRS SQ Last administered on 09/13/16 06: 23; Start 09/11/16 at 14:00 Amlodipine Besylate (Norvasc) 5 mg DAILY PO Last administered on 09/13/16 08: 31; Start 09/12/16 at 11:15 Active Scripts Active Aspirin Ec (Aspirin) 325 Mg Tablet.dr 325 Mg PO BID 30 Days Reported Percocet 5-325 Mg Tablet (Oxycodone/Acetaminophen) 1 Each Tablet 1-2 Tab PO Q4- 6HRS LAST DOSE GIVEN: DATE: 08/02/16 TIME: 2:00 NEXT DOSE DUE: DATE: 08/02/16 TIME: 6:00pm as needed for pain Percocet 5-325 Mg Tablet (Oxycodone/Acetaminophen) 1 Each Tablet 1-2 Tab PO Q4- 6HRS Calcium 600 + Vit D 200 Tablet (Calcium Carbonate/Vitamin D3) 1 Each Tablet 1 Each PO BID Hair, Skin & Nails (Multivitamin With Minerals) 1 Each Tablet 1 Each PO DAILY Carvedilol 12.5 Mg Tablet 12.5 Mg PO BIDWMEALS Lovastatin 40 Mg Tablet 40 Mg PO HS Metformin Hcl 1,000 Mg Tablet 1 Tab PO BID Hydrochlorothiazide Tablet (Hydrochlorothiazide) 12.5 Mg Tablet 25 Mg PO DAILY Novolin N (Nph, Human Insulin Isophane) 100 Unit/1 Ml Vial 20 Unit SQ [id number] Novolin N (Nph, Human Insulin Isophane) 100 Unit/1 Ml Vial 40 Unit SQ [id number] Glipizide 5 Mg Tablet 5 Mg PO DAILY Lisinopril 40 Mg Tablet 40 Mg PO DAILY Citalopram Hbr (Citalopram Hydrobromide) 40 Mg Tablet 40 Mg PO DAILY Vitals/I & O Vital Sign - Last 24 Hours 09/12/16 09/12/16 09/12/16 09/12/16 11:00 13:34 13:35 15:00 Temp 98.8 97.7 98.8 97.7 Pulse 75 75 75 Resp 18 20 18 B/P 141/71 141/71 152/69 Pulse Ox 95 95 O2 Delivery Room Air Room Air Room Air 09/12/16 09/12/16 09/12/16 09/12/16 16:54 16:56 19:00 20:00 Temp 98.4 98.4 Pulse 75 78 Resp 20 18 B/P 152/69 150/67 Pulse Ox 95 O2 Delivery Room Air Room Air Room Air 09/12/16 09/12/16 09/12/16 09/12/16 21:34 21:35 22:35 23:00 Temp 98.9 98.9 Pulse 82 Resp 16 18 B/P 128/58 Pulse Ox 95 95 94 O2 Delivery Room Air Room Air Room Air O2 Flow Rate 2.0 2.0 2.0 09/13/16 09/13/16 09/13/16 09/13/16 01:34 03:00 04:20 05:20 Temp 98.8 98.8 Pulse 83 Resp 16 18 16 16 B/P 144/64 Pulse Ox 93 93 93 93 O2 Delivery Room Air Room Air Room Air 09/13/16 09/13/16 09/13/16 09/13/16 07:00 08:31 08:31 08:32 Temp 98.8 98.8 Pulse 88 88 88 Resp 20 18 B/P 156/79 156/79 156/79 Pulse Ox 94 O2 Delivery Room Air Room Air 09/13/16 09/13/16 08:32 08:33 Pulse 88 Resp 18 B/P 156/79 O2 Delivery Room Air HANNAH PURCELL MD Sep 13, 2016 09:03
--- NOTE | 2016-09-13 09:11 | PDOC ---
Infectious Disease Note Subjective Subjective c/o pain in knee ROS ROS GEN: Denies fevers, chills, sweats HEENT: Denies blurred vision, sore throat CV: Denies chest pain RESP: Denies shortness of air, cough GI: Denies n/v/d NEURO: Denies confusion, dizziness Vital Sign Vital Signs Vital Signs Date Time Temp Pulse Resp B/P Pulse Ox O2 Delivery O2 Flow Rate FiO2 09/13/16 08:33 88 156/79 09/13/16 08:32 18 Room Air 09/13/16 07:00 98.8 94 98.8 09/12/16 22:35 2.0 Physical Exam PHYSICAL EXAM GENERAL: NAD, Alert HEENT: PERRL, OC/OP NECK: Supple, no JVD, no LN LUNGS: Clear HEART: S1S2, no gallop, no murmur ABD: Soft, NT, no organomegaly, no rebound EXT: No edema, no cyanosis,, rt knee wound clean with healthy granulation TOY CONSULTANT: Alert, oriented x 3, no focal neurologic deficit SKIN: No rash IV: ok Labs Lab Laboratory Tests Test 09/12/16 11:41 09/12/16 16:51 09/12/16 19:27 09/12/16 19:51 Glucose (Fingerstick) 104mg/dL (70-99) 76mg/dL (70-99) 43mg/dL (70-99) 105mg/dL (70-99) Test 09/13/16 05:44 09/13/16 07:54 White Blood Count 8.9x10^3/uL (4.0-11.0) Red Blood Count 3.08x10^6/uL (3.50-5.40) Hemoglobin 7.4g/dL (12.0-15.5) Hematocrit 22.7% (36.0-47.0) Mean Corpuscular Volume 74fL (79-100) Mean Corpuscular Hemoglobin 24pg (25-35) Mean Corpuscular Hemoglobin Concent 33g/dL (31-37) Red Cell Distribution Width 19.2% (11.5-14.5) Platelet Count 307x10^3/uL (140-400) Neutrophils (%) (Auto) 73% (31-73) Lymphocytes (%) (Auto) 12% (24-48) Monocytes (%) (Auto) 8% (0-9) Eosinophils (%) (Auto) 6% (0-3) Basophils (%) (Auto) 1% (0-3) Neutrophils # (Auto) 6.5x10^3uL (1.8-7.7) Lymphocytes # (Auto) 1.1x10^3/uL (1.0-4.8) Monocytes # (Auto) 0.7x10^3/uL (0.0-1.1) Eosinophils # (Auto) 0.5x10^3/uL (0.0-0.7) Basophils # (Auto) 0.0x10^3/uL (0.0-0.2) Sodium Level 142mmol/L (136-145) Potassium Level 3.4mmol/L (3.5-5.1) Chloride Level 105mmol/L (98-107) Carbon Dioxide Level 30mmol/L (21-32) Anion Gap 7 (6-14) Blood Urea Nitrogen 10mg/dL (7-20) Creatinine 1.3mg/dL (0.6-1.0) Estimated GFR (Cockcroft-Gault) 49.1 Glucose Level 66mg/dL (70-99) Calcium Level 9.1mg/dL (8.5-10.1) Glucose (Fingerstick) 90mg/dL (70-99) Objective Assessment 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 wkly cbc, bun/cr/sed rate f/u with me in 2 wks d/w CAROLYN VALDES MD Sep 13, 2016 09:11
[2016-09-13 11:20] VITALS: BP 155/67
[2016-09-13] MEDS: ERTAPENEM 1 GM in IV NORMAL SALINE 50ML 50 ML IV SCH (11:50)
[2016-09-13 14:48] VITALS: BP 144/69
[2016-09-13] MEDS: NORMAL SALINE IV SCH (16:32)
[2016-09-13] MEDS: DAPTOMYCIN IV SCH (16:32)
--- NOTE | 2016-09-13 18:28 | PDOC ---
PROGRESS NOTES Subjective Subjective Expected postoperative pain, no other complaints. Her was not present. Objective Vital Signs Vital Signs Date Time Temp Pulse Resp B/P Pulse Ox O2 Delivery O2 Flow Rate FiO2 09/13/16 16:32 82 144/69 09/13/16 16:31 16 Room Air 09/13/16 14:48 97.5 95 97.5 09/12/16 22:35 2.0 Physical Exam Dressing dry. Foot is neurovascularly intact. The knee immobilizer is in place. The drainage that she had previously is much improved. Labs Laboratory Tests Test 09/11/16 20:35 09/11/16 20:58 09/12/16 06:40 09/12/16 08:00 White Blood Count 8.7x10^3/uL (4.0-11.0) 8.5x10^3/uL (4.0-11.0) Red Blood Count 3.20x10^6/uL (3.50-5.40) 3.00x10^6/uL (3.50-5.40) Hemoglobin 7.6g/dL (12.0-15.5) 7.2g/dL (12.0-15.5) Hematocrit 23.5% (36.0-47.0) 22.1% (36.0-47.0) Mean Corpuscular Volume 74fL (79-100) 74fL (79-100) Mean Corpuscular Hemoglobin 24pg (25-35) 24pg (25-35) Mean Corpuscular Hemoglobin Concent 32g/dL (31-37) 33g/dL (31-37) Red Cell Distribution Width 18.1% (11.5-14.5) 18.6% (11.5-14.5) Platelet Count 288x10^3/uL (140-400) 260x10^3/uL (140-400) Neutrophils (%) (Auto) 74% (31-73) 74% (31-73) Lymphocytes (%) (Auto) 11% (24-48) 11% (24-48) Monocytes (%) (Auto) 9% (0-9) 9% (0-9) Eosinophils (%) (Auto) 5% (0-3) 6% (0-3) Basophils (%) (Auto) 1% (0-3) 0% (0-3) Neutrophils # (Auto) 6.5x10^3uL (1.8-7.7) 6.3x10^3uL (1.8-7.7) Lymphocytes # (Auto) 1.0x10^3/uL (1.0-4.8) 1.0x10^3/uL (1.0-4.8) Monocytes # (Auto) 0.8x10^3/uL (0.0-1.1) 0.7x10^3/uL (0.0-1.1) Eosinophils # (Auto) 0.4x10^3/uL (0.0-0.7) 0.5x10^3/uL (0.0-0.7) Basophils # (Auto) 0.0x10^3/uL (0.0-0.2) 0.0x10^3/uL (0.0-0.2) Glucose (Fingerstick) 107mg/dL (70-99) 129mg/dL (70-99) Sodium Level 140mmol/L (136-145) Potassium Level 3.2mmol/L (3.5-5.1) Chloride Level 105mmol/L (98-107) Carbon Dioxide Level 29mmol/L (21-32) Anion Gap 6 (6-14) Blood Urea Nitrogen 10mg/dL (7-20) Creatinine 1.2mg/dL (0.6-1.0) Estimated GFR (Cockcroft-Gault) 53.9 Glucose Level 119mg/dL (70-99) Calcium Level 8.8mg/dL (8.5-10.1) Test 09/12/16 11:41 09/12/16 16:51 09/12/16 19:27 09/12/16 19:51 Glucose (Fingerstick) 104mg/dL (70-99) 76mg/dL (70-99) 43mg/dL (70-99) 105mg/dL (70-99) Test 09/13/16 05:44 09/13/16 07:54 09/13/16 11:01 09/13/16 16:01 White Blood Count 8.9x10^3/uL (4.0-11.0) Red Blood Count 3.08x10^6/uL (3.50-5.40) Hemoglobin 7.4g/dL (12.0-15.5) Hematocrit 22.7% (36.0-47.0) Mean Corpuscular Volume 74fL (79-100) Mean Corpuscular Hemoglobin 24pg (25-35) Mean Corpuscular Hemoglobin Concent 33g/dL (31-37) Red Cell Distribution Width 19.2% (11.5-14.5) Platelet Count 307x10^3/uL (140-400) Neutrophils (%) (Auto) 73% (31-73) Lymphocytes (%) (Auto) 12% (24-48) Monocytes (%) (Auto) 8% (0-9) Eosinophils (%) (Auto) 6% (0-3) Basophils (%) (Auto) 1% (0-3) Neutrophils # (Auto) 6.5x10^3uL (1.8-7.7) Lymphocytes # (Auto) 1.1x10^3/uL (1.0-4.8) Monocytes # (Auto) 0.7x10^3/uL (0.0-1.1) Eosinophils # (Auto) 0.5x10^3/uL (0.0-0.7) Basophils # (Auto) 0.0x10^3/uL (0.0-0.2) Sodium Level 142mmol/L (136-145) Potassium Level 3.4mmol/L (3.5-5.1) Chloride Level 105mmol/L (98-107) Carbon Dioxide Level 30mmol/L (21-32) Anion Gap 7 (6-14) Blood Urea Nitrogen 10mg/dL (7-20) Creatinine 1.3mg/dL (0.6-1.0) Estimated GFR (Cockcroft-Gault) 49.1 Glucose Level 66mg/dL (70-99) Calcium Level 9.1mg/dL (8.5-10.1) Glucose (Fingerstick) 90mg/dL (70-99) 156mg/dL (70-99) 107mg/dL (70-99) Laboratory Tests Test 09/12/16 19:27 09/12/16 19:51 09/13/16 05:44 09/13/16 07:54 Glucose (Fingerstick) 43mg/dL (70-99) 105mg/dL (70-99) 90mg/dL (70-99) White Blood Count 8.9x10^3/uL (4.0-11.0) Red Blood Count 3.08x10^6/uL (3.50-5.40) Hemoglobin 7.4g/dL (12.0-15.5) Hematocrit 22.7% (36.0-47.0) Mean Corpuscular Volume 74fL (79-100) Mean Corpuscular Hemoglobin 24pg (25-35) Mean Corpuscular Hemoglobin Concent 33g/dL (31-37) Red Cell Distribution Width 19.2% (11.5-14.5) Platelet Count 307x10^3/uL (140-400) Neutrophils (%) (Auto) 73% (31-73) Lymphocytes (%) (Auto) 12% (24-48) Monocytes (%) (Auto) 8% (0-9) Eosinophils (%) (Auto) 6% (0-3) Basophils (%) (Auto) 1% (0-3) Neutrophils # (Auto) 6.5x10^3uL (1.8-7.7) Lymphocytes # (Auto) 1.1x10^3/uL (1.0-4.8) Monocytes # (Auto) 0.7x10^3/uL (0.0-1.1) Eosinophils # (Auto) 0.5x10^3/uL (0.0-0.7) Basophils # (Auto) 0.0x10^3/uL (0.0-0.2) Sodium Level 142mmol/L (136-145) Potassium Level 3.4mmol/L (3.5-5.1) Chloride Level 105mmol/L (98-107) Carbon Dioxide Level 30mmol/L (21-32) Anion Gap 7 (6-14) Blood Urea Nitrogen 10mg/dL (7-20) Creatinine 1.3mg/dL (0.6-1.0) Estimated GFR (Cockcroft-Gault) 49.1 Glucose Level 66mg/dL (70-99) Calcium Level 9.1mg/dL (8.5-10.1) Test 09/13/16 11:01 09/13/16 16:01 Glucose (Fingerstick) 156mg/dL (70-99) 107mg/dL (70-99) Imaging The postoperative x-rays with the antibiotic spacer were reviewed by me previously and show satisfactory placement of the spacer. Assessment Assessment Status post explantation of total knee for infection. On IV antibiotics. Plan 6 weeks on IV antibiotics. Culture results reviewed, multiple organisms. Problems: Plan Plan of Care I discussed with her that we will plan to go 6 weeks with IV antibiotics, and need to reassess. I'm hopeful that we can eradicate her infection with the combination of the surgical debridement, IV antibiotics, and the antibiotic spacer. Office follow-up with me in 10-14 days. TADEO NAM MD Sep 13, 2016 18:28
[2016-09-13 19:00] VITALS: BP 138/56
[2016-09-13] MEDS: ZOLPIDEM 5 MG TABLET. PO PRN (21:11)
[2016-09-13] MEDS: ATORVASTATIN CALCIUM 10 MG TABLET. PO SCH (21:11)
[2016-09-13 23:00] VITALS: BP 162/71
[2016-09-14] MEDS: HYDROCODONE/APAP 7.5/325MG TABLET. PO PRN (00:11)
[2016-09-14] MEDS: TRAMADOL 50 MG TABLET. PO PRN ×2 (00:12→16:34)
[2016-09-14 03:00] VITALS: BP 152/66
[2016-09-14] MEDS: OXYCODONE/APAP 7.5/325 TABLET. PO PRN ×4 (04:39→16:34)
[2016-09-14 05:51] LABS: BASO # 0.1 x10^3/uL (0.0-0.2); BASO % 1 % (0-3); EOS % 5 % (0-3); HEMATOCRIT 23.1 % (36.0-47.0); HEMOGLOBIN 7.4 g/dL (12.0-15.5); LYMPH # 1.4 x10^3/uL (1.0-4.8); LYMPH % 16 % (24-48); MEAN CORPUSCULAR HEMOGLOBIN 24 pg (25-35); MEAN CORPUSCULAR HGB CONC 32 g/dL (31-37); MEAN CORPUSCULAR VOLUME 74 fL (79-100); MONO % 10 % (0-9); NEUT % 68 % (31-73); PLATELET COUNT 333 x10^3/uL (140-400); RED BLOOD COUNT 3.11 x10^6/uL (3.50-5.40); RED CELL DISTRIBUTION WIDTH 19.1 % (11.5-14.5); WHITE BLOOD COUNT 8.4 x10^3/uL (4.0-11.0)
[2016-09-14] MEDS: HEPARIN PF for SUB-Q USE 5,000 UNIT/0.5 ML VIAL. SQ SCH ×3 (06:15→21:32)
[2016-09-14 06:41] LABS: CALCIUM 8.7 mg/dL (8.5-10.1); CREATININE 1.2 mg/dL (0.6-1.0); GFR 53.9; POTASSIUM 3.7 mmol/L (3.5-5.1)
[2016-09-14 07:00] VITALS: BP 152/66
[2016-09-14] MEDS: CARVEDILOL 12.5 MG TABLET PO SCH ×2 (08:44→16:35)
[2016-09-14] MEDS: AMLODIPINE BESYLATE 5 MG TABLET PO SCH (08:45)
[2016-09-14] MEDS: ASPIRIN ENTERIC COATED 325 MG TABLET.DR. PO SCH ×2 (08:45→21:21)
[2016-09-14] MEDS: CALCIUM CARB/VIT D3 500/200 TABLET PO SCH ×2 (08:45→16:34)
[2016-09-14] MEDS: LISINOPRIL 40 MG TABLET. PO SCH (08:45)
[2016-09-14] MEDS: SENNOSIDES/DOCUSATE 8.6/50MG TABLET. PO SCH (08:45)
[2016-09-14] MEDS: CITALOPRAM 20 MG TABLET. PO SCH (08:45)
[2016-09-14] MEDS: IRON POLYSACCHARIDE COMPLEX 150 MG CAPSULE PO SCH (08:47)
[2016-09-14] MEDS: GLIPIZIDE 5 MG TABLET PO SCH (08:47)
[2016-09-14] MEDS: DOCUSATE SODIUM 100 MG CAPSULE PO SCH (08:47)
[2016-09-14] MEDS: MORPHINE ER 15 MG TABLET.ER PO SCH ×2 (08:47→21:21)
[2016-09-14] MEDS: MULTIVITAMIN with MINERAL TABLET. PO SCH (08:47)
[2016-09-14] MEDS: ERTAPENEM 1 GM in IV NORMAL SALINE 50ML 50 ML IV SCH (08:48)
[2016-09-14] MEDS: POLYETHYLENE GLYCOL 3350 17 GM PACKET. PO SCH ×2 (08:48→21:00)
[2016-09-14] MEDS: HYDROCHLOROTHIAZIDE 25 MG TABLET PO SCH (08:48)
[2016-09-14] MEDS: INSULIN ASPART 300 UNITS/3 ML INSULN.PEN SQ SCH ×4 (08:58→21:30)
[2016-09-14 11:00] VITALS: BP 152/69
--- NOTE | 2016-09-14 14:39 | PDOC ---
PROGRESS NOTES Chief Complaint Chief Complaint Infected knee prosthesis ASSESSMENT AND PLAN: 1. 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 Group B/MRSA/Morganella isolated. on Ertapenem/daptomycin. D/w Dr Delacruz: tank terminal gauger IV Abx 2. Pain control: on IV/PO meds. try to transition to PO completely, but still needs IV for dressing changes/PT 3. Anemia: iron/TIBC c/w inflammation. ferritin lowish, c/w component of iron def as well. replete low dose iron. s/p PRBC x1 postsurgically. monitor closely 4. DM: oral and insulin home regimen plus ISS with good control 5. CKD3: stable creat and lytes. monitor periodically 6. HTN: sl improved post addition of norvasc. monitor, may need dose adjustment 7. Prophylaxis: heparin 8. Dispo: awaiting rehab/LTAC bed. F/U with Dr.s Lance and Jayme hsu Friday History of Present Illness History of Present Illness possible dementia, not understanding well. right knee pain Vitals Vitals Vital Signs Date Time Temp Pulse Resp B/P Pulse Ox O2 Delivery O2 Flow Rate FiO2 09/14/16 11:00 98.1 88 20 152/69 94 Room Air 98.1 09/14/16 05:39 2.0 Physical Exam General: Alert, Oriented X3, Cooperative, No acute distress Heart: Regular rate, No murmurs Lungs: Clear, Wheezing Abdomen: Normal bowel sounds, No tenderness Extremities: No clubbing, No cyanosis, Other (R knee in ALEXANDRO wrap and splint) Skin: No rashes Labs LABS Laboratory Tests Test 09/13/16 16:01 09/13/16 21:17 09/14/16 05:30 09/14/16 08:08 Glucose (Fingerstick) 107mg/dL (70-99) 129mg/dL (70-99) 177mg/dL (70-99) White Blood Count 8.4x10^3/uL (4.0-11.0) Red Blood Count 3.11x10^6/uL (3.50-5.40) Hemoglobin 7.4g/dL (12.0-15.5) Hematocrit 23.1% (36.0-47.0) Mean Corpuscular Volume 74fL (79-100) Mean Corpuscular Hemoglobin 24pg (25-35) Mean Corpuscular Hemoglobin Concent 32g/dL (31-37) Red Cell Distribution Width 19.1% (11.5-14.5) Platelet Count 333x10^3/uL (140-400) Neutrophils (%) (Auto) 68% (31-73) Lymphocytes (%) (Auto) 16% (24-48) Monocytes (%) (Auto) 10% (0-9) Eosinophils (%) (Auto) 5% (0-3) Basophils (%) (Auto) 1% (0-3) Neutrophils # (Auto) 5.7x10^3uL (1.8-7.7) Lymphocytes # (Auto) 1.4x10^3/uL (1.0-4.8) Monocytes # (Auto) 0.8x10^3/uL (0.0-1.1) Eosinophils # (Auto) 0.4x10^3/uL (0.0-0.7) Basophils # (Auto) 0.1x10^3/uL (0.0-0.2) Sodium Level 140mmol/L (136-145) Potassium Level 3.7mmol/L (3.5-5.1) Chloride Level 103mmol/L (98-107) Carbon Dioxide Level 30mmol/L (21-32) Anion Gap 7 (6-14) Blood Urea Nitrogen 11mg/dL (7-20) Creatinine 1.2mg/dL (0.6-1.0) Estimated GFR (Cockcroft-Gault) 53.9 Glucose Level 133mg/dL (70-99) Calcium Level 8.7mg/dL (8.5-10.1) Test 09/14/16 12:15 Glucose (Fingerstick) 174mg/dL (70-99) Review of Systems Review of Systems no fever, chills, sob or chest pain Assessment and Plan Assessmemt and Plan Problems Medical Problems: (1) Infection of right knee Status: Acute (2) Infection of total right knee replacement Status: Acute (3) Right knee pain Status: Acute (4) Swelling of knee joint, right Status: Acute Problems: Comment Review of Relevant I have reviewed the following items deng (where applicable) has been applied. Labs Laboratory Tests Test 09/12/16 16:51 09/12/16 19:27 09/12/16 19:51 09/13/16 05:44 Glucose (Fingerstick) 76mg/dL (70-99) 43mg/dL (70-99) 105mg/dL (70-99) White Blood Count 8.9x10^3/uL (4.0-11.0) Red Blood Count 3.08x10^6/uL (3.50-5.40) Hemoglobin 7.4g/dL (12.0-15.5) Hematocrit 22.7% (36.0-47.0) Mean Corpuscular Volume 74fL (79-100) Mean Corpuscular Hemoglobin 24pg (25-35) Mean Corpuscular Hemoglobin Concent 33g/dL (31-37) Red Cell Distribution Width 19.2% (11.5-14.5) Platelet Count 307x10^3/uL (140-400) Neutrophils (%) (Auto) 73% (31-73) Lymphocytes (%) (Auto) 12% (24-48) Monocytes (%) (Auto) 8% (0-9) Eosinophils (%) (Auto) 6% (0-3) Basophils (%) (Auto) 1% (0-3) Neutrophils # (Auto) 6.5x10^3uL (1.8-7.7) Lymphocytes # (Auto) 1.1x10^3/uL (1.0-4.8) Monocytes # (Auto) 0.7x10^3/uL (0.0-1.1) Eosinophils # (Auto) 0.5x10^3/uL (0.0-0.7) Basophils # (Auto) 0.0x10^3/uL (0.0-0.2) Sodium Level 142mmol/L (136-145) Potassium Level 3.4mmol/L (3.5-5.1) Chloride Level 105mmol/L (98-107) Carbon Dioxide Level 30mmol/L (21-32) Anion Gap 7 (6-14) Blood Urea Nitrogen 10mg/dL (7-20) Creatinine 1.3mg/dL (0.6-1.0) Estimated GFR (Cockcroft-Gault) 49.1 Glucose Level 66mg/dL (70-99) Calcium Level 9.1mg/dL (8.5-10.1) Test 09/13/16 07:54 09/13/16 11:01 09/13/16 16:01 09/13/16 21:17 Glucose (Fingerstick) 90mg/dL (70-99) 156mg/dL (70-99) 107mg/dL (70-99) 129mg/dL (70-99) Test 09/14/16 05:30 09/14/16 08:08 09/14/16 12:15 White Blood Count 8.4x10^3/uL (4.0-11.0) Red Blood Count 3.11x10^6/uL (3.50-5.40) Hemoglobin 7.4g/dL (12.0-15.5) Hematocrit 23.1% (36.0-47.0) Mean Corpuscular Volume 74fL (79-100) Mean Corpuscular Hemoglobin 24pg (25-35) Mean Corpuscular Hemoglobin Concent 32g/dL (31-37) Red Cell Distribution Width 19.1% (11.5-14.5) Platelet Count 333x10^3/uL (140-400) Neutrophils (%) (Auto) 68% (31-73) Lymphocytes (%) (Auto) 16% (24-48) Monocytes (%) (Auto) 10% (0-9) Eosinophils (%) (Auto) 5% (0-3) Basophils (%) (Auto) 1% (0-3) Neutrophils # (Auto) 5.7x10^3uL (1.8-7.7) Lymphocytes # (Auto) 1.4x10^3/uL (1.0-4.8) Monocytes # (Auto) 0.8x10^3/uL (0.0-1.1) Eosinophils # (Auto) 0.4x10^3/uL (0.0-0.7) Basophils # (Auto) 0.1x10^3/uL (0.0-0.2) Sodium Level 140mmol/L (136-145) Potassium Level 3.7mmol/L (3.5-5.1) Chloride Level 103mmol/L (98-107) Carbon Dioxide Level 30mmol/L (21-32) Anion Gap 7 (6-14) Blood Urea Nitrogen 11mg/dL (7-20) Creatinine 1.2mg/dL (0.6-1.0) Estimated GFR (Cockcroft-Gault) 53.9 Glucose Level 133mg/dL (70-99) Calcium Level 8.7mg/dL (8.5-10.1) Glucose (Fingerstick) 177mg/dL (70-99) 174mg/dL (70-99) Laboratory Tests Test 09/13/16 16:01 09/13/16 21:17 09/14/16 05:30 09/14/16 08:08 Glucose (Fingerstick) 107mg/dL (70-99) 129mg/dL (70-99) 177mg/dL (70-99) White Blood Count 8.4x10^3/uL (4.0-11.0) Red Blood Count 3.11x10^6/uL (3.50-5.40) Hemoglobin 7.4g/dL (12.0-15.5) Hematocrit 23.1% (36.0-47.0) Mean Corpuscular Volume 74fL (79-100) Mean Corpuscular Hemoglobin 24pg (25-35) Mean Corpuscular Hemoglobin Concent 32g/dL (31-37) Red Cell Distribution Width 19.1% (11.5-14.5) Platelet Count 333x10^3/uL (140-400) Neutrophils (%) (Auto) 68% (31-73) Lymphocytes (%) (Auto) 16% (24-48) Monocytes (%) (Auto) 10% (0-9) Eosinophils (%) (Auto) 5% (0-3) Basophils (%) (Auto) 1% (0-3) Neutrophils # (Auto) 5.7x10^3uL (1.8-7.7) Lymphocytes # (Auto) 1.4x10^3/uL (1.0-4.8) Monocytes # (Auto) 0.8x10^3/uL (0.0-1.1) Eosinophils # (Auto) 0.4x10^3/uL (0.0-0.7) Basophils # (Auto) 0.1x10^3/uL (0.0-0.2) Sodium Level 140mmol/L (136-145) Potassium Level 3.7mmol/L (3.5-5.1) Chloride Level 103mmol/L (98-107) Carbon Dioxide Level 30mmol/L (21-32) Anion Gap 7 (6-14) Blood Urea Nitrogen 11mg/dL (7-20) Creatinine 1.2mg/dL (0.6-1.0) Estimated GFR (Cockcroft-Gault) 53.9 Glucose Level 133mg/dL (70-99) Calcium Level 8.7mg/dL (8.5-10.1) Test 09/14/16 12:15 Glucose (Fingerstick) 174mg/dL (70-99) Microbiology 09/02/16 Blood Culture - Final, Complete NO GROWTH AFTER 5 DAYS 09/03/16 Gram Stain - Final, Complete 09/10/16 Gram Stain - Final, Complete Medications Current Medications Ondansetron HCl (Zofran) 4 mg PRN Q8HRS PRN IV NAUSEA/VOMITING; Start 09/02/16 at 15:15; Stop 09/03/16 at 15:14; Status DC Morphine Sulfate 2 mg PRN Q2HR PRN IV PAIN Last administered on 09/03/16 11:10 ; Start 09/02/16 at 15:15; Stop 09/03/16 at 15:14; Status DC Vancomycin HCl (Vanco Per Pharmacy) 1 each PRN DAILY PRN MC SEE COMMENTS Last administered on 09/07/16 11:48; Start 09/02/16 at 17:30; Stop 09/07/16 at 23:39 ; Status DC Piperacillin Sod/ Tazobactam Sod 1 each 1 each PRN DAILY PRN MC SEE COMMENTS; Start 09/02/16 at 17:30; Stop 09/04/16 at 13:59; Status DC Piperacillin Sod/ Tazobactam Sod 3.375 gm/Sodium Chloride 50 ml @ 100 mls/hr Q6HRS IV Last administered on 09/11/16 06:03; Start 09/02/16 at 18:00; Stop at 09:08; Status DC Vancomycin HCl 2 gm/Sodium Chloride 500 ml @ 250 mls/hr 1X ONCE IV Last administered on 09/02/16 20:53; Start 09/02/16 at 20:00; Stop 09/02/16 at 21:59; Status DC Vancomycin HCl/ Sodium Chloride (Iv Sodium Chloride 0.9% 500ml Bag) 500 ml @ 250 mls/hr Q12H IV Last administered on 09/04/16 09:18; Start 09/03/16 at 08:00 ; Stop 09/04/16 at 14:06; Status DC Vancomycin HCl 1 each 1X ONCE MC Last administered on 09/03/16 07:30; Start at 07:30; Stop 09/03/16 at 07:31; Status DC Aspirin (Ecotrin) 325 mg BID PO Last administered on 09/14/16 08:45; Start 09/03/16 at 21:00 Carvedilol (Coreg) 12.5 mg BIDWMEALS PO Last administered on 09/14/16 08:44; Start 09/03/16 at 17:00 Glipizide (Glucotrol) 5 mg DAILY PO Last administered on 09/03/16 13:10; Start 09/03/16 at 12:30; Stop 09/04/16 at 14:00; Status DC Lisinopril (Prinivil) 40 mg DAILY PO Last administered on 09/14/16 08:45; Start 09/03/16 at 12:30 Metformin HCl (Glucophage) 1,000 mg BIDWMEALS PO Last administered on 16:54; Start 09/03/16 at 17:00; Stop 09/12/16 at 19:50; Status DC Insulin Detemir (Levemir) 20 units DAILYWSUP SQ Last administered on 09/11/16 17:31; Start 09/03/16 at 17:00; Stop 09/12/16 at 19:50; Status DC Insulin Detemir (Levemir) 40 units DAILYWBKFT SQ Last administered on 08:37; Start 09/04/16 at 08:00; Stop 09/12/16 at 19:50; Status DC Oxycodone/ Acetaminophen (Percocet 5/325) 1 tab PRN Q6HRS PRN PO pain Last administered on 09/04/16 11:56; Start 09/03/16 at 12:00; Stop 09/05/16 at 11:41; Status DC Calcium/Vitamin D (Oscal D 500mg/ 200uts) 1 tab BIDWMEALS PO Last administered on 09/14/16 08:45; Start 09/03/16 at 17:00 Citalopram Hydrobromide (Celexa) 40 mg DAILY PO Last administered on 09/05/16 08:28; Start 09/04/16 at 09:00; Stop 09/05/16 at 13:44; Status DC Hydrochlorothiazide (Hydrodiuril) 25 mg DAILY PO Last administered on 08:48; Start 09/03/16 at 12:30 Atorvastatin Calcium (Lipitor) 10 mg QHS PO Last administered on 09/13/16 21: 11; Start 09/03/16 at 21:00 Multivitamins/ Calcium (Thera M Plus) 1 tab DAILY PO Last administered on 08:47; Start 09/03/16 at 12:30 Insulin Aspart (Novolog) 0-7 UNITS TIDWMEALS SQ Last administered on 09/03/16 17:14; Start 09/03/16 at 13:00; Stop 09/04/16 at 21:21; Status DC Dextrose 12.5 gm PRN Q15MIN PRN IV SEE COMMENTS; Start 09/03/16 at 12:15; Stop 09/05/16 at 13:32; Status DC Insulin Aspart (Novolog) 10 units TIDAC SQ Last administered on 09/09/16 12:15 ; Start 09/03/16 at 16:30; Stop 09/09/16 at 16:11; Status DC Polyethylene Glycol (miraLAX PACKET) 17 gm PRN DAILY PRN PO CONSTIPATION; Start 09/03/16 at 13:00 Polyethylene Glycol (miraLAX PACKET) 17 gm 1X ONCE PO Last administered on 09/03 13:18; Start 09/03/16 at 13:00; Stop 09/03/16 at 13:12; Status DC Docusate Sodium (Colace) 100 mg PRN DAILY PRN PO CONSTIPATION; Start 09/03/16 at 13:00; Stop 09/05/16 at 13:31; Status DC Lidocaine/Sodium Bicarbonate 20 ml 20 ml 1X ONCE IJ ; Start 09/03/16 at 15:15; Stop 09/03/16 at 15:16; Status DC Cefazolin Sodium/ Dextrose 50 ml @ 100 mls/hr 1X PREOP IV ; Start 09/06/16 at 06:00; Stop 09/06/16 at 06:00; Status DC Cefazolin Sodium/ Dextrose (Ancef 2gm Premix) 50 ml @ 100 mls/hr 1X PREOP ONCE IV Last administered on 09/04/16 14:24; Start 09/04/16 at 06:00; Stop at 06:29; Status DC Fentanyl Citrate (Fentanyl 2ml Vial) 25 mcg PRN Q5MIN PRN IV MILD PAIN; Start 09/04/16 at 09:30; Stop 09/05/16 at 09:29; Status DC Fentanyl Citrate (Fentanyl 2ml Vial) 50 mcg PRN Q5MIN PRN IV MODERATE PAIN Last administered on 09/04/16 16:54; Start 09/04/16 at 09:30; Stop 09/05/16 at 09: 29; Status DC Morphine Sulfate 1 mg 1 mg PRN Q10MIN PRN IV SEVERE PAIN; Start 09/04/16 at 09: 30; Stop 09/05/16 at 09:29; Status DC Lactated Ringer's (Iv Lactated Ringers) 1,000 ml @ 0 mls/hr Q0M IV Last administered on 09/04/16 13:49; Start 09/04/16 at 09:18; Stop 09/04/16 at 21:17; Status DC Lidocaine HCl 2 ml 1X PRN PRN ID IV START; Start 09/04/16 at 09:30; Stop at 09:29; Status DC Hydromorphone HCl (Dilaudid) 0.5 mg PRN Q10MIN PRN IV SEV PAIN,Second choice Last administered on 09/04/16 18:07; Start 09/04/16 at 09:30; Stop 09/05/16 at 09: 29; Status DC Prochlorperazine Edisylate 5 mg 5 mg PACU PRN PRN IV NAUSEA; Start 09/04/16 at 09:30; Stop 09/05/16 at 09:29; Status DC Cefazolin Sodium/ Dextrose (Ancef 2gm Premix) 50 ml @ As Directed STK-MED ONCE IV ; Start 09/04/16 at 13:12; Stop 09/04/16 at 13:13; Status DC Desflurane (Suprane) 60 ml STK-MED ONCE IH ; Start 09/04/16 at 13:42; Stop at 13:43; Status DC Fentanyl Citrate 100 mcg 100 mcg STK-MED ONCE .ROUTE ; Start 09/04/16 at 13:43; Stop 09/04/16 at 13:44; Status DC Propofol (Diprivan) 20 ml @ As Directed STK-MED ONCE IV ; Start 09/04/16 at 13:43 ; Stop 09/04/16 at 13:44; Status DC Lidocaine HCl 100 mg STK-MED ONCE .ROUTE ; Start 09/04/16 at 13:43; Stop 09/04/16 at 13:44; Status DC Dexamethasone Sodium Phosphate (Decadron) 20 mg STK-MED ONCE .ROUTE ; Start 09/04 at 13:43; Stop 09/04/16 at 13:44; Status DC Ondansetron HCl (Zofran) 4 mg STK-MED ONCE .ROUTE ; Start 09/04/16 at 13:43; Stop 09/04/16 at 13:44; Status DC Glipizide 5 mg 5 mg DAILYWBKFT PO Last administered on 09/14/16 08:47; Start 09/05/16 at 08:00 Vancomycin HCl 1.25 gm/Sodium Chloride 250 ml @ 167 mls/hr Q12H IV Last administered on 09/07/16 22:12; Start 09/04/16 at 20:00; Stop 09/07/16 at 23:36 ; Status DC Propofol (Diprivan) 20 ml @ As Directed STK-MED ONCE IV ; Start 09/04/16 at 14:38 ; Stop 09/04/16 at 14:39; Status DC Albuterol Sulfate 2.5 mg 2.5 mg STK-MED ONCE .ROUTE ; Start 09/04/16 at 14:59; Stop 09/04/16 at 15:00; Status DC Tranexamic Acid/ Sodium Chloride (Cyklokapron/Iv Sodium Chloride 0.9% 50ml) 60 ml @ 60 mls/hr 1X PERIOP ONCE INJ Last administered on 09/04/16 15:12; Start 09/04/16 at 15:12; Stop 09/04/16 at 16:11; Status DC Fentanyl Citrate (Fentanyl 2ml Vial) 100 mcg STK-MED ONCE .ROUTE ; Start at 15:27; Stop 09/04/16 at 15:28; Status DC Acetaminophen/ Hydrocodone Bitart (Lortab 7.5/325) 1 tab PRN Q3HRS PRN PO PAIN Last administered on 09/08/16 06:13; Start 09/04/16 at 16:30 Acetaminophen/ Hydrocodone Bitart (Lortab 10/325) 1 tab PRN Q3HRS PRN PO PAIN Last administered on 09/09/16 16:46; Start 09/04/16 at 16:30 Tramadol HCl (Ultram) 50 mg PRN QID PRN PO PAIN; Start 09/04/16 at 16:30; Stop 09/05/16 at 13:32; Status DC Oxycodone/ Acetaminophen (Percocet 5/325) 1 tab PRN Q3HRS PRN PO PAIN; Start at 16:30 Oxycodone/ Acetaminophen (Percocet 7.5/ 325) 1 tab PRN Q3HRS PRN PO PAIN Last administered on 09/14/16 12:44; Start 09/04/16 at 16:30 Tramadol HCl (Ultram) 100 mg PRN Q3HRS PRN PO PAIN; Start 09/04/16 at 16:30; Stop 09/05/16 at 13:32; Status DC Diphenhydramine HCl (Benadryl) 25 mg PRN Q6HRS PRN IV ITCHING; Start 09/04/16 at 16:30 Senna/Docusate Sodium (Senna Plus) 1 tab DAILY PO Last administered on 08:45; Start 09/05/16 at 09:00 Prochlorperazine Maleate (Compazine) 10 mg PRN Q4HRS PRN PO NAUSEA/VOMITING; Start 09/04/16 at 16:30 Metoclopramide HCl (Reglan) 10 mg PRN Q4HRS PRN IV NAUSEA/VOMITING; Start at 16:30 Magnesium Hydroxide (Milk Of Magnesia) 2,400 mg 1X PRN PRN PO CONSTIPATION; Start 09/05/16 at 06:00; Stop 09/06/16 at 05:59; Status DC Bisacodyl (Dulcolax Supp) 10 mg 1X PRN PRN ND CONSTIPATION; Start 09/05/16 at 16 :00; Stop 09/06/16 at 15:59; Status DC Acetaminophen (Tylenol) 650 mg PRN Q4HRS PRN PO MILD PAIN / TEMP; Start at 16:30 Zolpidem Tartrate (Ambien) 5 mg PRN QHS PRN PO INSOMNIA, MAY REPEAT IN 1HR Last administered on 09/13/16 21:11; Start 09/04/16 at 16:30 Calcium Carbonate/ Glycine (Tums) 500 mg PRN QID PRN PO INDIGESTION Last administered on 09/07/16 09:10; Start 09/04/16 at 16:30 Morphine Sulfate 4 mg PRN Q1HR PRN IV PAIN Last administered on 09/08/16 20:38 ; Start 09/04/16 at 16:30; Stop 09/10/16 at 11:20; Status DC Sodium Chloride (Normal Saline Flush) 10 ml QSHIFT PRN IV AFTER MEDS AND BLOOD DRAWS; Start 09/04/16 at 16:30; Status Cancel Prochlorperazine Edisylate (Compazine) 10 mg PRN Q4HRS PRN IV NAUSEA/VOMITING; Start 09/04/16 at 16:30 Dextrose 12.5 gm PRN Q15MIN PRN IV SEE COMMENTS Last administered on 09/12/16 19:36; Start 09/04/16 at 16:30 Insulin Aspart (Novolog) 0-7 UNITS QIDACHS SQ Last administered on 09/14/16 12 :50; Start 09/05/16 at 07:30 Insulin Aspart (Novolog) 12 units 1X ONCE SQ Last administered on 09/04/16 21: 43; Start 09/04/16 at 21:30; Stop 09/04/16 at 21:31; Status DC Polysaccharide Iron Complex (Niferex 150) 150 mg DAILY PO Last administered on 09/14/16 08:47; Start 09/05/16 at 09:00 Polyethylene Glycol (miraLAX PACKET) 17 gm 1X ONCE PO Last administered on 09/05 15:42; Start 09/05/16 at 14:00; Stop 09/05/16 at 14:01; Status DC Polyethylene Glycol (miraLAX PACKET) 17 gm DAILY PO Last administered on 08:39; Start 09/06/16 at 09:00; Stop 09/06/16 at 15:51; Status DC Docusate Sodium (Colace) 100 mg DAILY PO Last administered on 09/14/16 08:47; Start 09/05/16 at 14:00 Magnesium Hydroxide (Milk Of Magnesia) 2,400 mg 1X ONCE PO Last administered on 09/05/16 15:41; Start 09/05/16 at 13:45; Stop 09/05/16 at 13:46; Status DC Morphine Sulfate (Ms Contin) 15 mg BID PO Last administered on 09/14/16 08:47 ; Start 09/05/16 at 13:45 Citalopram Hydrobromide (Celexa) 20 mg DAILY PO Last administered on 09/14/16 08:45; Start 09/06/16 at 09:00 Polyethylene Glycol (miraLAX PACKET) 17 gm BID PO Last administered on 08:35; Start 09/06/16 at 21:00 Sodium Biphosphate/ Sodium Phosphate (Fleet Adult) 133 ml 1X ONCE ND ; Start at 16:00; Stop 09/06/16 at 16:04; Status DC Sodium Biphosphate/ Sodium Phosphate (Fleet Adult) 133 ml PRN DAILY PRN ND CONSTIPATION; Start 09/07/16 at 09:00 Polyethylene Glycol (miraLAX PACKET) 17 gm 1X ONCE PO Last administered on 17:45; Start 09/06/16 at 16:00; Stop 09/06/16 at 16:04; Status DC Sodium Biphosphate/ Sodium Phosphate (Fleet Adult) 133 ml PRN 1X PRN ND CONSTIPATION; Start 09/06/16 at 23:30; Stop 09/11/16 at 12:39; Status DC Vancomycin HCl 1 each 1X ONCE MC ; Start 09/07/16 at 19:30; Stop 09/07/16 at 19 :31; Status DC Alteplase, Recombinant 2 mg 2 mg 1X ONCE INT CAT Last administered on 15:09; Start 09/07/16 at 14:30; Stop 09/07/16 at 14:31; Status DC Daptomycin/Sodium Chloride (Cubicin/Iv Sodium Chloride 0.9% 50ml) 50 ml @ 100 mls/hr Q24H IV Last administered on 09/13/16 16:32; Start 09/08/16 at 16:00 Ondansetron HCl (Zofran) 4 mg PRN Q6HRS PRN IV Nausea; Start 09/10/16 at 07:00 ; Stop 09/10/16 at 23:00; Status DC Fentanyl Citrate (Fentanyl 2ml Vial) 25 mcg PRN Q5MIN PRN IV MILD PAIN; Start 09/10/16 at 07:00; Stop 09/10/16 at 23:00; Status DC Fentanyl Citrate (Fentanyl 2ml Vial) 50 mcg PRN Q5MIN PRN IV MODERATE PAIN Last administered on 09/10/16 11:53; Start 09/10/16 at 07:00; Stop 09/10/16 at 23:00; Status DC Morphine Sulfate 1 mg 1 mg PRN Q10MIN PRN IV SEVERE PAIN; Start 09/10/16 at 07: 00; Stop 09/10/16 at 23:00; Status DC Lactated Ringer's (Iv Lactated Ringers) 1,000 ml @ 30 mls/hr Q24H IV Last administered on 09/10/16 07:38; Start 09/10/16 at 07:00; Stop 09/10/16 at 18:59 ; Status DC Lidocaine HCl 2 ml 1X PRN PRN ID IV START; Start 09/10/16 at 07:00; Stop at 23:00; Status DC Hydromorphone HCl (Dilaudid) 0.5 mg PRN Q10MIN PRN IV SEVERE PAIN, Second choice Last administered on 09/10/16 12:20; Start 09/10/16 at 07:00; Stop 09/10 at 23:00; Status DC Prochlorperazine Edisylate (Compazine) 5 mg PACU PRN PRN IV NAUSEA; Start 09/10 at 07:00; Stop 09/10/16 at 23:00; Status DC Lidocaine HCl 100 mg STK-MED ONCE .ROUTE ; Start 09/10/16 at 07:06; Stop at 07:07; Status DC Dexamethasone Sodium Phosphate 20 mg 20 mg STK-MED ONCE .ROUTE ; Start 09/10/16 at 07:06; Stop 09/10/16 at 07:07; Status DC Propofol (Diprivan) 20 ml @ As Directed STK-MED ONCE IV ; Start 09/10/16 at 07: 06; Stop 09/10/16 at 07:07; Status DC Lidocaine HCl 100 mg STK-MED ONCE .ROUTE ; Start 09/10/16 at 07:06; Stop at 07:07; Status DC Famotidine (Pepcid) 20 mg STK-MED ONCE .ROUTE ; Start 09/10/16 at 07:06; Stop at 07:07; Status DC Fentanyl Citrate (Fentanyl 2ml Vial) 100 mcg STK-MED ONCE .ROUTE ; Start at 07:06; Stop 09/10/16 at 07:07; Status DC Rocuronium [place] 50 mg 50 mg STK-MED ONCE .ROUTE ; Start 09/10/16 at 07:06; Stop 09/10/16 at 07:07; Status DC Cefazolin Sodium/ Dextrose 50 ml @ As Directed STK-MED ONCE IV ; Start 09/10/16 at 07:24; Stop 09/10/16 at 07:25; Status DC Tranexamic Acid 1000 mg/Sodium Chloride 60 ml @ 60 mls/hr 1X PERIOP ONCE INJ Last administered on 09/10/16 08:17; Start 09/10/16 at 08:00; Stop 09/10/16 at 08:59; Status DC Tranexamic Acid/ Sodium Chloride (Cyklokapron/Iv Sodium Chloride 0.9% 50ml) 60 ml @ 60 mls/hr 1X PERIOP ONCE INJ Last administered on 09/10/16 09:31; Start 09/10/16 at 08:00; Stop 09/10/16 at 08:59; Status DC Vancomycin HCl (Vanco) 10 gm 1X ONCE CEMENT Last administered on 09/10/16 08: 33; Start 09/10/16 at 08:00; Stop 09/10/16 at 08:01; Status Cancel Tobramycin Sulfate 7.2 gm 7.2 gm 1X ONCE TP ; Start 09/10/16 at 07:45; Stop at 07:46; Status Cancel Cefazolin Sodium/ Dextrose (Ancef 2gm Premix) 50 ml @ 100 mls/hr 1X ONCE IV Last administered on 09/10/16 08:09; Start 09/10/16 at 08:00; Stop 09/10/16 at 08:29; Status DC Tobramycin Sulfate 1.2 gm STK-MED ONCE .ROUTE Last administered on 09/10/16 08 :33; Start 09/10/16 at 08:01; Stop 09/10/16 at 08:02; Status DC Vancomycin HCl (Vanco) 10 gm STK-MED ONCE .ROUTE ; Start 09/10/16 at 08:01; Stop 09/10/16 at 08:02; Status DC Tobramycin Sulfate 1.2 gm STK-MED ONCE .ROUTE Last administered on 09/10/16 08 :33; Start 09/10/16 at 08:01; Stop 09/10/16 at 08:02; Status DC Tobramycin Sulfate 1.2 gm STK-MED ONCE .ROUTE Last administered on 09/10/16 08 :33; Start 09/10/16 at 08:02; Stop 09/10/16 at 08:03; Status DC Tobramycin Sulfate 1.2 gm STK-MED ONCE .ROUTE Last administered on 09/10/16 08 :33; Start 09/10/16 at 08:02; Stop 09/10/16 at 08:03; Status DC Tobramycin Sulfate 1.2 gm STK-MED ONCE .ROUTE Last administered on 09/10/16 08 :33; Start 09/10/16 at 08:02; Stop 09/10/16 at 08:03; Status DC Tobramycin Sulfate 1.2 gm STK-MED ONCE .ROUTE Last administered on 09/10/16 08 :33; Start 09/10/16 at 08:02; Stop 09/10/16 at 08:03; Status DC Fentanyl Citrate (Fentanyl 2ml Vial) 100 mcg STK-MED ONCE .ROUTE ; Start at 08:35; Stop 09/10/16 at 08:36; Status DC Ephedrine Sulfate 50 mg STK-MED ONCE IV ; Start 09/10/16 at 08:53; Stop at 08:54; Status DC Fentanyl Citrate (Fentanyl 2ml Vial) 100 mcg STK-MED ONCE .ROUTE ; Start at 08:55; Stop 09/10/16 at 08:56; Status DC Labetalol HCl (Normodyne) 20 mg STK-MED ONCE .ROUTE ; Start 09/10/16 at 09:07; Stop 09/10/16 at 09:08; Status DC Glycopyrrolate (Robinul) 1 mg STK-MED ONCE .ROUTE ; Start 09/10/16 at 09:34; Stop 09/10/16 at 09:35; Status DC Neostigmine Methylsulfate 5 mg STK-MED ONCE .ROUTE ; Start 09/10/16 at 09:34; Stop 09/10/16 at 09:35; Status DC Sevoflurane (Ultane) 90 ml STK-MED ONCE IH ; Start 09/10/16 at 10:05; Stop 09/10 at 10:06; Status DC Acetaminophen/ Hydrocodone Bitart (Lortab 7.5/325) 1 tab PRN Q3HRS PRN PO PAIN ; Start 09/10/16 at 11:15; Stop 09/10/16 at 14:20; Status DC Acetaminophen/ Hydrocodone Bitart (Lortab 10/325) 1 tab PRN Q3HRS PRN PO PAIN; Start 09/10/16 at 11:15; Stop 09/10/16 at 14:20; Status DC Tramadol HCl (Ultram) 50 mg PRN QID PRN PO PAIN Last administered on 09/14/16t 00:12; Start 09/10/16 at 11:15 Oxycodone/ Acetaminophen (Percocet 5/325) 1 tab PRN Q3HRS PRN PO PAIN; Start at 11:15; Stop 09/11/16 at 12:38; Status DC Oxycodone/ Acetaminophen (Percocet 7.5/ 325) 1 tab PRN Q3HRS PRN PO PAIN; Start 09/10/16 at 11:15; Stop 09/11/16 at 12:38; Status DC Tramadol HCl (Ultram) 100 mg PRN Q3HRS PRN PO PAIN; Start 09/10/16 at 11:15 Morphine Sulfate 2 mg PRN Q1HR PRN IV PAIN Last administered on 09/11/16 21:17 ; Start 09/10/16 at 11:15 Fentanyl Citrate (Fentanyl 2ml Vial) 25 mcg PRN Q1HR PRN IV PAIN; Start at 11:15 Diphenhydramine HCl (Benadryl) 25 mg PRN Q6HRS PRN IV ITCHING; Start 09/10/16 at 11:15; Status Cancel Multivitamins/ Calcium (Thera M Plus) 1 tab DAILY PO ; Start 09/11/16 at 09:00; Stop 09/11/16 at 09:00; Status DC Senna/Docusate Sodium 1 tab 1 tab DAILY PO ; Start 09/11/16 at 09:00; Stop 09/11 at 09:00; Status DC Dextrose/Sodium Chloride (Iv D5% - 1/2 NS) 1,000 ml @ 100 mls/hr Q10H IV Last administered on 09/11/16 21:19; Start 09/10/16 at 12:00; Stop 09/12/16 at 16:52 ; Status DC Prochlorperazine Maleate (Compazine) 10 mg PRN Q4HRS PRN PO NAUSEA/VOMITING; Start 09/10/16 at 11:15; Stop 09/10/16 at 11:20; Status DC Metoclopramide HCl (Reglan) 10 mg PRN Q4HRS PRN IV NAUSEA/VOMITING; Start 09/10 at 11:15; Stop 09/10/16 at 11:21; Status DC Magnesium Hydroxide (Milk Of Magnesia) 2,400 mg 1X PRN PRN PO CONSTIPATION; Start 09/11/16 at 06:00; Stop 09/12/16 at 05:59; Status DC Bisacodyl (Dulcolax Supp) 10 mg 1X PRN PRN ND CONSTIPATION; Start 09/11/16 at 16:00; Stop 09/12/16 at 15:59; Status DC Acetaminophen (Tylenol) 650 mg PRN Q4HRS PRN PO MILD PAIN / TEMP; Start at 11:15; Stop 09/10/16 at 11:21; Status DC Zolpidem Tartrate (Ambien) 5 mg PRN QHS PRN PO INSOMNIA, MAY REPEAT IN 1HR; Start 09/10/16 at 11:15; Stop 09/10/16 at 11:21; Status DC Calcium Carbonate/ Glycine (Tums) 500 mg PRN QID PRN PO INDIGESTION; Start at 11:15; Stop 09/10/16 at 11:21; Status DC Morphine Sulfate 4 mg PRN Q1HR PRN IV PAIN Last administered on 09/10/16 14:57 ; Start 09/10/16 at 11:15 Morphine Sulfate 6 mg PRN Q1HR PRN IV PAIN Last administered on 09/10/16 18:38 ; Start 09/10/16 at 11:15 Morphine Sulfate 8 mg PRN Q1HR PRN IV PAIN; Start 09/10/16 at 11:15 Sodium Chloride (Normal Saline Flush) 10 ml QSHIFT PRN IV AFTER MEDS AND BLOOD DRAWS; Start 09/10/16 at 11:15 Fentanyl Citrate (Fentanyl 2ml Vial) 50 mcg PRN Q1HR PRN IV PAIN; Start at 11:15 Prochlorperazine Edisylate (Compazine) 10 mg PRN Q4HRS PRN IV NAUSEA/VOMITING; Start 09/10/16 at 11:15; Stop 09/10/16 at 11:21; Status DC Dextrose 12.5 gm 12.5 gm PRN Q15MIN PRN IV SEE COMMENTS; Start 09/10/16 at 11: 15; Stop 09/10/16 at 11:21; Status DC Cefazolin Sodium/ Dextrose (Ancef 2gm Premix) 50 ml @ 100 mls/hr Q6H IV ; Start 09/10/16 at 11:15; Stop 09/10/16 at 11:15; Status DC Potassium Chloride 40 meq 40 meq 1X ONCE PO Last administered on 09/10/16 14: 59; Start 09/10/16 at 12:15; Stop 09/10/16 at 12:16; Status DC Ertapenem/Sodium Chloride (Invanz/Iv Sodium Chloride 0.9% 50ml) 50 ml @ 100 mls /hr Q24H IV Last administered on 09/14/16 08:48; Start 09/11/16 at 10:00 Heparin Sodium (Porcine) 5,000 unit Q8HRS SQ Last administered on 09/14/16 12: 51; Start 09/11/16 at 14:00 Amlodipine Besylate (Norvasc) 5 mg DAILY PO Last administered on 09/14/16 08: 45; Start 09/12/16 at 11:15 Active Scripts Active Aspirin Ec (Aspirin) 325 Mg Tablet.dr 325 Mg PO BID 30 Days Reported Percocet 5-325 Mg Tablet (Oxycodone/Acetaminophen) 1 Each Tablet 1-2 Tab PO Q4- 6HRS LAST DOSE GIVEN: DATE: 08/02/16 TIME: 2:00 NEXT DOSE DUE: DATE: 08/02/16 TIME: 6:00pm as needed for pain Percocet 5-325 Mg Tablet (Oxycodone/Acetaminophen) 1 Each Tablet 1-2 Tab PO Q4- 6HRS Calcium 600 + Vit D 200 Tablet (Calcium Carbonate/Vitamin D3) 1 Each Tablet 1 Each PO BID Hair, Skin & Nails (Multivitamin With Minerals) 1 Each Tablet 1 Each PO DAILY Carvedilol 12.5 Mg Tablet 12.5 Mg PO BIDWMEALS Lovastatin 40 Mg Tablet 40 Mg PO HS Metformin Hcl 1,000 Mg Tablet 1 Tab PO BID Hydrochlorothiazide Tablet (Hydrochlorothiazide) 12.5 Mg Tablet 25 Mg PO DAILY Novolin N (Nph, Human Insulin Isophane) 100 Unit/1 Ml Vial 20 Unit SQ [id number] Novolin N (Nph, Human Insulin Isophane) 100 Unit/1 Ml Vial 40 Unit SQ [id number] Glipizide 5 Mg Tablet 5 Mg PO DAILY Lisinopril 40 Mg Tablet 40 Mg PO DAILY Citalopram Hbr (Citalopram Hydrobromide) 40 Mg Tablet 40 Mg PO DAILY Vitals/I & O Vital Sign - Last 24 Hours 09/13/16 09/13/16 09/13/16 09/13/16 14:48 16:31 16:32 19:00 Temp 97.5 99.0 97.5 99.0 Pulse 82 82 79 Resp B/P 144/69 144/69 138/56 Pulse Ox 95 97 O2 Delivery Room Air Room Air Room Air 09/13/16 09/13/16 09/13/16 09/13/16 20:00 21:12 21:12 23:00 Temp 98.6 98.6 Pulse 85 Resp 16 16 18 B/P 162/71 Pulse Ox 95 95 95 O2 Delivery Room Air Room Air Room Air Room Air 09/14/16 09/14/16 09/14/16 09/14/16 00:12 01:12 01:12 03:00 Temp 99.1 99.1 Pulse 91 Resp 16 16 18 B/P 152/66 Pulse Ox 95 95 95 91 O2 Delivery Room Air Room Air Room Air Room Air O2 Flow Rate 2.0 09/14/16 09/14/16 09/14/16 09/14/16 04:39 05:39 07:00 08:44 Temp 97.9 97.9 Pulse 88 91 Resp 18 B/P 152/66 152/66 Pulse Ox 95 95 93 O2 Delivery Room Air Room Air Room Air O2 Flow Rate 2.0 09/14/16 09/14/16 09/14/16 08:45 08:45 11:00 Temp 98.1 98.1 Pulse 91 91 88 Resp 20 B/P 152/66 152/66 152/69 Pulse Ox 94 O2 Delivery Room Air MADIHA HAQUE MD Sep 14, 2016 14:39
[2016-09-14 15:00] VITALS: BP 166/72
[2016-09-14] MEDS: NORMAL SALINE IV SCH (16:33)
[2016-09-14] MEDS: DAPTOMYCIN IV SCH (16:33)
[2016-09-14 19:10] VITALS: BP 156/73
[2016-09-14] MEDS: ATORVASTATIN CALCIUM 10 MG TABLET. PO SCH (21:21)
[2016-09-14] MEDS: ZOLPIDEM 5 MG TABLET. PO PRN (21:21)
[2016-09-14] MEDS: HYDROCODONE/APAP 10/325 TABLET. PO PRN (21:22)
[2016-09-14 23:15] VITALS: BP 144/63
[2016-09-15] MEDS: HYDROCODONE/APAP 10/325 TABLET. PO PRN ×6 (00:14→21:47)
[2016-09-15 03:15] VITALS: BP 119/57
[2016-09-15] MEDS: HEPARIN PF for SUB-Q USE 5,000 UNIT/0.5 ML VIAL. SQ SCH ×3 (05:36→21:54)
[2016-09-15 06:03] LABS: CREATININE 1.3 mg/dL (0.6-1.0); GFR 49.1; POTASSIUM 3.8 mmol/L (3.5-5.1)
[2016-09-15 07:00] VITALS: BP 152/69
[2016-09-15] MEDS: CALCIUM CARB/VIT D3 500/200 TABLET PO SCH ×2 (08:12→17:44)
[2016-09-15] MEDS: CITALOPRAM 20 MG TABLET. PO SCH (08:12)
[2016-09-15] MEDS: MULTIVITAMIN with MINERAL TABLET. PO SCH (08:13)
[2016-09-15] MEDS: AMLODIPINE BESYLATE 5 MG TABLET PO SCH (08:13)
[2016-09-15] MEDS: ASPIRIN ENTERIC COATED 325 MG TABLET.DR. PO SCH ×2 (08:14→21:46)
[2016-09-15] MEDS: GLIPIZIDE 5 MG TABLET PO SCH (08:14)
[2016-09-15] MEDS: LISINOPRIL 40 MG TABLET. PO SCH (08:14)
[2016-09-15] MEDS: CARVEDILOL 12.5 MG TABLET PO SCH ×2 (08:14→17:05)
[2016-09-15] MEDS: MORPHINE ER 15 MG TABLET.ER PO SCH ×2 (08:15→21:47)
[2016-09-15] MEDS: DOCUSATE SODIUM 100 MG CAPSULE PO SCH (08:29)
[2016-09-15] MEDS: POLYETHYLENE GLYCOL 3350 17 GM PACKET. PO SCH ×2 (08:30→21:00)
[2016-09-15] MEDS: SENNOSIDES/DOCUSATE 8.6/50MG TABLET. PO SCH (08:30)
[2016-09-15] MEDS: INSULIN ASPART 300 UNITS/3 ML INSULN.PEN SQ SCH ×4 (08:32→21:00)
[2016-09-15] MEDS: IRON POLYSACCHARIDE COMPLEX 150 MG CAPSULE PO SCH (10:27)
[2016-09-15] MEDS: HYDROCHLOROTHIAZIDE 25 MG TABLET PO SCH (10:27)
[2016-09-15] MEDS: ERTAPENEM 1 GM in IV NORMAL SALINE 50ML 50 ML IV SCH (10:56)
[2016-09-15 11:00] VITALS: BP 154/64
--- NOTE | 2016-09-15 11:58 | PDOC ---
Provider Note Provider Note Awaiting LTAC/rehab bed. Office follow up with me in 10-14 days. TADEO NAM MD Sep 15, 2016 11:57
--- NOTE | 2016-09-15 12:15 | PDOC ---
PROGRESS NOTES Chief Complaint Chief Complaint Infected knee prosthesis ASSESSMENT AND PLAN: 1. 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 Group B/MRSA/Morganella isolated. on Ertapenem/daptomycin. 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 Pain control: on IV/PO meds. try to transition to PO completely, but still needs IV for dressing changes/PT 3. Anemia: iron/TIBC c/w inflammation. ferritin lowish, c/w component of iron def as well. replete low dose iron. s/p PRBC x1 postsurgically. monitor closely 4. DM: oral and insulin home regimen plus ISS with good control 5. CKD3: stable creat and lytes. monitor periodically 6. HTN: sl improved post addition of norvasc. monitor, may need dose adjustment 7. Prophylaxis: heparin 8. Dispo: awaiting rehab/LTAC bed. F/U with Dr.s Lance and Jayme hope Friday anxiety, possible psych issues, mild, add xanax prn History of Present Illness History of Present Illness possible dementia, not understanding well. right knee pain Vitals Vitals Vital Signs Date Time Temp Pulse Resp B/P Pulse Ox O2 Delivery O2 Flow Rate FiO2 09/15/16 11:31 94 Room Air 2.0 09/15/16 11:00 98.4 83 18 154/64 98.4 Physical Exam General: Alert, Oriented X3, Cooperative, No acute distress Heart: Regular rate, No murmurs Lungs: Clear, Wheezing Abdomen: Normal bowel sounds, No tenderness Extremities: No clubbing, No cyanosis, Other (R knee in ALEXANDRO wrap and splint) Skin: No rashes Labs LABS Laboratory Tests Test 09/14/16 12:15 09/14/16 16:17 09/14/16 20:49 09/15/16 05:30 Glucose (Fingerstick) 174mg/dL (70-99) 170mg/dL (70-99) 249mg/dL (70-99) Sodium Level 140mmol/L (136-145) Potassium Level 3.8mmol/L (3.5-5.1) Chloride Level 103mmol/L (98-107) Carbon Dioxide Level 31mmol/L (21-32) Anion Gap 6 (6-14) Blood Urea Nitrogen 12mg/dL (7-20) Creatinine 1.3mg/dL (0.6-1.0) Estimated GFR (Cockcroft-Gault) 49.1 Glucose Level 185mg/dL (70-99) Calcium Level 9.0mg/dL (8.5-10.1) Test 09/15/16 07:19 Glucose (Fingerstick) 183mg/dL (70-99) Review of Systems Review of Systems no fever, chills, sob or chest pain Assessment and Plan Assessmemt and Plan Problems Medical Problems: (1) Infection of right knee Status: Acute (2) Infection of total right knee replacement Status: Acute (3) Right knee pain Status: Acute (4) Swelling of knee joint, right Status: Acute Problems: Comment Review of Relevant I have reviewed the following items deng (where applicable) has been applied. Labs Laboratory Tests Test 09/13/16 16:01 09/13/16 21:17 09/14/16 05:30 09/14/16 08:08 Glucose (Fingerstick) 107mg/dL (70-99) 129mg/dL (70-99) 177mg/dL (70-99) White Blood Count 8.4x10^3/uL (4.0-11.0) Red Blood Count 3.11x10^6/uL (3.50-5.40) Hemoglobin 7.4g/dL (12.0-15.5) Hematocrit 23.1% (36.0-47.0) Mean Corpuscular Volume 74fL (79-100) Mean Corpuscular Hemoglobin 24pg (25-35) Mean Corpuscular Hemoglobin Concent 32g/dL (31-37) Red Cell Distribution Width 19.1% (11.5-14.5) Platelet Count 333x10^3/uL (140-400) Neutrophils (%) (Auto) 68% (31-73) Lymphocytes (%) (Auto) 16% (24-48) Monocytes (%) (Auto) 10% (0-9) Eosinophils (%) (Auto) 5% (0-3) Basophils (%) (Auto) 1% (0-3) Neutrophils # (Auto) 5.7x10^3uL (1.8-7.7) Lymphocytes # (Auto) 1.4x10^3/uL (1.0-4.8) Monocytes # (Auto) 0.8x10^3/uL (0.0-1.1) Eosinophils # (Auto) 0.4x10^3/uL (0.0-0.7) Basophils # (Auto) 0.1x10^3/uL (0.0-0.2) Sodium Level 140mmol/L (136-145) Potassium Level 3.7mmol/L (3.5-5.1) Chloride Level 103mmol/L (98-107) Carbon Dioxide Level 30mmol/L (21-32) Anion Gap 7 (6-14) Blood Urea Nitrogen 11mg/dL (7-20) Creatinine 1.2mg/dL (0.6-1.0) Estimated GFR (Cockcroft-Gault) 53.9 Glucose Level 133mg/dL (70-99) Calcium Level 8.7mg/dL (8.5-10.1) Test 09/14/16 12:15 09/14/16 16:17 09/14/16 20:49 09/15/16 05:30 Glucose (Fingerstick) 174mg/dL (70-99) 170mg/dL (70-99) 249mg/dL (70-99) Sodium Level 140mmol/L (136-145) Potassium Level 3.8mmol/L (3.5-5.1) Chloride Level 103mmol/L (98-107) Carbon Dioxide Level 31mmol/L (21-32) Anion Gap 6 (6-14) Blood Urea Nitrogen 12mg/dL (7-20) Creatinine 1.3mg/dL (0.6-1.0) Estimated GFR (Cockcroft-Gault) 49.1 Glucose Level 185mg/dL (70-99) Calcium Level 9.0mg/dL (8.5-10.1) Test 09/15/16 07:19 Glucose (Fingerstick) 183mg/dL (70-99) Laboratory Tests Test 09/14/16 12:15 09/14/16 16:17 09/14/16 20:49 09/15/16 05:30 Glucose (Fingerstick) 174mg/dL (70-99) 170mg/dL (70-99) 249mg/dL (70-99) Sodium Level 140mmol/L (136-145) Potassium Level 3.8mmol/L (3.5-5.1) Chloride Level 103mmol/L (98-107) Carbon Dioxide Level 31mmol/L (21-32) Anion Gap 6 (6-14) Blood Urea Nitrogen 12mg/dL (7-20) Creatinine 1.3mg/dL (0.6-1.0) Estimated GFR (Cockcroft-Gault) 49.1 Glucose Level 185mg/dL (70-99) Calcium Level 9.0mg/dL (8.5-10.1) Test 09/15/16 07:19 Glucose (Fingerstick) 183mg/dL (70-99) Microbiology 09/02/16 Blood Culture - Final, Complete NO GROWTH AFTER 5 DAYS 09/03/16 Gram Stain - Final, Complete 09/10/16 Gram Stain - Final, Complete Medications Current Medications Ondansetron HCl (Zofran) 4 mg PRN Q8HRS PRN IV NAUSEA/VOMITING; Start 09/02/16 at 15:15; Stop 09/03/16 at 15:14; Status DC Morphine Sulfate 2 mg PRN Q2HR PRN IV PAIN Last administered on 09/03/16 11:10 ; Start 09/02/16 at 15:15; Stop 09/03/16 at 15:14; Status DC Vancomycin HCl (Vanco Per Pharmacy) 1 each PRN DAILY PRN MC SEE COMMENTS Last administered on 09/07/16 11:48; Start 09/02/16 at 17:30; Stop 09/07/16 at 23:39 ; Status DC Piperacillin Sod/ Tazobactam Sod 1 each 1 each PRN DAILY PRN MC SEE COMMENTS; Start 09/02/16 at 17:30; Stop 09/04/16 at 13:59; Status DC Piperacillin Sod/ Tazobactam Sod 3.375 gm/Sodium Chloride 50 ml @ 100 mls/hr Q6HRS IV Last administered on 09/11/16 06:03; Start 09/02/16 at 18:00; Stop at 09:08; Status DC Vancomycin HCl 2 gm/Sodium Chloride 500 ml @ 250 mls/hr 1X ONCE IV Last administered on 09/02/16 20:53; Start 09/02/16 at 20:00; Stop 09/02/16 at 21:59; Status DC Vancomycin HCl/ Sodium Chloride (Iv Sodium Chloride 0.9% 500ml Bag) 500 ml @ 250 mls/hr Q12H IV Last administered on 09/04/16 09:18; Start 09/03/16 at 08:00 ; Stop 09/04/16 at 14:06; Status DC Vancomycin HCl 1 each 1X ONCE MC Last administered on 09/03/16 07:30; Start at 07:30; Stop 09/03/16 at 07:31; Status DC Aspirin (Ecotrin) 325 mg BID PO Last administered on 09/15/16 08:14; Start 09/03/16 at 21:00 Carvedilol (Coreg) 12.5 mg BIDWMEALS PO Last administered on 09/15/16 08:14; Start 09/03/16 at 17:00 Glipizide (Glucotrol) 5 mg DAILY PO Last administered on 09/03/16 13:10; Start 09/03/16 at 12:30; Stop 09/04/16 at 14:00; Status DC Lisinopril (Prinivil) 40 mg DAILY PO Last administered on 09/15/16 08:14; Start 09/03/16 at 12:30 Metformin HCl (Glucophage) 1,000 mg BIDWMEALS PO Last administered on 16:54; Start 09/03/16 at 17:00; Stop 09/12/16 at 19:50; Status DC Insulin Detemir (Levemir) 20 units DAILYWSUP SQ Last administered on 09/11/16 17:31; Start 09/03/16 at 17:00; Stop 09/12/16 at 19:50; Status DC Insulin Detemir (Levemir) 40 units DAILYWBKFT SQ Last administered on 08:37; Start 09/04/16 at 08:00; Stop 09/12/16 at 19:50; Status DC Oxycodone/ Acetaminophen (Percocet 5/325) 1 tab PRN Q6HRS PRN PO pain Last administered on 09/04/16 11:56; Start 09/03/16 at 12:00; Stop 09/05/16 at 11:41; Status DC Calcium/Vitamin D (Oscal D 500mg/ 200uts) 1 tab BIDWMEALS PO Last administered on 09/15/16 08:12; Start 09/03/16 at 17:00 Citalopram Hydrobromide (Celexa) 40 mg DAILY PO Last administered on 09/05/16 08:28; Start 09/04/16 at 09:00; Stop 09/05/16 at 13:44; Status DC Hydrochlorothiazide (Hydrodiuril) 25 mg DAILY PO Last administered on 10:27; Start 09/03/16 at 12:30 Atorvastatin Calcium (Lipitor) 10 mg QHS PO Last administered on 09/14/16 21: 21; Start 09/03/16 at 21:00 Multivitamins/ Calcium (Thera M Plus) 1 tab DAILY PO Last administered on 08:13; Start 09/03/16 at 12:30 Insulin Aspart (Novolog) 0-7 UNITS TIDWMEALS SQ Last administered on 09/03/16 17:14; Start 09/03/16 at 13:00; Stop 09/04/16 at 21:21; Status DC Dextrose 12.5 gm PRN Q15MIN PRN IV SEE COMMENTS; Start 09/03/16 at 12:15; Stop 09/05/16 at 13:32; Status DC Insulin Aspart (Novolog) 10 units TIDAC SQ Last administered on 09/09/16 12:15 ; Start 09/03/16 at 16:30; Stop 09/09/16 at 16:11; Status DC Polyethylene Glycol (miraLAX PACKET) 17 gm PRN DAILY PRN PO CONSTIPATION; Start 09/03/16 at 13:00 Polyethylene Glycol (miraLAX PACKET) 17 gm 1X ONCE PO Last administered on 09/03 13:18; Start 09/03/16 at 13:00; Stop 09/03/16 at 13:12; Status DC Docusate Sodium (Colace) 100 mg PRN DAILY PRN PO CONSTIPATION; Start 09/03/16 at 13:00; Stop 09/05/16 at 13:31; Status DC Lidocaine/Sodium Bicarbonate 20 ml 20 ml 1X ONCE IJ ; Start 09/03/16 at 15:15; Stop 09/03/16 at 15:16; Status DC Cefazolin Sodium/ Dextrose 50 ml @ 100 mls/hr 1X PREOP IV ; Start 09/06/16 at 06:00; Stop 09/06/16 at 06:00; Status DC Cefazolin Sodium/ Dextrose (Ancef 2gm Premix) 50 ml @ 100 mls/hr 1X PREOP ONCE IV Last administered on 09/04/16 14:24; Start 09/04/16 at 06:00; Stop at 06:29; Status DC Fentanyl Citrate (Fentanyl 2ml Vial) 25 mcg PRN Q5MIN PRN IV MILD PAIN; Start 09/04/16 at 09:30; Stop 09/05/16 at 09:29; Status DC Fentanyl Citrate (Fentanyl 2ml Vial) 50 mcg PRN Q5MIN PRN IV MODERATE PAIN Last administered on 09/04/16 16:54; Start 09/04/16 at 09:30; Stop 09/05/16 at 09: 29; Status DC Morphine Sulfate 1 mg 1 mg PRN Q10MIN PRN IV SEVERE PAIN; Start 09/04/16 at 09: 30; Stop 09/05/16 at 09:29; Status DC Lactated Ringer's (Iv Lactated Ringers) 1,000 ml @ 0 mls/hr Q0M IV Last administered on 09/04/16 13:49; Start 09/04/16 at 09:18; Stop 09/04/16 at 21:17; Status DC Lidocaine HCl 2 ml 1X PRN PRN ID IV START; Start 09/04/16 at 09:30; Stop at 09:29; Status DC Hydromorphone HCl (Dilaudid) 0.5 mg PRN Q10MIN PRN IV SEV PAIN,Second choice Last administered on 09/04/16 18:07; Start 09/04/16 at 09:30; Stop 09/05/16 at 09: 29; Status DC Prochlorperazine Edisylate 5 mg 5 mg PACU PRN PRN IV NAUSEA; Start 09/04/16 at 09:30; Stop 09/05/16 at 09:29; Status DC Cefazolin Sodium/ Dextrose (Ancef 2gm Premix) 50 ml @ As Directed STK-MED ONCE IV ; Start 09/04/16 at 13:12; Stop 09/04/16 at 13:13; Status DC Desflurane (Suprane) 60 ml STK-MED ONCE IH ; Start 09/04/16 at 13:42; Stop at 13:43; Status DC Fentanyl Citrate 100 mcg 100 mcg STK-MED ONCE .ROUTE ; Start 09/04/16 at 13:43; Stop 09/04/16 at 13:44; Status DC Propofol (Diprivan) 20 ml @ As Directed STK-MED ONCE IV ; Start 09/04/16 at 13:43 ; Stop 09/04/16 at 13:44; Status DC Lidocaine HCl 100 mg STK-MED ONCE .ROUTE ; Start 09/04/16 at 13:43; Stop 09/04/16 at 13:44; Status DC Dexamethasone Sodium Phosphate (Decadron) 20 mg STK-MED ONCE .ROUTE ; Start 09/04 at 13:43; Stop 09/04/16 at 13:44; Status DC Ondansetron HCl (Zofran) 4 mg STK-MED ONCE .ROUTE ; Start 09/04/16 at 13:43; Stop 09/04/16 at 13:44; Status DC Glipizide 5 mg 5 mg DAILYWBKFT PO Last administered on 09/15/16 08:14; Start 09/05/16 at 08:00 Vancomycin HCl 1.25 gm/Sodium Chloride 250 ml @ 167 mls/hr Q12H IV Last administered on 09/07/16 22:12; Start 09/04/16 at 20:00; Stop 09/07/16 at 23:36 ; Status DC Propofol (Diprivan) 20 ml @ As Directed STK-MED ONCE IV ; Start 09/04/16 at 14:38 ; Stop 09/04/16 at 14:39; Status DC Albuterol Sulfate 2.5 mg 2.5 mg STK-MED ONCE .ROUTE ; Start 09/04/16 at 14:59; Stop 09/04/16 at 15:00; Status DC Tranexamic Acid/ Sodium Chloride (Cyklokapron/Iv Sodium Chloride 0.9% 50ml) 60 ml @ 60 mls/hr 1X PERIOP ONCE INJ Last administered on 09/04/16 15:12; Start 09/04/16 at 15:12; Stop 09/04/16 at 16:11; Status DC Fentanyl Citrate (Fentanyl 2ml Vial) 100 mcg STK-MED ONCE .ROUTE ; Start at 15:27; Stop 09/04/16 at 15:28; Status DC Acetaminophen/ Hydrocodone Bitart (Lortab 7.5/325) 1 tab PRN Q3HRS PRN PO PAIN Last administered on 09/08/16 06:13; Start 09/04/16 at 16:30 Acetaminophen/ Hydrocodone Bitart (Lortab 10/325) 1 tab PRN Q3HRS PRN PO PAIN Last administered on 09/15/16 10:27; Start 09/04/16 at 16:30 Tramadol HCl (Ultram) 50 mg PRN QID PRN PO PAIN; Start 09/04/16 at 16:30; Stop 09/05/16 at 13:32; Status DC Oxycodone/ Acetaminophen (Percocet 5/325) 1 tab PRN Q3HRS PRN PO PAIN; Start at 16:30 Oxycodone/ Acetaminophen (Percocet 7.5/ 325) 1 tab PRN Q3HRS PRN PO PAIN Last administered on 09/14/16 16:34; Start 09/04/16 at 16:30 Tramadol HCl (Ultram) 100 mg PRN Q3HRS PRN PO PAIN; Start 09/04/16 at 16:30; Stop 09/05/16 at 13:32; Status DC Diphenhydramine HCl (Benadryl) 25 mg PRN Q6HRS PRN IV ITCHING; Start 09/04/16 at 16:30 Senna/Docusate Sodium (Senna Plus) 1 tab DAILY PO Last administered on 08:45; Start 09/05/16 at 09:00 Prochlorperazine Maleate (Compazine) 10 mg PRN Q4HRS PRN PO NAUSEA/VOMITING; Start 09/04/16 at 16:30 Metoclopramide HCl (Reglan) 10 mg PRN Q4HRS PRN IV NAUSEA/VOMITING; Start at 16:30 Magnesium Hydroxide (Milk Of Magnesia) 2,400 mg 1X PRN PRN PO CONSTIPATION; Start 09/05/16 at 06:00; Stop 09/06/16 at 05:59; Status DC Bisacodyl (Dulcolax Supp) 10 mg 1X PRN PRN SD CONSTIPATION; Start 09/05/16 at 16 :00; Stop 09/06/16 at 15:59; Status DC Acetaminophen (Tylenol) 650 mg PRN Q4HRS PRN PO MILD PAIN / TEMP; Start at 16:30 Zolpidem Tartrate (Ambien) 5 mg PRN QHS PRN PO INSOMNIA, MAY REPEAT IN 1HR Last administered on 09/14/16 21:21; Start 09/04/16 at 16:30 Calcium Carbonate/ Glycine (Tums) 500 mg PRN QID PRN PO INDIGESTION Last administered on 09/07/16 09:10; Start 09/04/16 at 16:30 Morphine Sulfate 4 mg PRN Q1HR PRN IV PAIN Last administered on 09/08/16 20:38 ; Start 09/04/16 at 16:30; Stop 09/10/16 at 11:20; Status DC Sodium Chloride (Normal Saline Flush) 10 ml QSHIFT PRN IV AFTER MEDS AND BLOOD DRAWS; Start 09/04/16 at 16:30; Status Cancel Prochlorperazine Edisylate (Compazine) 10 mg PRN Q4HRS PRN IV NAUSEA/VOMITING; Start 09/04/16 at 16:30 Dextrose 12.5 gm PRN Q15MIN PRN IV SEE COMMENTS Last administered on 09/12/16 19:36; Start 09/04/16 at 16:30 Insulin Aspart (Novolog) 0-7 UNITS QIDACHS SQ Last administered on 09/15/16 08 :32; Start 09/05/16 at 07:30 Insulin Aspart (Novolog) 12 units 1X ONCE SQ Last administered on 09/04/16 21: 43; Start 09/04/16 at 21:30; Stop 09/04/16 at 21:31; Status DC Polysaccharide Iron Complex (Niferex 150) 150 mg DAILY PO Last administered on 09/15/16 10:27; Start 09/05/16 at 09:00 Polyethylene Glycol (miraLAX PACKET) 17 gm 1X ONCE PO Last administered on 09/05 15:42; Start 09/05/16 at 14:00; Stop 09/05/16 at 14:01; Status DC Polyethylene Glycol (miraLAX PACKET) 17 gm DAILY PO Last administered on 08:39; Start 09/06/16 at 09:00; Stop 09/06/16 at 15:51; Status DC Docusate Sodium (Colace) 100 mg DAILY PO Last administered on 09/14/16 08:47; Start 09/05/16 at 14:00 Magnesium Hydroxide (Milk Of Magnesia) 2,400 mg 1X ONCE PO Last administered on 09/05/16 15:41; Start 09/05/16 at 13:45; Stop 09/05/16 at 13:46; Status DC Morphine Sulfate (Ms Contin) 15 mg BID PO Last administered on 09/15/16 08:15 ; Start 09/05/16 at 13:45 Citalopram Hydrobromide (Celexa) 20 mg DAILY PO Last administered on 09/15/16 08:12; Start 09/06/16 at 09:00 Polyethylene Glycol (miraLAX PACKET) 17 gm BID PO Last administered on 08:30; Start 09/06/16 at 21:00 Sodium Biphosphate/ Sodium Phosphate (Fleet Adult) 133 ml 1X ONCE SD ; Start at 16:00; Stop 09/06/16 at 16:04; Status DC Sodium Biphosphate/ Sodium Phosphate (Fleet Adult) 133 ml PRN DAILY PRN SD CONSTIPATION; Start 09/07/16 at 09:00 Polyethylene Glycol (miraLAX PACKET) 17 gm 1X ONCE PO Last administered on 17:45; Start 09/06/16 at 16:00; Stop 09/06/16 at 16:04; Status DC Sodium Biphosphate/ Sodium Phosphate (Fleet Adult) 133 ml PRN 1X PRN SD CONSTIPATION; Start 09/06/16 at 23:30; Stop 09/11/16 at 12:39; Status DC Vancomycin HCl 1 each 1X ONCE MC ; Start 09/07/16 at 19:30; Stop 09/07/16 at 19 :31; Status DC Alteplase, Recombinant 2 mg 2 mg 1X ONCE INT CAT Last administered on 15:09; Start 09/07/16 at 14:30; Stop 09/07/16 at 14:31; Status DC Daptomycin/Sodium Chloride (Cubicin/Iv Sodium Chloride 0.9% 50ml) 50 ml @ 100 mls/hr Q24H IV Last administered on 09/14/16 16:33; Start 09/08/16 at 16:00 Ondansetron HCl (Zofran) 4 mg PRN Q6HRS PRN IV Nausea; Start 09/10/16 at 07:00 ; Stop 09/10/16 at 23:00; Status DC Fentanyl Citrate (Fentanyl 2ml Vial) 25 mcg PRN Q5MIN PRN IV MILD PAIN; Start 09/10/16 at 07:00; Stop 09/10/16 at 23:00; Status DC Fentanyl Citrate (Fentanyl 2ml Vial) 50 mcg PRN Q5MIN PRN IV MODERATE PAIN Last administered on 09/10/16 11:53; Start 09/10/16 at 07:00; Stop 09/10/16 at 23:00; Status DC Morphine Sulfate 1 mg 1 mg PRN Q10MIN PRN IV SEVERE PAIN; Start 09/10/16 at 07: 00; Stop 09/10/16 at 23:00; Status DC Lactated Ringer's (Iv Lactated Ringers) 1,000 ml @ 30 mls/hr Q24H IV Last administered on 09/10/16 07:38; Start 09/10/16 at 07:00; Stop 09/10/16 at 18:59 ; Status DC Lidocaine HCl 2 ml 1X PRN PRN ID IV START; Start 09/10/16 at 07:00; Stop at 23:00; Status DC Hydromorphone HCl (Dilaudid) 0.5 mg PRN Q10MIN PRN IV SEVERE PAIN, Second choice Last administered on 09/10/16 12:20; Start 09/10/16 at 07:00; Stop 09/10 at 23:00; Status DC Prochlorperazine Edisylate (Compazine) 5 mg PACU PRN PRN IV NAUSEA; Start 09/10 at 07:00; Stop 09/10/16 at 23:00; Status DC Lidocaine HCl 100 mg STK-MED ONCE .ROUTE ; Start 09/10/16 at 07:06; Stop at 07:07; Status DC Dexamethasone Sodium Phosphate 20 mg 20 mg STK-MED ONCE .ROUTE ; Start 09/10/16 at 07:06; Stop 09/10/16 at 07:07; Status DC Propofol (Diprivan) 20 ml @ As Directed STK-MED ONCE IV ; Start 09/10/16 at 07: 06; Stop 09/10/16 at 07:07; Status DC Lidocaine HCl 100 mg STK-MED ONCE .ROUTE ; Start 09/10/16 at 07:06; Stop at 07:07; Status DC Famotidine (Pepcid) 20 mg STK-MED ONCE .ROUTE ; Start 09/10/16 at 07:06; Stop at 07:07; Status DC Fentanyl Citrate (Fentanyl 2ml Vial) 100 mcg STK-MED ONCE .ROUTE ; Start at 07:06; Stop 09/10/16 at 07:07; Status DC Rocuronium [place] 50 mg 50 mg STK-MED ONCE .ROUTE ; Start 09/10/16 at 07:06; Stop 09/10/16 at 07:07; Status DC Cefazolin Sodium/ Dextrose 50 ml @ As Directed STK-MED ONCE IV ; Start 09/10/16 at 07:24; Stop 09/10/16 at 07:25; Status DC Tranexamic Acid 1000 mg/Sodium Chloride 60 ml @ 60 mls/hr 1X PERIOP ONCE INJ Last administered on 09/10/16 08:17; Start 09/10/16 at 08:00; Stop 09/10/16 at 08:59; Status DC Tranexamic Acid/ Sodium Chloride (Cyklokapron/Iv Sodium Chloride 0.9% 50ml) 60 ml @ 60 mls/hr 1X PERIOP ONCE INJ Last administered on 09/10/16 09:31; Start 09/10/16 at 08:00; Stop 09/10/16 at 08:59; Status DC Vancomycin HCl (Vanco) 10 gm 1X ONCE CEMENT Last administered on 09/10/16 08: 33; Start 09/10/16 at 08:00; Stop 09/10/16 at 08:01; Status Cancel Tobramycin Sulfate 7.2 gm 7.2 gm 1X ONCE TP ; Start 09/10/16 at 07:45; Stop at 07:46; Status Cancel Cefazolin Sodium/ Dextrose (Ancef 2gm Premix) 50 ml @ 100 mls/hr 1X ONCE IV Last administered on 09/10/16 08:09; Start 09/10/16 at 08:00; Stop 09/10/16 at 08:29; Status DC Tobramycin Sulfate 1.2 gm STK-MED ONCE .ROUTE Last administered on 09/10/16 08 :33; Start 09/10/16 at 08:01; Stop 09/10/16 at 08:02; Status DC Vancomycin HCl (Vanco) 10 gm STK-MED ONCE .ROUTE ; Start 09/10/16 at 08:01; Stop 09/10/16 at 08:02; Status DC Tobramycin Sulfate 1.2 gm STK-MED ONCE .ROUTE Last administered on 09/10/16 08 :33; Start 09/10/16 at 08:01; Stop 09/10/16 at 08:02; Status DC Tobramycin Sulfate 1.2 gm STK-MED ONCE .ROUTE Last administered on 09/10/16 08 :33; Start 09/10/16 at 08:02; Stop 09/10/16 at 08:03; Status DC Tobramycin Sulfate 1.2 gm STK-MED ONCE .ROUTE Last administered on 09/10/16 08 :33; Start 09/10/16 at 08:02; Stop 09/10/16 at 08:03; Status DC Tobramycin Sulfate 1.2 gm STK-MED ONCE .ROUTE Last administered on 09/10/16 08 :33; Start 09/10/16 at 08:02; Stop 09/10/16 at 08:03; Status DC Tobramycin Sulfate 1.2 gm STK-MED ONCE .ROUTE Last administered on 09/10/16 08 :33; Start 09/10/16 at 08:02; Stop 09/10/16 at 08:03; Status DC Fentanyl Citrate (Fentanyl 2ml Vial) 100 mcg STK-MED ONCE .ROUTE ; Start at 08:35; Stop 09/10/16 at 08:36; Status DC Ephedrine Sulfate 50 mg STK-MED ONCE IV ; Start 09/10/16 at 08:53; Stop at 08:54; Status DC Fentanyl Citrate (Fentanyl 2ml Vial) 100 mcg STK-MED ONCE .ROUTE ; Start at 08:55; Stop 09/10/16 at 08:56; Status DC Labetalol HCl (Normodyne) 20 mg STK-MED ONCE .ROUTE ; Start 09/10/16 at 09:07; Stop 09/10/16 at 09:08; Status DC Glycopyrrolate (Robinul) 1 mg STK-MED ONCE .ROUTE ; Start 09/10/16 at 09:34; Stop 09/10/16 at 09:35; Status DC Neostigmine Methylsulfate 5 mg STK-MED ONCE .ROUTE ; Start 09/10/16 at 09:34; Stop 09/10/16 at 09:35; Status DC Sevoflurane (Ultane) 90 ml STK-MED ONCE IH ; Start 09/10/16 at 10:05; Stop 09/10 at 10:06; Status DC Acetaminophen/ Hydrocodone Bitart (Lortab 7.5/325) 1 tab PRN Q3HRS PRN PO PAIN ; Start 09/10/16 at 11:15; Stop 09/10/16 at 14:20; Status DC Acetaminophen/ Hydrocodone Bitart (Lortab 10/325) 1 tab PRN Q3HRS PRN PO PAIN; Start 09/10/16 at 11:15; Stop 09/10/16 at 14:20; Status DC Tramadol HCl (Ultram) 50 mg PRN QID PRN PO PAIN Last administered on 09/14/16t 16:34; Start 09/10/16 at 11:15 Oxycodone/ Acetaminophen (Percocet 5/325) 1 tab PRN Q3HRS PRN PO PAIN; Start at 11:15; Stop 09/11/16 at 12:38; Status DC Oxycodone/ Acetaminophen (Percocet 7.5/ 325) 1 tab PRN Q3HRS PRN PO PAIN; Start 09/10/16 at 11:15; Stop 09/11/16 at 12:38; Status DC Tramadol HCl (Ultram) 100 mg PRN Q3HRS PRN PO PAIN; Start 09/10/16 at 11:15 Morphine Sulfate 2 mg PRN Q1HR PRN IV PAIN Last administered on 09/11/16 21:17 ; Start 09/10/16 at 11:15 Fentanyl Citrate (Fentanyl 2ml Vial) 25 mcg PRN Q1HR PRN IV PAIN; Start at 11:15 Diphenhydramine HCl (Benadryl) 25 mg PRN Q6HRS PRN IV ITCHING; Start 09/10/16 at 11:15; Status Cancel Multivitamins/ Calcium (Thera M Plus) 1 tab DAILY PO ; Start 09/11/16 at 09:00; Stop 09/11/16 at 09:00; Status DC Senna/Docusate Sodium 1 tab 1 tab DAILY PO ; Start 09/11/16 at 09:00; Stop 09/11 at 09:00; Status DC Dextrose/Sodium Chloride (Iv D5% - 1/2 NS) 1,000 ml @ 100 mls/hr Q10H IV Last administered on 09/11/16 21:19; Start 09/10/16 at 12:00; Stop 09/12/16 at 16:52 ; Status DC Prochlorperazine Maleate (Compazine) 10 mg PRN Q4HRS PRN PO NAUSEA/VOMITING; Start 09/10/16 at 11:15; Stop 09/10/16 at 11:20; Status DC Metoclopramide HCl (Reglan) 10 mg PRN Q4HRS PRN IV NAUSEA/VOMITING; Start 09/10 at 11:15; Stop 09/10/16 at 11:21; Status DC Magnesium Hydroxide (Milk Of Magnesia) 2,400 mg 1X PRN PRN PO CONSTIPATION; Start 09/11/16 at 06:00; Stop 09/12/16 at 05:59; Status DC Bisacodyl (Dulcolax Supp) 10 mg 1X PRN PRN SD CONSTIPATION; Start 09/11/16 at 16:00; Stop 09/12/16 at 15:59; Status DC Acetaminophen (Tylenol) 650 mg PRN Q4HRS PRN PO MILD PAIN / TEMP; Start at 11:15; Stop 09/10/16 at 11:21; Status DC Zolpidem Tartrate (Ambien) 5 mg PRN QHS PRN PO INSOMNIA, MAY REPEAT IN 1HR; Start 09/10/16 at 11:15; Stop 09/10/16 at 11:21; Status DC Calcium Carbonate/ Glycine (Tums) 500 mg PRN QID PRN PO INDIGESTION; Start at 11:15; Stop 09/10/16 at 11:21; Status DC Morphine Sulfate 4 mg PRN Q1HR PRN IV PAIN Last administered on 09/10/16 14:57 ; Start 09/10/16 at 11:15 Morphine Sulfate 6 mg PRN Q1HR PRN IV PAIN Last administered on 09/10/16 18:38 ; Start 09/10/16 at 11:15 Morphine Sulfate 8 mg PRN Q1HR PRN IV PAIN; Start 09/10/16 at 11:15 Sodium Chloride (Normal Saline Flush) 10 ml QSHIFT PRN IV AFTER MEDS AND BLOOD DRAWS; Start 09/10/16 at 11:15 Fentanyl Citrate (Fentanyl 2ml Vial) 50 mcg PRN Q1HR PRN IV PAIN; Start at 11:15 Prochlorperazine Edisylate (Compazine) 10 mg PRN Q4HRS PRN IV NAUSEA/VOMITING; Start 09/10/16 at 11:15; Stop 09/10/16 at 11:21; Status DC Dextrose 12.5 gm 12.5 gm PRN Q15MIN PRN IV SEE COMMENTS; Start 09/10/16 at 11: 15; Stop 09/10/16 at 11:21; Status DC Cefazolin Sodium/ Dextrose (Ancef 2gm Premix) 50 ml @ 100 mls/hr Q6H IV ; Start 09/10/16 at 11:15; Stop 09/10/16 at 11:15; Status DC Potassium Chloride 40 meq 40 meq 1X ONCE PO Last administered on 09/10/16 14: 59; Start 09/10/16 at 12:15; Stop 09/10/16 at 12:16; Status DC Ertapenem/Sodium Chloride (Invanz/Iv Sodium Chloride 0.9% 50ml) 50 ml @ 100 mls /hr Q24H IV Last administered on 09/15/16 10:56; Start 09/11/16 at 10:00 Heparin Sodium (Porcine) 5,000 unit Q8HRS SQ Last administered on 09/15/16 05: 36; Start 09/11/16 at 14:00 Amlodipine Besylate (Norvasc) 5 mg DAILY PO Last administered on 09/15/16 08: 13; Start 09/12/16 at 11:15 Alprazolam (Xanax) 0.25 mg PRN Q8HRS PRN PO ANXIETY / AGITATION; Start at 12:00 Active Scripts Active Aspirin Ec (Aspirin) 325 Mg Tablet.dr 325 Mg PO BID 30 Days Reported Percocet 5-325 Mg Tablet (Oxycodone/Acetaminophen) 1 Each Tablet 1-2 Tab PO Q4- 6HRS LAST DOSE GIVEN: DATE: 08/02/16 TIME: 2:00 NEXT DOSE DUE: DATE: 08/02/16 TIME: 6:00pm as needed for pain Percocet 5-325 Mg Tablet (Oxycodone/Acetaminophen) 1 Each Tablet 1-2 Tab PO Q4- 6HRS Calcium 600 + Vit D 200 Tablet (Calcium Carbonate/Vitamin D3) 1 Each Tablet 1 Each PO BID Hair, Skin & Nails (Multivitamin With Minerals) 1 Each Tablet 1 Each PO DAILY Carvedilol 12.5 Mg Tablet 12.5 Mg PO BIDWMEALS Lovastatin 40 Mg Tablet 40 Mg PO HS Metformin Hcl 1,000 Mg Tablet 1 Tab PO BID Hydrochlorothiazide Tablet (Hydrochlorothiazide) 12.5 Mg Tablet 25 Mg PO DAILY Novolin N (Nph, Human Insulin Isophane) 100 Unit/1 Ml Vial 20 Unit SQ [id number] Novolin N (Nph, Human Insulin Isophane) 100 Unit/1 Ml Vial 40 Unit SQ [id number] Glipizide 5 Mg Tablet 5 Mg PO DAILY Lisinopril 40 Mg Tablet 40 Mg PO DAILY Citalopram Hbr (Citalopram Hydrobromide) 40 Mg Tablet 40 Mg PO DAILY Vitals/I & O Vital Sign - Last 24 Hours 09/14/16 09/14/16 09/14/16 09/14/16 15:00 16:35 19:10 20:00 Temp 97.5 97.4 97.5 97.4 Pulse 94 88 84 Resp 18 18 B/P 166/72 152/69 156/73 Pulse Ox 94 94 O2 Delivery Room Air Room Air Room Air 09/14/16 09/14/16 09/14/16 2/19/17 21:21 21:22 23:15 00:14 Temp 98.6 98.6 Pulse 85 Resp 18 20 B/P 144/63 Pulse Ox 94 94 98 98 O2 Delivery Room Air Room Air Room Air Room Air 09/15/16 09/15/16 09/15/16 09/15/16 01:21 03:15 05:26 06:26 Temp 98.5 98.5 Pulse 84 Resp 20 20 B/P 119/57 Pulse Ox 93 93 O2 Delivery Room Air Room Air 09/15/16 09/15/16 09/15/16 09/15/16 07:00 08:00 08:13 08:14 Temp 97.9 97.9 Pulse 87 87 87 Resp 18 B/P 152/69 152/69 152/69 Pulse Ox 96 O2 Delivery Room Air Room Air 09/15/16 09/15/16 09/15/16 09/15/16 08:14 08:15 10:27 11:00 Temp 98.4 98.4 Pulse 87 83 Resp 18 B/P 152/69 154/64 Pulse Ox 96 96 94 O2 Delivery Room Air Room Air Room Air O2 Flow Rate 2.0 2.0 09/15/16 11:31 Pulse Ox 94 O2 Delivery Room Air O2 Flow Rate 2.0 MADIHA HAQUE MD Sep 15, 2016 12:15
[2016-09-15 15:00] VITALS: BP 159/72
[2016-09-15] MEDS: NORMAL SALINE IV SCH (17:05)
[2016-09-15] MEDS: DAPTOMYCIN IV SCH (17:05)
[2016-09-15 19:30] VITALS: BP 147/56
[2016-09-15] MEDS: ATORVASTATIN CALCIUM 10 MG TABLET. PO SCH (21:46)
[2016-09-15] MEDS: ZOLPIDEM 5 MG TABLET. PO PRN (21:46)
[2016-09-15] MEDS: ALPRAZOLAM 0.25 MG TABLET PO PRN (21:46)
[2016-09-15 23:08] VITALS: BP 144/55
[2016-09-16] MEDS: HYDROCODONE/APAP 10/325 TABLET. PO PRN (00:31)
[2016-09-16 03:00] VITALS: BP 160/70
[2016-09-16 06:30] LABS: CALCIUM 8.8 mg/dL (8.5-10.1); CREATININE 1.3 mg/dL (0.6-1.0); GFR 49.1; POTASSIUM 3.8 mmol/L (3.5-5.1)
[2016-09-16 07:00] VITALS: BP 166/70
[2016-09-16] MEDS: LISINOPRIL 40 MG TABLET. PO SCH (07:54)
[2016-09-16] MEDS: MORPHINE ER 15 MG TABLET.ER PO SCH ×2 (07:54→22:09)
[2016-09-16] MEDS: ASPIRIN ENTERIC COATED 325 MG TABLET.DR. PO SCH ×2 (07:54→22:08)
[2016-09-16] MEDS: MULTIVITAMIN with MINERAL TABLET. PO SCH (07:55)
[2016-09-16] MEDS: GLIPIZIDE 5 MG TABLET PO SCH ×2 (07:55→18:29)
[2016-09-16] MEDS: HYDROCHLOROTHIAZIDE 25 MG TABLET PO SCH (07:55)
[2016-09-16] MEDS: CARVEDILOL 12.5 MG TABLET PO SCH ×2 (07:55→16:48)
[2016-09-16] MEDS: IRON POLYSACCHARIDE COMPLEX 150 MG CAPSULE PO SCH (07:55)
[2016-09-16] MEDS: CITALOPRAM 20 MG TABLET. PO SCH (07:56)
[2016-09-16] MEDS: AMLODIPINE BESYLATE 5 MG TABLET PO SCH (07:56)
[2016-09-16] MEDS: CALCIUM CARB/VIT D3 500/200 TABLET PO SCH ×2 (07:56→16:47)
[2016-09-16] MEDS: HEPARIN PF for SUB-Q USE 5,000 UNIT/0.5 ML VIAL. SQ SCH ×3 (08:23→22:16)
[2016-09-16] MEDS: INSULIN ASPART 300 UNITS/3 ML INSULN.PEN SQ SCH ×4 (08:24→22:15)
[2016-09-16] MEDS: POLYETHYLENE GLYCOL 3350 17 GM PACKET. PO SCH ×2 (09:00→21:00)
[2016-09-16] MEDS: DOCUSATE SODIUM 100 MG CAPSULE PO SCH (09:00)
[2016-09-16] MEDS: SENNOSIDES/DOCUSATE 8.6/50MG TABLET. PO SCH (09:00)
[2016-09-16] MEDS: ALPRAZOLAM 0.25 MG TABLET PO PRN (10:05)
[2016-09-16] MEDS: OXYCODONE/APAP 7.5/325 TABLET. PO PRN ×3 (10:05→16:45)
[2016-09-16] MEDS: ERTAPENEM 1 GM in IV NORMAL SALINE 50ML 50 ML IV SCH (10:08)
[2016-09-16 11:00] VITALS: BP 151/64
--- NOTE | 2016-09-16 11:48 | PDOC ---
PROGRESS NOTES Chief Complaint Chief Complaint Infected knee prosthesis, R ASSESSMENT AND PLAN: 1. 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 Group B/MRSA/Morganella isolated. on Ertapenem/daptomycin. D/w Dr Singh: mcc IV Abx 2. Pain control: on IV/PO meds. try to transition to PO completely, but still needs IV for dressing changes/PT 3. Anemia: iron/TIBC c/w inflammation. ferritin lowish, c/w component of iron def as well. replete low dose iron. s/p PRBC x1 postsurgically. monitor closely 4. DM: oral and insulin home regimen plus ISS with good control 5. CKD3: stable creat and lytes. monitor periodically 6. HTN: sl improved post addition of norvasc. monitor, may need dose adjustment 7. Prophylaxis: heparin 8. Dispo: awaiting rehab/LTAC bed. 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, 10 when trying to ambulate poor PO intake, "not hungry" Vitals Vitals Vital Signs Date Time Temp Pulse Resp B/P Pulse Ox O2 Delivery O2 Flow Rate FiO2 09/16/16 10:05 98 Room Air 2.0 09/16/16 07:56 83 160/70 09/16/16 07:00 97.7 16 97.7 Physical Exam General: Alert, Oriented X3, Cooperative, No acute distress Heart: Regular rate, No murmurs Lungs: Clear, Wheezing Abdomen: Normal bowel sounds, No tenderness Extremities: No clubbing, No cyanosis, Other (R knee in ALEXANDRO wrap and splint) Skin: No rashes Labs LABS Laboratory Tests Test 09/15/16 16:29 09/15/16 21:17 09/16/16 06:00 09/16/16 07:58 Glucose (Fingerstick) 190mg/dL (70-99) 211mg/dL (70-99) 243mg/dL (70-99) Sodium Level 143mmol/L (136-145) Potassium Level 3.8mmol/L (3.5-5.1) Chloride Level 105mmol/L (98-107) Carbon Dioxide Level 31mmol/L (21-32) Anion Gap 7 (6-14) Blood Urea Nitrogen 12mg/dL (7-20) Creatinine 1.3mg/dL (0.6-1.0) Estimated GFR (Cockcroft-Gault) 49.1 Glucose Level 239mg/dL (70-99) Calcium Level 8.8mg/dL (8.5-10.1) Test 09/16/16 11:24 Glucose (Fingerstick) 281mg/dL (70-99) Assessment and Plan Assessmemt and Plan Problems Medical Problems: (1) Infection of right knee Status: Acute (2) Infection of total right knee replacement Status: Acute (3) Right knee pain Status: Acute (4) Swelling of knee joint, right Status: Acute Problems: Comment Review of Relevant I have reviewed the following items deng (where applicable) has been applied. Labs Laboratory Tests Test 09/14/16 12:15 09/14/16 16:17 09/14/16 20:49 09/15/16 05:30 Glucose (Fingerstick) 174mg/dL (70-99) 170mg/dL (70-99) 249mg/dL (70-99) Sodium Level 140mmol/L (136-145) Potassium Level 3.8mmol/L (3.5-5.1) Chloride Level 103mmol/L (98-107) Carbon Dioxide Level 31mmol/L (21-32) Anion Gap 6 (6-14) Blood Urea Nitrogen 12mg/dL (7-20) Creatinine 1.3mg/dL (0.6-1.0) Estimated GFR (Cockcroft-Gault) 49.1 Glucose Level 185mg/dL (70-99) Calcium Level 9.0mg/dL (8.5-10.1) Test 09/15/16 07:19 09/15/16 10:59 09/15/16 16:29 09/15/16 21:17 Glucose (Fingerstick) 183mg/dL (70-99) 256mg/dL (70-99) 190mg/dL (70-99) 211mg/dL (70-99) Test 09/16/16 06:00 09/16/16 07:58 09/16/16 11:24 Sodium Level 143mmol/L (136-145) Potassium Level 3.8mmol/L (3.5-5.1) Chloride Level 105mmol/L (98-107) Carbon Dioxide Level 31mmol/L (21-32) Anion Gap 7 (6-14) Blood Urea Nitrogen 12mg/dL (7-20) Creatinine 1.3mg/dL (0.6-1.0) Estimated GFR (Cockcroft-Gault) 49.1 Glucose Level 239mg/dL (70-99) Calcium Level 8.8mg/dL (8.5-10.1) Glucose (Fingerstick) 243mg/dL (70-99) 281mg/dL (70-99) Laboratory Tests Test 09/15/16 16:29 09/15/16 21:17 09/16/16 06:00 09/16/16 07:58 Glucose (Fingerstick) 190mg/dL (70-99) 211mg/dL (70-99) 243mg/dL (70-99) Sodium Level 143mmol/L (136-145) Potassium Level 3.8mmol/L (3.5-5.1) Chloride Level 105mmol/L (98-107) Carbon Dioxide Level 31mmol/L (21-32) Anion Gap 7 (6-14) Blood Urea Nitrogen 12mg/dL (7-20) Creatinine 1.3mg/dL (0.6-1.0) Estimated GFR (Cockcroft-Gault) 49.1 Glucose Level 239mg/dL (70-99) Calcium Level 8.8mg/dL (8.5-10.1) Test 09/16/16 11:24 Glucose (Fingerstick) 281mg/dL (70-99) Microbiology 09/02/16 Blood Culture - Final, Complete NO GROWTH AFTER 5 DAYS 09/03/16 Gram Stain - Final, Complete 09/10/16 Gram Stain - Final, Complete Medications Current Medications Ondansetron HCl (Zofran) 4 mg PRN Q8HRS PRN IV NAUSEA/VOMITING; Start 09/02/16 at 15:15; Stop 09/03/16 at 15:14; Status DC Morphine Sulfate 2 mg PRN Q2HR PRN IV PAIN Last administered on 09/03/16 11:10 ; Start 09/02/16 at 15:15; Stop 09/03/16 at 15:14; Status DC Vancomycin HCl (Vanco Per Pharmacy) 1 each PRN DAILY PRN MC SEE COMMENTS Last administered on 09/07/16 11:48; Start 09/02/16 at 17:30; Stop 09/07/16 at 23:39 ; Status DC Piperacillin Sod/ Tazobactam Sod 1 each 1 each PRN DAILY PRN MC SEE COMMENTS; Start 09/02/16 at 17:30; Stop 09/04/16 at 13:59; Status DC Piperacillin Sod/ Tazobactam Sod 3.375 gm/Sodium Chloride 50 ml @ 100 mls/hr Q6HRS IV Last administered on 09/11/16 06:03; Start 09/02/16 at 18:00; Stop at 09:08; Status DC Vancomycin HCl 2 gm/Sodium Chloride 500 ml @ 250 mls/hr 1X ONCE IV Last administered on 09/02/16 20:53; Start 09/02/16 at 20:00; Stop 09/02/16 at 21:59; Status DC Vancomycin HCl/ Sodium Chloride (Iv Sodium Chloride 0.9% 500ml Bag) 500 ml @ 250 mls/hr Q12H IV Last administered on 09/04/16 09:18; Start 09/03/16 at 08:00 ; Stop 09/04/16 at 14:06; Status DC Vancomycin HCl 1 each 1X ONCE MC Last administered on 09/03/16 07:30; Start at 07:30; Stop 09/03/16 at 07:31; Status DC Aspirin (Ecotrin) 325 mg BID PO Last administered on 09/16/16 07:54; Start 09/03/16 at 21:00 Carvedilol (Coreg) 12.5 mg BIDWMEALS PO Last administered on 09/16/16 07:55; Start 09/03/16 at 17:00 Glipizide (Glucotrol) 5 mg DAILY PO Last administered on 09/03/16 13:10; Start 09/03/16 at 12:30; Stop 09/04/16 at 14:00; Status DC Lisinopril (Prinivil) 40 mg DAILY PO Last administered on 09/16/16 07:54; Start 09/03/16 at 12:30 Metformin HCl (Glucophage) 1,000 mg BIDWMEALS PO Last administered on 16:54; Start 09/03/16 at 17:00; Stop 09/12/16 at 19:50; Status DC Insulin Detemir (Levemir) 20 units DAILYWSUP SQ Last administered on 09/11/16 17:31; Start 09/03/16 at 17:00; Stop 09/12/16 at 19:50; Status DC Insulin Detemir (Levemir) 40 units DAILYWBKFT SQ Last administered on 08:37; Start 09/04/16 at 08:00; Stop 09/12/16 at 19:50; Status DC Oxycodone/ Acetaminophen (Percocet 5/325) 1 tab PRN Q6HRS PRN PO pain Last administered on 09/04/16 11:56; Start 09/03/16 at 12:00; Stop 09/05/16 at 11:41; Status DC Calcium/Vitamin D (Oscal D 500mg/ 200uts) 1 tab BIDWMEALS PO Last administered on 09/16/16 07:56; Start 09/03/16 at 17:00 Citalopram Hydrobromide (Celexa) 40 mg DAILY PO Last administered on 09/05/16 08:28; Start 09/04/16 at 09:00; Stop 09/05/16 at 13:44; Status DC Hydrochlorothiazide (Hydrodiuril) 25 mg DAILY PO Last administered on 07:55; Start 09/03/16 at 12:30 Atorvastatin Calcium (Lipitor) 10 mg QHS PO Last administered on 09/15/16 21: 46; Start 09/03/16 at 21:00 Multivitamins/ Calcium (Thera M Plus) 1 tab DAILY PO Last administered on 07:55; Start 09/03/16 at 12:30 Insulin Aspart (Novolog) 0-7 UNITS TIDWMEALS SQ Last administered on 09/03/16 17:14; Start 09/03/16 at 13:00; Stop 09/04/16 at 21:21; Status DC Dextrose 12.5 gm PRN Q15MIN PRN IV SEE COMMENTS; Start 09/03/16 at 12:15; Stop 09/05/16 at 13:32; Status DC Insulin Aspart (Novolog) 10 units TIDAC SQ Last administered on 09/09/16 12:15 ; Start 09/03/16 at 16:30; Stop 09/09/16 at 16:11; Status DC Polyethylene Glycol (miraLAX PACKET) 17 gm PRN DAILY PRN PO CONSTIPATION; Start 09/03/16 at 13:00 Polyethylene Glycol (miraLAX PACKET) 17 gm 1X ONCE PO Last administered on 09/03 13:18; Start 09/03/16 at 13:00; Stop 09/03/16 at 13:12; Status DC Docusate Sodium (Colace) 100 mg PRN DAILY PRN PO CONSTIPATION; Start 09/03/16 at 13:00; Stop 09/05/16 at 13:31; Status DC Lidocaine/Sodium Bicarbonate 20 ml 20 ml 1X ONCE IJ ; Start 09/03/16 at 15:15; Stop 09/03/16 at 15:16; Status DC Cefazolin Sodium/ Dextrose 50 ml @ 100 mls/hr 1X PREOP IV ; Start 09/06/16 at 06:00; Stop 09/06/16 at 06:00; Status DC Cefazolin Sodium/ Dextrose (Ancef 2gm Premix) 50 ml @ 100 mls/hr 1X PREOP ONCE IV Last administered on 09/04/16 14:24; Start 09/04/16 at 06:00; Stop at 06:29; Status DC Fentanyl Citrate (Fentanyl 2ml Vial) 25 mcg PRN Q5MIN PRN IV MILD PAIN; Start 09/04/16 at 09:30; Stop 09/05/16 at 09:29; Status DC Fentanyl Citrate (Fentanyl 2ml Vial) 50 mcg PRN Q5MIN PRN IV MODERATE PAIN Last administered on 09/04/16 16:54; Start 09/04/16 at 09:30; Stop 09/05/16 at 09: 29; Status DC Morphine Sulfate 1 mg 1 mg PRN Q10MIN PRN IV SEVERE PAIN; Start 09/04/16 at 09: 30; Stop 09/05/16 at 09:29; Status DC Lactated Ringer's (Iv Lactated Ringers) 1,000 ml @ 0 mls/hr Q0M IV Last administered on 09/04/16 13:49; Start 09/04/16 at 09:18; Stop 09/04/16 at 21:17; Status DC Lidocaine HCl 2 ml 1X PRN PRN ID IV START; Start 09/04/16 at 09:30; Stop at 09:29; Status DC Hydromorphone HCl (Dilaudid) 0.5 mg PRN Q10MIN PRN IV SEV PAIN,Second choice Last administered on 09/04/16 18:07; Start 09/04/16 at 09:30; Stop 09/05/16 at 09: 29; Status DC Prochlorperazine Edisylate 5 mg 5 mg PACU PRN PRN IV NAUSEA; Start 09/04/16 at 09:30; Stop 09/05/16 at 09:29; Status DC Cefazolin Sodium/ Dextrose (Ancef 2gm Premix) 50 ml @ As Directed STK-MED ONCE IV ; Start 09/04/16 at 13:12; Stop 09/04/16 at 13:13; Status DC Desflurane (Suprane) 60 ml STK-MED ONCE IH ; Start 09/04/16 at 13:42; Stop at 13:43; Status DC Fentanyl Citrate 100 mcg 100 mcg STK-MED ONCE .ROUTE ; Start 09/04/16 at 13:43; Stop 09/04/16 at 13:44; Status DC Propofol (Diprivan) 20 ml @ As Directed STK-MED ONCE IV ; Start 09/04/16 at 13:43 ; Stop 09/04/16 at 13:44; Status DC Lidocaine HCl 100 mg STK-MED ONCE .ROUTE ; Start 09/04/16 at 13:43; Stop 09/04/16 at 13:44; Status DC Dexamethasone Sodium Phosphate (Decadron) 20 mg STK-MED ONCE .ROUTE ; Start 09/04 at 13:43; Stop 09/04/16 at 13:44; Status DC Ondansetron HCl (Zofran) 4 mg STK-MED ONCE .ROUTE ; Start 09/04/16 at 13:43; Stop 09/04/16 at 13:44; Status DC Glipizide 5 mg 5 mg DAILYWBKFT PO Last administered on 09/16/16 07:55; Start 09/05/16 at 08:00 Vancomycin HCl 1.25 gm/Sodium Chloride 250 ml @ 167 mls/hr Q12H IV Last administered on 09/07/16 22:12; Start 09/04/16 at 20:00; Stop 09/07/16 at 23:36 ; Status DC Propofol (Diprivan) 20 ml @ As Directed STK-MED ONCE IV ; Start 09/04/16 at 14:38 ; Stop 09/04/16 at 14:39; Status DC Albuterol Sulfate 2.5 mg 2.5 mg STK-MED ONCE .ROUTE ; Start 09/04/16 at 14:59; Stop 09/04/16 at 15:00; Status DC Tranexamic Acid/ Sodium Chloride (Cyklokapron/Iv Sodium Chloride 0.9% 50ml) 60 ml @ 60 mls/hr 1X PERIOP ONCE INJ Last administered on 09/04/16 15:12; Start 09/04/16 at 15:12; Stop 09/04/16 at 16:11; Status DC Fentanyl Citrate (Fentanyl 2ml Vial) 100 mcg STK-MED ONCE .ROUTE ; Start at 15:27; Stop 09/04/16 at 15:28; Status DC Acetaminophen/ Hydrocodone Bitart (Lortab 7.5/325) 1 tab PRN Q3HRS PRN PO PAIN Last administered on 09/08/16 06:13; Start 09/04/16 at 16:30 Acetaminophen/ Hydrocodone Bitart (Lortab 10/325) 1 tab PRN Q3HRS PRN PO PAIN Last administered on 09/16/16 00:31; Start 09/04/16 at 16:30 Tramadol HCl (Ultram) 50 mg PRN QID PRN PO PAIN; Start 09/04/16 at 16:30; Stop 09/05/16 at 13:32; Status DC Oxycodone/ Acetaminophen (Percocet 5/325) 1 tab PRN Q3HRS PRN PO PAIN; Start at 16:30 Oxycodone/ Acetaminophen (Percocet 7.5/ 325) 1 tab PRN Q3HRS PRN PO PAIN Last administered on 09/16/16 10:05; Start 09/04/16 at 16:30 Tramadol HCl (Ultram) 100 mg PRN Q3HRS PRN PO PAIN; Start 09/04/16 at 16:30; Stop 09/05/16 at 13:32; Status DC Diphenhydramine HCl (Benadryl) 25 mg PRN Q6HRS PRN IV ITCHING; Start 09/04/16 at 16:30 Senna/Docusate Sodium (Senna Plus) 1 tab DAILY PO Last administered on 08:45; Start 09/05/16 at 09:00 Prochlorperazine Maleate (Compazine) 10 mg PRN Q4HRS PRN PO NAUSEA/VOMITING; Start 09/04/16 at 16:30 Metoclopramide HCl (Reglan) 10 mg PRN Q4HRS PRN IV NAUSEA/VOMITING; Start at 16:30 Magnesium Hydroxide (Milk Of Magnesia) 2,400 mg 1X PRN PRN PO CONSTIPATION; Start 09/05/16 at 06:00; Stop 09/06/16 at 05:59; Status DC Bisacodyl (Dulcolax Supp) 10 mg 1X PRN PRN [place] CONSTIPATION; Start 09/05/16 at 16 :00; Stop 09/06/16 at 15:59; Status DC Acetaminophen (Tylenol) 650 mg PRN Q4HRS PRN PO MILD PAIN / TEMP; Start at 16:30 Zolpidem Tartrate (Ambien) 5 mg PRN QHS PRN PO INSOMNIA, MAY REPEAT IN 1HR Last administered on 09/15/16 21:46; Start 09/04/16 at 16:30 Calcium Carbonate/ Glycine (Tums) 500 mg PRN QID PRN PO INDIGESTION Last administered on 09/07/16 09:10; Start 09/04/16 at 16:30 Morphine Sulfate 4 mg PRN Q1HR PRN IV PAIN Last administered on 09/08/16 20:38 ; Start 09/04/16 at 16:30; Stop 09/10/16 at 11:20; Status DC Sodium Chloride (Normal Saline Flush) 10 ml QSHIFT PRN IV AFTER MEDS AND BLOOD DRAWS; Start 09/04/16 at 16:30; Status Cancel Prochlorperazine Edisylate (Compazine) 10 mg PRN Q4HRS PRN IV NAUSEA/VOMITING; Start 09/04/16 at 16:30 Dextrose 12.5 gm PRN Q15MIN PRN IV SEE COMMENTS Last administered on 09/12/16 19:36; Start 09/04/16 at 16:30 Insulin Aspart (Novolog) 0-7 UNITS QIDACHS SQ Last administered on 09/16/16 08 :24; Start 09/05/16 at 07:30 Insulin Aspart (Novolog) 12 units 1X ONCE SQ Last administered on 09/04/16 21: 43; Start 09/04/16 at 21:30; Stop 09/04/16 at 21:31; Status DC Polysaccharide Iron Complex (Niferex 150) 150 mg DAILY PO Last administered on 09/16/16 07:55; Start 09/05/16 at 09:00 Polyethylene Glycol (miraLAX PACKET) 17 gm 1X ONCE PO Last administered on 09/05 15:42; Start 09/05/16 at 14:00; Stop 09/05/16 at 14:01; Status DC Polyethylene Glycol (miraLAX PACKET) 17 gm DAILY PO Last administered on 08:39; Start 09/06/16 at 09:00; Stop 09/06/16 at 15:51; Status DC Docusate Sodium (Colace) 100 mg DAILY PO Last administered on 09/14/16 08:47; Start 09/05/16 at 14:00 Magnesium Hydroxide (Milk Of Magnesia) 2,400 mg 1X ONCE PO Last administered on 09/05/16 15:41; Start 09/05/16 at 13:45; Stop 09/05/16 at 13:46; Status DC Morphine Sulfate (Ms Contin) 15 mg BID PO Last administered on 09/16/16 07:54 ; Start 09/05/16 at 13:45 Citalopram Hydrobromide (Celexa) 20 mg DAILY PO Last administered on 09/16/16 07:56; Start 09/06/16 at 09:00 Polyethylene Glycol (miraLAX PACKET) 17 gm BID PO Last administered on 08:30; Start 09/06/16 at 21:00 Sodium Biphosphate/ Sodium Phosphate (Fleet Adult) 133 ml 1X ONCE WI ; Start at 16:00; Stop 09/06/16 at 16:04; Status DC Sodium Biphosphate/ Sodium Phosphate (Fleet Adult) 133 ml PRN DAILY PRN WI CONSTIPATION; Start 09/07/16 at 09:00 Polyethylene Glycol (miraLAX PACKET) 17 gm 1X ONCE PO Last administered on 17:45; Start 09/06/16 at 16:00; Stop 09/06/16 at 16:04; Status DC Sodium Biphosphate/ Sodium Phosphate (Fleet Adult) 133 ml PRN 1X PRN [place] CONSTIPATION; Start 09/06/16 at 23:30; Stop 09/11/16 at 12:39; Status DC Vancomycin HCl 1 each 1X ONCE MC ; Start 09/07/16 at 19:30; Stop 09/07/16 at 19 :31; Status DC Alteplase, Recombinant 2 mg 2 mg 1X ONCE INT CAT Last administered on 15:09; Start 09/07/16 at 14:30; Stop 09/07/16 at 14:31; Status DC Daptomycin/Sodium Chloride (Cubicin/Iv Sodium Chloride 0.9% 50ml) 50 ml @ 100 mls/hr Q24H IV Last administered on 09/15/16 17:05; Start 09/08/16 at 16:00 Ondansetron HCl (Zofran) 4 mg PRN Q6HRS PRN IV Nausea; Start 09/10/16 at 07:00 ; Stop 09/10/16 at 23:00; Status DC Fentanyl Citrate (Fentanyl 2ml Vial) 25 mcg PRN Q5MIN PRN IV MILD PAIN; Start 09/10/16 at 07:00; Stop 09/10/16 at 23:00; Status DC Fentanyl Citrate (Fentanyl 2ml Vial) 50 mcg PRN Q5MIN PRN IV MODERATE PAIN Last administered on 09/10/16 11:53; Start 09/10/16 at 07:00; Stop 09/10/16 at 23:00; Status DC Morphine Sulfate 1 mg 1 mg PRN Q10MIN PRN IV SEVERE PAIN; Start 09/10/16 at 07: 00; Stop 09/10/16 at 23:00; Status DC Lactated Ringer's (Iv Lactated Ringers) 1,000 ml @ 30 mls/hr Q24H IV Last administered on 09/10/16 07:38; Start 09/10/16 at 07:00; Stop 09/10/16 at 18:59 ; Status DC Lidocaine HCl 2 ml 1X PRN PRN ID IV START; Start 09/10/16 at 07:00; Stop at 23:00; Status DC Hydromorphone HCl (Dilaudid) 0.5 mg PRN Q10MIN PRN IV SEVERE PAIN, Second choice Last administered on 09/10/16 12:20; Start 09/10/16 at 07:00; Stop 09/10 at 23:00; Status DC Prochlorperazine Edisylate (Compazine) 5 mg PACU PRN PRN IV NAUSEA; Start 09/10 at 07:00; Stop 09/10/16 at 23:00; Status DC Lidocaine HCl 100 mg STK-MED ONCE .ROUTE ; Start 09/10/16 at 07:06; Stop at 07:07; Status DC Dexamethasone Sodium Phosphate 20 mg 20 mg STK-MED ONCE .ROUTE ; Start 09/10/16 at 07:06; Stop 09/10/16 at 07:07; Status DC Propofol (Diprivan) 20 ml @ As Directed STK-MED ONCE IV ; Start 09/10/16 at 07: 06; Stop 09/10/16 at 07:07; Status DC Lidocaine HCl 100 mg STK-MED ONCE .ROUTE ; Start 09/10/16 at 07:06; Stop at 07:07; Status DC Famotidine (Pepcid) 20 mg STK-MED ONCE .ROUTE ; Start 09/10/16 at 07:06; Stop at 07:07; Status DC Fentanyl Citrate (Fentanyl 2ml Vial) 100 mcg STK-MED ONCE .ROUTE ; Start at 07:06; Stop 09/10/16 at 07:07; Status DC Rocuronium [place] 50 mg 50 mg STK-MED ONCE .ROUTE ; Start 09/10/16 at 07:06; Stop 09/10/16 at 07:07; Status DC Cefazolin Sodium/ Dextrose 50 ml @ As Directed STK-MED ONCE IV ; Start 09/10/16 at 07:24; Stop 09/10/16 at 07:25; Status DC Tranexamic Acid 1000 mg/Sodium Chloride 60 ml @ 60 mls/hr 1X PERIOP ONCE INJ Last administered on 09/10/16 08:17; Start 09/10/16 at 08:00; Stop 09/10/16 at 08:59; Status DC Tranexamic Acid/ Sodium Chloride (Cyklokapron/Iv Sodium Chloride 0.9% 50ml) 60 ml @ 60 mls/hr 1X PERIOP ONCE INJ Last administered on 09/10/16 09:31; Start 09/10/16 at 08:00; Stop 09/10/16 at 08:59; Status DC Vancomycin HCl (Vanco) 10 gm 1X ONCE CEMENT Last administered on 09/10/16 08: 33; Start 09/10/16 at 08:00; Stop 09/10/16 at 08:01; Status Cancel Tobramycin Sulfate 7.2 gm 7.2 gm 1X ONCE TP ; Start 09/10/16 at 07:45; Stop at 07:46; Status Cancel Cefazolin Sodium/ Dextrose (Ancef 2gm Premix) 50 ml @ 100 mls/hr 1X ONCE IV Last administered on 09/10/16 08:09; Start 09/10/16 at 08:00; Stop 09/10/16 at 08:29; Status DC Tobramycin Sulfate 1.2 gm STK-MED ONCE .ROUTE Last administered on 09/10/16 08 :33; Start 09/10/16 at 08:01; Stop 09/10/16 at 08:02; Status DC Vancomycin HCl (Vanco) 10 gm STK-MED ONCE .ROUTE ; Start 09/10/16 at 08:01; Stop 09/10/16 at 08:02; Status DC Tobramycin Sulfate 1.2 gm STK-MED ONCE .ROUTE Last administered on 09/10/16 08 :33; Start 09/10/16 at 08:01; Stop 09/10/16 at 08:02; Status DC Tobramycin Sulfate 1.2 gm STK-MED ONCE .ROUTE Last administered on 09/10/16 08 :33; Start 09/10/16 at 08:02; Stop 09/10/16 at 08:03; Status DC Tobramycin Sulfate 1.2 gm STK-MED ONCE .ROUTE Last administered on 09/10/16 08 :33; Start 09/10/16 at 08:02; Stop 09/10/16 at 08:03; Status DC Tobramycin Sulfate 1.2 gm STK-MED ONCE .ROUTE Last administered on 09/10/16 08 :33; Start 09/10/16 at 08:02; Stop 09/10/16 at 08:03; Status DC Tobramycin Sulfate 1.2 gm STK-MED ONCE .ROUTE Last administered on 09/10/16 08 :33; Start 09/10/16 at 08:02; Stop 09/10/16 at 08:03; Status DC Fentanyl Citrate (Fentanyl 2ml Vial) 100 mcg STK-MED ONCE .ROUTE ; Start at 08:35; Stop 09/10/16 at 08:36; Status DC Ephedrine Sulfate 50 mg STK-MED ONCE IV ; Start 09/10/16 at 08:53; Stop at 08:54; Status DC Fentanyl Citrate (Fentanyl 2ml Vial) 100 mcg STK-MED ONCE .ROUTE ; Start at 08:55; Stop 09/10/16 at 08:56; Status DC Labetalol HCl (Normodyne) 20 mg STK-MED ONCE .ROUTE ; Start 09/10/16 at 09:07; Stop 09/10/16 at 09:08; Status DC Glycopyrrolate (Robinul) 1 mg STK-MED ONCE .ROUTE ; Start 09/10/16 at 09:34; Stop 09/10/16 at 09:35; Status DC Neostigmine Methylsulfate 5 mg STK-MED ONCE .ROUTE ; Start 09/10/16 at 09:34; Stop 09/10/16 at 09:35; Status DC Sevoflurane (Ultane) 90 ml STK-MED ONCE IH ; Start 09/10/16 at 10:05; Stop 09/10 at 10:06; Status DC Acetaminophen/ Hydrocodone Bitart (Lortab 7.5/325) 1 tab PRN Q3HRS PRN PO PAIN ; Start 09/10/16 at 11:15; Stop 09/10/16 at 14:20; Status DC Acetaminophen/ Hydrocodone Bitart (Lortab 10/325) 1 tab PRN Q3HRS PRN PO PAIN; Start 09/10/16 at 11:15; Stop 09/10/16 at 14:20; Status DC Tramadol HCl (Ultram) 50 mg PRN QID PRN PO PAIN Last administered on 09/14/16 16:34; Start 09/10/16 at 11:15 Oxycodone/ Acetaminophen (Percocet 5/325) 1 tab PRN Q3HRS PRN PO PAIN; Start at 11:15; Stop 09/11/16 at 12:38; Status DC Oxycodone/ Acetaminophen (Percocet 7.5/ 325) 1 tab PRN Q3HRS PRN PO PAIN; Start 09/10/16 at 11:15; Stop 09/11/16 at 12:38; Status DC Tramadol HCl (Ultram) 100 mg PRN Q3HRS PRN PO PAIN; Start 09/10/16 at 11:15 Morphine Sulfate 2 mg PRN Q1HR PRN IV PAIN Last administered on 09/11/16 21:17 ; Start 09/10/16 at 11:15 Fentanyl Citrate (Fentanyl 2ml Vial) 25 mcg PRN Q1HR PRN IV PAIN; Start at 11:15 Diphenhydramine HCl (Benadryl) 25 mg PRN Q6HRS PRN IV ITCHING; Start 09/10/16 at 11:15; Status Cancel Multivitamins/ Calcium (Thera M Plus) 1 tab DAILY PO ; Start 09/11/16 at 09:00; Stop 09/11/16 at 09:00; Status DC Senna/Docusate Sodium 1 tab 1 tab DAILY PO ; Start 09/11/16 at 09:00; Stop 09/11 at 09:00; Status DC Dextrose/Sodium Chloride (Iv D5% - 1/2 NS) 1,000 ml @ 100 mls/hr Q10H IV Last administered on 09/11/16 21:19; Start 09/10/16 at 12:00; Stop 09/12/16 at 16:52 ; Status DC Prochlorperazine Maleate (Compazine) 10 mg PRN Q4HRS PRN PO NAUSEA/VOMITING; Start 09/10/16 at 11:15; Stop 09/10/16 at 11:20; Status DC Metoclopramide HCl (Reglan) 10 mg PRN Q4HRS PRN IV NAUSEA/VOMITING; Start 09/10 at 11:15; Stop 09/10/16 at 11:21; Status DC Magnesium Hydroxide (Milk Of Magnesia) 2,400 mg 1X PRN PRN PO CONSTIPATION; Start 09/11/16 at 06:00; Stop 09/12/16 at 05:59; Status DC Bisacodyl (Dulcolax Supp) 10 mg 1X PRN PRN [place] CONSTIPATION; Start 09/11/16 at 16:00; Stop 09/12/16 at 15:59; Status DC Acetaminophen (Tylenol) 650 mg PRN Q4HRS PRN PO MILD PAIN / TEMP; Start at 11:15; Stop 09/10/16 at 11:21; Status DC Zolpidem Tartrate (Ambien) 5 mg PRN QHS PRN PO INSOMNIA, MAY REPEAT IN 1HR; Start 09/10/16 at 11:15; Stop 09/10/16 at 11:21; Status DC Calcium Carbonate/ Glycine (Tums) 500 mg PRN QID PRN PO INDIGESTION; Start at 11:15; Stop 09/10/16 at 11:21; Status DC Morphine Sulfate 4 mg PRN Q1HR PRN IV PAIN Last administered on 09/10/16t 14:57 ; Start 09/10/16 at 11:15 Morphine Sulfate 6 mg PRN Q1HR PRN IV PAIN Last administered on 09/10/16t 18:38 ; Start 09/10/16 at 11:15 Morphine Sulfate 8 mg PRN Q1HR PRN IV PAIN; Start 09/10/16 at 11:15 Sodium Chloride (Normal Saline Flush) 10 ml QSHIFT PRN IV AFTER MEDS AND BLOOD DRAWS; Start 09/10/16 at 11:15 Fentanyl Citrate (Fentanyl 2ml Vial) 50 mcg PRN Q1HR PRN IV PAIN; Start at 11:15 Prochlorperazine Edisylate (Compazine) 10 mg PRN Q4HRS PRN IV NAUSEA/VOMITING; Start 09/10/16 at 11:15; Stop 09/10/16 at 11:21; Status DC Dextrose 12.5 gm 12.5 gm PRN Q15MIN PRN IV SEE COMMENTS; Start 09/10/16 at 11: 15; Stop 09/10/16 at 11:21; Status DC Cefazolin Sodium/ Dextrose (Ancef 2gm Premix) 50 ml @ 100 mls/hr Q6H IV ; Start 09/10/16 at 11:15; Stop 09/10/16 at 11:15; Status DC Potassium Chloride 40 meq 40 meq 1X ONCE PO Last administered on 09/10/16 14: 59; Start 09/10/16 at 12:15; Stop 09/10/16 at 12:16; Status DC Ertapenem/Sodium Chloride (Invanz/Iv Sodium Chloride 0.9% 50ml) 50 ml @ 100 mls /hr Q24H IV Last administered on 09/16/16 10:08; Start 09/11/16 at 10:00 Heparin Sodium (Porcine) 5,000 unit Q8HRS SQ Last administered on 09/16/16 08: 23; Start 09/11/16 at 14:00 Amlodipine Besylate (Norvasc) 5 mg DAILY PO Last administered on 09/16/16 07: 56; Start 09/12/16 at 11:15 Alprazolam (Xanax) 0.25 mg PRN Q8HRS PRN PO ANXIETY / AGITATION Last administered on 09/16/16 10:05; Start 09/15/16 at 12:00 Active Scripts Active Aspirin Ec (Aspirin) 325 Mg Tablet. 325 Mg PO BID 30 Days Reported Percocet 5-325 Mg Tablet (Oxycodone/Acetaminophen) 1 Each Tablet 1-2 Tab PO Q4- 6HRS LAST DOSE GIVEN: DATE: 08/02/16 TIME: 2:00 NEXT DOSE DUE: DATE: 08/02/16 TIME: 6:00pm as needed for pain Percocet 5-325 Mg Tablet (Oxycodone/Acetaminophen) 1 Each Tablet 1-2 Tab PO Q4- 6HRS Calcium 600 + Vit D 200 Tablet (Calcium Carbonate/Vitamin D3) 1 Each Tablet 1 Each PO BID Hair, Skin & Nails (Multivitamin With Minerals) 1 Each Tablet 1 Each PO DAILY Carvedilol 12.5 Mg Tablet 12.5 Mg PO BIDWMEALS Lovastatin 40 Mg Tablet 40 Mg PO HS Metformin Hcl 1,000 Mg Tablet 1 Tab PO BID Hydrochlorothiazide Tablet (Hydrochlorothiazide) 12.5 Mg Tablet 25 Mg PO DAILY Novolin N (Nph, Human Insulin Isophane) 100 Unit/1 Ml Vial 20 Unit SQ [id number] Novolin N (Nph, Human Insulin Isophane) 100 Unit/1 Ml Vial 40 Unit SQ [id number] Glipizide 5 Mg Tablet 5 Mg PO DAILY Lisinopril 40 Mg Tablet 40 Mg PO DAILY Citalopram Hbr (Citalopram Hydrobromide) 40 Mg Tablet 40 Mg PO DAILY Vitals/I & O Vital Sign - Last 24 Hours 09/15/16 09/15/16 09/15/16 09/15/16 12:41 15:00 15:09 16:00 Temp 97.8 97.8 Pulse 91 Resp 18 B/P 159/72 Pulse Ox 95 94 O2 Delivery Room Air Room Air O2 Flow Rate 2.0 2.0 2.0 09/15/16 09/15/16 09/15/16 09/15/16 17:05 17:44 19:30 20:00 Temp 98.7 98.7 Pulse 91 89 Resp 20 B/P 159/72 147/56 Pulse Ox 94 95 O2 Delivery Room Air Room Air Room Air O2 Flow Rate 2.0 2.0 09/15/16 09/15/16 09/15/16 09/16/16 21:47 21:47 23:08 00:31 Temp 98.9 98.9 Pulse 87 Resp 20 20 B/P 144/55 Pulse Ox 95 95 91 O2 Delivery Room Air Room Air Room Air Room Air 09/16/16 09/16/16 09/16/16 09/16/16 01:31 01:31 03:00 07:00 Temp 98.8 97.7 98.8 97.7 Pulse 83 90 Resp 18 18 18 16 B/P 160/70 166/70 Pulse Ox 91 91 98 92 O2 Delivery Room Air Room Air Room Air Nasal Cannula O2 Flow Rate 2.0 09/16/16 09/16/16 09/16/16 09/16/16 07:42 07:44 07:54 07:54 Pulse 83 B/P 160/70 Pulse Ox 98 O2 Delivery Room Air Room Air Room Air 09/16/16 09/16/16 09/16/16 07:55 07:56 10:05 Pulse 83 83 B/P 160/70 160/70 Pulse Ox 98 O2 Delivery Room Air O2 Flow Rate 2.0 Intake and Output 09/15/16 09/15/16 09/16/16 15:00 23:00 07:00 Intake Total 100 ml 240 ml Balance 100 ml 240 ml ESCOBAR ROQUE MD Sep 16, 2016 11:48
[2016-09-16 15:00] VITALS: BP 155/67
[2016-09-16] MEDS: DAPTOMYCIN IV SCH (16:34)
[2016-09-16] MEDS: NORMAL SALINE IV SCH (16:34)
[2016-09-16 19:10] VITALS: BP 149/69
[2016-09-16 23:05] VITALS: BP 144/65
[2016-09-17 03:05] VITALS: BP 147/64
[2016-09-17] MEDS: OXYCODONE/APAP 7.5/325 TABLET. PO PRN ×5 (05:51→23:58)
[2016-09-17] MEDS: HEPARIN PF for SUB-Q USE 5,000 UNIT/0.5 ML VIAL. SQ SCH ×3 (06:00→21:18)
[2016-09-17 07:00] VITALS: BP 153/64
[2016-09-17] MEDS: LISINOPRIL 40 MG TABLET. PO SCH (07:49)
[2016-09-17] MEDS: CITALOPRAM 20 MG TABLET. PO SCH (07:49)
[2016-09-17] MEDS: GLIPIZIDE 5 MG TABLET PO SCH ×2 (07:49→16:43)
[2016-09-17] MEDS: MULTIVITAMIN with MINERAL TABLET. PO SCH (07:49)
[2016-09-17] MEDS: IRON POLYSACCHARIDE COMPLEX 150 MG CAPSULE PO SCH (07:49)
[2016-09-17] MEDS: SENNOSIDES/DOCUSATE 8.6/50MG TABLET. PO SCH (07:49)
[2016-09-17] MEDS: CARVEDILOL 12.5 MG TABLET PO SCH ×2 (07:50→16:43)
[2016-09-17] MEDS: ALPRAZOLAM 0.25 MG TABLET PO PRN ×2 (07:50→16:43)
[2016-09-17] MEDS: HYDROCHLOROTHIAZIDE 25 MG TABLET PO SCH (07:50)
[2016-09-17] MEDS: CALCIUM CARB/VIT D3 500/200 TABLET PO SCH ×2 (07:50→16:43)
[2016-09-17] MEDS: MORPHINE ER 15 MG TABLET.ER PO SCH ×2 (07:51→21:09)
[2016-09-17] MEDS: AMLODIPINE BESYLATE 5 MG TABLET PO SCH (07:51)
[2016-09-17] MEDS: ASPIRIN ENTERIC COATED 325 MG TABLET.DR. PO SCH ×2 (07:52→21:09)
[2016-09-17] MEDS: POLYETHYLENE GLYCOL 3350 17 GM PACKET. PO SCH ×2 (08:15→21:09)
[2016-09-17] MEDS: INSULIN ASPART 300 UNITS/3 ML INSULN.PEN SQ SCH ×4 (08:15→21:02)
[2016-09-17] MEDS: ERTAPENEM 1 GM in IV NORMAL SALINE 50ML 50 ML IV SCH (09:44)
[2016-09-17] MEDS: DOCUSATE SODIUM 100 MG CAPSULE PO SCH (09:44)
[2016-09-17 11:00] VITALS: BP 134/58
--- NOTE | 2016-09-17 14:43 | PDOC ---
PROGRESS NOTES Chief Complaint Chief Complaint Infected knee prosthesis, R ASSESSMENT AND PLAN: 1. 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 Group B/MRSA/Morganella isolated. on Ertapenem/daptomycin. long term care pharmacist IV Abx 2. Pain control: on IV/PO meds. try to transition to PO completely, but still needs IV for dressing changes/PT 3. Anemia: iron/TIBC c/w inflammation. ferritin lowish, c/w component of iron def as well. replete low dose iron. s/p PRBC x1 postsurgically. monitor closely 4. DM: oral and insulin home regimen plus ISS with good control 5. CKD3: stable creat and lytes. monitor periodically 6. HTN: sl improved post addition of norvasc. monitor, may need dose adjustment 7. Prophylaxis: heparin 8. Dispo: awaiting rehab/LTAC bed. F/U with Dr Lance and Jayme she cannot transfer or ambulate anxiety, prior delirium possible from anxiety and pain, , mild, add xanax prn awaiting placement, History of Present Illness History of Present Illness some confusion reported good recall today, right knee pain /10, PO intake improved did well with PT, discussed Vitals Vitals Vital Signs Date Time Temp Pulse Resp B/P Pulse Ox O2 Delivery O2 Flow Rate FiO2 09/17/16 12:43 94 Room Air 2.0 09/17/16 11:00 98.1 80 18 134/58 98.1 Physical Exam General: Alert, Oriented X3, Cooperative, No acute distress Heart: Regular rate, No murmurs Lungs: Clear, Wheezing Abdomen: Normal bowel sounds, No tenderness Extremities: No clubbing, No cyanosis, Other (R knee in ALEXANDRO wrap and splint) Skin: No rashes Labs LABS Laboratory Tests Test 09/16/16 16:12 09/16/16 21:34 09/17/16 07:59 09/17/16 11:26 Glucose (Fingerstick) 167mg/dL (70-99) 234mg/dL (70-99) 207mg/dL (70-99) 270mg/dL (70-99) Assessment and Plan Assessmemt and Plan placement pending, [place] Problems Medical Problems: (1) Infection of right knee Status: Acute (2) Infection of total right knee replacement Status: Acute (3) Right knee pain Status: Acute (4) Swelling of knee joint, right Status: Acute Problems: Comment Review of Relevant I have reviewed the following items deng (where applicable) has been applied. Labs Laboratory Tests Test 09/15/16 16:29 09/15/16 21:17 09/16/16 06:00 09/16/16 07:58 Glucose (Fingerstick) 190mg/dL (70-99) 211mg/dL (70-99) 243mg/dL (70-99) Sodium Level 143mmol/L (136-145) Potassium Level 3.8mmol/L (3.5-5.1) Chloride Level 105mmol/L (98-107) Carbon Dioxide Level 31mmol/L (21-32) Anion Gap 7 (6-14) Blood Urea Nitrogen 12mg/dL (7-20) Creatinine 1.3mg/dL (0.6-1.0) Estimated GFR (Cockcroft-Gault) 49.1 Glucose Level 239mg/dL (70-99) Calcium Level 8.8mg/dL (8.5-10.1) Creatine Kinase 185U/L (26-192) Test 09/16/16 11:24 09/16/16 16:12 09/16/16 21:34 09/17/16 07:59 Glucose (Fingerstick) 281mg/dL (70-99) 167mg/dL (70-99) 234mg/dL (70-99) 207mg/dL (70-99) Test 09/17/16 11:26 Glucose (Fingerstick) 270mg/dL (70-99) Laboratory Tests Test 09/16/16 16:12 09/16/16 21:34 09/17/16 07:59 09/17/16 11:26 Glucose (Fingerstick) 167mg/dL (70-99) 234mg/dL (70-99) 207mg/dL (70-99) 270mg/dL (70-99) Microbiology 09/02/16 Blood Culture - Final, Complete NO GROWTH AFTER 5 DAYS 09/03/16 Gram Stain - Final, Complete 09/10/16 Gram Stain - Final, Complete Medications Current Medications Ondansetron HCl (Zofran) 4 mg PRN Q8HRS PRN IV NAUSEA/VOMITING; Start 09/02/16 at 15:15; Stop 09/03/16 at 15:14; Status DC Morphine Sulfate 2 mg PRN Q2HR PRN IV PAIN Last administered on 09/03/16 11:10 ; Start 09/02/16 at 15:15; Stop 09/03/16 at 15:14; Status DC Vancomycin HCl (Vanco Per Pharmacy) 1 each PRN DAILY PRN MC SEE COMMENTS Last administered on 09/07/16 11:48; Start 09/02/16 at 17:30; Stop 09/07/16 at 23:39 ; Status DC Piperacillin Sod/ Tazobactam Sod 1 each 1 each PRN DAILY PRN MC SEE COMMENTS; Start 09/02/16 at 17:30; Stop 09/04/16 at 13:59; Status DC Piperacillin Sod/ Tazobactam Sod 3.375 gm/Sodium Chloride 50 ml @ 100 mls/hr Q6HRS IV Last administered on 09/11/16 06:03; Start 09/02/16 at 18:00; Stop at 09:08; Status DC Vancomycin HCl 2 gm/Sodium Chloride 500 ml @ 250 mls/hr 1X ONCE IV Last administered on 09/02/16 20:53; Start 09/02/16 at 20:00; Stop 09/02/16 at 21:59; Status DC Vancomycin HCl/ Sodium Chloride (Iv Sodium Chloride 0.9% 500ml Bag) 500 ml @ 250 mls/hr Q12H IV Last administered on 09/04/16 09:18; Start 09/03/16 at 08:00 ; Stop 09/04/16 at 14:06; Status DC Vancomycin HCl 1 each 1X ONCE MC Last administered on 09/03/16 07:30; Start at 07:30; Stop 09/03/16 at 07:31; Status DC Aspirin (Ecotrin) 325 mg BID PO Last administered on 09/17/16 07:52; Start 09/03/16 at 21:00 Carvedilol (Coreg) 12.5 mg BIDWMEALS PO Last administered on 09/17/16 07:50; Start 09/03/16 at 17:00 Glipizide (Glucotrol) 5 mg DAILY PO Last administered on 09/03/16 13:10; Start 09/03/16 at 12:30; Stop 09/04/16 at 14:00; Status DC Lisinopril (Prinivil) 40 mg DAILY PO Last administered on 09/17/16 07:49; Start 09/03/16 at 12:30 Metformin HCl (Glucophage) 1,000 mg BIDWMEALS PO Last administered on 16:54; Start 09/03/16 at 17:00; Stop 09/12/16 at 19:50; Status DC Insulin Detemir (Levemir) 20 units DAILYWSUP SQ Last administered on 09/11/16 17:31; Start 09/03/16 at 17:00; Stop 09/12/16 at 19:50; Status DC Insulin Detemir (Levemir) 40 units DAILYWBKFT SQ Last administered on 08:37; Start 09/04/16 at 08:00; Stop 09/12/16 at 19:50; Status DC Oxycodone/ Acetaminophen (Percocet 5/325) 1 tab PRN Q6HRS PRN PO pain Last administered on 09/04/16 11:56; Start 09/03/16 at 12:00; Stop 09/05/16 at 11:41; Status DC Calcium/Vitamin D (Oscal D 500mg/ 200uts) 1 tab BIDWMEALS PO Last administered on 09/17/16 07:50; Start 09/03/16 at 17:00 Citalopram Hydrobromide (Celexa) 40 mg DAILY PO Last administered on 09/05/16 08:28; Start 09/04/16 at 09:00; Stop 09/05/16 at 13:44; Status DC Hydrochlorothiazide (Hydrodiuril) 25 mg DAILY PO Last administered on 07:50; Start 09/03/16 at 12:30 Atorvastatin Calcium (Lipitor) 10 mg QHS PO Last administered on 09/15/16 21: 46; Start 09/03/16 at 21:00; Stop 09/16/16 at 14:37; Status DC Multivitamins/ Calcium (Thera M Plus) 1 tab DAILY PO Last administered on 07:49; Start 09/03/16 at 12:30 Insulin Aspart (Novolog) 0-7 UNITS TIDWMEALS SQ Last administered on 09/03/16 17:14; Start 09/03/16 at 13:00; Stop 09/04/16 at 21:21; Status DC Dextrose 12.5 gm PRN Q15MIN PRN IV SEE COMMENTS; Start 09/03/16 at 12:15; Stop 09/05/16 at 13:32; Status DC Insulin Aspart (Novolog) 10 units TIDAC SQ Last administered on 09/09/16 12:15 ; Start 09/03/16 at 16:30; Stop 09/09/16 at 16:11; Status DC Polyethylene Glycol (miraLAX PACKET) 17 gm PRN DAILY PRN PO CONSTIPATION; Start 09/03/16 at 13:00 Polyethylene Glycol (miraLAX PACKET) 17 gm 1X ONCE PO Last administered on 09/03 13:18; Start 09/03/16 at 13:00; Stop 09/03/16 at 13:12; Status DC Docusate Sodium (Colace) 100 mg PRN DAILY PRN PO CONSTIPATION; Start 09/03/16 at 13:00; Stop 09/05/16 at 13:31; Status DC Lidocaine/Sodium Bicarbonate 20 ml 20 ml 1X ONCE IJ ; Start 09/03/16 at 15:15; Stop 09/03/16 at 15:16; Status DC Cefazolin Sodium/ Dextrose 50 ml @ 100 mls/hr 1X PREOP IV ; Start 09/06/16 at 06:00; Stop 09/06/16 at 06:00; Status DC Cefazolin Sodium/ Dextrose (Ancef 2gm Premix) 50 ml @ 100 mls/hr 1X PREOP ONCE IV Last administered on 09/04/16 14:24; Start 09/04/16 at 06:00; Stop at 06:29; Status DC Fentanyl Citrate (Fentanyl 2ml Vial) 25 mcg PRN Q5MIN PRN IV MILD PAIN; Start 09/04/16 at 09:30; Stop 09/05/16 at 09:29; Status DC Fentanyl Citrate (Fentanyl 2ml Vial) 50 mcg PRN Q5MIN PRN IV MODERATE PAIN Last administered on 09/04/16 16:54; Start 09/04/16 at 09:30; Stop 09/05/16 at 09: 29; Status DC Morphine Sulfate 1 mg 1 mg PRN Q10MIN PRN IV SEVERE PAIN; Start 09/04/16 at 09: 30; Stop 09/05/16 at 09:29; Status DC Lactated Ringer's (Iv Lactated Ringers) 1,000 ml @ 0 mls/hr Q0M IV Last administered on 09/04/16 13:49; Start 09/04/16 at 09:18; Stop 09/04/16 at 21:17; Status DC Lidocaine HCl 2 ml 1X PRN PRN ID IV START; Start 09/04/16 at 09:30; Stop at 09:29; Status DC Hydromorphone HCl (Dilaudid) 0.5 mg PRN Q10MIN PRN IV SEV PAIN,Second choice Last administered on 09/04/16 18:07; Start 09/04/16 at 09:30; Stop 09/05/16 at 09: 29; Status DC Prochlorperazine Edisylate 5 mg 5 mg PACU PRN PRN IV NAUSEA; Start 09/04/16 at 09:30; Stop 09/05/16 at 09:29; Status DC Cefazolin Sodium/ Dextrose (Ancef 2gm Premix) 50 ml @ As Directed STK-MED ONCE IV ; Start 09/04/16 at 13:12; Stop 09/04/16 at 13:13; Status DC Desflurane (Suprane) 60 ml STK-MED ONCE IH ; Start 09/04/16 at 13:42; Stop at 13:43; Status DC Fentanyl Citrate 100 mcg 100 mcg STK-MED ONCE .ROUTE ; Start 09/04/16 at 13:43; Stop 09/04/16 at 13:44; Status DC Propofol (Diprivan) 20 ml @ As Directed STK-MED ONCE IV ; Start 09/04/16 at 13:43 ; Stop 09/04/16 at 13:44; Status DC Lidocaine HCl 100 mg STK-MED ONCE .ROUTE ; Start 09/04/16 at 13:43; Stop 09/04/16 at 13:44; Status DC Dexamethasone Sodium Phosphate (Decadron) 20 mg STK-MED ONCE .ROUTE ; Start 09/04 at 13:43; Stop 09/04/16 at 13:44; Status DC Ondansetron HCl (Zofran) 4 mg STK-MED ONCE .ROUTE ; Start 09/04/16 at 13:43; Stop 09/04/16 at 13:44; Status DC Glipizide 5 mg 5 mg DAILYWBKFT PO Last administered on 09/16/16 07:55; Start 09/05/16 at 08:00; Stop 09/16/16 at 14:37; Status DC Vancomycin HCl 1.25 gm/Sodium Chloride 250 ml @ 167 mls/hr Q12H IV Last administered on 09/07/16 22:12; Start 09/04/16 at 20:00; Stop 09/07/16 at 23:36 ; Status DC Propofol (Diprivan) 20 ml @ As Directed STK-MED ONCE IV ; Start 09/04/16 at 14:38 ; Stop 09/04/16 at 14:39; Status DC Albuterol Sulfate 2.5 mg 2.5 mg STK-MED ONCE .ROUTE ; Start 09/04/16 at 14:59; Stop 09/04/16 at 15:00; Status DC Tranexamic Acid/ Sodium Chloride (Cyklokapron/Iv Sodium Chloride 0.9% 50ml) 60 ml @ 60 mls/hr 1X PERIOP ONCE INJ Last administered on 09/04/16 15:12; Start 09/04/16 at 15:12; Stop 09/04/16 at 16:11; Status DC Fentanyl Citrate (Fentanyl 2ml Vial) 100 mcg STK-MED ONCE .ROUTE ; Start at 15:27; Stop 09/04/16 at 15:28; Status DC Acetaminophen/ Hydrocodone Bitart (Lortab 7.5/325) 1 tab PRN Q3HRS PRN PO PAIN Last administered on 09/08/16 06:13; Start 09/04/16 at 16:30 Acetaminophen/ Hydrocodone Bitart (Lortab 10/325) 1 tab PRN Q3HRS PRN PO PAIN Last administered on 09/16/16 00:31; Start 09/04/16 at 16:30 Tramadol HCl (Ultram) 50 mg PRN QID PRN PO PAIN; Start 09/04/16 at 16:30; Stop 09/05/16 at 13:32; Status DC Oxycodone/ Acetaminophen (Percocet 5/325) 1 tab PRN Q3HRS PRN PO PAIN; Start at 16:30 Oxycodone/ Acetaminophen (Percocet 7.5/ 325) 1 tab PRN Q3HRS PRN PO PAIN Last administered on 09/17/16 12:43; Start 09/04/16 at 16:30 Tramadol HCl (Ultram) 100 mg PRN Q3HRS PRN PO PAIN; Start 09/04/16 at 16:30; Stop 09/05/16 at 13:32; Status DC Diphenhydramine HCl (Benadryl) 25 mg PRN Q6HRS PRN IV ITCHING; Start 09/04/16 at 16:30 Senna/Docusate Sodium (Senna Plus) 1 tab DAILY PO Last administered on 07:49; Start 09/05/16 at 09:00 Prochlorperazine Maleate (Compazine) 10 mg PRN Q4HRS PRN PO NAUSEA/VOMITING; Start 09/04/16 at 16:30 Metoclopramide HCl (Reglan) 10 mg PRN Q4HRS PRN IV NAUSEA/VOMITING; Start at 16:30 Magnesium Hydroxide (Milk Of Magnesia) 2,400 mg 1X PRN PRN PO CONSTIPATION; Start 09/05/16 at 06:00; Stop 09/06/16 at 05:59; Status DC Bisacodyl (Dulcolax Supp) 10 mg 1X PRN PRN SD CONSTIPATION; Start 09/05/16 at 16 :00; Stop 09/06/16 at 15:59; Status DC Acetaminophen (Tylenol) 650 mg PRN Q4HRS PRN PO MILD PAIN / TEMP; Start at 16:30 Zolpidem Tartrate (Ambien) 5 mg PRN QHS PRN PO INSOMNIA, MAY REPEAT IN 1HR Last administered on 09/15/16 21:46; Start 09/04/16 at 16:30 Calcium Carbonate/ Glycine (Tums) 500 mg PRN QID PRN PO INDIGESTION Last administered on 09/07/16 09:10; Start 09/04/16 at 16:30 Morphine Sulfate 4 mg PRN Q1HR PRN IV PAIN Last administered on 09/08/16 20:38 ; Start 09/04/16 at 16:30; Stop 09/10/16 at 11:20; Status DC Sodium Chloride (Normal Saline Flush) 10 ml QSHIFT PRN IV AFTER MEDS AND BLOOD DRAWS; Start 09/04/16 at 16:30; Status Cancel Prochlorperazine Edisylate (Compazine) 10 mg PRN Q4HRS PRN IV NAUSEA/VOMITING; Start 09/04/16 at 16:30 Dextrose 12.5 gm PRN Q15MIN PRN IV SEE COMMENTS Last administered on 09/12/16 19:36; Start 09/04/16 at 16:30 Insulin Aspart (Novolog) 0-7 UNITS QIDACHS SQ Last administered on 09/17/16 12 :42; Start 09/05/16 at 07:30 Insulin Aspart (Novolog) 12 units 1X ONCE SQ Last administered on 09/04/16 21: 43; Start 09/04/16 at 21:30; Stop 09/04/16 at 21:31; Status DC Polysaccharide Iron Complex (Niferex 150) 150 mg DAILY PO Last administered on 09/17/16 07:49; Start 09/05/16 at 09:00 Polyethylene Glycol (miraLAX PACKET) 17 gm 1X ONCE PO Last administered on 09/05 15:42; Start 09/05/16 at 14:00; Stop 09/05/16 at 14:01; Status DC Polyethylene Glycol (miraLAX PACKET) 17 gm DAILY PO Last administered on 08:39; Start 09/06/16 at 09:00; Stop 09/06/16 at 15:51; Status DC Docusate Sodium (Colace) 100 mg DAILY PO Last administered on 09/17/16 09:44; Start 09/05/16 at 14:00 Magnesium Hydroxide (Milk Of Magnesia) 2,400 mg 1X ONCE PO Last administered on 09/05/16 15:41; Start 09/05/16 at 13:45; Stop 09/05/16 at 13:46; Status DC Morphine Sulfate (Ms Contin) 15 mg BID PO Last administered on 09/17/16 07:51 ; Start 09/05/16 at 13:45 Citalopram Hydrobromide (Celexa) 20 mg DAILY PO Last administered on 09/17/16 07:49; Start 09/06/16 at 09:00 Polyethylene Glycol (miraLAX PACKET) 17 gm BID PO Last administered on 08:30; Start 09/06/16 at 21:00 Sodium Biphosphate/ Sodium Phosphate (Fleet Adult) 133 ml 1X ONCE SD ; Start at 16:00; Stop 09/06/16 at 16:04; Status DC Sodium Biphosphate/ Sodium Phosphate (Fleet Adult) 133 ml PRN DAILY PRN SD CONSTIPATION; Start 09/07/16 at 09:00 Polyethylene Glycol (miraLAX PACKET) 17 gm 1X ONCE PO Last administered on 17:45; Start 09/06/16 at 16:00; Stop 09/06/16 at 16:04; Status DC Sodium Biphosphate/ Sodium Phosphate (Fleet Adult) 133 ml PRN 1X PRN SD CONSTIPATION; Start 09/06/16 at 23:30; Stop 09/11/16 at 12:39; Status DC Vancomycin HCl 1 each 1X ONCE MC ; Start 09/07/16 at 19:30; Stop 09/07/16 at 19 :31; Status DC Alteplase, Recombinant 2 mg 2 mg 1X ONCE INT CAT Last administered on 15:09; Start 09/07/16 at 14:30; Stop 09/07/16 at 14:31; Status DC Daptomycin/Sodium Chloride (Cubicin/Iv Sodium Chloride 0.9% 50ml) 50 ml @ 100 mls/hr Q24H IV Last administered on 09/16/16 16:34; Start 09/08/16 at 16:00 Ondansetron HCl (Zofran) 4 mg PRN Q6HRS PRN IV Nausea; Start 09/10/16 at 07:00 ; Stop 09/10/16 at 23:00; Status DC Fentanyl Citrate (Fentanyl 2ml Vial) 25 mcg PRN Q5MIN PRN IV MILD PAIN; Start 09/10/16 at 07:00; Stop 09/10/16 at 23:00; Status DC Fentanyl Citrate (Fentanyl 2ml Vial) 50 mcg PRN Q5MIN PRN IV MODERATE PAIN Last administered on 09/10/16 11:53; Start 09/10/16 at 07:00; Stop 09/10/16 at 23:00; Status DC Morphine Sulfate 1 mg 1 mg PRN Q10MIN PRN IV SEVERE PAIN; Start 09/10/16 at 07: 00; Stop 09/10/16 at 23:00; Status DC Lactated Ringer's (Iv Lactated Ringers) 1,000 ml @ 30 mls/hr Q24H IV Last administered on 09/10/16 07:38; Start 09/10/16 at 07:00; Stop 09/10/16 at 18:59 ; Status DC Lidocaine HCl 2 ml 1X PRN PRN ID IV START; Start 09/10/16 at 07:00; Stop at 23:00; Status DC Hydromorphone HCl (Dilaudid) 0.5 mg PRN Q10MIN PRN IV SEVERE PAIN, Second choice Last administered on 09/10/16 12:20; Start 09/10/16 at 07:00; Stop 09/10 at 23:00; Status DC Prochlorperazine Edisylate (Compazine) 5 mg PACU PRN PRN IV NAUSEA; Start 09/10 at 07:00; Stop 09/10/16 at 23:00; Status DC Lidocaine HCl 100 mg STK-MED ONCE .ROUTE ; Start 09/10/16 at 07:06; Stop at 07:07; Status DC Dexamethasone Sodium Phosphate 20 mg 20 mg STK-MED ONCE .ROUTE ; Start 09/10/16 at 07:06; Stop 09/10/16 at 07:07; Status DC Propofol (Diprivan) 20 ml @ As Directed STK-MED ONCE IV ; Start 09/10/16 at 07: 06; Stop 09/10/16 at 07:07; Status DC Lidocaine HCl 100 mg STK-MED ONCE .ROUTE ; Start 09/10/16 at 07:06; Stop at 07:07; Status DC Famotidine (Pepcid) 20 mg STK-MED ONCE .ROUTE ; Start 09/10/16 at 07:06; Stop at 07:07; Status DC Fentanyl Citrate (Fentanyl 2ml Vial) 100 mcg STK-MED ONCE .ROUTE ; Start at 07:06; Stop 09/10/16 at 07:07; Status DC Rocuronium Jud 50 mg 50 mg STK-MED ONCE .ROUTE ; Start 09/10/16 at 07:06; Stop 09/10/16 at 07:07; Status DC Cefazolin Sodium/ Dextrose 50 ml @ As Directed STK-MED ONCE IV ; Start 09/10/16 at 07:24; Stop 09/10/16 at 07:25; Status DC Tranexamic Acid 1000 mg/Sodium Chloride 60 ml @ 60 mls/hr 1X PERIOP ONCE INJ Last administered on 09/10/16 08:17; Start 09/10/16 at 08:00; Stop 09/10/16 at 08:59; Status DC Tranexamic Acid/ Sodium Chloride (Cyklokapron/Iv Sodium Chloride 0.9% 50ml) 60 ml @ 60 mls/hr 1X PERIOP ONCE INJ Last administered on 09/10/16 09:31; Start 09/10/16 at 08:00; Stop 09/10/16 at 08:59; Status DC Vancomycin HCl (Vanco) 10 gm 1X ONCE CEMENT Last administered on 09/10/16 08: 33; Start 09/10/16 at 08:00; Stop 09/10/16 at 08:01; Status Cancel Tobramycin Sulfate 7.2 gm 7.2 gm 1X ONCE TP ; Start 09/10/16 at 07:45; Stop at 07:46; Status Cancel Cefazolin Sodium/ Dextrose (Ancef 2gm Premix) 50 ml @ 100 mls/hr 1X ONCE IV Last administered on 09/10/16 08:09; Start 09/10/16 at 08:00; Stop 09/10/16 at 08:29; Status DC Tobramycin Sulfate 1.2 gm STK-MED ONCE .ROUTE Last administered on 09/10/16 08 :33; Start 09/10/16 at 08:01; Stop 09/10/16 at 08:02; Status DC Vancomycin HCl (Vanco) 10 gm STK-MED ONCE .ROUTE ; Start 09/10/16 at 08:01; Stop 09/10/16 at 08:02; Status DC Tobramycin Sulfate 1.2 gm STK-MED ONCE .ROUTE Last administered on 09/10/16 08 :33; Start 09/10/16 at 08:01; Stop 09/10/16 at 08:02; Status DC Tobramycin Sulfate 1.2 gm STK-MED ONCE .ROUTE Last administered on 09/10/16 08 :33; Start 09/10/16 at 08:02; Stop 09/10/16 at 08:03; Status DC Tobramycin Sulfate 1.2 gm STK-MED ONCE .ROUTE Last administered on 09/10/16 08 :33; Start 09/10/16 at 08:02; Stop 09/10/16 at 08:03; Status DC Tobramycin Sulfate 1.2 gm STK-MED ONCE .ROUTE Last administered on 09/10/16 08 :33; Start 09/10/16 at 08:02; Stop 09/10/16 at 08:03; Status DC Tobramycin Sulfate 1.2 gm STK-MED ONCE .ROUTE Last administered on 09/10/16 08 :33; Start 09/10/16 at 08:02; Stop 09/10/16 at 08:03; Status DC Fentanyl Citrate (Fentanyl 2ml Vial) 100 mcg STK-MED ONCE .ROUTE ; Start at 08:35; Stop 09/10/16 at 08:36; Status DC Ephedrine Sulfate 50 mg STK-MED ONCE IV ; Start 09/10/16 at 08:53; Stop at 08:54; Status DC Fentanyl Citrate (Fentanyl 2ml Vial) 100 mcg STK-MED ONCE .ROUTE ; Start at 08:55; Stop 09/10/16 at 08:56; Status DC Labetalol HCl (Normodyne) 20 mg STK-MED ONCE .ROUTE ; Start 09/10/16 at 09:07; Stop 09/10/16 at 09:08; Status DC Glycopyrrolate (Robinul) 1 mg STK-MED ONCE .ROUTE ; Start 09/10/16 at 09:34; Stop 09/10/16 at 09:35; Status DC Neostigmine Methylsulfate 5 mg STK-MED ONCE .ROUTE ; Start 09/10/16 at 09:34; Stop 09/10/16 at 09:35; Status DC Sevoflurane (Ultane) 90 ml STK-MED ONCE IH ; Start 09/10/16 at 10:05; Stop 09/10 at 10:06; Status DC Acetaminophen/ Hydrocodone Bitart (Lortab 7.5/325) 1 tab PRN Q3HRS PRN PO PAIN ; Start 09/10/16 at 11:15; Stop 09/10/16 at 14:20; Status DC Acetaminophen/ Hydrocodone Bitart (Lortab 10/325) 1 tab PRN Q3HRS PRN PO PAIN; Start 09/10/16 at 11:15; Stop 09/10/16 at 14:20; Status DC Tramadol HCl (Ultram) 50 mg PRN QID PRN PO PAIN Last administered on 09/14/16t 16:34; Start 09/10/16 at 11:15 Oxycodone/ Acetaminophen (Percocet 5/325) 1 tab PRN Q3HRS PRN PO PAIN; Start at 11:15; Stop 09/11/16 at 12:38; Status DC Oxycodone/ Acetaminophen (Percocet 7.5/ 325) 1 tab PRN Q3HRS PRN PO PAIN; Start 09/10/16 at 11:15; Stop 09/11/16 at 12:38; Status DC Tramadol HCl (Ultram) 100 mg PRN Q3HRS PRN PO PAIN; Start 09/10/16 at 11:15 Morphine Sulfate 2 mg PRN Q1HR PRN IV PAIN Last administered on 09/11/16t 21:17 ; Start 09/10/16 at 11:15 Fentanyl Citrate (Fentanyl 2ml Vial) 25 mcg PRN Q1HR PRN IV PAIN; Start at 11:15 Diphenhydramine HCl (Benadryl) 25 mg PRN Q6HRS PRN IV ITCHING; Start 09/10/16 at 11:15; Status Cancel Multivitamins/ Calcium (Thera M Plus) 1 tab DAILY PO ; Start 09/11/16 at 09:00; Stop 09/11/16 at 09:00; Status DC Senna/Docusate Sodium 1 tab 1 tab DAILY PO ; Start 09/11/16 at 09:00; Stop 09/11 at 09:00; Status DC Dextrose/Sodium Chloride (Iv D5% - 1/2 NS) 1,000 ml @ 100 mls/hr Q10H IV Last administered on 09/11/16 21:19; Start 09/10/16 at 12:00; Stop 09/12/16 at 16:52 ; Status DC Prochlorperazine Maleate (Compazine) 10 mg PRN Q4HRS PRN PO NAUSEA/VOMITING; Start 09/10/16 at 11:15; Stop 09/10/16 at 11:20; Status DC Metoclopramide HCl (Reglan) 10 mg PRN Q4HRS PRN IV NAUSEA/VOMITING; Start 09/10 at 11:15; Stop 09/10/16 at 11:21; Status DC Magnesium Hydroxide (Milk Of Magnesia) 2,400 mg 1X PRN PRN PO CONSTIPATION; Start 09/11/16 at 06:00; Stop 09/12/16 at 05:59; Status DC Bisacodyl (Dulcolax Supp) 10 mg 1X PRN PRN SD CONSTIPATION; Start 09/11/16 at 16:00; Stop 09/12/16 at 15:59; Status DC Acetaminophen (Tylenol) 650 mg PRN Q4HRS PRN PO MILD PAIN / TEMP; Start at 11:15; Stop 09/10/16 at 11:21; Status DC Zolpidem Tartrate (Ambien) 5 mg PRN QHS PRN PO INSOMNIA, MAY REPEAT IN 1HR; Start 09/10/16 at 11:15; Stop 09/10/16 at 11:21; Status DC Calcium Carbonate/ Glycine (Tums) 500 mg PRN QID PRN PO INDIGESTION; Start at 11:15; Stop 09/10/16 at 11:21; Status DC Morphine Sulfate 4 mg PRN Q1HR PRN IV PAIN Last administered on 09/10/16 14:57 ; Start 09/10/16 at 11:15 Morphine Sulfate 6 mg PRN Q1HR PRN IV PAIN Last administered on 09/10/16 18:38 ; Start 09/10/16 at 11:15 Morphine Sulfate 8 mg PRN Q1HR PRN IV PAIN; Start 09/10/16 at 11:15 Sodium Chloride (Normal Saline Flush) 10 ml QSHIFT PRN IV AFTER MEDS AND BLOOD DRAWS; Start 09/10/16 at 11:15 Fentanyl Citrate (Fentanyl 2ml Vial) 50 mcg PRN Q1HR PRN IV PAIN; Start at 11:15 Prochlorperazine Edisylate (Compazine) 10 mg PRN Q4HRS PRN IV NAUSEA/VOMITING; Start 09/10/16 at 11:15; Stop 09/10/16 at 11:21; Status DC Dextrose 12.5 gm 12.5 gm PRN Q15MIN PRN IV SEE COMMENTS; Start 09/10/16 at 11: 15; Stop 09/10/16 at 11:21; Status DC Cefazolin Sodium/ Dextrose (Ancef 2gm Premix) 50 ml @ 100 mls/hr Q6H IV ; Start 09/10/16 at 11:15; Stop 09/10/16 at 11:15; Status DC Potassium Chloride 40 meq 40 meq 1X ONCE PO Last administered on 09/10/16 14: 59; Start 09/10/16 at 12:15; Stop 09/10/16 at 12:16; Status DC Ertapenem/Sodium Chloride (Invanz/Iv Sodium Chloride 0.9% 50ml) 50 ml @ 100 mls /hr Q24H IV Last administered on 09/17/16 09:44; Start 09/11/16 at 10:00 Heparin Sodium (Porcine) 5,000 unit Q8HRS SQ Last administered on 09/17/16 12: 43; Start 09/11/16 at 14:00 Amlodipine Besylate (Norvasc) 5 mg DAILY PO Last administered on 09/17/16 07: 51; Start 09/12/16 at 11:15 Alprazolam (Xanax) 0.25 mg PRN Q8HRS PRN PO ANXIETY / AGITATION Last administered on 09/17/16 07:50; Start 09/15/16 at 12:00 Glipizide (Glucotrol) 5 mg BIDBFRMEAL PO Last administered on 09/17/16 07:49; Start 09/16/16 at 16:30 Active Scripts Active Aspirin Ec (Aspirin) 325 Mg Tablet.dr 325 Mg PO BID 30 Days Reported Percocet 5-325 Mg Tablet (Oxycodone/Acetaminophen) 1 Each Tablet 1-2 Tab PO Q4- 6HRS LAST DOSE GIVEN: DATE: 08/02/16 TIME: 2:00 NEXT DOSE DUE: DATE: 08/02/16 TIME: 6:00pm as needed for pain Percocet 5-325 Mg Tablet (Oxycodone/Acetaminophen) 1 Each Tablet 1-2 Tab PO Q4- 6HRS Calcium 600 + Vit D 200 Tablet (Calcium Carbonate/Vitamin D3) 1 Each Tablet 1 Each PO BID Hair, Skin & Nails (Multivitamin With Minerals) 1 Each Tablet 1 Each PO DAILY Carvedilol 12.5 Mg Tablet 12.5 Mg PO BIDWMEALS Lovastatin 40 Mg Tablet 40 Mg PO HS Metformin Hcl 1,000 Mg Tablet 1 Tab PO BID Hydrochlorothiazide Tablet (Hydrochlorothiazide) 12.5 Mg Tablet 25 Mg PO DAILY Novolin N (Nph, Human Insulin Isophane) 100 Unit/1 Ml Vial 20 Unit SQ [id number] Novolin N (Nph, Human Insulin Isophane) 100 Unit/1 Ml Vial 40 Unit SQ [id number] Glipizide 5 Mg Tablet 5 Mg PO DAILY Lisinopril 40 Mg Tablet 40 Mg PO DAILY Citalopram Hbr (Citalopram Hydrobromide) 40 Mg Tablet 40 Mg PO DAILY Vitals/I & O Vital Sign - Last 24 Hours 09/16/16 09/16/16 09/16/16 09/16/16 15:00 16:45 16:48 19:10 Temp 98.9 98.1 98.9 98.1 Pulse 78 78 82 Resp 16 18 B/P 155/67 155/67 149/69 Pulse Ox 96 96 94 O2 Delivery Nasal Cannula Room Air Room Air O2 Flow Rate 2.0 09/16/16 09/16/16 09/16/16 09/17/16 20:00 22:09 23:05 03:05 Temp 98.1 97.7 98.1 97.7 Pulse 91 91 Resp 18 18 B/P 144/65 147/64 Pulse Ox 92 93 O2 Delivery Room Air Room Air Room Air Room Air 09/17/16 09/17/16 09/17/16 09/17/16 05:51 07:00 07:44 07:49 Temp 98.8 98.8 Pulse 85 91 Resp 18 B/P 153/64 147/64 Pulse Ox 94 O2 Delivery Room Air Room Air Room Air O2 Flow Rate 2.0 2/2109/17/16 09/17/16 09/17/16 07:50 07:51 07:51 09:44 Pulse 91 91 B/P 147/64 147/64 Pulse Ox 93 93 O2 Delivery Room Air Room Air O2 Flow Rate 2.0 2.0 09/17/16 09/17/16 09/17/16 09/17/16 10:50 11:00 12:00 12:43 Temp 98.1 98.1 Pulse 80 Resp 18 B/P 134/58 Pulse Ox 93 94 94 94 O2 Delivery Room Air Room Air Room Air Room Air O2 Flow Rate 2.0 2.0 2.0 Intake and Output 09/16/16 09/16/16 09/17/16 15:00 23:00 07:00 Intake Total 100 ml Balance 100 ml ESCOBAR ROQUE MD Sep 17, 2016 14:43
[2016-09-17 15:00] VITALS: BP 121/57
[2016-09-17] MEDS: DAPTOMYCIN IV SCH (16:45)
[2016-09-17] MEDS: NORMAL SALINE IV SCH (16:45)
[2016-09-17 19:00] VITALS: BP 144/62
[2016-09-17 23:00] VITALS: BP 171/78
[2016-09-17] MEDS: ZOLPIDEM 5 MG TABLET. PO PRN (23:58)
[2016-09-18 03:00] VITALS: BP 151/78
[2016-09-18] MEDS: HEPARIN PF for SUB-Q USE 5,000 UNIT/0.5 ML VIAL. SQ SCH ×3 (06:21→21:14)
[2016-09-18] MEDS: MORPHINE SULFATE 4 MG/ML DISP.SYRIN. IV PRN (06:30)
[2016-09-18 07:26] VITALS: BP 157/70
[2016-09-18] MEDS: OXYCODONE/APAP 7.5/325 TABLET. PO PRN ×3 (07:55→18:30)
[2016-09-18] MEDS: GLIPIZIDE 5 MG TABLET PO SCH ×2 (07:56→16:40)
[2016-09-18] MEDS: INSULIN ASPART 300 UNITS/3 ML INSULN.PEN SQ SCH ×4 (08:05→21:01)
[2016-09-18] MEDS: CALCIUM CARB/VIT D3 500/200 TABLET PO SCH ×2 (08:41→16:39)
[2016-09-18] MEDS: CITALOPRAM 20 MG TABLET. PO SCH (08:41)
[2016-09-18] MEDS: CARVEDILOL 12.5 MG TABLET PO SCH ×2 (08:41→16:39)
[2016-09-18] MEDS: ASPIRIN ENTERIC COATED 325 MG TABLET.DR. PO SCH ×2 (08:42→21:06)
[2016-09-18] MEDS: IRON POLYSACCHARIDE COMPLEX 150 MG CAPSULE PO SCH (08:42)
[2016-09-18] MEDS: AMLODIPINE BESYLATE 5 MG TABLET PO SCH (08:42)
[2016-09-18] MEDS: MORPHINE ER 15 MG TABLET.ER PO SCH ×2 (08:42→21:06)
[2016-09-18] MEDS: LISINOPRIL 40 MG TABLET. PO SCH (08:42)
[2016-09-18] MEDS: DOCUSATE SODIUM 100 MG CAPSULE PO SCH (08:42)
[2016-09-18] MEDS: MULTIVITAMIN with MINERAL TABLET. PO SCH (08:42)
[2016-09-18] MEDS: HYDROCHLOROTHIAZIDE 25 MG TABLET PO SCH (08:42)
[2016-09-18] MEDS: SENNOSIDES/DOCUSATE 8.6/50MG TABLET. PO SCH (08:42)
[2016-09-18] MEDS: POLYETHYLENE GLYCOL 3350 17 GM PACKET. PO SCH ×2 (08:43→21:15)
--- NOTE | 2016-09-18 10:07 | PDOC ---
PROGRESS NOTES Chief Complaint Chief Complaint Infected knee prosthesis, R ASSESSMENT AND PLAN: 1. 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 Group B/MRSA/Morganella isolated. on Ertapenem/daptomycin. terminal makeup operator IV Abx 2. Pain control: on IV/PO meds. try to transition to PO completely, but still needs IV for dressing changes/PT 3. Anemia: iron/TIBC c/w inflammation. ferritin lowish, c/w component of iron def as well. replete low dose iron. s/p PRBC x1 postsurgically. monitor 4. DM: oral and insulin home regimen plus ISS with good control 5. CKD3: stable creat and lytes. monitor periodically 6. HTN: sl improved post addition of norvasc. monitor, may need dose adjustment 7. Prophylaxis: heparin 8. Dispo: awaiting rehab/LTAC bed. F/U with Dr Lance and Jayme she cannot transfer or ambulate anxiety, prior delirium possible from anxiety and pain, , mild, add xanax prn awaiting placement, History of Present Illness History of Present Illness some confusion reported good recall today, right knee pain /10, PO intake improved did well with PT, discussed Vitals Vitals Vital Signs Date Time Temp Pulse Resp B/P Pulse Ox O2 Delivery O2 Flow Rate FiO2 09/18/16 08:42 90 157/70 09/18/16 07:26 96.1 14 92 Room Air 96.1 09/17/16 17:45 2.0 Physical Exam General: Alert, Oriented X3, Cooperative, No acute distress Heart: Regular rate, No murmurs Lungs: Clear, Wheezing Abdomen: Normal bowel sounds, No tenderness Extremities: No clubbing, No cyanosis, Other (R knee in ALEXANDRO wrap and splint) Skin: No rashes Labs LABS Laboratory Tests Test 09/17/16 11:26 09/17/16 16:17 09/17/16 20:38 09/18/16 07:34 Glucose (Fingerstick) 270mg/dL (70-99) 155mg/dL (70-99) 185mg/dL (70-99) 198mg/dL (70-99) Assessment and Plan Assessmemt and Plan lab in AM cont PT and OT Problems Medical Problems: (1) Infection of right knee Status: Acute (2) Infection of total right knee replacement Status: Acute (3) Right knee pain Status: Acute (4) Swelling of knee joint, right Status: Acute Problems: Comment Review of Relevant I have reviewed the following items deng (where applicable) has been applied. Labs Laboratory Tests Test 09/16/16 11:24 09/16/16 16:12 09/16/16 21:34 09/17/16 07:59 Glucose (Fingerstick) 281mg/dL (70-99) 167mg/dL (70-99) 234mg/dL (70-99) 207mg/dL (70-99) Test 09/17/16 11:26 09/17/16 16:17 09/17/16 20:38 09/18/16 07:34 Glucose (Fingerstick) 270mg/dL (70-99) 155mg/dL (70-99) 185mg/dL (70-99) 198mg/dL (70-99) Laboratory Tests Test 09/17/16 11:26 09/17/16 16:17 09/17/16 20:38 09/18/16 07:34 Glucose (Fingerstick) 270mg/dL (70-99) 155mg/dL (70-99) 185mg/dL (70-99) 198mg/dL (70-99) Microbiology 09/02/16 Blood Culture - Final, Complete NO GROWTH AFTER 5 DAYS 09/03/16 Gram Stain - Final, Complete 09/10/16 Gram Stain - Final, Complete Medications Current Medications Ondansetron HCl (Zofran) 4 mg PRN Q8HRS PRN IV NAUSEA/VOMITING; Start 09/02/16 at 15:15; Stop 09/03/16 at 15:14; Status DC Morphine Sulfate 2 mg PRN Q2HR PRN IV PAIN Last administered on 09/03/16 11:10 ; Start 09/02/16 at 15:15; Stop 09/03/16 at 15:14; Status DC Vancomycin HCl (Vanco Per Pharmacy) 1 each PRN DAILY PRN MC SEE COMMENTS Last administered on 09/07/16 11:48; Start 09/02/16 at 17:30; Stop 09/07/16 at 23:39 ; Status DC Piperacillin Sod/ Tazobactam Sod 1 each 1 each PRN DAILY PRN MC SEE COMMENTS; Start 09/02/16 at 17:30; Stop 09/04/16 at 13:59; Status DC Piperacillin Sod/ Tazobactam Sod 3.375 gm/Sodium Chloride 50 ml @ 100 mls/hr Q6HRS IV Last administered on 09/11/16 06:03; Start 09/02/16 at 18:00; Stop at 09:08; Status DC Vancomycin HCl 2 gm/Sodium Chloride 500 ml @ 250 mls/hr 1X ONCE IV Last administered on 09/02/16 20:53; Start 09/02/16 at 20:00; Stop 09/02/16 at 21:59; Status DC Vancomycin HCl/ Sodium Chloride (Iv Sodium Chloride 0.9% 500ml Bag) 500 ml @ 250 mls/hr Q12H IV Last administered on 09/04/16 09:18; Start 09/03/16 at 08:00 ; Stop 09/04/16 at 14:06; Status DC Vancomycin HCl 1 each 1X ONCE MC Last administered on 09/03/16 07:30; Start at 07:30; Stop 09/03/16 at 07:31; Status DC Aspirin (Ecotrin) 325 mg BID PO Last administered on 09/18/16 08:42; Start 09/03/16 at 21:00 Carvedilol (Coreg) 12.5 mg BIDWMEALS PO Last administered on 09/18/16 08:41; Start 09/03/16 at 17:00 Glipizide (Glucotrol) 5 mg DAILY PO Last administered on 09/03/16 13:10; Start 09/03/16 at 12:30; Stop 09/04/16 at 14:00; Status DC Lisinopril (Prinivil) 40 mg DAILY PO Last administered on 09/18/16 08:42; Start 09/03/16 at 12:30 Metformin HCl (Glucophage) 1,000 mg BIDWMEALS PO Last administered on 16:54; Start 09/03/16 at 17:00; Stop 09/12/16 at 19:50; Status DC Insulin Detemir (Levemir) 20 units DAILYWSUP SQ Last administered on 09/11/16 17:31; Start 09/03/16 at 17:00; Stop 09/12/16 at 19:50; Status DC Insulin Detemir (Levemir) 40 units DAILYWBKFT SQ Last administered on 08:37; Start 09/04/16 at 08:00; Stop 09/12/16 at 19:50; Status DC Oxycodone/ Acetaminophen (Percocet 5/325) 1 tab PRN Q6HRS PRN PO pain Last administered on 09/04/16 11:56; Start 09/03/16 at 12:00; Stop 09/05/16 at 11:41; Status DC Calcium/Vitamin D (Oscal D 500mg/ 200uts) 1 tab BIDWMEALS PO Last administered on 09/18/16 08:41; Start 09/03/16 at 17:00 Citalopram Hydrobromide (Celexa) 40 mg DAILY PO Last administered on 09/05/16 08:28; Start 09/04/16 at 09:00; Stop 09/05/16 at 13:44; Status DC Hydrochlorothiazide (Hydrodiuril) 25 mg DAILY PO Last administered on 08:42; Start 09/03/16 at 12:30 Atorvastatin Calcium (Lipitor) 10 mg QHS PO Last administered on 09/15/16 21: 46; Start 09/03/16 at 21:00; Stop 09/16/16 at 14:37; Status DC Multivitamins/ Calcium (Thera M Plus) 1 tab DAILY PO Last administered on 08:42; Start 09/03/16 at 12:30 Insulin Aspart (Novolog) 0-7 UNITS TIDWMEALS SQ Last administered on 09/03/16 17:14; Start 09/03/16 at 13:00; Stop 09/04/16 at 21:21; Status DC Dextrose 12.5 gm PRN Q15MIN PRN IV SEE COMMENTS; Start 09/03/16 at 12:15; Stop 09/05/16 at 13:32; Status DC Insulin Aspart (Novolog) 10 units TIDAC SQ Last administered on 09/09/16 12:15 ; Start 09/03/16 at 16:30; Stop 09/09/16 at 16:11; Status DC Polyethylene Glycol (miraLAX PACKET) 17 gm PRN DAILY PRN PO CONSTIPATION; Start 09/03/16 at 13:00 Polyethylene Glycol (miraLAX PACKET) 17 gm 1X ONCE PO Last administered on 09/03 13:18; Start 09/03/16 at 13:00; Stop 09/03/16 at 13:12; Status DC Docusate Sodium (Colace) 100 mg PRN DAILY PRN PO CONSTIPATION; Start 09/03/16 at 13:00; Stop 09/05/16 at 13:31; Status DC Lidocaine/Sodium Bicarbonate 20 ml 20 ml 1X ONCE IJ ; Start 09/03/16 at 15:15; Stop 09/03/16 at 15:16; Status DC Cefazolin Sodium/ Dextrose 50 ml @ 100 mls/hr 1X PREOP IV ; Start 09/06/16 at 06:00; Stop 09/06/16 at 06:00; Status DC Cefazolin Sodium/ Dextrose (Ancef 2gm Premix) 50 ml @ 100 mls/hr 1X PREOP ONCE IV Last administered on 09/04/16 14:24; Start 09/04/16 at 06:00; Stop at 06:29; Status DC Fentanyl Citrate (Fentanyl 2ml Vial) 25 mcg PRN Q5MIN PRN IV MILD PAIN; Start 09/04/16 at 09:30; Stop 09/05/16 at 09:29; Status DC Fentanyl Citrate (Fentanyl 2ml Vial) 50 mcg PRN Q5MIN PRN IV MODERATE PAIN Last administered on 09/04/16 16:54; Start 09/04/16 at 09:30; Stop 09/05/16 at 09: 29; Status DC Morphine Sulfate 1 mg 1 mg PRN Q10MIN PRN IV SEVERE PAIN; Start 09/04/16 at 09: 30; Stop 09/05/16 at 09:29; Status DC Lactated Ringer's (Iv Lactated Ringers) 1,000 ml @ 0 mls/hr Q0M IV Last administered on 09/04/16 13:49; Start 09/04/16 at 09:18; Stop 09/04/16 at 21:17; Status DC Lidocaine HCl 2 ml 1X PRN PRN ID IV START; Start 09/04/16 at 09:30; Stop at 09:29; Status DC Hydromorphone HCl (Dilaudid) 0.5 mg PRN Q10MIN PRN IV SEV PAIN,Second choice Last administered on 09/04/16 18:07; Start 09/04/16 at 09:30; Stop 09/05/16 at 09: 29; Status DC Prochlorperazine Edisylate 5 mg 5 mg PACU PRN PRN IV NAUSEA; Start 09/04/16 at 09:30; Stop 09/05/16 at 09:29; Status DC Cefazolin Sodium/ Dextrose (Ancef 2gm Premix) 50 ml @ As Directed STK-MED ONCE IV ; Start 09/04/16 at 13:12; Stop 09/04/16 at 13:13; Status DC Desflurane (Suprane) 60 ml STK-MED ONCE IH ; Start 09/04/16 at 13:42; Stop at 13:43; Status DC Fentanyl Citrate 100 mcg 100 mcg STK-MED ONCE .ROUTE ; Start 09/04/16 at 13:43; Stop 09/04/16 at 13:44; Status DC Propofol (Diprivan) 20 ml @ As Directed STK-MED ONCE IV ; Start 09/04/16 at 13:43 ; Stop 09/04/16 at 13:44; Status DC Lidocaine HCl 100 mg STK-MED ONCE .ROUTE ; Start 09/04/16 at 13:43; Stop 09/04/16 at 13:44; Status DC Dexamethasone Sodium Phosphate (Decadron) 20 mg STK-MED ONCE .ROUTE ; Start 09/04 at 13:43; Stop 09/04/16 at 13:44; Status DC Ondansetron HCl (Zofran) 4 mg STK-MED ONCE .ROUTE ; Start 09/04/16 at 13:43; Stop 09/04/16 at 13:44; Status DC Glipizide 5 mg 5 mg DAILYWBKFT PO Last administered on 09/16/16 07:55; Start 09/05/16 at 08:00; Stop 09/16/16 at 14:37; Status DC Vancomycin HCl 1.25 gm/Sodium Chloride 250 ml @ 167 mls/hr Q12H IV Last administered on 09/07/16 22:12; Start 09/04/16 at 20:00; Stop 09/07/16 at 23:36 ; Status DC Propofol (Diprivan) 20 ml @ As Directed STK-MED ONCE IV ; Start 09/04/16 at 14:38 ; Stop 09/04/16 at 14:39; Status DC Albuterol Sulfate 2.5 mg 2.5 mg STK-MED ONCE .ROUTE ; Start 09/04/16 at 14:59; Stop 09/04/16 at 15:00; Status DC Tranexamic Acid/ Sodium Chloride (Cyklokapron/Iv Sodium Chloride 0.9% 50ml) 60 ml @ 60 mls/hr 1X PERIOP ONCE INJ Last administered on 09/04/16 15:12; Start 09/04/16 at 15:12; Stop 09/04/16 at 16:11; Status DC Fentanyl Citrate (Fentanyl 2ml Vial) 100 mcg STK-MED ONCE .ROUTE ; Start at 15:27; Stop 09/04/16 at 15:28; Status DC Acetaminophen/ Hydrocodone Bitart (Lortab 7.5/325) 1 tab PRN Q3HRS PRN PO PAIN Last administered on 09/08/16 06:13; Start 09/04/16 at 16:30 Acetaminophen/ Hydrocodone Bitart (Lortab 10/325) 1 tab PRN Q3HRS PRN PO PAIN Last administered on 09/16/16 00:31; Start 09/04/16 at 16:30 Tramadol HCl (Ultram) 50 mg PRN QID PRN PO PAIN; Start 09/04/16 at 16:30; Stop 09/05/16 at 13:32; Status DC Oxycodone/ Acetaminophen (Percocet 5/325) 1 tab PRN Q3HRS PRN PO PAIN; Start at 16:30 Oxycodone/ Acetaminophen (Percocet 7.5/ 325) 1 tab PRN Q3HRS PRN PO PAIN Last administered on 09/18/16 07:55; Start 09/04/16 at 16:30 Tramadol HCl (Ultram) 100 mg PRN Q3HRS PRN PO PAIN; Start 09/04/16 at 16:30; Stop 09/05/16 at 13:32; Status DC Diphenhydramine HCl (Benadryl) 25 mg PRN Q6HRS PRN IV ITCHING; Start 09/04/16 at 16:30 Senna/Docusate Sodium (Senna Plus) 1 tab DAILY PO Last administered on 08:42; Start 09/05/16 at 09:00 Prochlorperazine Maleate (Compazine) 10 mg PRN Q4HRS PRN PO NAUSEA/VOMITING; Start 09/04/16 at 16:30 Metoclopramide HCl (Reglan) 10 mg PRN Q4HRS PRN IV NAUSEA/VOMITING; Start at 16:30 Magnesium Hydroxide (Milk Of Magnesia) 2,400 mg 1X PRN PRN PO CONSTIPATION; Start 09/05/16 at 06:00; Stop 09/06/16 at 05:59; Status DC Bisacodyl (Dulcolax Supp) 10 mg 1X PRN PRN [place] CONSTIPATION; Start 09/05/16 at 16 :00; Stop 09/06/16 at 15:59; Status DC Acetaminophen (Tylenol) 650 mg PRN Q4HRS PRN PO MILD PAIN / TEMP; Start at 16:30 Zolpidem Tartrate (Ambien) 5 mg PRN QHS PRN PO INSOMNIA, MAY REPEAT IN 1HR Last administered on 09/17/16 23:58; Start 09/04/16 at 16:30 Calcium Carbonate/ Glycine (Tums) 500 mg PRN QID PRN PO INDIGESTION Last administered on 09/07/16 09:10; Start 09/04/16 at 16:30 Morphine Sulfate 4 mg PRN Q1HR PRN IV PAIN Last administered on 09/08/16 20:38 ; Start 09/04/16 at 16:30; Stop 09/10/16 at 11:20; Status DC Sodium Chloride (Normal Saline Flush) 10 ml QSHIFT PRN IV AFTER MEDS AND BLOOD DRAWS; Start 09/04/16 at 16:30; Status Cancel Prochlorperazine Edisylate (Compazine) 10 mg PRN Q4HRS PRN IV NAUSEA/VOMITING; Start 09/04/16 at 16:30 Dextrose 12.5 gm PRN Q15MIN PRN IV SEE COMMENTS Last administered on 09/12/16 19:36; Start 09/04/16 at 16:30 Insulin Aspart (Novolog) 0-7 UNITS QIDACHS SQ Last administered on 09/18/16 08 :05; Start 09/05/16 at 07:30 Insulin Aspart (Novolog) 12 units 1X ONCE SQ Last administered on 09/04/16 21: 43; Start 09/04/16 at 21:30; Stop 09/04/16 at 21:31; Status DC Polysaccharide Iron Complex (Niferex 150) 150 mg DAILY PO Last administered on 09/18/16 08:42; Start 09/05/16 at 09:00 Polyethylene Glycol (miraLAX PACKET) 17 gm 1X ONCE PO Last administered on 09/05 15:42; Start 09/05/16 at 14:00; Stop 09/05/16 at 14:01; Status DC Polyethylene Glycol (miraLAX PACKET) 17 gm DAILY PO Last administered on 08:39; Start 09/06/16 at 09:00; Stop 09/06/16 at 15:51; Status DC Docusate Sodium (Colace) 100 mg DAILY PO Last administered on 09/18/16 08:42; Start 09/05/16 at 14:00 Magnesium Hydroxide (Milk Of Magnesia) 2,400 mg 1X ONCE PO Last administered on 09/05/16 15:41; Start 09/05/16 at 13:45; Stop 09/05/16 at 13:46; Status DC Morphine Sulfate (Ms Contin) 15 mg BID PO Last administered on 09/18/16 08:42 ; Start 09/05/16 at 13:45 Citalopram Hydrobromide (Celexa) 20 mg DAILY PO Last administered on 09/18/16 08:41; Start 09/06/16 at 09:00 Polyethylene Glycol (miraLAX PACKET) 17 gm BID PO Last administered on 08:43; Start 09/06/16 at 21:00 Sodium Biphosphate/ Sodium Phosphate (Fleet Adult) 133 ml 1X ONCE AK ; Start at 16:00; Stop 09/06/16 at 16:04; Status DC Sodium Biphosphate/ Sodium Phosphate (Fleet Adult) 133 ml PRN DAILY PRN [place] CONSTIPATION; Start 09/07/16 at 09:00 Polyethylene Glycol (miraLAX PACKET) 17 gm 1X ONCE PO Last administered on 17:45; Start 09/06/16 at 16:00; Stop 09/06/16 at 16:04; Status DC Sodium Biphosphate/ Sodium Phosphate (Fleet Adult) 133 ml PRN 1X PRN [place] CONSTIPATION; Start 09/06/16 at 23:30; Stop 09/11/16 at 12:39; Status DC Vancomycin HCl 1 each 1X ONCE MC ; Start 09/07/16 at 19:30; Stop 09/07/16 at 19 :31; Status DC Alteplase, Recombinant 2 mg 2 mg 1X ONCE INT CAT Last administered on 15:09; Start 09/07/16 at 14:30; Stop 09/07/16 at 14:31; Status DC Daptomycin/Sodium Chloride (Cubicin/Iv Sodium Chloride 0.9% 50ml) 50 ml @ 100 mls/hr Q24H IV Last administered on 09/17/16 16:45; Start 09/08/16 at 16:00 Ondansetron HCl (Zofran) 4 mg PRN Q6HRS PRN IV Nausea; Start 09/10/16 at 07:00 ; Stop 09/10/16 at 23:00; Status DC Fentanyl Citrate (Fentanyl 2ml Vial) 25 mcg PRN Q5MIN PRN IV MILD PAIN; Start 09/10/16 at 07:00; Stop 09/10/16 at 23:00; Status DC Fentanyl Citrate (Fentanyl 2ml Vial) 50 mcg PRN Q5MIN PRN IV MODERATE PAIN Last administered on 09/10/16 11:53; Start 09/10/16 at 07:00; Stop 09/10/16 at 23:00; Status DC Morphine Sulfate 1 mg 1 mg PRN Q10MIN PRN IV SEVERE PAIN; Start 09/10/16 at 07: 00; Stop 09/10/16 at 23:00; Status DC Lactated Ringer's (Iv Lactated Ringers) 1,000 ml @ 30 mls/hr Q24H IV Last administered on 09/10/16 07:38; Start 09/10/16 at 07:00; Stop 09/10/16 at 18:59 ; Status DC Lidocaine HCl 2 ml 1X PRN PRN ID IV START; Start 09/10/16 at 07:00; Stop at 23:00; Status DC Hydromorphone HCl (Dilaudid) 0.5 mg PRN Q10MIN PRN IV SEVERE PAIN, Second choice Last administered on 09/10/16 12:20; Start 09/10/16 at 07:00; Stop 09/10 at 23:00; Status DC Prochlorperazine Edisylate (Compazine) 5 mg PACU PRN PRN IV NAUSEA; Start 09/10 at 07:00; Stop 09/10/16 at 23:00; Status DC Lidocaine HCl 100 mg STK-MED ONCE .ROUTE ; Start 09/10/16 at 07:06; Stop at 07:07; Status DC Dexamethasone Sodium Phosphate 20 mg 20 mg STK-MED ONCE .ROUTE ; Start 09/10/16 at 07:06; Stop 09/10/16 at 07:07; Status DC Propofol (Diprivan) 20 ml @ As Directed STK-MED ONCE IV ; Start 09/10/16 at 07: 06; Stop 09/10/16 at 07:07; Status DC Lidocaine HCl 100 mg STK-MED ONCE .ROUTE ; Start 09/10/16 at 07:06; Stop at 07:07; Status DC Famotidine (Pepcid) 20 mg STK-MED ONCE .ROUTE ; Start 09/10/16 at 07:06; Stop at 07:07; Status DC Fentanyl Citrate (Fentanyl 2ml Vial) 100 mcg STK-MED ONCE .ROUTE ; Start at 07:06; Stop 09/10/16 at 07:07; Status DC Rocuronium [place] 50 mg 50 mg STK-MED ONCE .ROUTE ; Start 09/10/16 at 07:06; Stop 09/10/16 at 07:07; Status DC Cefazolin Sodium/ Dextrose 50 ml @ As Directed STK-MED ONCE IV ; Start 09/10/16 at 07:24; Stop 09/10/16 at 07:25; Status DC Tranexamic Acid 1000 mg/Sodium Chloride 60 ml @ 60 mls/hr 1X PERIOP ONCE INJ Last administered on 09/10/16 08:17; Start 09/10/16 at 08:00; Stop 09/10/16 at 08:59; Status DC Tranexamic Acid/ Sodium Chloride (Cyklokapron/Iv Sodium Chloride 0.9% 50ml) 60 ml @ 60 mls/hr 1X PERIOP ONCE INJ Last administered on 09/10/16 09:31; Start 09/10/16 at 08:00; Stop 09/10/16 at 08:59; Status DC Vancomycin HCl (Vanco) 10 gm 1X ONCE CEMENT Last administered on 09/10/16 08: 33; Start 09/10/16 at 08:00; Stop 09/10/16 at 08:01; Status Cancel Tobramycin Sulfate 7.2 gm 7.2 gm 1X ONCE TP ; Start 09/10/16 at 07:45; Stop at 07:46; Status Cancel Cefazolin Sodium/ Dextrose (Ancef 2gm Premix) 50 ml @ 100 mls/hr 1X ONCE IV Last administered on 09/10/16 08:09; Start 09/10/16 at 08:00; Stop 09/10/16 at 08:29; Status DC Tobramycin Sulfate 1.2 gm STK-MED ONCE .ROUTE Last administered on 09/10/16 08 :33; Start 09/10/16 at 08:01; Stop 09/10/16 at 08:02; Status DC Vancomycin HCl (Vanco) 10 gm STK-MED ONCE .ROUTE ; Start 09/10/16 at 08:01; Stop 09/10/16 at 08:02; Status DC Tobramycin Sulfate 1.2 gm STK-MED ONCE .ROUTE Last administered on 09/10/16 08 :33; Start 09/10/16 at 08:01; Stop 09/10/16 at 08:02; Status DC Tobramycin Sulfate 1.2 gm STK-MED ONCE .ROUTE Last administered on 09/10/16 08 :33; Start 09/10/16 at 08:02; Stop 09/10/16 at 08:03; Status DC Tobramycin Sulfate 1.2 gm STK-MED ONCE .ROUTE Last administered on 09/10/16 08 :33; Start 09/10/16 at 08:02; Stop 09/10/16 at 08:03; Status DC Tobramycin Sulfate 1.2 gm STK-MED ONCE .ROUTE Last administered on 09/10/16t 08 :33; Start 09/10/16 at 08:02; Stop 09/10/16 at 08:03; Status DC Tobramycin Sulfate 1.2 gm STK-MED ONCE .ROUTE Last administered on 09/10/16t 08 :33; Start 09/10/16 at 08:02; Stop 09/10/16 at 08:03; Status DC Fentanyl Citrate (Fentanyl 2ml Vial) 100 mcg STK-MED ONCE .ROUTE ; Start at 08:35; Stop 09/10/16 at 08:36; Status DC Ephedrine Sulfate 50 mg STK-MED ONCE IV ; Start 09/10/16 at 08:53; Stop at 08:54; Status DC Fentanyl Citrate (Fentanyl 2ml Vial) 100 mcg STK-MED ONCE .ROUTE ; Start at 08:55; Stop 09/10/16 at 08:56; Status DC Labetalol HCl (Normodyne) 20 mg STK-MED ONCE .ROUTE ; Start 09/10/16 at 09:07; Stop 09/10/16 at 09:08; Status DC Glycopyrrolate (Robinul) 1 mg STK-MED ONCE .ROUTE ; Start 09/10/16 at 09:34; Stop 09/10/16 at 09:35; Status DC Neostigmine Methylsulfate 5 mg STK-MED ONCE .ROUTE ; Start 09/10/16 at 09:34; Stop 09/10/16 at 09:35; Status DC Sevoflurane (Ultane) 90 ml STK-MED ONCE IH ; Start 09/10/16 at 10:05; Stop 09/10 at 10:06; Status DC Acetaminophen/ Hydrocodone Bitart (Lortab 7.5/325) 1 tab PRN Q3HRS PRN PO PAIN ; Start 09/10/16 at 11:15; Stop 09/10/16 at 14:20; Status DC Acetaminophen/ Hydrocodone Bitart (Lortab 10/325) 1 tab PRN Q3HRS PRN PO PAIN; Start 09/10/16 at 11:15; Stop 09/10/16 at 14:20; Status DC Tramadol HCl (Ultram) 50 mg PRN QID PRN PO PAIN Last administered on 09/14/16 16:34; Start 09/10/16 at 11:15 Oxycodone/ Acetaminophen (Percocet 5/325) 1 tab PRN Q3HRS PRN PO PAIN; Start at 11:15; Stop 09/11/16 at 12:38; Status DC Oxycodone/ Acetaminophen (Percocet 7.5/ 325) 1 tab PRN Q3HRS PRN PO PAIN; Start 09/10/16 at 11:15; Stop 09/11/16 at 12:38; Status DC Tramadol HCl (Ultram) 100 mg PRN Q3HRS PRN PO PAIN; Start 09/10/16 at 11:15 Morphine Sulfate 2 mg PRN Q1HR PRN IV PAIN Last administered on 09/11/16 21:17 ; Start 09/10/16 at 11:15 Fentanyl Citrate (Fentanyl 2ml Vial) 25 mcg PRN Q1HR PRN IV PAIN; Start at 11:15 Diphenhydramine HCl (Benadryl) 25 mg PRN Q6HRS PRN IV ITCHING; Start 09/10/16 at 11:15; Status Cancel Multivitamins/ Calcium (Thera M Plus) 1 tab DAILY PO ; Start 09/11/16 at 09:00; Stop 09/11/16 at 09:00; Status DC Senna/Docusate Sodium 1 tab 1 tab DAILY PO ; Start 09/11/16 at 09:00; Stop 09/11 at 09:00; Status DC Dextrose/Sodium Chloride (Iv D5% - 1/2 NS) 1,000 ml @ 100 mls/hr Q10H IV Last administered on 09/11/16 21:19; Start 09/10/16 at 12:00; Stop 09/12/16 at 16:52 ; Status DC Prochlorperazine Maleate (Compazine) 10 mg PRN Q4HRS PRN PO NAUSEA/VOMITING; Start 09/10/16 at 11:15; Stop 09/10/16 at 11:20; Status DC Metoclopramide HCl (Reglan) 10 mg PRN Q4HRS PRN IV NAUSEA/VOMITING; Start 09/10 at 11:15; Stop 09/10/16 at 11:21; Status DC Magnesium Hydroxide (Milk Of Magnesia) 2,400 mg 1X PRN PRN PO CONSTIPATION; Start 09/11/16 at 06:00; Stop 09/12/16 at 05:59; Status DC Bisacodyl (Dulcolax Supp) 10 mg 1X PRN PRN [place] CONSTIPATION; Start 09/11/16 at 16:00; Stop 09/12/16 at 15:59; Status DC Acetaminophen (Tylenol) 650 mg PRN Q4HRS PRN PO MILD PAIN / TEMP; Start at 11:15; Stop 09/10/16 at 11:21; Status DC Zolpidem Tartrate (Ambien) 5 mg PRN QHS PRN PO INSOMNIA, MAY REPEAT IN 1HR; Start 09/10/16 at 11:15; Stop 09/10/16 at 11:21; Status DC Calcium Carbonate/ Glycine (Tums) 500 mg PRN QID PRN PO INDIGESTION; Start at 11:15; Stop 09/10/16 at 11:21; Status DC Morphine Sulfate 4 mg PRN Q1HR PRN IV PAIN Last administered on 09/18/16 06:30 ; Start 09/10/16 at 11:15 Morphine Sulfate 6 mg PRN Q1HR PRN IV PAIN Last administered on 09/10/16t 18:38 ; Start 09/10/16 at 11:15 Morphine Sulfate 8 mg PRN Q1HR PRN IV PAIN; Start 09/10/16 at 11:15 Sodium Chloride (Normal Saline Flush) 10 ml QSHIFT PRN IV AFTER MEDS AND BLOOD DRAWS; Start 09/10/16 at 11:15 Fentanyl Citrate (Fentanyl 2ml Vial) 50 mcg PRN Q1HR PRN IV PAIN; Start at 11:15 Prochlorperazine Edisylate (Compazine) 10 mg PRN Q4HRS PRN IV NAUSEA/VOMITING; Start 09/10/16 at 11:15; Stop 09/10/16 at 11:21; Status DC Dextrose 12.5 gm 12.5 gm PRN Q15MIN PRN IV SEE COMMENTS; Start 09/10/16 at 11: 15; Stop 09/10/16 at 11:21; Status DC Cefazolin Sodium/ Dextrose (Ancef 2gm Premix) 50 ml @ 100 mls/hr Q6H IV ; Start 09/10/16 at 11:15; Stop 09/10/16 at 11:15; Status DC Potassium Chloride 40 meq 40 meq 1X ONCE PO Last administered on 09/10/16 14: 59; Start 09/10/16 at 12:15; Stop 09/10/16 at 12:16; Status DC Ertapenem/Sodium Chloride (Invanz/Iv Sodium Chloride 0.9% 50ml) 50 ml @ 100 mls /hr Q24H IV Last administered on 09/17/16 09:44; Start 09/11/16 at 10:00 Heparin Sodium (Porcine) 5,000 unit Q8HRS SQ Last administered on 09/18/16 06: 21; Start 09/11/16 at 14:00 Amlodipine Besylate (Norvasc) 5 mg DAILY PO Last administered on 09/18/16 08: 42; Start 09/12/16 at 11:15 Alprazolam (Xanax) 0.25 mg PRN Q8HRS PRN PO ANXIETY / AGITATION Last administered on 09/17/16 16:43; Start 09/15/16 at 12:00 Glipizide (Glucotrol) 5 mg BIDBFRMEAL PO Last administered on 09/18/16 07:56; Start 09/16/16 at 16:30 Magnesium Hydroxide (Milk Of Magnesia) 2,400 mg 1X ONCE PO ; Start 09/18/16 at 10:15; Stop 09/18/16 at 10:16 Active Scripts Active Aspirin Ec (Aspirin) 325 Mg Tablet. 325 Mg PO BID 30 Days Reported Percocet 5-325 Mg Tablet (Oxycodone/Acetaminophen) 1 Each Tablet 1-2 Tab PO Q4- 6HRS LAST DOSE GIVEN: DATE: 08/02/16 TIME: 2:00 NEXT DOSE DUE: DATE: 08/02/16 TIME: 6:00pm as needed for pain Percocet 5-325 Mg Tablet (Oxycodone/Acetaminophen) 1 Each Tablet 1-2 Tab PO Q4- 6HRS Calcium 600 + Vit D 200 Tablet (Calcium Carbonate/Vitamin D3) 1 Each Tablet 1 Each PO BID Hair, Skin & Nails (Multivitamin With Minerals) 1 Each Tablet 1 Each PO DAILY Carvedilol 12.5 Mg Tablet 12.5 Mg PO BIDWMEALS Lovastatin 40 Mg Tablet 40 Mg PO HS Metformin Hcl 1,000 Mg Tablet 1 Tab PO BID Hydrochlorothiazide Tablet (Hydrochlorothiazide) 12.5 Mg Tablet 25 Mg PO DAILY Novolin N (Nph, Human Insulin Isophane) 100 Unit/1 Ml Vial 20 Unit SQ [id number] Novolin N (Nph, Human Insulin Isophane) 100 Unit/1 Ml Vial 40 Unit SQ [id number] Glipizide 5 Mg Tablet 5 Mg PO DAILY Lisinopril 40 Mg Tablet 40 Mg PO DAILY Citalopram Hbr (Citalopram Hydrobromide) 40 Mg Tablet 40 Mg PO DAILY Vitals/I & O Vital Sign - Last 24 Hours 09/17/16 09/17/16 09/17/16 09/17/16 11:00 12:00 12:43 15:00 Temp 98.1 97.9 98.1 97.9 Pulse 80 72 Resp 18 18 B/P 134/58 121/57 Pulse Ox 94 94 93 O2 Delivery Room Air Room Air Room Air O2 Flow Rate 2.0 2.0 09/17/16 09/17/16 09/17/16 09/17/16 16:43 16:44 17:45 19:00 Temp 97.9 97.9 Pulse 80 62 Resp 18 B/P 134/58 144/62 Pulse Ox 94 97 O2 Delivery Room Air Room Air O2 Flow Rate 2.0 2.0 09/17/16 09/17/16 09/17/16 09/17/16 20:10 21:09 23:00 23:58 Temp 97.8 97.8 Pulse 80 Resp 20 20 20 B/P 171/78 Pulse Ox 97 99 97 O2 Delivery Room Air Room Air Room Air Room Air 09/18/16 09/18/16 09/18/16 09/18/16 01:14 01:14 03:00 06:30 Temp 97.5 97.5 Pulse 88 Resp 20 20 18 20 B/P 151/78 Pulse Ox 97 97 99 99 O2 Delivery Room Air Room Air Room Air Room Air 09/18/16 09/18/16 09/18/16 09/18/16 07:00 07:26 08:41 08:42 Temp 96.1 96.1 Pulse 90 90 90 Resp 20 14 B/P 157/70 157/70 157/70 Pulse Ox 99 92 O2 Delivery Room Air Room Air 09/18/16 08:42 Pulse 90 B/P 157/70 Intake and Output 09/17/16 09/17/16 09/18/16 15:00 23:00 07:00 Intake Total 120 ml Balance 120 ml ESCOBAR ROQUE MD Sep 18, 2016 10:07
[2016-09-18] MEDS ORDERED: MAGNESIUM HYDROXIDE 2,400 MG/30 ML ORAL.SUSP. PO ONE (10:15)
[2016-09-18] MEDS: ERTAPENEM 1 GM in IV NORMAL SALINE 50ML 50 ML IV SCH (10:23)
[2016-09-18 11:13] VITALS: BP 153/74
[2016-09-18 12:50] LABS: BASO # 0.1 x10^3/uL (0.0-0.2); BASO % 1 % (0-3); EOS % 5 % (0-3); HEMATOCRIT 22.9 % (36.0-47.0); HEMOGLOBIN 7.3 g/dL (12.0-15.5); LYMPH # 1.5 x10^3/uL (1.0-4.8); LYMPH % 19 % (24-48); MEAN CORPUSCULAR HEMOGLOBIN 24 pg (25-35); MEAN CORPUSCULAR HGB CONC 32 g/dL (31-37); MEAN CORPUSCULAR VOLUME 75 fL (79-100); MONO % 10 % (0-9); NEUT % 65 % (31-73); PLATELET COUNT 346 x10^3/uL (140-400); RED BLOOD COUNT 3.05 x10^6/uL (3.50-5.40); RED CELL DISTRIBUTION WIDTH 19.7 % (11.5-14.5); WHITE BLOOD COUNT 7.9 x10^3/uL (4.0-11.0)
[2016-09-18 12:58] LABS: ALBUMIN 1.8 g/dL (3.4-5.0); ALBUMIN/GLOBULIN RATIO 0.4 (1.0-1.7); CALCIUM 8.8 mg/dL (8.5-10.1); CREATININE 1.4 mg/dL (0.6-1.0); GFR 45.1; POTASSIUM 3.8 mmol/L (3.5-5.1); TOTAL BILIRUBIN 0.2 mg/dL (0.2-1.0); TOTAL PROTEIN 6.4 g/dL (6.4-8.2)
[2016-09-18] MEDS: ALPRAZOLAM 0.25 MG TABLET PO PRN (14:13)
[2016-09-18 14:38] VITALS: BP 149/66
[2016-09-18] MEDS: NORMAL SALINE IV SCH (16:39)
[2016-09-18] MEDS: DAPTOMYCIN IV SCH (16:39)
[2016-09-18 19:07] VITALS: BP 131/56
[2016-09-18] MEDS: ZOLPIDEM 5 MG TABLET. PO PRN (21:05)
[2016-09-18 23:05] VITALS: BP 143/66
[2016-09-19] MEDS: OXYCODONE/APAP 7.5/325 TABLET. PO PRN ×4 (01:38→15:17)
[2016-09-19 03:15] VITALS: BP 121/60
[2016-09-19] MEDS: HEPARIN PF for SUB-Q USE 5,000 UNIT/0.5 ML VIAL. SQ SCH ×3 (06:21→22:25)
[2016-09-19 07:00] VITALS: BP 150/63
[2016-09-19] MEDS: SENNOSIDES/DOCUSATE 8.6/50MG TABLET. PO SCH (08:06)
[2016-09-19] MEDS: ASPIRIN ENTERIC COATED 325 MG TABLET.DR. PO SCH ×2 (08:06→22:21)
[2016-09-19] MEDS: CALCIUM CARB/VIT D3 500/200 TABLET PO SCH ×2 (08:06→16:53)
[2016-09-19] MEDS: GLIPIZIDE 5 MG TABLET PO SCH ×2 (08:06→16:53)
[2016-09-19] MEDS: DOCUSATE SODIUM 100 MG CAPSULE PO SCH (08:07)
[2016-09-19] MEDS: CARVEDILOL 12.5 MG TABLET PO SCH ×2 (08:07→16:54)
[2016-09-19] MEDS: CITALOPRAM 20 MG TABLET. PO SCH (08:07)
[2016-09-19] MEDS: LISINOPRIL 40 MG TABLET. PO SCH (08:07)
[2016-09-19] MEDS: AMLODIPINE BESYLATE 5 MG TABLET PO SCH (08:08)
[2016-09-19] MEDS: MORPHINE ER 15 MG TABLET.ER PO SCH ×2 (08:08→22:21)
[2016-09-19] MEDS: IRON POLYSACCHARIDE COMPLEX 150 MG CAPSULE PO SCH (08:08)
[2016-09-19] MEDS: HYDROCHLOROTHIAZIDE 25 MG TABLET PO SCH (08:08)
[2016-09-19] MEDS: POLYETHYLENE GLYCOL 3350 17 GM PACKET. PO SCH ×2 (08:15→21:00)
[2016-09-19] MEDS: INSULIN ASPART 300 UNITS/3 ML INSULN.PEN SQ SCH ×4 (08:15→21:00)
[2016-09-19] MEDS: MULTIVITAMIN with MINERAL TABLET. PO SCH (08:16)
--- NOTE | 2016-09-19 10:16 | PDOC ---
PROGRESS NOTES Chief Complaint Chief Complaint 1. Knee infection: s/p arthroplasty on 09/04, s/p hardware removal on 09/[address] Lance 2. Anemia- DDX: Iron Deficiency Anemia vs Anemia of Chronic Dz 3. DM 4. CKD3 5. HTN 6. Anxiety- Hx of prior delirium vs possible from anxiety and pain History of Present Illness History of Present Illness Pt was sitting up in bed eating breakfast upon arrival to her room this AM. The pt states she still has some pain at the Right Knee especially when the bandage is touched. She also states she is feeling somewhat weak today but has been working well with PT/OT. [facility]- SW in process of finding placement for pt; At this time because of need for termite control servicer abx treatment having some trouble with placement. Vitals Vitals Vital Signs Date Time Temp Pulse Resp B/P Pulse Ox O2 Delivery O2 Flow Rate FiO2 09/19/16 08:08 85 150/63 09/19/16 07:00 97.9 20 90 Room Air 97.9 Physical Exam General: Alert, Oriented X3, Cooperative, No acute distress Heart: Regular rate, Normal S1, Normal S2, No murmurs Lungs: Clear, Other (no wheezes) Abdomen: Normal bowel sounds, Soft, No tenderness Extremities: No clubbing, No cyanosis, Other (R knee brace in place; Dressing over incision site C/D/I) Skin: No rashes, No significant lesion Labs LABS Laboratory Tests Test 09/18/16 11:25 09/18/16 11:30 09/18/16 16:30 09/18/16 20:53 Glucose (Fingerstick) 217mg/dL (70-99) 171mg/dL (70-99) 162mg/dL (70-99) White Blood Count 7.9x10^3/uL (4.0-11.0) Red Blood Count 3.05x10^6/uL (3.50-5.40) Hemoglobin 7.3g/dL (12.0-15.5) Hematocrit 22.9% (36.0-47.0) Mean Corpuscular Volume 75fL (79-100) Mean Corpuscular Hemoglobin 24pg (25-35) Mean Corpuscular Hemoglobin Concent 32g/dL (31-37) Red Cell Distribution Width 19.7% (11.5-14.5) Platelet Count 346x10^3/uL (140-400) Neutrophils (%) (Auto) 65% (31-73) Lymphocytes (%) (Auto) 19% (24-48) Monocytes (%) (Auto) 10% (0-9) Eosinophils (%) (Auto) 5% (0-3) Basophils (%) (Auto) 1% (0-3) Neutrophils # (Auto) 5.2x10^3uL (1.8-7.7) Lymphocytes # (Auto) 1.5x10^3/uL (1.0-4.8) Monocytes # (Auto) 0.8x10^3/uL (0.0-1.1) Eosinophils # (Auto) 0.4x10^3/uL (0.0-0.7) Basophils # (Auto) 0.1x10^3/uL (0.0-0.2) Sodium Level 141mmol/L (136-145) Potassium Level 3.8mmol/L (3.5-5.1) Chloride Level 104mmol/L (98-107) Carbon Dioxide Level 31mmol/L (21-32) Anion Gap 6 (6-14) Blood Urea Nitrogen 15mg/dL (7-20) Creatinine 1.4mg/dL (0.6-1.0) Estimated GFR (Cockcroft-Gault) 45.1 BUN/Creatinine Ratio 11 (6-20) Glucose Level 222mg/dL (70-99) Calcium Level 8.8mg/dL (8.5-10.1) Total Bilirubin 0.2mg/dL (0.2-1.0) Aspartate Amino Transf (AST/SGOT) 68U/L (15-37) Alanine Aminotransferase (ALT/SGPT) 26U/L (14-59) Alkaline Phosphatase 69U/L (46-116) Total Protein 6.4g/dL (6.4-8.2) Albumin 1.8g/dL (3.4-5.0) Albumin/Globulin Ratio 0.4 (1.0-1.7) Review of Systems Review of Systems Complaining of Pain in Right Knee Complaining of Weakness Complaining of Fatigue All other ROS Negative Assessment and Plan Assessmemt and Plan Problems Medical Problems: (1) Infection of right knee Status: Acute (2) Infection of total right knee replacement Status: Acute (3) Right knee pain Status: Acute (4) Swelling of knee joint, right Status: Acute 1. Knee infection: s/p arthroplasty on 09/04, s/p hardware removal on 09/[address] Lance 2. Anemia- DDX: Iron Deficiency Anemia vs Anemia of Chronic Dz 3. DM 4. CKD3 5. HTN 6. Anxiety- Hx of prior delirium vs possible from anxiety and pain Plan: - Continue Care per floor protocol - Ortho Consulted- appreciate help on case - Pt is s/p hardware removal on 09/[address] Lance - Group B/MRSA/Morganella isolated - Plan to continue abx treatment with Ertapenem/daptomycin- will require treatment for up to 6 weeks - Pain control: on IV/PO meds. try to transition to PO completely, but still needs IV for dressing changes/PT - Continue Regular Glucose Checks and oral glycemic control medications/home insulin regimen plus ISS prn - Continue Regular Daily Labs - Continue Norvasc along with home medications for BP control - Xanax added for Anxiety prn - PPX: Heparin - Disposition: awaiting placement in rehab/LTAC bed. F/U with Dr Lance in 10 to [address] Delacruz upon discharge; she cannot transfer or ambulate on own Problems: Comment Review of Relevant I have reviewed the following items deng (where applicable) has been applied. Labs Laboratory Tests Test 09/17/16 11:26 09/17/16 16:17 09/17/16 20:38 09/18/16 07:34 Glucose (Fingerstick) 270mg/dL (70-99) 155mg/dL (70-99) 185mg/dL (70-99) 198mg/dL (70-99) Test 09/18/16 11:25 09/18/16 11:30 09/18/16 16:30 09/18/16 20:53 Glucose (Fingerstick) 217mg/dL (70-99) 171mg/dL (70-99) 162mg/dL (70-99) White Blood Count 7.9x10^3/uL (4.0-11.0) Red Blood Count 3.05x10^6/uL (3.50-5.40) Hemoglobin 7.3g/dL (12.0-15.5) Hematocrit 22.9% (36.0-47.0) Mean Corpuscular Volume 75fL (79-100) Mean Corpuscular Hemoglobin 24pg (25-35) Mean Corpuscular Hemoglobin Concent 32g/dL (31-37) Red Cell Distribution Width 19.7% (11.5-14.5) Platelet Count 346x10^3/uL (140-400) Neutrophils (%) (Auto) 65% (31-73) Lymphocytes (%) (Auto) 19% (24-48) Monocytes (%) (Auto) 10% (0-9) Eosinophils (%) (Auto) 5% (0-3) Basophils (%) (Auto) 1% (0-3) Neutrophils # (Auto) 5.2x10^3uL (1.8-7.7) Lymphocytes # (Auto) 1.5x10^3/uL (1.0-4.8) Monocytes # (Auto) 0.8x10^3/uL (0.0-1.1) Eosinophils # (Auto) 0.4x10^3/uL (0.0-0.7) Basophils # (Auto) 0.1x10^3/uL (0.0-0.2) Sodium Level 141mmol/L (136-145) Potassium Level 3.8mmol/L (3.5-5.1) Chloride Level 104mmol/L (98-107) Carbon Dioxide Level 31mmol/L (21-32) Anion Gap 6 (6-14) Blood Urea Nitrogen 15mg/dL (7-20) Creatinine 1.4mg/dL (0.6-1.0) Estimated GFR (Cockcroft-Gault) 45.1 BUN/Creatinine Ratio 11 (6-20) Glucose Level 222mg/dL (70-99) Calcium Level 8.8mg/dL (8.5-10.1) Total Bilirubin 0.2mg/dL (0.2-1.0) Aspartate Amino Transf (AST/SGOT) 68U/L (15-37) Alanine Aminotransferase (ALT/SGPT) 26U/L (14-59) Alkaline Phosphatase 69U/L (46-116) Total Protein 6.4g/dL (6.4-8.2) Albumin 1.8g/dL (3.4-5.0) Albumin/Globulin Ratio 0.4 (1.0-1.7) Laboratory Tests Test 09/18/16 11:25 09/18/16 11:30 09/18/16 16:30 09/18/16 20:53 Glucose (Fingerstick) 217mg/dL (70-99) 171mg/dL (70-99) 162mg/dL (70-99) White Blood Count 7.9x10^3/uL (4.0-11.0) Red Blood Count 3.05x10^6/uL (3.50-5.40) Hemoglobin 7.3g/dL (12.0-15.5) Hematocrit 22.9% (36.0-47.0) Mean Corpuscular Volume 75fL (79-100) Mean Corpuscular Hemoglobin 24pg (25-35) Mean Corpuscular Hemoglobin Concent 32g/dL (31-37) Red Cell Distribution Width 19.7% (11.5-14.5) Platelet Count 346x10^3/uL (140-400) Neutrophils (%) (Auto) 65% (31-73) Lymphocytes (%) (Auto) 19% (24-48) Monocytes (%) (Auto) 10% (0-9) Eosinophils (%) (Auto) 5% (0-3) Basophils (%) (Auto) 1% (0-3) Neutrophils # (Auto) 5.2x10^3uL (1.8-7.7) Lymphocytes # (Auto) 1.5x10^3/uL (1.0-4.8) Monocytes # (Auto) 0.8x10^3/uL (0.0-1.1) Eosinophils # (Auto) 0.4x10^3/uL (0.0-0.7) Basophils # (Auto) 0.1x10^3/uL (0.0-0.2) Sodium Level 141mmol/L (136-145) Potassium Level 3.8mmol/L (3.5-5.1) Chloride Level 104mmol/L (98-107) Carbon Dioxide Level 31mmol/L (21-32) Anion Gap 6 (6-14) Blood Urea Nitrogen 15mg/dL (7-20) Creatinine 1.4mg/dL (0.6-1.0) Estimated GFR (Cockcroft-Gault) 45.1 BUN/Creatinine Ratio 11 (6-20) Glucose Level 222mg/dL (70-99) Calcium Level 8.8mg/dL (8.5-10.1) Total Bilirubin 0.2mg/dL (0.2-1.0) Aspartate Amino Transf (AST/SGOT) 68U/L (15-37) Alanine Aminotransferase (ALT/SGPT) 26U/L (14-59) Alkaline Phosphatase 69U/L (46-116) Total Protein 6.4g/dL (6.4-8.2) Albumin 1.8g/dL (3.4-5.0) Albumin/Globulin Ratio 0.4 (1.0-1.7) Microbiology 09/02/16 Blood Culture - Final, Complete NO GROWTH AFTER 5 DAYS 09/03/16 Gram Stain - Final, Complete 09/10/16 Gram Stain - Final, Complete Medications Current Medications Ondansetron HCl (Zofran) 4 mg PRN Q8HRS PRN IV NAUSEA/VOMITING; Start 09/02/16 at 15:15; Stop 09/03/16 at 15:14; Status DC Morphine Sulfate 2 mg PRN Q2HR PRN IV PAIN Last administered on 09/03/16 11:10 ; Start 09/02/16 at 15:15; Stop 09/03/16 at 15:14; Status DC Vancomycin HCl (Vanco Per Pharmacy) 1 each PRN DAILY PRN MC SEE COMMENTS Last administered on 09/07/16 11:48; Start 09/02/16 at 17:30; Stop 09/07/16 at 23:39 ; Status DC Piperacillin Sod/ Tazobactam Sod 1 each 1 each PRN DAILY PRN MC SEE COMMENTS; Start 09/02/16 at 17:30; Stop 09/04/16 at 13:59; Status DC Piperacillin Sod/ Tazobactam Sod 3.375 gm/Sodium Chloride 50 ml @ 100 mls/hr Q6HRS IV Last administered on 09/11/16 06:03; Start 09/02/16 at 18:00; Stop at 09:08; Status DC Vancomycin HCl 2 gm/Sodium Chloride 500 ml @ 250 mls/hr 1X ONCE IV Last administered on 09/02/16 20:53; Start 09/02/16 at 20:00; Stop 09/02/16 at 21:59; Status DC Vancomycin HCl/ Sodium Chloride (Iv Sodium Chloride 0.9% 500ml Bag) 500 ml @ 250 mls/hr Q12H IV Last administered on 09/04/16 09:18; Start 09/03/16 at 08:00 ; Stop 09/04/16 at 14:06; Status DC Vancomycin HCl 1 each 1X ONCE MC Last administered on 09/03/16 07:30; Start at 07:30; Stop 09/03/16 at 07:31; Status DC Aspirin (Ecotrin) 325 mg BID PO Last administered on 09/19/16 08:06; Start 09/03/16 at 21:00 Carvedilol (Coreg) 12.5 mg BIDWMEALS PO Last administered on 09/19/16 08:07; Start 09/03/16 at 17:00 Glipizide (Glucotrol) 5 mg DAILY PO Last administered on 09/03/16 13:10; Start 09/03/16 at 12:30; Stop 09/04/16 at 14:00; Status DC Lisinopril (Prinivil) 40 mg DAILY PO Last administered on 09/19/16 08:07; Start 09/03/16 at 12:30 Metformin HCl (Glucophage) 1,000 mg BIDWMEALS PO Last administered on 16:54; Start 09/03/16 at 17:00; Stop 09/12/16 at 19:50; Status DC Insulin Detemir (Levemir) 20 units DAILYWSUP SQ Last administered on 09/11/16 17:31; Start 09/03/16 at 17:00; Stop 09/12/16 at 19:50; Status DC Insulin Detemir (Levemir) 40 units DAILYWBKFT SQ Last administered on 08:37; Start 09/04/16 at 08:00; Stop 09/12/16 at 19:50; Status DC Oxycodone/ Acetaminophen (Percocet 5/325) 1 tab PRN Q6HRS PRN PO pain Last administered on 09/04/16 11:56; Start 09/03/16 at 12:00; Stop 09/05/16 at 11:41; Status DC Calcium/Vitamin D (Oscal D 500mg/ 200uts) 1 tab BIDWMEALS PO Last administered on 09/19/16 08:06; Start 09/03/16 at 17:00 Citalopram Hydrobromide (Celexa) 40 mg DAILY PO Last administered on 09/05/16 08:28; Start 09/04/16 at 09:00; Stop 09/05/16 at 13:44; Status DC Hydrochlorothiazide (Hydrodiuril) 25 mg DAILY PO Last administered on 08:08; Start 09/03/16 at 12:30 Atorvastatin Calcium (Lipitor) 10 mg QHS PO Last administered on 09/15/16 21: 46; Start 09/03/16 at 21:00; Stop 09/16/16 at 14:37; Status DC Multivitamins/ Calcium (Thera M Plus) 1 tab DAILY PO Last administered on 08:16; Start 09/03/16 at 12:30 Insulin Aspart (Novolog) 0-7 UNITS TIDWMEALS SQ Last administered on 09/03/16 17:14; Start 09/03/16 at 13:00; Stop 09/04/16 at 21:21; Status DC Dextrose 12.5 gm PRN Q15MIN PRN IV SEE COMMENTS; Start 09/03/16 at 12:15; Stop 09/05/16 at 13:32; Status DC Insulin Aspart (Novolog) 10 units TIDAC SQ Last administered on 09/09/16 12:15 ; Start 09/03/16 at 16:30; Stop 09/09/16 at 16:11; Status DC Polyethylene Glycol (miraLAX PACKET) 17 gm PRN DAILY PRN PO CONSTIPATION; Start 09/03/16 at 13:00 Polyethylene Glycol (miraLAX PACKET) 17 gm 1X ONCE PO Last administered on 09/03 13:18; Start 09/03/16 at 13:00; Stop 09/03/16 at 13:12; Status DC Docusate Sodium (Colace) 100 mg PRN DAILY PRN PO CONSTIPATION; Start 09/03/16 at 13:00; Stop 09/05/16 at 13:31; Status DC Lidocaine/Sodium Bicarbonate 20 ml 20 ml 1X ONCE IJ ; Start 09/03/16 at 15:15; Stop 09/03/16 at 15:16; Status DC Cefazolin Sodium/ Dextrose 50 ml @ 100 mls/hr 1X PREOP IV ; Start 09/06/16 at 06:00; Stop 09/06/16 at 06:00; Status DC Cefazolin Sodium/ Dextrose (Ancef 2gm Premix) 50 ml @ 100 mls/hr 1X PREOP ONCE IV Last administered on 09/04/16 14:24; Start 09/04/16 at 06:00; Stop at 06:29; Status DC Fentanyl Citrate (Fentanyl 2ml Vial) 25 mcg PRN Q5MIN PRN IV MILD PAIN; Start 09/04/16 at 09:30; Stop 09/05/16 at 09:29; Status DC Fentanyl Citrate (Fentanyl 2ml Vial) 50 mcg PRN Q5MIN PRN IV MODERATE PAIN Last administered on 09/04/16 16:54; Start 09/04/16 at 09:30; Stop 09/05/16 at 09: 29; Status DC Morphine Sulfate 1 mg 1 mg PRN Q10MIN PRN IV SEVERE PAIN; Start 09/04/16 at 09: 30; Stop 09/05/16 at 09:29; Status DC Lactated Ringer's (Iv Lactated Ringers) 1,000 ml @ 0 mls/hr Q0M IV Last administered on 09/04/16 13:49; Start 09/04/16 at 09:18; Stop 09/04/16 at 21:17; Status DC Lidocaine HCl 2 ml 1X PRN PRN ID IV START; Start 09/04/16 at 09:30; Stop at 09:29; Status DC Hydromorphone HCl (Dilaudid) 0.5 mg PRN Q10MIN PRN IV SEV PAIN,Second choice Last administered on 09/04/16 18:07; Start 09/04/16 at 09:30; Stop 09/05/16 at 09: 29; Status DC Prochlorperazine Edisylate 5 mg 5 mg PACU PRN PRN IV NAUSEA; Start 09/04/16 at 09:30; Stop 09/05/16 at 09:29; Status DC Cefazolin Sodium/ Dextrose (Ancef 2gm Premix) 50 ml @ As Directed STK-MED ONCE IV ; Start 09/04/16 at 13:12; Stop 09/04/16 at 13:13; Status DC Desflurane (Suprane) 60 ml STK-MED ONCE IH ; Start 09/04/16 at 13:42; Stop at 13:43; Status DC Fentanyl Citrate 100 mcg 100 mcg STK-MED ONCE .ROUTE ; Start 09/04/16 at 13:43; Stop 09/04/16 at 13:44; Status DC Propofol (Diprivan) 20 ml @ As Directed STK-MED ONCE IV ; Start 09/04/16 at 13:43 ; Stop 09/04/16 at 13:44; Status DC Lidocaine HCl 100 mg STK-MED ONCE .ROUTE ; Start 09/04/16 at 13:43; Stop 09/04/16 at 13:44; Status DC Dexamethasone Sodium Phosphate (Decadron) 20 mg STK-MED ONCE .ROUTE ; Start 09/04 at 13:43; Stop 09/04/16 at 13:44; Status DC Ondansetron HCl (Zofran) 4 mg STK-MED ONCE .ROUTE ; Start 09/04/16 at 13:43; Stop 09/04/16 at 13:44; Status DC Glipizide 5 mg 5 mg DAILYWBKFT PO Last administered on 09/16/16t 07:55; Start 09/05/16 at 08:00; Stop 09/16/16 at 14:37; Status DC Vancomycin HCl 1.25 gm/Sodium Chloride 250 ml @ 167 mls/hr Q12H IV Last administered on 09/07/16t 22:12; Start 09/04/16 at 20:00; Stop 09/07/16 at 23:36 ; Status DC Propofol (Diprivan) 20 ml @ As Directed STK-MED ONCE IV ; Start 09/04/16 at 14:38 ; Stop 09/04/16 at 14:39; Status DC Albuterol Sulfate 2.5 mg 2.5 mg STK-MED ONCE .ROUTE ; Start 09/04/16 at 14:59; Stop 09/04/16 at 15:00; Status DC Tranexamic Acid/ Sodium Chloride (Cyklokapron/Iv Sodium Chloride 0.9% 50ml) 60 ml @ 60 mls/hr 1X PERIOP ONCE INJ Last administered on 09/04/16 15:12; Start 09/04/16 at 15:12; Stop 09/04/16 at 16:11; Status DC Fentanyl Citrate (Fentanyl 2ml Vial) 100 mcg STK-MED ONCE .ROUTE ; Start at 15:27; Stop 09/04/16 at 15:28; Status DC Acetaminophen/ Hydrocodone Bitart (Lortab 7.5/325) 1 tab PRN Q3HRS PRN PO PAIN Last administered on 09/08/16 06:13; Start 09/04/16 at 16:30 Acetaminophen/ Hydrocodone Bitart (Lortab 10/325) 1 tab PRN Q3HRS PRN PO PAIN Last administered on 09/16/16 00:31; Start 09/04/16 at 16:30 Tramadol HCl (Ultram) 50 mg PRN QID PRN PO PAIN; Start 09/04/16 at 16:30; Stop 09/05/16 at 13:32; Status DC Oxycodone/ Acetaminophen (Percocet 5/325) 1 tab PRN Q3HRS PRN PO PAIN; Start at 16:30 Oxycodone/ Acetaminophen (Percocet 7.5/ 325) 1 tab PRN Q3HRS PRN PO PAIN Last administered on 09/19/16 08:08; Start 09/04/16 at 16:30 Tramadol HCl (Ultram) 100 mg PRN Q3HRS PRN PO PAIN; Start 09/04/16 at 16:30; Stop 09/05/16 at 13:32; Status DC Diphenhydramine HCl (Benadryl) 25 mg PRN Q6HRS PRN IV ITCHING; Start 09/04/16 at 16:30 Senna/Docusate Sodium (Senna Plus) 1 tab DAILY PO Last administered on 08:06; Start 09/05/16 at 09:00 Prochlorperazine Maleate (Compazine) 10 mg PRN Q4HRS PRN PO NAUSEA/VOMITING; Start 09/04/16 at 16:30 Metoclopramide HCl (Reglan) 10 mg PRN Q4HRS PRN IV NAUSEA/VOMITING; Start at 16:30 Magnesium Hydroxide (Milk Of Magnesia) 2,400 mg 1X PRN PRN PO CONSTIPATION; Start 09/05/16 at 06:00; Stop 09/06/16 at 05:59; Status DC Bisacodyl (Dulcolax Supp) 10 mg 1X PRN PRN [place] CONSTIPATION; Start 09/05/16 at 16 :00; Stop 09/06/16 at 15:59; Status DC Acetaminophen (Tylenol) 650 mg PRN Q4HRS PRN PO MILD PAIN / TEMP; Start at 16:30 Zolpidem Tartrate (Ambien) 5 mg PRN QHS PRN PO INSOMNIA, MAY REPEAT IN 1HR Last administered on 09/18/16 21:05; Start 09/04/16 at 16:30 Calcium Carbonate/ Glycine (Tums) 500 mg PRN QID PRN PO INDIGESTION Last administered on 09/07/16 09:10; Start 09/04/16 at 16:30 Morphine Sulfate 4 mg PRN Q1HR PRN IV PAIN Last administered on 09/08/16 20:38 ; Start 09/04/16 at 16:30; Stop 09/10/16 at 11:20; Status DC Sodium Chloride (Normal Saline Flush) 10 ml QSHIFT PRN IV AFTER MEDS AND BLOOD DRAWS; Start 09/04/16 at 16:30; Status Cancel Prochlorperazine Edisylate (Compazine) 10 mg PRN Q4HRS PRN IV NAUSEA/VOMITING; Start 09/04/16 at 16:30 Dextrose 12.5 gm PRN Q15MIN PRN IV SEE COMMENTS Last administered on 09/12/16 19:36; Start 09/04/16 at 16:30 Insulin Aspart (Novolog) 0-7 UNITS QIDACHS SQ Last administered on 09/19/16 08 :15; Start 09/05/16 at 07:30 Insulin Aspart (Novolog) 12 units 1X ONCE SQ Last administered on 09/04/16 21: 43; Start 09/04/16 at 21:30; Stop 09/04/16 at 21:31; Status DC Polysaccharide Iron Complex (Niferex 150) 150 mg DAILY PO Last administered on 09/19/16 08:08; Start 09/05/16 at 09:00 Polyethylene Glycol (miraLAX PACKET) 17 gm 1X ONCE PO Last administered on 09/05 15:42; Start 09/05/16 at 14:00; Stop 09/05/16 at 14:01; Status DC Polyethylene Glycol (miraLAX PACKET) 17 gm DAILY PO Last administered on 08:39; Start 09/06/16 at 09:00; Stop 09/06/16 at 15:51; Status DC Docusate Sodium (Colace) 100 mg DAILY PO Last administered on 09/19/16 08:07; Start 09/05/16 at 14:00 Magnesium Hydroxide (Milk Of Magnesia) 2,400 mg 1X ONCE PO Last administered on 09/05/16 15:41; Start 09/05/16 at 13:45; Stop 09/05/16 at 13:46; Status DC Morphine Sulfate (Ms Contin) 15 mg BID PO Last administered on 09/19/16 08:08 ; Start 09/05/16 at 13:45 Citalopram Hydrobromide (Celexa) 20 mg DAILY PO Last administered on 09/19/16 08:07; Start 09/06/16 at 09:00 Polyethylene Glycol (miraLAX PACKET) 17 gm BID PO Last administered on 08:43; Start 09/06/16 at 21:00 Sodium Biphosphate/ Sodium Phosphate (Fleet Adult) 133 ml 1X ONCE IA ; Start at 16:00; Stop 09/06/16 at 16:04; Status DC Sodium Biphosphate/ Sodium Phosphate (Fleet Adult) 133 ml PRN DAILY PRN IA CONSTIPATION; Start 09/07/16 at 09:00 Polyethylene Glycol (miraLAX PACKET) 17 gm 1X ONCE PO Last administered on 17:45; Start 09/06/16 at 16:00; Stop 09/06/16 at 16:04; Status DC Sodium Biphosphate/ Sodium Phosphate (Fleet Adult) 133 ml PRN 1X PRN IA CONSTIPATION; Start 09/06/16 at 23:30; Stop 09/11/16 at 12:39; Status DC Vancomycin HCl 1 each 1X ONCE MC ; Start 09/07/16 at 19:30; Stop 09/07/16 at 19 :31; Status DC Alteplase, Recombinant 2 mg 2 mg 1X ONCE INT CAT Last administered on 15:09; Start 09/07/16 at 14:30; Stop 09/07/16 at 14:31; Status DC Daptomycin/Sodium Chloride (Cubicin/Iv Sodium Chloride 0.9% 50ml) 50 ml @ 100 mls/hr Q24H IV Last administered on 09/18/16 16:39; Start 09/08/16 at 16:00 Ondansetron HCl (Zofran) 4 mg PRN Q6HRS PRN IV Nausea; Start 09/10/16 at 07:00 ; Stop 09/10/16 at 23:00; Status DC Fentanyl Citrate (Fentanyl 2ml Vial) 25 mcg PRN Q5MIN PRN IV MILD PAIN; Start 09/10/16 at 07:00; Stop 09/10/16 at 23:00; Status DC Fentanyl Citrate (Fentanyl 2ml Vial) 50 mcg PRN Q5MIN PRN IV MODERATE PAIN Last administered on 09/10/16 11:53; Start 09/10/16 at 07:00; Stop 09/10/16 at 23:00; Status DC Morphine Sulfate 1 mg 1 mg PRN Q10MIN PRN IV SEVERE PAIN; Start 09/10/16 at 07: 00; Stop 09/10/16 at 23:00; Status DC Lactated Ringer's (Iv Lactated Ringers) 1,000 ml @ 30 mls/hr Q24H IV Last administered on 09/10/16 07:38; Start 09/10/16 at 07:00; Stop 09/10/16 at 18:59 ; Status DC Lidocaine HCl 2 ml 1X PRN PRN ID IV START; Start 09/10/16 at 07:00; Stop at 23:00; Status DC Hydromorphone HCl (Dilaudid) 0.5 mg PRN Q10MIN PRN IV SEVERE PAIN, Second choice Last administered on 09/10/16 12:20; Start 09/10/16 at 07:00; Stop 09/10 at 23:00; Status DC Prochlorperazine Edisylate (Compazine) 5 mg PACU PRN PRN IV NAUSEA; Start 09/10 at 07:00; Stop 09/10/16 at 23:00; Status DC Lidocaine HCl 100 mg STK-MED ONCE .ROUTE ; Start 09/10/16 at 07:06; Stop at 07:07; Status DC Dexamethasone Sodium Phosphate 20 mg 20 mg STK-MED ONCE .ROUTE ; Start 09/10/16 at 07:06; Stop 09/10/16 at 07:07; Status DC Propofol (Diprivan) 20 ml @ As Directed STK-MED ONCE IV ; Start 09/10/16 at 07: 06; Stop 09/10/16 at 07:07; Status DC Lidocaine HCl 100 mg STK-MED ONCE .ROUTE ; Start 09/10/16 at 07:06; Stop at 07:07; Status DC Famotidine (Pepcid) 20 mg STK-MED ONCE .ROUTE ; Start 09/10/16 at 07:06; Stop at 07:07; Status DC Fentanyl Citrate (Fentanyl 2ml Vial) 100 mcg STK-MED ONCE .ROUTE ; Start at 07:06; Stop 09/10/16 at 07:07; Status DC Rocuronium [place] 50 mg 50 mg STK-MED ONCE .ROUTE ; Start 09/10/16 at 07:06; Stop 09/10/16 at 07:07; Status DC Cefazolin Sodium/ Dextrose 50 ml @ As Directed STK-MED ONCE IV ; Start 09/10/16 at 07:24; Stop 09/10/16 at 07:25; Status DC Tranexamic Acid 1000 mg/Sodium Chloride 60 ml @ 60 mls/hr 1X PERIOP ONCE INJ Last administered on 09/10/16 08:17; Start 09/10/16 at 08:00; Stop 09/10/16 at 08:59; Status DC Tranexamic Acid/ Sodium Chloride (Cyklokapron/Iv Sodium Chloride 0.9% 50ml) 60 ml @ 60 mls/hr 1X PERIOP ONCE INJ Last administered on 09/10/16 09:31; Start 09/10/16 at 08:00; Stop 09/10/16 at 08:59; Status DC Vancomycin HCl (Vanco) 10 gm 1X ONCE CEMENT Last administered on 09/10/16 08: 33; Start 09/10/16 at 08:00; Stop 09/10/16 at 08:01; Status Cancel Tobramycin Sulfate 7.2 gm 7.2 gm 1X ONCE TP ; Start 09/10/16 at 07:45; Stop at 07:46; Status Cancel Cefazolin Sodium/ Dextrose (Ancef 2gm Premix) 50 ml @ 100 mls/hr 1X ONCE IV Last administered on 09/10/16 08:09; Start 09/10/16 at 08:00; Stop 09/10/16 at 08:29; Status DC Tobramycin Sulfate 1.2 gm STK-MED ONCE .ROUTE Last administered on 09/10/16 08 :33; Start 09/10/16 at 08:01; Stop 09/10/16 at 08:02; Status DC Vancomycin HCl (Vanco) 10 gm STK-MED ONCE .ROUTE ; Start 09/10/16 at 08:01; Stop 09/10/16 at 08:02; Status DC Tobramycin Sulfate 1.2 gm STK-MED ONCE .ROUTE Last administered on 09/10/16 08 :33; Start 09/10/16 at 08:01; Stop 09/10/16 at 08:02; Status DC Tobramycin Sulfate 1.2 gm STK-MED ONCE .ROUTE Last administered on 09/10/16 08 :33; Start 09/10/16 at 08:02; Stop 09/10/16 at 08:03; Status DC Tobramycin Sulfate 1.2 gm STK-MED ONCE .ROUTE Last administered on 09/10/16 08 :33; Start 09/10/16 at 08:02; Stop 09/10/16 at 08:03; Status DC Tobramycin Sulfate 1.2 gm STK-MED ONCE .ROUTE Last administered on 09/10/16 08 :33; Start 09/10/16 at 08:02; Stop 09/10/16 at 08:03; Status DC Tobramycin Sulfate 1.2 gm STK-MED ONCE .ROUTE Last administered on 09/10/16 08 :33; Start 09/10/16 at 08:02; Stop 09/10/16 at 08:03; Status DC Fentanyl Citrate (Fentanyl 2ml Vial) 100 mcg STK-MED ONCE .ROUTE ; Start at 08:35; Stop 09/10/16 at 08:36; Status DC Ephedrine Sulfate 50 mg STK-MED ONCE IV ; Start 09/10/16 at 08:53; Stop at 08:54; Status DC Fentanyl Citrate (Fentanyl 2ml Vial) 100 mcg STK-MED ONCE .ROUTE ; Start at 08:55; Stop 09/10/16 at 08:56; Status DC Labetalol HCl (Normodyne) 20 mg STK-MED ONCE .ROUTE ; Start 09/10/16 at 09:07; Stop 09/10/16 at 09:08; Status DC Glycopyrrolate (Robinul) 1 mg STK-MED ONCE .ROUTE ; Start 09/10/16 at 09:34; Stop 09/10/16 at 09:35; Status DC Neostigmine Methylsulfate 5 mg STK-MED ONCE .ROUTE ; Start 09/10/16 at 09:34; Stop 09/10/16 at 09:35; Status DC Sevoflurane (Ultane) 90 ml STK-MED ONCE IH ; Start 09/10/16 at 10:05; Stop 09/10 at 10:06; Status DC Acetaminophen/ Hydrocodone Bitart (Lortab 7.5/325) 1 tab PRN Q3HRS PRN PO PAIN ; Start 09/10/16 at 11:15; Stop 09/10/16 at 14:20; Status DC Acetaminophen/ Hydrocodone Bitart (Lortab 10/325) 1 tab PRN Q3HRS PRN PO PAIN; Start 09/10/16 at 11:15; Stop 09/10/16 at 14:20; Status DC Tramadol HCl (Ultram) 50 mg PRN QID PRN PO PAIN Last administered on 09/14/16t 16:34; Start 09/10/16 at 11:15 Oxycodone/ Acetaminophen (Percocet 5/325) 1 tab PRN Q3HRS PRN PO PAIN; Start at 11:15; Stop 09/11/16 at 12:38; Status DC Oxycodone/ Acetaminophen (Percocet 7.5/ 325) 1 tab PRN Q3HRS PRN PO PAIN; Start 09/10/16 at 11:15; Stop 09/11/16 at 12:38; Status DC Tramadol HCl (Ultram) 100 mg PRN Q3HRS PRN PO PAIN; Start 09/10/16 at 11:15 Morphine Sulfate 2 mg PRN Q1HR PRN IV PAIN Last administered on 09/11/16 21:17 ; Start 09/10/16 at 11:15 Fentanyl Citrate (Fentanyl 2ml Vial) 25 mcg PRN Q1HR PRN IV PAIN; Start at 11:15 Diphenhydramine HCl (Benadryl) 25 mg PRN Q6HRS PRN IV ITCHING; Start 09/10/16 at 11:15; Status Cancel Multivitamins/ Calcium (Thera M Plus) 1 tab DAILY PO ; Start 09/11/16 at 09:00; Stop 09/11/16 at 09:00; Status DC Senna/Docusate Sodium 1 tab 1 tab DAILY PO ; Start 09/11/16 at 09:00; Stop 09/11 at 09:00; Status DC Dextrose/Sodium Chloride (Iv D5% - 1/2 NS) 1,000 ml @ 100 mls/hr Q10H IV Last administered on 09/11/16 21:19; Start 09/10/16 at 12:00; Stop 09/12/16 at 16:52 ; Status DC Prochlorperazine Maleate (Compazine) 10 mg PRN Q4HRS PRN PO NAUSEA/VOMITING; Start 09/10/16 at 11:15; Stop 09/10/16 at 11:20; Status DC Metoclopramide HCl (Reglan) 10 mg PRN Q4HRS PRN IV NAUSEA/VOMITING; Start 09/10 at 11:15; Stop 09/10/16 at 11:21; Status DC Magnesium Hydroxide (Milk Of Magnesia) 2,400 mg 1X PRN PRN PO CONSTIPATION; Start 09/11/16 at 06:00; Stop 09/12/16 at 05:59; Status DC Bisacodyl (Dulcolax Supp) 10 mg 1X PRN PRN IA CONSTIPATION; Start 09/11/16 at 16:00; Stop 09/12/16 at 15:59; Status DC Acetaminophen (Tylenol) 650 mg PRN Q4HRS PRN PO MILD PAIN / TEMP; Start at 11:15; Stop 09/10/16 at 11:21; Status DC Zolpidem Tartrate (Ambien) 5 mg PRN QHS PRN PO INSOMNIA, MAY REPEAT IN 1HR; Start 09/10/16 at 11:15; Stop 09/10/16 at 11:21; Status DC Calcium Carbonate/ Glycine (Tums) 500 mg PRN QID PRN PO INDIGESTION; Start at 11:15; Stop 09/10/16 at 11:21; Status DC Morphine Sulfate 4 mg PRN Q1HR PRN IV PAIN Last administered on 09/18/16 06:30 ; Start 09/10/16 at 11:15 Morphine Sulfate 6 mg PRN Q1HR PRN IV PAIN Last administered on 09/10/16 18:38 ; Start 09/10/16 at 11:15 Morphine Sulfate 8 mg PRN Q1HR PRN IV PAIN; Start 09/10/16 at 11:15 Sodium Chloride (Normal Saline Flush) 10 ml QSHIFT PRN IV AFTER MEDS AND BLOOD DRAWS; Start 09/10/16 at 11:15 Fentanyl Citrate (Fentanyl 2ml Vial) 50 mcg PRN Q1HR PRN IV PAIN; Start at 11:15 Prochlorperazine Edisylate (Compazine) 10 mg PRN Q4HRS PRN IV NAUSEA/VOMITING; Start 09/10/16 at 11:15; Stop 09/10/16 at 11:21; Status DC Dextrose 12.5 gm 12.5 gm PRN Q15MIN PRN IV SEE COMMENTS; Start 09/10/16 at 11: 15; Stop 09/10/16 at 11:21; Status DC Cefazolin Sodium/ Dextrose (Ancef 2gm Premix) 50 ml @ 100 mls/hr Q6H IV ; Start 09/10/16 at 11:15; Stop 09/10/16 at 11:15; Status DC Potassium Chloride 40 meq 40 meq 1X ONCE PO Last administered on 09/10/16 14: 59; Start 09/10/16 at 12:15; Stop 09/10/16 at 12:16; Status DC Ertapenem/Sodium Chloride (Invanz/Iv Sodium Chloride 0.9% 50ml) 50 ml @ 100 mls /hr Q24H IV Last administered on 09/18/16 10:23; Start 09/11/16 at 10:00 Heparin Sodium (Porcine) 5,000 unit Q8HRS SQ Last administered on 09/19/16 06: 21; Start 09/11/16 at 14:00 Amlodipine Besylate (Norvasc) 5 mg DAILY PO Last administered on 09/19/16 08: 08; Start 09/12/16 at 11:15 Alprazolam (Xanax) 0.25 mg PRN Q8HRS PRN PO ANXIETY / AGITATION Last administered on 09/18/16 14:13; Start 09/15/16 at 12:00 Glipizide (Glucotrol) 5 mg BIDBFRMEAL PO Last administered on 09/19/16 08:06; Start 09/16/16 at 16:30 Magnesium Hydroxide (Milk Of Magnesia) 2,400 mg 1X ONCE PO Last administered on 09/18/16 11:34; Start 09/18/16 at 10:15; Stop 09/18/16 at 10:16; Status DC Active Scripts Active Aspirin Ec (Aspirin) 325 Mg Tablet.dr 325 Mg PO BID 30 Days Reported Percocet 5-325 Mg Tablet (Oxycodone/Acetaminophen) 1 Each Tablet 1-2 Tab PO Q4- 6HRS LAST DOSE GIVEN: DATE: 08/02/16 TIME: 2:00 NEXT DOSE DUE: DATE: 08/02/16 TIME: 6:00pm as needed for pain Percocet 5-325 Mg Tablet (Oxycodone/Acetaminophen) 1 Each Tablet 1-2 Tab PO Q4- 6HRS Calcium 600 + Vit D 200 Tablet (Calcium Carbonate/Vitamin D3) 1 Each Tablet 1 Each PO BID Hair, Skin & Nails (Multivitamin With Minerals) 1 Each Tablet 1 Each PO DAILY Carvedilol 12.5 Mg Tablet 12.5 Mg PO BIDWMEALS Lovastatin 40 Mg Tablet 40 Mg PO HS Metformin Hcl 1,000 Mg Tablet 1 Tab PO BID Hydrochlorothiazide Tablet (Hydrochlorothiazide) 12.5 Mg Tablet 25 Mg PO DAILY Novolin N (Nph, Human Insulin Isophane) 100 Unit/1 Ml Vial 20 Unit SQ [id number] Novolin N (Nph, Human Insulin Isophane) 100 Unit/1 Ml Vial 40 Unit SQ [id number] Glipizide 5 Mg Tablet 5 Mg PO DAILY Lisinopril 40 Mg Tablet 40 Mg PO DAILY Citalopram Hbr (Citalopram Hydrobromide) 40 Mg Tablet 40 Mg PO DAILY Vitals/I & O Vital Sign - Last 24 Hours 09/18/16 09/18/16 09/18/16 09/18/16 11:13 14:13 14:38 16:39 Temp 97.5 98.8 97.5 98.8 Pulse 85 86 86 Resp 16 B/P 153/74 149/66 149/66 Pulse Ox 92 93 O2 Delivery Room Air Room Air Room Air 09/18/16 09/18/16 09/18/16 09/18/16 19:07 19:55 21:06 23:05 Temp 97.9 98.6 97.9 98.6 Pulse 82 86 Resp 18 18 B/P 131/56 143/66 Pulse Ox 93 93 92 O2 Delivery Room Air Room Air Room Air Room Air 09/19/16 09/19/16 09/19/16 09/19/16 01:38 01:39 02:43 03:15 Temp 99.5 99.5 Pulse 86 Resp 20 18 B/P 121/60 Pulse Ox 92 92 92 91 O2 Delivery Room Air Room Air Room Air Room Air 09/19/16 09/19/16 09/19/16 09/19/16 07:00 08:07 08:07 08:08 Temp 97.9 97.9 Pulse 84 85 85 85 Resp 20 B/P 150/63 150/63 150/63 150/63 Pulse Ox 90 O2 Delivery Room Air Intake and Output 09/18/16 09/18/16 09/19/16 15:00 23:00 07:00 Intake Total 360 ml Balance 360 ml RIK SIMPSON III DO Sep 19, 2016 10:16
[2016-09-19 11:00] VITALS: BP 131/63
[2016-09-19] MEDS: ALPRAZOLAM 0.25 MG TABLET PO PRN (11:22)
[2016-09-19] MEDS: ERTAPENEM 1 GM in IV NORMAL SALINE 50ML 50 ML IV SCH (11:23)
[2016-09-19 15:00] VITALS: BP 122/54
[2016-09-19] MEDS: MORPHINE SULFATE 4 MG/ML DISP.SYRIN. IV PRN (15:17)
[2016-09-19] MEDS: DAPTOMYCIN IV SCH (16:54)
[2016-09-19] MEDS: NORMAL SALINE IV SCH (16:54)
[2016-09-19 19:00] VITALS: BP 139/58
[2016-09-19 23:00] VITALS: BP 124/50
[2016-09-20 03:00] VITALS: BP 135/60
[2016-09-20] MEDS: HEPARIN PF for SUB-Q USE 5,000 UNIT/0.5 ML VIAL. SQ SCH ×2 (05:29→14:08)
[2016-09-20 05:31] LABS: BASO # 0.1 x10^3/uL (0.0-0.2); BASO % 1 % (0-3); EOS % 5 % (0-3); HEMATOCRIT 22.8 % (36.0-47.0); HEMOGLOBIN 7.4 g/dL (12.0-15.5); LYMPH # 1.5 x10^3/uL (1.0-4.8); LYMPH % 19 % (24-48); MEAN CORPUSCULAR HEMOGLOBIN 24 pg (25-35); MEAN CORPUSCULAR HGB CONC 32 g/dL (31-37); MEAN CORPUSCULAR VOLUME 74 fL (79-100); MONO % 10 % (0-9); NEUT % 65 % (31-73); PLATELET COUNT 377 x10^3/uL (140-400); RED BLOOD COUNT 3.09 x10^6/uL (3.50-5.40); RED CELL DISTRIBUTION WIDTH 19.9 % (11.5-14.5); WHITE BLOOD COUNT 8.1 x10^3/uL (4.0-11.0)
[2016-09-20 05:53] LABS: CALCIUM 8.9 mg/dL (8.5-10.1); CREATININE 1.4 mg/dL (0.6-1.0); GFR 45.1; POTASSIUM 3.7 mmol/L (3.5-5.1)
[2016-09-20 07:00] VITALS: BP 151/59
[2016-09-20] MEDS: MORPHINE ER 15 MG TABLET.ER PO SCH ×2 (08:11→16:29)
[2016-09-20] MEDS: HYDROCHLOROTHIAZIDE 25 MG TABLET PO SCH (08:12)
[2016-09-20] MEDS: CARVEDILOL 12.5 MG TABLET PO SCH ×2 (08:12→16:28)
[2016-09-20] MEDS: CALCIUM CARB/VIT D3 500/200 TABLET PO SCH ×2 (08:12→16:28)
[2016-09-20] MEDS: GLIPIZIDE 5 MG TABLET PO SCH ×2 (08:12→16:29)
[2016-09-20] MEDS: SENNOSIDES/DOCUSATE 8.6/50MG TABLET. PO SCH (08:13)
[2016-09-20] MEDS: AMLODIPINE BESYLATE 5 MG TABLET PO SCH (08:13)
[2016-09-20] MEDS: ASPIRIN ENTERIC COATED 325 MG TABLET.DR. PO SCH (08:13)
[2016-09-20] MEDS: MULTIVITAMIN with MINERAL TABLET. PO SCH (08:13)
[2016-09-20] MEDS: DOCUSATE SODIUM 100 MG CAPSULE PO SCH (08:13)
[2016-09-20] MEDS: IRON POLYSACCHARIDE COMPLEX 150 MG CAPSULE PO SCH (08:14)
[2016-09-20] MEDS: CITALOPRAM 20 MG TABLET. PO SCH (08:14)
[2016-09-20] MEDS: LISINOPRIL 40 MG TABLET. PO SCH (08:14)
[2016-09-20] MEDS: POLYETHYLENE GLYCOL 3350 17 GM PACKET. PO SCH (08:14)
[2016-09-20] MEDS: INSULIN ASPART 300 UNITS/3 ML INSULN.PEN SQ SCH ×3 (08:21→16:33)
[2016-09-20] MEDS: ERTAPENEM 1 GM in IV NORMAL SALINE 50ML 50 ML IV SCH (10:20)
[2016-09-20] MEDS: ALPRAZOLAM 0.25 MG TABLET PO PRN (10:20)
[2016-09-20] MEDS: HYDROCODONE/APAP 7.5/325MG TABLET. PO PRN (10:20)
[2016-09-20 11:00] VITALS: BP 141/42
[2016-09-20] MEDS: MORPHINE SULFATE 4 MG/ML DISP.SYRIN. IV PRN (11:07)
--- NOTE | 2016-09-20 12:38 | PDOC ---
PROGRESS NOTES Chief Complaint Chief Complaint 1. Knee infection: s/p arthroplasty on 09/04, s/p hardware removal on 09/[address] Lance 2. Anemia- DDX: Iron Deficiency Anemia vs Anemia of Chronic Dz 3. DM 4. CKD3 5. HTN 6. Anxiety- Hx of prior delirium vs possible from anxiety and pain History of Present Illness History of Present Illness Pt resting in bed today Examined R knee - dressing is intact with some mild oozing Brace on R knee SW in process of finding placement for pt - delay dt insurance willingness to cover intermodal dispatcher abx Pt to remain on intermodal dispatcher abx Possible D/C when cleared for placement by insurance VSS DW RN Vitals Vitals Vital Signs Date Time Temp Pulse Resp B/P Pulse Ox O2 Delivery O2 Flow Rate FiO2 09/20/16 11:00 98.4 73 20 141/42 93 Room Air 98.4 Physical Exam General: Alert, Oriented X3, Cooperative, No acute distress Heart: Regular rate, Normal S1, Normal S2, No murmurs Lungs: Clear, Other (no wheezes) Abdomen: Normal bowel sounds, Soft, No tenderness Extremities: No clubbing, No cyanosis, Other (R knee brace in place; Dressing over incision site C/D/I) Skin: Other (R knee is bandaged with mild oozing. Brace on R knee.) Labs LABS Laboratory Tests Test 09/19/16 16:01 09/19/16 20:58 09/20/16 05:00 09/20/16 07:23 Glucose (Fingerstick) 249mg/dL (70-99) 174mg/dL (70-99) 165mg/dL (70-99) White Blood Count 8.1x10^3/uL (4.0-11.0) Red Blood Count 3.09x10^6/uL (3.50-5.40) Hemoglobin 7.4g/dL (12.0-15.5) Hematocrit 22.8% (36.0-47.0) Mean Corpuscular Volume 74fL (79-100) Mean Corpuscular Hemoglobin 24pg (25-35) Mean Corpuscular Hemoglobin Concent 32g/dL (31-37) Red Cell Distribution Width 19.9% (11.5-14.5) Platelet Count 377x10^3/uL (140-400) Neutrophils (%) (Auto) 65% (31-73) Lymphocytes (%) (Auto) 19% (24-48) Monocytes (%) (Auto) 10% (0-9) Eosinophils (%) (Auto) 5% (0-3) Basophils (%) (Auto) 1% (0-3) Neutrophils # (Auto) 5.2x10^3uL (1.8-7.7) Lymphocytes # (Auto) 1.5x10^3/uL (1.0-4.8) Monocytes # (Auto) 0.8x10^3/uL (0.0-1.1) Eosinophils # (Auto) 0.4x10^3/uL (0.0-0.7) Basophils # (Auto) 0.1x10^3/uL (0.0-0.2) Sodium Level 142mmol/L (136-145) Potassium Level 3.7mmol/L (3.5-5.1) Chloride Level 105mmol/L (98-107) Carbon Dioxide Level 31mmol/L (21-32) Anion Gap 6 (6-14) Blood Urea Nitrogen 15mg/dL (7-20) Creatinine 1.4mg/dL (0.6-1.0) Estimated GFR (Cockcroft-Gault) 45.1 Glucose Level 153mg/dL (70-99) Calcium Level 8.9mg/dL (8.5-10.1) Test 09/20/16 11:10 Glucose (Fingerstick) 174mg/dL (70-99) Review of Systems Review of Systems Complains of fatigue Complains of weakness Assessment and Plan Assessmemt and Plan Problems Medical Problems: (1) Infection of right knee Status: Acute (2) Infection of total right knee replacement Status: Acute (3) Right knee pain Status: Acute (4) Swelling of knee joint, right Status: Acute Assessment 1. R Knee infection: s/p arthroplasty on 09/04, s/p hardware removal on 09/[address] Lance 2. Anemia - DDX: Iron Deficiency Anemia vs Anemia of Chronic Dz 3. DM 4. CKD3 5. HTN 6. Anxiety- Hx of prior delirium vs possible from anxiety and pain Plan: Awaiting placement at LTAC/rehab facility Possible D/C when cleared for placement by insurance Continue abx Repeat labs Continue home meds PTOT Problems: Comment Review of Relevant I have reviewed the following items deng (where applicable) has been applied. Labs Laboratory Tests Test 09/18/16 16:30 09/18/16 20:53 09/19/16 07:48 09/19/16 10:49 Glucose (Fingerstick) 171mg/dL (70-99) 162mg/dL (70-99) 174mg/dL (70-99) 191mg/dL (70-99) Test 09/19/16 16:01 09/19/16 20:58 09/20/16 05:00 09/20/16 07:23 Glucose (Fingerstick) 249mg/dL (70-99) 174mg/dL (70-99) 165mg/dL (70-99) White Blood Count 8.1x10^3/uL (4.0-11.0) Red Blood Count 3.09x10^6/uL (3.50-5.40) Hemoglobin 7.4g/dL (12.0-15.5) Hematocrit 22.8% (36.0-47.0) Mean Corpuscular Volume 74fL (79-100) Mean Corpuscular Hemoglobin 24pg (25-35) Mean Corpuscular Hemoglobin Concent 32g/dL (31-37) Red Cell Distribution Width 19.9% (11.5-14.5) Platelet Count 377x10^3/uL (140-400) Neutrophils (%) (Auto) 65% (31-73) Lymphocytes (%) (Auto) 19% (24-48) Monocytes (%) (Auto) 10% (0-9) Eosinophils (%) (Auto) 5% (0-3) Basophils (%) (Auto) 1% (0-3) Neutrophils # (Auto) 5.2x10^3uL (1.8-7.7) Lymphocytes # (Auto) 1.5x10^3/uL (1.0-4.8) Monocytes # (Auto) 0.8x10^3/uL (0.0-1.1) Eosinophils # (Auto) 0.4x10^3/uL (0.0-0.7) Basophils # (Auto) 0.1x10^3/uL (0.0-0.2) Sodium Level 142mmol/L (136-145) Potassium Level 3.7mmol/L (3.5-5.1) Chloride Level 105mmol/L (98-107) Carbon Dioxide Level 31mmol/L (21-32) Anion Gap 6 (6-14) Blood Urea Nitrogen 15mg/dL (7-20) Creatinine 1.4mg/dL (0.6-1.0) Estimated GFR (Cockcroft-Gault) 45.1 Glucose Level 153mg/dL (70-99) Calcium Level 8.9mg/dL (8.5-10.1) Test 09/20/16 11:10 Glucose (Fingerstick) 174mg/dL (70-99) Laboratory Tests Test 09/19/16 16:01 09/19/16 20:58 09/20/16 05:00 09/20/16 07:23 Glucose (Fingerstick) 249mg/dL (70-99) 174mg/dL (70-99) 165mg/dL (70-99) White Blood Count 8.1x10^3/uL (4.0-11.0) Red Blood Count 3.09x10^6/uL (3.50-5.40) Hemoglobin 7.4g/dL (12.0-15.5) Hematocrit 22.8% (36.0-47.0) Mean Corpuscular Volume 74fL (79-100) Mean Corpuscular Hemoglobin 24pg (25-35) Mean Corpuscular Hemoglobin Concent 32g/dL (31-37) Red Cell Distribution Width 19.9% (11.5-14.5) Platelet Count 377x10^3/uL (140-400) Neutrophils (%) (Auto) 65% (31-73) Lymphocytes (%) (Auto) 19% (24-48) Monocytes (%) (Auto) 10% (0-9) Eosinophils (%) (Auto) 5% (0-3) Basophils (%) (Auto) 1% (0-3) Neutrophils # (Auto) 5.2x10^3uL (1.8-7.7) Lymphocytes # (Auto) 1.5x10^3/uL (1.0-4.8) Monocytes # (Auto) 0.8x10^3/uL (0.0-1.1) Eosinophils # (Auto) 0.4x10^3/uL (0.0-0.7) Basophils # (Auto) 0.1x10^3/uL (0.0-0.2) Sodium Level 142mmol/L (136-145) Potassium Level 3.7mmol/L (3.5-5.1) Chloride Level 105mmol/L (98-107) Carbon Dioxide Level 31mmol/L (21-32) Anion Gap 6 (6-14) Blood Urea Nitrogen 15mg/dL (7-20) Creatinine 1.4mg/dL (0.6-1.0) Estimated GFR (Cockcroft-Gault) 45.1 Glucose Level 153mg/dL (70-99) Calcium Level 8.9mg/dL (8.5-10.1) Test 09/20/16 11:10 Glucose (Fingerstick) 174mg/dL (70-99) Microbiology 09/02/16 Blood Culture - Final, Complete NO GROWTH AFTER 5 DAYS 09/03/16 Gram Stain - Final, Complete 09/10/16 Gram Stain - Final, Complete Medications Current Medications Ondansetron HCl (Zofran) 4 mg PRN Q8HRS PRN IV NAUSEA/VOMITING; Start 09/02/16 at 15:15; Stop 09/03/16 at 15:14; Status DC Morphine Sulfate 2 mg PRN Q2HR PRN IV PAIN Last administered on 09/03/16 11:10 ; Start 09/02/16 at 15:15; Stop 09/03/16 at 15:14; Status DC Vancomycin HCl (Vanco Per Pharmacy) 1 each PRN DAILY PRN MC SEE COMMENTS Last administered on 09/07/16 11:48; Start 09/02/16 at 17:30; Stop 09/07/16 at 23:39 ; Status DC Piperacillin Sod/ Tazobactam Sod 1 each 1 each PRN DAILY PRN MC SEE COMMENTS; Start 09/02/16 at 17:30; Stop 09/04/16 at 13:59; Status DC Piperacillin Sod/ Tazobactam Sod 3.375 gm/Sodium Chloride 50 ml @ 100 mls/hr Q6HRS IV Last administered on 09/11/16 06:03; Start 09/02/16 at 18:00; Stop at 09:08; Status DC Vancomycin HCl 2 gm/Sodium Chloride 500 ml @ 250 mls/hr 1X ONCE IV Last administered on 09/02/16 20:53; Start 09/02/16 at 20:00; Stop 09/02/16 at 21:59; Status DC Vancomycin HCl/ Sodium Chloride (Iv Sodium Chloride 0.9% 500ml Bag) 500 ml @ 250 mls/hr Q12H IV Last administered on 09/04/16 09:18; Start 09/03/16 at 08:00 ; Stop 09/04/16 at 14:06; Status DC Vancomycin HCl 1 each 1X ONCE MC Last administered on 09/03/16 07:30; Start at 07:30; Stop 09/03/16 at 07:31; Status DC Aspirin (Ecotrin) 325 mg BID PO Last administered on 09/20/16 08:13; Start 09/03/16 at 21:00 Carvedilol (Coreg) 12.5 mg BIDWMEALS PO Last administered on 09/20/16 08:12; Start 09/03/16 at 17:00 Glipizide (Glucotrol) 5 mg DAILY PO Last administered on 09/03/16 13:10; Start 09/03/16 at 12:30; Stop 09/04/16 at 14:00; Status DC Lisinopril (Prinivil) 40 mg DAILY PO Last administered on 09/20/16 08:14; Start 09/03/16 at 12:30 Metformin HCl (Glucophage) 1,000 mg BIDWMEALS PO Last administered on 16:54; Start 09/03/16 at 17:00; Stop 09/12/16 at 19:50; Status DC Insulin Detemir (Levemir) 20 units DAILYWSUP SQ Last administered on 09/11/16 17:31; Start 09/03/16 at 17:00; Stop 09/12/16 at 19:50; Status DC Insulin Detemir (Levemir) 40 units DAILYWBKFT SQ Last administered on 08:37; Start 09/04/16 at 08:00; Stop 09/12/16 at 19:50; Status DC Oxycodone/ Acetaminophen (Percocet 5/325) 1 tab PRN Q6HRS PRN PO pain Last administered on 09/04/16 11:56; Start 09/03/16 at 12:00; Stop 09/05/16 at 11:41; Status DC Calcium/Vitamin D (Oscal D 500mg/ 200uts) 1 tab BIDWMEALS PO Last administered on 09/20/16 08:12; Start 09/03/16 at 17:00 Citalopram Hydrobromide (Celexa) 40 mg DAILY PO Last administered on 09/05/16 08:28; Start 09/04/16 at 09:00; Stop 09/05/16 at 13:44; Status DC Hydrochlorothiazide (Hydrodiuril) 25 mg DAILY PO Last administered on 08:12; Start 09/03/16 at 12:30 Atorvastatin Calcium (Lipitor) 10 mg QHS PO Last administered on 09/15/16 21: 46; Start 09/03/16 at 21:00; Stop 09/16/16 at 14:37; Status DC Multivitamins/ Calcium (Thera M Plus) 1 tab DAILY PO Last administered on 08:13; Start 09/03/16 at 12:30 Insulin Aspart (Novolog) 0-7 UNITS TIDWMEALS SQ Last administered on 09/03/16 17:14; Start 09/03/16 at 13:00; Stop 09/04/16 at 21:21; Status DC Dextrose 12.5 gm PRN Q15MIN PRN IV SEE COMMENTS; Start 09/03/16 at 12:15; Stop 09/05/16 at 13:32; Status DC Insulin Aspart (Novolog) 10 units TIDAC SQ Last administered on 09/09/16 12:15 ; Start 09/03/16 at 16:30; Stop 09/09/16 at 16:11; Status DC Polyethylene Glycol (miraLAX PACKET) 17 gm PRN DAILY PRN PO CONSTIPATION; Start 09/03/16 at 13:00 Polyethylene Glycol (miraLAX PACKET) 17 gm 1X ONCE PO Last administered on 09/03 13:18; Start 09/03/16 at 13:00; Stop 09/03/16 at 13:12; Status DC Docusate Sodium (Colace) 100 mg PRN DAILY PRN PO CONSTIPATION; Start 09/03/16 at 13:00; Stop 09/05/16 at 13:31; Status DC Lidocaine/Sodium Bicarbonate 20 ml 20 ml 1X ONCE IJ ; Start 09/03/16 at 15:15; Stop 09/03/16 at 15:16; Status DC Cefazolin Sodium/ Dextrose 50 ml @ 100 mls/hr 1X PREOP IV ; Start 09/06/16 at 06:00; Stop 09/06/16 at 06:00; Status DC Cefazolin Sodium/ Dextrose (Ancef 2gm Premix) 50 ml @ 100 mls/hr 1X PREOP ONCE IV Last administered on 09/04/16 14:24; Start 09/04/16 at 06:00; Stop at 06:29; Status DC Fentanyl Citrate (Fentanyl 2ml Vial) 25 mcg PRN Q5MIN PRN IV MILD PAIN; Start 09/04/16 at 09:30; Stop 09/05/16 at 09:29; Status DC Fentanyl Citrate (Fentanyl 2ml Vial) 50 mcg PRN Q5MIN PRN IV MODERATE PAIN Last administered on 09/04/16 16:54; Start 09/04/16 at 09:30; Stop 09/05/16 at 09: 29; Status DC Morphine Sulfate 1 mg 1 mg PRN Q10MIN PRN IV SEVERE PAIN; Start 09/04/16 at 09: 30; Stop 09/05/16 at 09:29; Status DC Lactated Ringer's (Iv Lactated Ringers) 1,000 ml @ 0 mls/hr Q0M IV Last administered on 09/04/16 13:49; Start 09/04/16 at 09:18; Stop 09/04/16 at 21:17; Status DC Lidocaine HCl 2 ml 1X PRN PRN ID IV START; Start 09/04/16 at 09:30; Stop at 09:29; Status DC Hydromorphone HCl (Dilaudid) 0.5 mg PRN Q10MIN PRN IV SEV PAIN,Second choice Last administered on 09/04/16 18:07; Start 09/04/16 at 09:30; Stop 09/05/16 at 09: 29; Status DC Prochlorperazine Edisylate 5 mg 5 mg PACU PRN PRN IV NAUSEA; Start 09/04/16 at 09:30; Stop 09/05/16 at 09:29; Status DC Cefazolin Sodium/ Dextrose (Ancef 2gm Premix) 50 ml @ As Directed STK-MED ONCE IV ; Start 09/04/16 at 13:12; Stop 09/04/16 at 13:13; Status DC Desflurane (Suprane) 60 ml STK-MED ONCE IH ; Start 09/04/16 at 13:42; Stop at 13:43; Status DC Fentanyl Citrate 100 mcg 100 mcg STK-MED ONCE .ROUTE ; Start 09/04/16 at 13:43; Stop 09/04/16 at 13:44; Status DC Propofol (Diprivan) 20 ml @ As Directed STK-MED ONCE IV ; Start 09/04/16 at 13:43 ; Stop 09/04/16 at 13:44; Status DC Lidocaine HCl 100 mg STK-MED ONCE .ROUTE ; Start 09/04/16 at 13:43; Stop 09/04/16 at 13:44; Status DC Dexamethasone Sodium Phosphate (Decadron) 20 mg STK-MED ONCE .ROUTE ; Start 09/04 at 13:43; Stop 09/04/16 at 13:44; Status DC Ondansetron HCl (Zofran) 4 mg STK-MED ONCE .ROUTE ; Start 09/04/16 at 13:43; Stop 09/04/16 at 13:44; Status DC Glipizide 5 mg 5 mg DAILYWBKFT PO Last administered on 09/16/16t 07:55; Start 09/05/16 at 08:00; Stop 09/16/16 at 14:37; Status DC Vancomycin HCl 1.25 gm/Sodium Chloride 250 ml @ 167 mls/hr Q12H IV Last administered on 09/07/16 22:12; Start 09/04/16 at 20:00; Stop 09/07/16 at 23:36 ; Status DC Propofol (Diprivan) 20 ml @ As Directed STK-MED ONCE IV ; Start 09/04/16 at 14:38 ; Stop 09/04/16 at 14:39; Status DC Albuterol Sulfate 2.5 mg 2.5 mg STK-MED ONCE .ROUTE ; Start 09/04/16 at 14:59; Stop 09/04/16 at 15:00; Status DC Tranexamic Acid/ Sodium Chloride (Cyklokapron/Iv Sodium Chloride 0.9% 50ml) 60 ml @ 60 mls/hr 1X PERIOP ONCE INJ Last administered on 09/04/16 15:12; Start 09/04/16 at 15:12; Stop 09/04/16 at 16:11; Status DC Fentanyl Citrate (Fentanyl 2ml Vial) 100 mcg STK-MED ONCE .ROUTE ; Start at 15:27; Stop 09/04/16 at 15:28; Status DC Acetaminophen/ Hydrocodone Bitart (Lortab 7.5/325) 1 tab PRN Q3HRS PRN PO PAIN Last administered on 09/20/16 10:20; Start 09/04/16 at 16:30 Acetaminophen/ Hydrocodone Bitart (Lortab 10/325) 1 tab PRN Q3HRS PRN PO PAIN Last administered on 09/16/16 00:31; Start 09/04/16 at 16:30 Tramadol HCl (Ultram) 50 mg PRN QID PRN PO PAIN; Start 09/04/16 at 16:30; Stop 09/05/16 at 13:32; Status DC Oxycodone/ Acetaminophen (Percocet 5/325) 1 tab PRN Q3HRS PRN PO PAIN Last administered on 09/20/16 08:11; Start 09/04/16 at 16:30 Oxycodone/ Acetaminophen (Percocet 7.5/ 325) 1 tab PRN Q3HRS PRN PO PAIN Last administered on 09/19/16 15:17; Start 09/04/16 at 16:30 Tramadol HCl (Ultram) 100 mg PRN Q3HRS PRN PO PAIN; Start 09/04/16 at 16:30; Stop 09/05/16 at 13:32; Status DC Diphenhydramine HCl (Benadryl) 25 mg PRN Q6HRS PRN IV ITCHING; Start 09/04/16 at 16:30 Senna/Docusate Sodium (Senna Plus) 1 tab DAILY PO Last administered on 08:13; Start 09/05/16 at 09:00 Prochlorperazine Maleate (Compazine) 10 mg PRN Q4HRS PRN PO NAUSEA/VOMITING; Start 09/04/16 at 16:30 Metoclopramide HCl (Reglan) 10 mg PRN Q4HRS PRN IV NAUSEA/VOMITING; Start at 16:30 Magnesium Hydroxide (Milk Of Magnesia) 2,400 mg 1X PRN PRN PO CONSTIPATION; Start 09/05/16 at 06:00; Stop 09/06/16 at 05:59; Status DC Bisacodyl (Dulcolax Supp) 10 mg 1X PRN PRN [place] CONSTIPATION; Start 09/05/16 at 16 :00; Stop 09/06/16 at 15:59; Status DC Acetaminophen (Tylenol) 650 mg PRN Q4HRS PRN PO MILD PAIN / TEMP; Start at 16:30 Zolpidem Tartrate (Ambien) 5 mg PRN QHS PRN PO INSOMNIA, MAY REPEAT IN 1HR Last administered on 09/18/16 21:05; Start 09/04/16 at 16:30 Calcium Carbonate/ Glycine (Tums) 500 mg PRN QID PRN PO INDIGESTION Last administered on 09/07/16 09:10; Start 09/04/16 at 16:30 Morphine Sulfate 4 mg PRN Q1HR PRN IV PAIN Last administered on 09/08/16 20:38 ; Start 09/04/16 at 16:30; Stop 09/10/16 at 11:20; Status DC Sodium Chloride (Normal Saline Flush) 10 ml QSHIFT PRN IV AFTER MEDS AND BLOOD DRAWS; Start 09/04/16 at 16:30; Status Cancel Prochlorperazine Edisylate (Compazine) 10 mg PRN Q4HRS PRN IV NAUSEA/VOMITING; Start 09/04/16 at 16:30 Dextrose 12.5 gm PRN Q15MIN PRN IV SEE COMMENTS Last administered on 09/12/16 19:36; Start 09/04/16 at 16:30 Insulin Aspart (Novolog) 0-7 UNITS QIDACHS SQ Last administered on 09/20/16 11 :28; Start 09/05/16 at 07:30 Insulin Aspart (Novolog) 12 units 1X ONCE SQ Last administered on 09/04/16 21: 43; Start 09/04/16 at 21:30; Stop 09/04/16 at 21:31; Status DC Polysaccharide Iron Complex (Niferex 150) 150 mg DAILY PO Last administered on 09/20/16 08:14; Start 09/05/16 at 09:00 Polyethylene Glycol (miraLAX PACKET) 17 gm 1X ONCE PO Last administered on 09/05 15:42; Start 09/05/16 at 14:00; Stop 09/05/16 at 14:01; Status DC Polyethylene Glycol (miraLAX PACKET) 17 gm DAILY PO Last administered on 08:39; Start 09/06/16 at 09:00; Stop 09/06/16 at 15:51; Status DC Docusate Sodium (Colace) 100 mg DAILY PO Last administered on 09/20/16 08:13; Start 09/05/16 at 14:00 Magnesium Hydroxide (Milk Of Magnesia) 2,400 mg 1X ONCE PO Last administered on 09/05/16 15:41; Start 09/05/16 at 13:45; Stop 09/05/16 at 13:46; Status DC Morphine Sulfate (Ms Contin) 15 mg BID PO Last administered on 09/20/16 08:11 ; Start 09/05/16 at 13:45 Citalopram Hydrobromide (Celexa) 20 mg DAILY PO Last administered on 09/20/16 08:14; Start 09/06/16 at 09:00 Polyethylene Glycol (miraLAX PACKET) 17 gm BID PO Last administered on 08:43; Start 09/06/16 at 21:00 Sodium Biphosphate/ Sodium Phosphate (Fleet Adult) 133 ml 1X ONCE UT ; Start at 16:00; Stop 09/06/16 at 16:04; Status DC Sodium Biphosphate/ Sodium Phosphate (Fleet Adult) 133 ml PRN DAILY PRN [place] CONSTIPATION; Start 09/07/16 at 09:00 Polyethylene Glycol (miraLAX PACKET) 17 gm 1X ONCE PO Last administered on 17:45; Start 09/06/16 at 16:00; Stop 09/06/16 at 16:04; Status DC Sodium Biphosphate/ Sodium Phosphate (Fleet Adult) 133 ml PRN 1X PRN [place] CONSTIPATION; Start 09/06/16 at 23:30; Stop 09/11/16 at 12:39; Status DC Vancomycin HCl 1 each 1X ONCE MC ; Start 09/07/16 at 19:30; Stop 09/07/16 at 19 :31; Status DC Alteplase, Recombinant 2 mg 2 mg 1X ONCE INT CAT Last administered on 15:09; Start 09/07/16 at 14:30; Stop 09/07/16 at 14:31; Status DC Daptomycin/Sodium Chloride (Cubicin/Iv Sodium Chloride 0.9% 50ml) 50 ml @ 100 mls/hr Q24H IV Last administered on 09/19/16 16:54; Start 09/08/16 at 16:00 Ondansetron HCl (Zofran) 4 mg PRN Q6HRS PRN IV Nausea; Start 09/10/16 at 07:00 ; Stop 09/10/16 at 23:00; Status DC Fentanyl Citrate (Fentanyl 2ml Vial) 25 mcg PRN Q5MIN PRN IV MILD PAIN; Start 09/10/16 at 07:00; Stop 09/10/16 at 23:00; Status DC Fentanyl Citrate (Fentanyl 2ml Vial) 50 mcg PRN Q5MIN PRN IV MODERATE PAIN Last administered on 09/10/16 11:53; Start 09/10/16 at 07:00; Stop 09/10/16 at 23:00; Status DC Morphine Sulfate 1 mg 1 mg PRN Q10MIN PRN IV SEVERE PAIN; Start 09/10/16 at 07: 00; Stop 09/10/16 at 23:00; Status DC Lactated Ringer's (Iv Lactated Ringers) 1,000 ml @ 30 mls/hr Q24H IV Last administered on 09/10/16 07:38; Start 09/10/16 at 07:00; Stop 09/10/16 at 18:59 ; Status DC Lidocaine HCl 2 ml 1X PRN PRN ID IV START; Start 09/10/16 at 07:00; Stop at 23:00; Status DC Hydromorphone HCl (Dilaudid) 0.5 mg PRN Q10MIN PRN IV SEVERE PAIN, Second choice Last administered on 09/10/16 12:20; Start 09/10/16 at 07:00; Stop 09/10 at 23:00; Status DC Prochlorperazine Edisylate (Compazine) 5 mg PACU PRN PRN IV NAUSEA; Start 09/10 at 07:00; Stop 09/10/16 at 23:00; Status DC Lidocaine HCl 100 mg STK-MED ONCE .ROUTE ; Start 09/10/16 at 07:06; Stop at 07:07; Status DC Dexamethasone Sodium Phosphate 20 mg 20 mg STK-MED ONCE .ROUTE ; Start 09/10/16 at 07:06; Stop 09/10/16 at 07:07; Status DC Propofol (Diprivan) 20 ml @ As Directed STK-MED ONCE IV ; Start 09/10/16 at 07: 06; Stop 09/10/16 at 07:07; Status DC Lidocaine HCl 100 mg STK-MED ONCE .ROUTE ; Start 09/10/16 at 07:06; Stop at 07:07; Status DC Famotidine (Pepcid) 20 mg STK-MED ONCE .ROUTE ; Start 09/10/16 at 07:06; Stop at 07:07; Status DC Fentanyl Citrate (Fentanyl 2ml Vial) 100 mcg STK-MED ONCE .ROUTE ; Start at 07:06; Stop 09/10/16 at 07:07; Status DC Rocuronium [place] 50 mg 50 mg STK-MED ONCE .ROUTE ; Start 09/10/16 at 07:06; Stop 09/10/16 at 07:07; Status DC Cefazolin Sodium/ Dextrose 50 ml @ As Directed STK-MED ONCE IV ; Start 09/10/16 at 07:24; Stop 09/10/16 at 07:25; Status DC Tranexamic Acid 1000 mg/Sodium Chloride 60 ml @ 60 mls/hr 1X PERIOP ONCE INJ Last administered on 09/10/16t 08:17; Start 09/10/16 at 08:00; Stop 09/10/16 at 08:59; Status DC Tranexamic Acid/ Sodium Chloride (Cyklokapron/Iv Sodium Chloride 0.9% 50ml) 60 ml @ 60 mls/hr 1X PERIOP ONCE INJ Last administered on 09/10/16 09:31; Start 09/10/16 at 08:00; Stop 09/10/16 at 08:59; Status DC Vancomycin HCl (Vanco) 10 gm 1X ONCE CEMENT Last administered on 09/10/16 08: 33; Start 09/10/16 at 08:00; Stop 09/10/16 at 08:01; Status Cancel Tobramycin Sulfate 7.2 gm 7.2 gm 1X ONCE TP ; Start 09/10/16 at 07:45; Stop at 07:46; Status Cancel Cefazolin Sodium/ Dextrose (Ancef 2gm Premix) 50 ml @ 100 mls/hr 1X ONCE IV Last administered on 09/10/16 08:09; Start 09/10/16 at 08:00; Stop 09/10/16 at 08:29; Status DC Tobramycin Sulfate 1.2 gm STK-MED ONCE .ROUTE Last administered on 09/10/16 08 :33; Start 09/10/16 at 08:01; Stop 09/10/16 at 08:02; Status DC Vancomycin HCl (Vanco) 10 gm STK-MED ONCE .ROUTE ; Start 09/10/16 at 08:01; Stop 09/10/16 at 08:02; Status DC Tobramycin Sulfate 1.2 gm STK-MED ONCE .ROUTE Last administered on 09/10/16 08 :33; Start 09/10/16 at 08:01; Stop 09/10/16 at 08:02; Status DC Tobramycin Sulfate 1.2 gm STK-MED ONCE .ROUTE Last administered on 09/10/16 08 :33; Start 09/10/16 at 08:02; Stop 09/10/16 at 08:03; Status DC Tobramycin Sulfate 1.2 gm STK-MED ONCE .ROUTE Last administered on 09/10/16 08 :33; Start 09/10/16 at 08:02; Stop 09/10/16 at 08:03; Status DC Tobramycin Sulfate 1.2 gm STK-MED ONCE .ROUTE Last administered on 09/10/16 08 :33; Start 09/10/16 at 08:02; Stop 09/10/16 at 08:03; Status DC Tobramycin Sulfate 1.2 gm STK-MED ONCE .ROUTE Last administered on 09/10/16 08 :33; Start 09/10/16 at 08:02; Stop 09/10/16 at 08:03; Status DC Fentanyl Citrate (Fentanyl 2ml Vial) 100 mcg STK-MED ONCE .ROUTE ; Start at 08:35; Stop 09/10/16 at 08:36; Status DC Ephedrine Sulfate 50 mg STK-MED ONCE IV ; Start 09/10/16 at 08:53; Stop at 08:54; Status DC Fentanyl Citrate (Fentanyl 2ml Vial) 100 mcg STK-MED ONCE .ROUTE ; Start at 08:55; Stop 09/10/16 at 08:56; Status DC Labetalol HCl (Normodyne) 20 mg STK-MED ONCE .ROUTE ; Start 09/10/16 at 09:07; Stop 09/10/16 at 09:08; Status DC Glycopyrrolate (Robinul) 1 mg STK-MED ONCE .ROUTE ; Start 09/10/16 at 09:34; Stop 09/10/16 at 09:35; Status DC Neostigmine Methylsulfate 5 mg STK-MED ONCE .ROUTE ; Start 09/10/16 at 09:34; Stop 09/10/16 at 09:35; Status DC Sevoflurane (Ultane) 90 ml STK-MED ONCE IH ; Start 09/10/16 at 10:05; Stop 09/10 at 10:06; Status DC Acetaminophen/ Hydrocodone Bitart (Lortab 7.5/325) 1 tab PRN Q3HRS PRN PO PAIN ; Start 09/10/16 at 11:15; Stop 09/10/16 at 14:20; Status DC Acetaminophen/ Hydrocodone Bitart (Lortab 10/325) 1 tab PRN Q3HRS PRN PO PAIN; Start 09/10/16 at 11:15; Stop 09/10/16 at 14:20; Status DC Tramadol HCl (Ultram) 50 mg PRN QID PRN PO PAIN Last administered on 09/14/16t 16:34; Start 09/10/16 at 11:15 Oxycodone/ Acetaminophen (Percocet 5/325) 1 tab PRN Q3HRS PRN PO PAIN; Start at 11:15; Stop 09/11/16 at 12:38; Status DC Oxycodone/ Acetaminophen (Percocet 7.5/ 325) 1 tab PRN Q3HRS PRN PO PAIN; Start 09/10/16 at 11:15; Stop 09/11/16 at 12:38; Status DC Tramadol HCl (Ultram) 100 mg PRN Q3HRS PRN PO PAIN; Start 09/10/16 at 11:15 Morphine Sulfate 2 mg PRN Q1HR PRN IV PAIN Last administered on 09/11/16 21:17 ; Start 09/10/16 at 11:15 Fentanyl Citrate (Fentanyl 2ml Vial) 25 mcg PRN Q1HR PRN IV PAIN; Start at 11:15 Diphenhydramine HCl (Benadryl) 25 mg PRN Q6HRS PRN IV ITCHING; Start 09/10/16 at 11:15; Status Cancel Multivitamins/ Calcium (Thera M Plus) 1 tab DAILY PO ; Start 09/11/16 at 09:00; Stop 09/11/16 at 09:00; Status DC Senna/Docusate Sodium 1 tab 1 tab DAILY PO ; Start 09/11/16 at 09:00; Stop 09/11 at 09:00; Status DC Dextrose/Sodium Chloride (Iv D5% - 1/2 NS) 1,000 ml @ 100 mls/hr Q10H IV Last administered on 09/11/16 21:19; Start 09/10/16 at 12:00; Stop 09/12/16 at 16:52 ; Status DC Prochlorperazine Maleate (Compazine) 10 mg PRN Q4HRS PRN PO NAUSEA/VOMITING; Start 09/10/16 at 11:15; Stop 09/10/16 at 11:20; Status DC Metoclopramide HCl (Reglan) 10 mg PRN Q4HRS PRN IV NAUSEA/VOMITING; Start 09/10 at 11:15; Stop 09/10/16 at 11:21; Status DC Magnesium Hydroxide (Milk Of Magnesia) 2,400 mg 1X PRN PRN PO CONSTIPATION; Start 09/11/16 at 06:00; Stop 09/12/16 at 05:59; Status DC Bisacodyl (Dulcolax Supp) 10 mg 1X PRN PRN [place] CONSTIPATION; Start 09/11/16 at 16:00; Stop 09/12/16 at 15:59; Status DC Acetaminophen (Tylenol) 650 mg PRN Q4HRS PRN PO MILD PAIN / TEMP; Start at 11:15; Stop 09/10/16 at 11:21; Status DC Zolpidem Tartrate (Ambien) 5 mg PRN QHS PRN PO INSOMNIA, MAY REPEAT IN 1HR; Start 09/10/16 at 11:15; Stop 09/10/16 at 11:21; Status DC Calcium Carbonate/ Glycine (Tums) 500 mg PRN QID PRN PO INDIGESTION; Start at 11:15; Stop 09/10/16 at 11:21; Status DC Morphine Sulfate 4 mg PRN Q1HR PRN IV PAIN Last administered on 09/20/16 11:07 ; Start 09/10/16 at 11:15 Morphine Sulfate 6 mg PRN Q1HR PRN IV PAIN Last administered on 09/10/16 18:38 ; Start 09/10/16 at 11:15 Morphine Sulfate 8 mg PRN Q1HR PRN IV PAIN; Start 09/10/16 at 11:15 Sodium Chloride (Normal Saline Flush) 10 ml QSHIFT PRN IV AFTER MEDS AND BLOOD DRAWS; Start 09/10/16 at 11:15 Fentanyl Citrate (Fentanyl 2ml Vial) 50 mcg PRN Q1HR PRN IV PAIN; Start at 11:15 Prochlorperazine Edisylate (Compazine) 10 mg PRN Q4HRS PRN IV NAUSEA/VOMITING; Start 09/10/16 at 11:15; Stop 09/10/16 at 11:21; Status DC Dextrose 12.5 gm 12.5 gm PRN Q15MIN PRN IV SEE COMMENTS; Start 09/10/16 at 11: 15; Stop 09/10/16 at 11:21; Status DC Cefazolin Sodium/ Dextrose (Ancef 2gm Premix) 50 ml @ 100 mls/hr Q6H IV ; Start 09/10/16 at 11:15; Stop 09/10/16 at 11:15; Status DC Potassium Chloride 40 meq 40 meq 1X ONCE PO Last administered on 09/10/16 14: 59; Start 09/10/16 at 12:15; Stop 09/10/16 at 12:16; Status DC Ertapenem/Sodium Chloride (Invanz/Iv Sodium Chloride 0.9% 50ml) 50 ml @ 100 mls /hr Q24H IV Last administered on 09/20/16 10:20; Start 09/11/16 at 10:00 Heparin Sodium (Porcine) 5,000 unit Q8HRS SQ Last administered on 09/20/16 05: 29; Start 09/11/16 at 14:00 Amlodipine Besylate (Norvasc) 5 mg DAILY PO Last administered on 09/20/16 08: 13; Start 09/12/16 at 11:15 Alprazolam (Xanax) 0.25 mg PRN Q8HRS PRN PO ANXIETY / AGITATION Last administered on 09/20/16 10:20; Start 09/15/16 at 12:00 Glipizide (Glucotrol) 5 mg BIDBFRMEAL PO Last administered on 09/20/16 08:12; Start 09/16/16 at 16:30 Magnesium Hydroxide (Milk Of Magnesia) 2,400 mg 1X ONCE PO Last administered on 09/18/16 11:34; Start 09/18/16 at 10:15; Stop 09/18/16 at 10:16; Status DC Active Scripts Active Aspirin Ec (Aspirin) 325 Mg Tablet.dr 325 Mg PO BID 30 Days Reported Percocet 5-325 Mg Tablet (Oxycodone/Acetaminophen) 1 Each Tablet 1-2 Tab PO Q4- 6HRS LAST DOSE GIVEN: DATE: 08/02/16 TIME: 2:00 NEXT DOSE DUE: DATE: 08/02/16 TIME: 6:00pm as needed for pain Percocet 5-325 Mg Tablet (Oxycodone/Acetaminophen) 1 Each Tablet 1-2 Tab PO Q4- 6HRS Calcium 600 + Vit D 200 Tablet (Calcium Carbonate/Vitamin D3) 1 Each Tablet 1 Each PO BID Hair, Skin & Nails (Multivitamin With Minerals) 1 Each Tablet 1 Each PO DAILY Carvedilol 12.5 Mg Tablet 12.5 Mg PO BIDWMEALS Lovastatin 40 Mg Tablet 40 Mg PO HS Metformin Hcl 1,000 Mg Tablet 1 Tab PO BID Hydrochlorothiazide Tablet (Hydrochlorothiazide) 12.5 Mg Tablet 25 Mg PO DAILY Novolin N (Nph, Human Insulin Isophane) 100 Unit/1 Ml Vial 20 Unit SQ [id number] Novolin N (Nph, Human Insulin Isophane) 100 Unit/1 Ml Vial 40 Unit SQ [id number] Glipizide 5 Mg Tablet 5 Mg PO DAILY Lisinopril 40 Mg Tablet 40 Mg PO DAILY Citalopram Hbr (Citalopram Hydrobromide) 40 Mg Tablet 40 Mg PO DAILY Vitals/I & O Vital Sign - Last 24 Hours 09/19/16 09/19/16 09/19/16 09/19/16 15:00 16:54 19:00 22:21 Temp 98.0 98.2 98.0 98.2 Pulse 83 83 80 Resp 20 16 B/P 122/54 122/54 139/58 Pulse Ox 90 93 93 O2 Delivery Room Air Room Air Room Air 09/19/16 09/20/16 09/20/16 09/20/16 23:00 02:21 03:00 07:00 Temp 100.4 98.4 98.1 100.4 98.4 98.1 Pulse 90 80 85 Resp 18 20 20 B/P 124/50 135/60 151/59 Pulse Ox 94 94 93 95 O2 Delivery Room Air Room Air Room Air Room Air 09/20/16 09/20/16 09/20/16 09/20/16 08:12 08:13 08:14 11:00 Temp 98.4 98.4 Pulse 85 85 85 73 Resp 20 B/P 159/59 159/59 159/59 141/42 Pulse Ox 93 O2 Delivery Room Air RIK SIMPSON III DO Sep 20, 2016 12:37
[2016-09-20] MEDS: OXYCODONE/APAP 7.5/325 TABLET. PO PRN ×2 (14:03→16:28)
[2016-09-20] MEDS: NORMAL SALINE IV SCH (14:40)
[2016-09-20] MEDS: DAPTOMYCIN IV SCH (14:40)
[2016-09-20 15:00] VITALS: BP 142/67
[2016-09-20 16:28] VITALS: BP 142/67
== END 2016-09-20 16:45 | DRG 466 ==
LOC: ER 12:08 → 5 NORTH 15:10 → 4 NORTH 09-04 16:59
PROVIDERS: ADMIT Internal Medicine; ATTEND Internal Medicine
PROC: 0SRV0J9 Replacement of Right Knee Joint, Tibial Surface with Synthetic Substitute, Cemented, Open Approach (ICD-10-PCS; 2016-09-04)
PROC: 0MBN0ZZ Excision of Right Knee Bursa and Ligament, Open Approach (ICD-10-PCS; 2016-09-04)
PROC: 0SBC0ZZ Excision of Right Knee Joint, Open Approach (ICD-10-PCS; 2016-09-04)
PROC: 0SPV0JZ Removal of Synthetic Substitute from Right Knee Joint, Tibial Surface, Open Approach (ICD-10-PCS; principal; 2016-09-04 14:00)
PROC: 0SPC0JZ Removal of Synthetic Substitute from Right Knee Joint, Open Approach (ICD-10-PCS; 2016-09-10)
PROC: 0SHC08Z Insertion of Spacer into Right Knee Joint, Open Approach (ICD-10-PCS; 2016-09-10)
PROC: 30233N1 Transfusion of Nonautologous Red Blood Cells into Peripheral Vein, Percutaneous Approach (ICD-10-PCS; 2016-09-11)
DX: T84.53XA Infection and inflammatory reaction due to internal right knee prosthesis, initial encounter (principal); A41.9 Sepsis, unspecified organism; E44.0 Moderate protein-calorie malnutrition; N18.3 Chronic kidney disease, stage 3 (moderate); D64.9 Anemia, unspecified; E11.22 Type 2 diabetes mellitus with diabetic chronic kidney disease; Y83.1 Surgical operation with implant of artificial internal device as the cause of abnormal reaction of the patient, or of later complication, without mention of misadventure at the time of the procedure; E66.9 Obesity, unspecified; E78.00 Pure hypercholesterolemia, unspecified; E78.5 Hyperlipidemia, unspecified; I12.9 Hypertensive chronic kidney disease with stage 1 through stage 4 chronic kidney disease, or unspecified chronic kidney disease; K59.00 Constipation, unspecified; M81.0 Age-related osteoporosis without current pathological fracture; Z68.34 Body mass index [BMI] 34.0-34.9, adult; Z79.2 Long term (current) use of antibiotics; Z82.49 Family history of ischemic heart disease and other diseases of the circulatory system; Z91.048 Other nonmedicinal substance allergy status
CPT/HCPCS: 36415; 71010; 73560; 73562; 80048; 80053; 80076; 80202; 82550; 82565; 82728; 82947; 83036; 83540; 83550; 83605; 83690; 83735; 83880; 84484; 85014; 85018; 85027; 85651; 86140; 86850; 86900; 86901; 86920; 87040; 87071; 87075; 87102; 87116; 87186; 87205; 89050; G0379; J0690; J0878; J1100; J1170; J1335; J1815; J2270; J2405; J2543; J2704; J2710; J2997; J3010; J3260; J3370; J3490; J7030; J7040; J7042; J7050; J7120; P9040; S0028; 97110; 97116; 97530; 97535; 99285-25; C1769

== ENCOUNTER → 2016-10-11 | Outpatient (CLI) | payer MEDICARE ==
[2016-10-04 09:56] VITALS: BP 102/48
[~2016-10-11] MED LIST changes: +ACET325T16 PO; +HYDR-2672 PO; +POLY17PO5 PO; +TRAM50TA PO; +ZOLP5TAB PO
== END | disposition home or self-care (01) ==
LOC: PMGWOUND 10:00
PROVIDERS: ATTEND Preventive Medicine Undersea and Hyperbaric Medicine
DX: L89.894 Pressure ulcer of other site, stage 4 (principal); M19.90 Unspecified osteoarthritis, unspecified site
CPT/HCPCS: 99214

== ENCOUNTER → 2016-12-16 | Outpatient (CLI) | payer BC, MEDICARE ==
[2016-12-13 11:00] VITALS: BP 155/64
[~2016-12-16] MED LIST changes: +ALPR0.5T PO; +AMLO10TA2 PO; +ASPI325T4 PO; +BISA10SU55 RC; +CITA40TA12 PO; +DABI150C PO; +DOCU50CA8 PO; +DONE5TAB33 PO; +ENOX40DI SQ; +FERR159T3 PO; +HYDR-963 PO; +INSU100I27 SQ; +INSU100V13 SQ; +INSU100V31 SQ; +LACT1CAP PO; +LACT1CAP2 PO; +LISI10TA2 PO; +MEDR10TA3 PO; +METF-620 PO; -METF10002 PO; +METF750T2 PO; +NYST60PO TP; +POLY17PO29 PO; -POLY17PO5 PO; +VIT500LI PO; +WARF5TAB7 PO
== END | disposition home or self-care (01) ==
LOC: PMGWOUND 13:06
PROVIDERS: ATTEND Emergency Medicine Undersea and Hyperbaric Medicine
DX: T81.31XA Disruption of external operation (surgical) wound, not elsewhere classified, initial encounter (principal); L89.894 Pressure ulcer of other site, stage 4; M19.90 Unspecified osteoarthritis, unspecified site; E11.22 Type 2 diabetes mellitus with diabetic chronic kidney disease; I13.0 Hypertensive heart and chronic kidney disease with heart failure and stage 1 through stage 4 chronic kidney disease, or unspecified chronic kidney disease; N18.4 Chronic kidney disease, stage 4 (severe); I50.9 Heart failure, unspecified; E78.5 Hyperlipidemia, unspecified; E11.649 Type 2 diabetes mellitus with hypoglycemia without coma; F03.90 Unspecified dementia, unspecified severity, without behavioral disturbance, psychotic disturbance, mood disturbance, and anxiety; E43 Unspecified severe protein-calorie malnutrition; E11.36 Type 2 diabetes mellitus with diabetic cataract; E78.00 Pure hypercholesterolemia, unspecified; F41.9 Anxiety disorder, unspecified; Z79.4 Long term (current) use of insulin; Z96.651 Presence of right artificial knee joint; Z86.14 Personal history of Methicillin resistant Staphylococcus aureus infection; Z86.718 Personal history of other venous thrombosis and embolism; Y83.8 Other surgical procedures as the cause of abnormal reaction of the patient, or of later complication, without mention of misadventure at the time of the procedure; Y92.9 Unspecified place or not applicable
CPT/HCPCS: 99214

== ENCOUNTER → 2016-12-30 | Outpatient (CLI) | payer BC ==
[2016-12-13 11:00] VITALS: BP 155/64
== END | disposition home or self-care (01) ==
LOC: PMGWOUND 11:35
PROVIDERS: ATTEND Emergency Medicine Undersea and Hyperbaric Medicine
DX: T81.31XD Disruption of external operation (surgical) wound, not elsewhere classified, subsequent encounter (principal); L89.894 Pressure ulcer of other site, stage 4; M19.90 Unspecified osteoarthritis, unspecified site; Y83.8 Other surgical procedures as the cause of abnormal reaction of the patient, or of later complication, without mention of misadventure at the time of the procedure
CPT/HCPCS: 82962; 99214

== ENCOUNTER → 2017-01-10 | Outpatient (CLI) | payer BC ==
[2016-12-13 11:00] VITALS: BP 155/64
[~2017-01-10] MED LIST changes: +ASPI-630 PO; -ASPI325T4 PO; +ASPI325T8 PO; -ASPI81TA2 PO; -CLIN-44 PO; +CLIN150C14 PO; -DONE5TAB33 PO; +DONE5TAB56 PO; -HYDR-2672 PO; +HYDR-2766 PO; -MELO-156 PO; +MELO7.5T29 PO; -NPH,100V4 SQ; +NPH,100V5 SQ
== END | disposition home or self-care (01) ==
LOC: PMGWOUND 11:28
PROVIDERS: ATTEND Preventive Medicine Undersea and Hyperbaric Medicine
DX: L89.894 Pressure ulcer of other site, stage 4 (principal); M19.90 Unspecified osteoarthritis, unspecified site; F41.9 Anxiety disorder, unspecified; E11.22 Type 2 diabetes mellitus with diabetic chronic kidney disease; I13.0 Hypertensive heart and chronic kidney disease with heart failure and stage 1 through stage 4 chronic kidney disease, or unspecified chronic kidney disease; N18.4 Chronic kidney disease, stage 4 (severe); I50.9 Heart failure, unspecified; E11.36 Type 2 diabetes mellitus with diabetic cataract; E78.5 Hyperlipidemia, unspecified; E78.00 Pure hypercholesterolemia, unspecified; Z79.4 Long term (current) use of insulin; Z86.718 Personal history of other venous thrombosis and embolism; Z86.14 Personal history of Methicillin resistant Staphylococcus aureus infection; Z79.01 Long term (current) use of anticoagulants
CPT/HCPCS: 17250